=== PATIENT | female | born 1960 | race Caucasian/White ===

== ENCOUNTER → 2017-01-05 | Outpatient (CLI) | payer BC, OTHER ==
[~2017-01-05] VITALS: Ht 165.1 cm; Wt 75.7 kg
[~2017-01-05] MED LIST: ACIP20TA5 PO; B 12; BIOT10005; CALTTAB6 PO; D31000CA PO; FOSA70TA PO; GABA300C3 PO; GAS-80CH PO; MULT1TAB9 PO; NORT10SO PO; NS 1,000 ML IV SCH; PAME10CA PO; PROPOFOL 200 MG/20 ML VIAL As Ordered ONE; SING10TA32 PO; SKEL-29 PO; SOMA350T PO; TOPA100T8 PO; TRAM50TA2 PO; VICO5TAB16 PO; VITA10002 PO; VITACAP16 PO; VITAMIN B12 INJ IM; WELLTAB40 PO; ZYRT10CA PO
[2017-01-05 09:30] VITALS: BP 118/69
--- NOTE | 2017-01-05 09:53 | ROOR ---
Patient Name: Leia Aguilar Procedure Date: 01/05/2017 8:48 AM Date of : 1960 Age: 56 Room: [facility] Gender: Female Note Status: Finalized Procedure: Colonoscopy Indications: Screening for colorectal malignant neoplasm Providers: Judd Horan Jr, MD Referring MD: MARCELLO DANIELS MD Requesting Provider: Medicines: Propofol per Anesthesia Complications: No immediate complications. Procedure: Pre-Anesthesia Assessment: - Prior to the procedure, a History and Physical was performed, and patient medications and allergies were reviewed. The patient is competent. The risks and benefits of the procedure and the sedation options and risks were discussed with the patient. All questions were answered and informed consent was obtained. Patient identification and proposed procedure were verified by the physician and the nurse in the pre-procedure area and in the procedure room. Mental Status Examination: alert and oriented. Airway Examination: normal oropharyngeal airway and neck mobility. Respiratory Examination: clear to auscultation. CV Examination: normal. ASA Grade Assessment: II - A patient with mild systemic disease. After reviewing the risks and benefits, the patient was deemed in satisfactory condition to undergo the procedure. The anesthesia plan was to use moderate sedation / analgesia (conscious sedation). Immediately prior to administration of medications, the patient was re-assessed for adequacy to receive sedatives. The heart rate, respiratory rate, oxygen saturations, blood pressure, adequacy of pulmonary ventilation, and response to care were monitored throughout the procedure. The physical status of the patient was re-assessed after the procedure. The Colonoscope was introduced through the anus and advanced to the cecum, identified by appendiceal orifice and ileocecal valve. The colonoscopy was performed without difficulty. The patient tolerated the procedure well. The quality of the bowel preparation was adequate and good. Findings: The perianal and digital rectal examinations were normal. Pertinent negatives include normal sphincter tone, no palpable rectal lesions and no anal lesion or abnormality was detected. The rectum, recto-sigmoid colon, sigmoid colon, descending colon, transverse colon, ascending colon, cecum, appendiceal orifice and ileocecal valve appeared normal. Impression: - The rectum, recto-sigmoid colon, sigmoid colon, descending colon, transverse colon, ascending colon, cecum, appendiceal orifice and ileocecal valve are normal. - No specimens collected. Recommendation: - Discharge patient to home (ambulatory). - Repeat colonoscopy in 10 years for screening purposes. Judd Horan MD Judd Horan Jr, MD 01/05/2017 9:52:42 AM This report has been signed electronically. Number of Addenda: 0 Note Initiated On: 01/05/2017 8:48 AM Estimated Blood Loss: Estimated blood loss: none.
== END ==
LOC: M OPP 08:06
PROVIDERS: ATTEND Surgery
DX: Z12.11 Encounter for screening for malignant neoplasm of colon (principal); F32.9 Major depressive disorder, single episode, unspecified; K21.9 Gastro-esophageal reflux disease without esophagitis; F41.9 Anxiety disorder, unspecified; E66.9 Obesity, unspecified; Z85.828 Personal history of other malignant neoplasm of skin; Z98.84 Bariatric surgery status; J30.2 Other seasonal allergic rhinitis; Z79.899 Other long term (current) drug therapy; Z88.1 Allergy status to other antibiotic agents

== ENCOUNTER → 2017-03-21 | Outpatient (CLI) | payer BC, OTHER ==
[~2017-03-21] MED LIST changes: +GABA-282 PO; -GABA300C3 PO; -NS 1,000 ML IV SCH; -PROPOFOL 200 MG/20 ML VIAL As Ordered ONE
--- NOTE | 2017-03-21 11:53 | REP ---
CT LUMBAR SPINE WITHOUT CONTRAST: HISTORY: Disc degeneration. A disc bulge with associated osteophyte formation is present at the L1-2 level. There is minimal compression of the thecal sac. The L1 nerves exit the neural foramina without compression. A diffuse disc bulge is present at the L2-3 level. There is minimal compression of the thecal sac. The L2 nerves exit the neural foramina without compression. A diffuse disc bulge is present at the L3-4 level. There is minimal compression of the thecal sac. The L3 nerves exit the neural foramina without compression. A diffuse disc bulge is present at the L4-5 level. There is hypertrophy of the ligamenta flava and posterior articulating facets. There are 6 mm of grade 1 spondylolisthesis of L4 on 5. These findings produce mild central canal stenosis. There is compression of the right L4 nerve in the neural foramen. The left L4 nerve exits the neural foramen without compression. A diffuse disc bulge is present at the L5-S1 level. There is minimal compression of the thecal sac. There is hypertrophy of the posterior articulating facets. The L5 nerves exit the neural foramina without compression. The T11-12 through L5-S1 intervertebral discs are decreased in height. Vacuum phenomenon is present at the T12-L1 level. These findings are consistent with disc degeneration. There is scoliosis convex to the right. IMPRESSION: 1. Diffuse disc bulge with associated osteophyte formation at the L1-2 level with minimal thecal sac compression. 2. Diffuse disc bulges at the L2-3, L3-4, and L5-S1 levels with minimal thecal sac compression. 3. Mild central canal stenosis at the L4-5 level secondary to disc bulge, ligamentous and facet hypertrophy and grade 1 spondylolisthesis. There is compression of the right L4 nerve in the neural foramen. Signed by Timoteo Pineda MD 03/21/2017 11:55 A
== END ==
LOC: M RAD 10:19
PROVIDERS: ATTEND Physician Assistant
DX: M51.36 Other intervertebral disc degeneration, lumbar region (principal); M51.26 Other intervertebral disc displacement, lumbar region; M51.27 Other intervertebral disc displacement, lumbosacral region; M48.07 Spinal stenosis, lumbosacral region

== ENCOUNTER → 2017-08-09 | Outpatient (REF) | payer OTHER ==
[~2017-08-09] MED LIST changes: +ACIP1TAB PO; -ACIP20TA5 PO; -BIOT10005; +BIOT10008; -D31000CA PO; +D31000CA4 PO; -SKEL-29 PO; +SKEL800T97 PO; +TOPA100T12 PO; -TOPA100T8 PO
[2017-08-09 21:13] LABS: MICROSCOPIC INDICATED? MAN YES (NO)
[2017-08-09 21:21] LABS: BACTERIA, URINE LARGE AMOUNT; CALCIUM OXALATE CRYSTALS,URINE SMALL AMOUNT /hpf; HYALINE CAST, URINE NONE SEEN /lpf (0-1); MICROSCOPIC EXAM PERFORMED; SQUAMOUS EPITHELIAL CELL URINE SMALL AMOUNT /hpf (SMALL AMT); WBC, URINE TNTC /hpf (0-3)
== END ==
LOC: M LAB REF 16:37
PROVIDERS: ATTEND Physician Assistant
DX: N39.0 Urinary tract infection, site not specified (principal)

== ENCOUNTER 2017-09-09 13:07 | Emergency (ER) | payer BC, OTHER ==
[~2017-09-09] VITALS: Ht 162.6 cm; Wt 75.9 kg
[2017-09-09] MEDS ORDERED: CELE1CAP9 PO (13:21)
[2017-09-09] MEDS ORDERED: CLIN150C14 PO ×2 (14:44→16:04)
[2017-09-09] MEDS ORDERED: CLINDAMYCIN 150 MG CAP PO ONE (14:45)
[2017-09-09] MEDS ORDERED: PERC5TAB12 PO ×2 (14:46→16:05)
[2017-09-09 14:59] VITALS: BP 147/77
== END 2017-09-09 15:01 | disposition home or self-care (01) ==
LOC: M ED 13:07
DX: K04.7 Periapical abscess without sinus (principal); K08.89 Other specified disorders of teeth and supporting structures; K21.9 Gastro-esophageal reflux disease without esophagitis; M81.0 Age-related osteoporosis without current pathological fracture; Z79.899 Other long term (current) drug therapy; Z97.2 Presence of dental prosthetic device (complete) (partial); Z88.1 Allergy status to other antibiotic agents; Z88.2 Allergy status to sulfonamides

== ENCOUNTER → 2018-02-05 | Outpatient (REF) | payer BC, OTHER ==
[2018-02-05 13:48] LABS: APPEARANCE, URINE CLEAR (CLEAR); BACTERIA, URINE AUTO 2+ (NEGATIVE); BILIRUBIN, URINE AUTO NEGATIVE (NEGATIVE); BLOOD, URINE BLOOD NEGATIVE (NEGATIVE); COLOR, URINE AMBER (YELLOW); GLUCOSE, URINE (UA) AUTO NEGATIVE (NEGATIVE); KETONE, URINE AUTO NEGATIVE (NEGATIVE); LEUKOCYTE ESTERASE, URINE AUTO 3+ (NEGATIVE); MUCUS, URINE SMALL (NEGATIVE); NITRITE, URINE AUTO POSITIVE (NEGATIVE); PROTEIN, URINE AUTO NEGATIVE (NEGATIVE); RBC, URINE AUTO 4 /HPF (0-3); SPECIFIC GRAVITY URINE AUTO 1.005 (1.002-1.035); SQUAMOUS EPITHELIAL CELL UR AU 0 /HPF (0-6); WBC, URINE AUTO 103 /HPF (0-3)
== END ==
LOC: M LAB REF 12:57
DX: N39.0 Urinary tract infection, site not specified (principal)
CPT/HCPCS: 81001

== ENCOUNTER → 2018-04-13 | Outpatient (CLI) | payer OTHER | LOC: M PAIN 09:30 | DX: M79.1 Myalgia (principal); M54.5 Low back pain; M54.2 Cervicalgia; G89.29 Other chronic pain; G43.909 Migraine, unspecified, not intractable, without status migrainosus; F32.9 Major depressive disorder, single episode, unspecified; K21.9 Gastro-esophageal reflux disease without esophagitis; Z79.899 Other long term (current) drug therapy; Z88.1 Allergy status to other antibiotic agents | CPT/HCPCS: G0463 ==

== ENCOUNTER → 2018-04-18 | Outpatient (CLI) | payer BC, OTHER ==
[~2018-04-18] MED LIST changes: -ACIP1TAB PO; -B 12; -BIOT10008; +BUPIVACAINE HCL 0.25% 10 ML VIAL As Ordered; +BUPIVACAINE HCL 0.25% 30 ML VIAL As Ordered; -CALTTAB6 PO; -D31000CA4 PO; -FOSA70TA PO; -GABA-282 PO; -GAS-80CH PO; -MULT1TAB9 PO; -NORT10SO PO; -PAME10CA PO; -SING10TA32 PO; -SKEL800T97 PO; -SOMA350T PO; -TOPA100T12 PO; -TRAM50TA2 PO; +TRIAMCINOLONE ACETONIDE SUSP 40 MG/ML VIAL (J3301) As Ordered; -VICO5TAB16 PO; -VITA10002 PO; -VITACAP16 PO; -VITAMIN B12 INJ IM; -WELLTAB40 PO; -ZYRT10CA PO; +diazePAM 5 MG TAB As Ordered; +oxyCODONE 5MG TAB As Ordered
== END ==
LOC: M PAIN 10:15
DX: G89.29 Other chronic pain (principal); M79.1 Myalgia; G43.909 Migraine, unspecified, not intractable, without status migrainosus; K21.9 Gastro-esophageal reflux disease without esophagitis; F32.9 Major depressive disorder, single episode, unspecified; Z79.891 Long term (current) use of opiate analgesic; Z79.899 Other long term (current) drug therapy; Z88.1 Allergy status to other antibiotic agents; Z98.84 Bariatric surgery status; Z90.711 Acquired absence of uterus with remaining cervical stump
CPT/HCPCS: J3301

== ENCOUNTER → 2018-05-03 | Outpatient (CLI) | payer BC, OTHER | LOC: M PAIN 11:45 | DX: M79.1 Myalgia (principal); G43.909 Migraine, unspecified, not intractable, without status migrainosus; K21.9 Gastro-esophageal reflux disease without esophagitis; F32.9 Major depressive disorder, single episode, unspecified; M54.2 Cervicalgia; Z79.891 Long term (current) use of opiate analgesic; Z79.899 Other long term (current) drug therapy; Z88.2 Allergy status to sulfonamides | CPT/HCPCS: G0463 ==

== ENCOUNTER → 2018-06-01 | Outpatient (CLI) | payer BC, OTHER | LOC: M PAIN 11:45 | DX: G89.29 Other chronic pain (principal); M79.1 Myalgia; G43.909 Migraine, unspecified, not intractable, without status migrainosus; K21.9 Gastro-esophageal reflux disease without esophagitis; F32.9 Major depressive disorder, single episode, unspecified; Z79.891 Long term (current) use of opiate analgesic; Z79.899 Other long term (current) drug therapy; Z90.710 Acquired absence of both cervix and uterus; Z98.84 Bariatric surgery status; Z88.1 Allergy status to other antibiotic agents; Z96.9 Presence of functional implant, unspecified | CPT/HCPCS: J3301 ==

== ENCOUNTER 2018-07-23 10:16 | Inpatient (IN) | payer BC, OTHER ==
[2018-07-23 11:56] LABS: HEMATOCRIT 40.6 % (36.0-47.0); HEMOGLOBIN 13.3 g/dl (12.0-15.5); MEAN CORPUSCULAR HEMOGLOBIN 28.7 pg (27.0-33.0); MEAN CORPUSCULAR HGB CONC 32.8 g/dl (32.0-36.5); MEAN CORPUSCULAR VOLUME 87.7 fl (80.0-96.0); PLATELET COUNT, AUTOMATED 257 10^3/uL (150-450); RED BLOOD COUNT 4.63 10^6/uL (4.00-5.40); WHITE BLOOD COUNT 6.2 10^3/uL (4.0-10.0)
[2018-07-23 12:07] LABS: INR 0.93; PROTHROMBIN TIME 12.6 SECONDS (12.1-14.4)
[2018-07-23 12:08] LABS: PARTIAL THROMBOPLASTIN TIME 28.4 SECONDS (25.4-37.6)
[2018-07-23 12:32] LABS: ANION GAP 5 MEQ/L (8-16); BLOOD UREA NITROGEN 11 MG/DL (7-18); CALCIUM LEVEL 8.8 MG/DL (8.5-10.1); CARBON DIOXIDE LEVEL 26 MEQ/L (21-32); CHLORIDE LEVEL 111 MEQ/L (98-107); CK-MB VALUE MASS < 1.0 NG/ML (<3.6); CPK CREATINE PHOSPHOKINASE 85 U/L (26-192); CREATININE FOR GFR 0.76 MG/DL (0.55-1.30); GLOMERULAR FILTRATION RATE > 60.0 (>51); GLUCOSE, FASTING 90 MG/DL (70-100); MB/CK RELATIVE INDEX 1.18 (< OR =4); POTASSIUM SERUM 4.5 MEQ/L (3.5-5.1); SODIUM LEVEL 142 MEQ/L (136-145); TROPONIN I < 0.02 NG/ML (< 0.10)
[2018-07-23] MEDS ORDERED: ONDANSETRON 4MG/2ML VIAL (J2405) IV (13:30)
[2018-07-23] MEDS ORDERED: ISOVUE-370 76% 100ML VIAL (Q9967) As Ordered (13:40)
[2018-07-23] MEDS: LABETALOL HCL 100 MG/20 ML VIAL IV (14:19)
[2018-07-23] MEDS: METOCLOPRAMIDE INJ 10MG/2ML VIAL (J2765) IV (14:19)
[2018-07-23] MEDS: KETOROLAC 30 MG/ML VIAL (J1885) IV (14:19)
[2018-07-23 14:39] LABS: ERYTHROCYTE SEDIMENTATION RATE 10 mm/hr (0-30)
[2018-07-23 14:52] LABS: ETHYL ALCOHOL (ETHANOL) < 0.003 % (0.000-0.010)
[2018-07-23 14:52] LABS: C REACTIVE PROTEIN QUANTITATIV < 0.30 MG/DL (0.00-0.30)
[2018-07-23 14:54] LABS: FREE THYROXINE INDEX 2.1 % (1.3-4.8); T UPTAKE 31 % (30-39); THYROID STIMULATING HORMONE 0.984 uIU/ML (0.358-3.740); THYROXINE (T4) 6.9 UG/DL (4.5-12.0)
[2018-07-23] MEDS ORDERED: METAXALONE 800 MG TABLET PO (16:00)
[2018-07-23] MEDS: CETIRIZINE (ZyrTEC) 10 MG TAB PO (17:12)
[2018-07-23] MEDS: VITAMIN D 1,000 INTERNATIONAL UNITS TABLET PO (17:12)
[2018-07-23] MEDS: CYANOCOBALAMIN 500 MCG TAB PO (17:12)
[2018-07-23] MEDS: MULTIVITAMINS/MINERALS THERAP 1 TAB PO (17:12)
[2018-07-23] MEDS: ASPIRIN 81 MG ENTERIC TAB PO (17:13)
[2018-07-23] MEDS: amLODIPine 5 MG TAB PO (17:14)
[2018-07-23] MEDS: buPROPion **XL** TABLET 150MG (WELLBUTRIN XL) PO (17:14)
[2018-07-23] MEDS: MONTELUKAST 10 MG TAB PO (17:14)
[2018-07-23 17:33] LABS: CK-MB VALUE MASS < 1.0 NG/ML (<3.6); CPK CREATINE PHOSPHOKINASE 68 U/L (26-192); MB/CK RELATIVE INDEX 1.47 (< OR =4); TROPONIN I < 0.02 NG/ML (< 0.10)
[2018-07-23] MEDS: ATORVASTATIN 20 MG TAB PO (20:16)
[2018-07-23] MEDS: HEPARIN SOD (PORCINE) 5000 UNITS/ML VIAL SC (20:16)
[2018-07-23] MEDS: GABAPENTIN 300 MG CAP PO (20:17)
[2018-07-23] MEDS: TOPIRAMATE (TopAMAX) 100 MG TAB PO (20:17)
[2018-07-23] MEDS: CARISOPRODOL 350 MG TAB PO (20:17)
[2018-07-23] MEDS: SENOKOT S TAB PO (20:17)
[2018-07-23] MEDS: NORTRIPTYLINE 10 MG CAP PO (21:00)
[2018-07-23] MEDS: PERCOCET 5MG/325MG TAB PO (21:27)
[2018-07-23 23:34] LABS: CK-MB VALUE MASS < 1.0 NG/ML (<3.6); CPK CREATINE PHOSPHOKINASE 65 U/L (26-192); MB/CK RELATIVE INDEX 1.54 (< OR =4); TROPONIN I < 0.02 NG/ML (< 0.10)
[2018-07-24] MEDS: ACETAMINOPHEN TAB 650MG DOSE (2X325MG) PO (03:45)
[2018-07-24 05:35] LABS: HEMATOCRIT 37.8 % (36.0-47.0); HEMOGLOBIN 12.4 g/dl (12.0-15.5); MEAN CORPUSCULAR HEMOGLOBIN 28.5 pg (27.0-33.0); MEAN CORPUSCULAR HGB CONC 32.8 g/dl (32.0-36.5); MEAN CORPUSCULAR VOLUME 86.9 fl (80.0-96.0); PLATELET COUNT, AUTOMATED 240 10^3/uL (150-450); RED BLOOD COUNT 4.35 10^6/uL (4.00-5.40); RED CELL DISTRIBUTION WIDTH 12.9 % (11.5-14.5); WHITE BLOOD COUNT 5.8 10^3/uL (4.0-10.0)
[2018-07-24 06:05] LABS: ANION GAP 8 MEQ/L (8-16); BLOOD UREA NITROGEN 12 MG/DL (7-18); CALCIUM LEVEL 8.3 MG/DL (8.5-10.1); CARBON DIOXIDE LEVEL 25 MEQ/L (21-32); CHLORIDE LEVEL 109 MEQ/L (98-107); CHOLESTEROL LEVEL 159 MG/DL (<200); CK-MB VALUE MASS < 1.0 NG/ML (<3.6); CPK CREATINE PHOSPHOKINASE 57 U/L (26-192); CREATININE FOR GFR 0.84 MG/DL (0.55-1.30); GLOMERULAR FILTRATION RATE > 60.0 (>51); GLUCOSE, FASTING 89 MG/DL (70-100); HDL CHOLESTEROL 75 MG/DL (>40); LDL CHOLESTEROL 76 MG/DL (<100); MAGNESIUM LEVEL 2.1 MG/DL (1.8-2.4); MB/CK RELATIVE INDEX 1.75 (< OR =4); NON-HDL-C 84 MG/DL; POTASSIUM SERUM 3.7 MEQ/L (3.5-5.1); SODIUM LEVEL 142 MEQ/L (136-145); TRIGLYCERIDES LEVEL 40 MG/DL (<150); TROPONIN I < 0.02 NG/ML (< 0.10)
[2018-07-24] MEDS: CETIRIZINE (ZyrTEC) 10 MG TAB PO (09:38)
[2018-07-24] MEDS: SENOKOT S TAB PO ×2 (09:38→21:10)
[2018-07-24] MEDS: buPROPion **XL** TABLET 150MG (WELLBUTRIN XL) PO (09:38)
[2018-07-24] MEDS: NORTRIPTYLINE 10 MG CAP PO ×2 (09:38→21:09)
[2018-07-24] MEDS: MULTIVITAMINS/MINERALS THERAP 1 TAB PO (09:38)
[2018-07-24] MEDS: HEPARIN SOD (PORCINE) 5000 UNITS/ML VIAL SC ×2 (09:38→21:10)
[2018-07-24] MEDS: MONTELUKAST 10 MG TAB PO (09:38)
[2018-07-24] MEDS: CYANOCOBALAMIN 500 MCG TAB PO (09:39)
[2018-07-24] MEDS: TOPIRAMATE (TopAMAX) 100 MG TAB PO ×2 (09:39→21:10)
[2018-07-24] MEDS: VITAMIN D 1,000 INTERNATIONAL UNITS TABLET PO (09:39)
[2018-07-24] MEDS: amLODIPine 5 MG TAB PO (09:39)
[2018-07-24] MEDS: ASPIRIN 81 MG ENTERIC TAB PO (09:39)
[2018-07-24 12:36] LABS: CK-MB VALUE MASS < 1.0 NG/ML (<3.6); CPK CREATINE PHOSPHOKINASE 67 U/L (26-192); MB/CK RELATIVE INDEX 1.49 (< OR =4); TROPONIN I < 0.02 NG/ML (< 0.10)
[2018-07-24] MEDS: PERCOCET 5MG/325MG TAB PO ×2 (12:44→21:10)
[2018-07-24 18:14] LABS: CK-MB VALUE MASS < 1.0 NG/ML (<3.6); CPK CREATINE PHOSPHOKINASE 64 U/L (26-192); MB/CK RELATIVE INDEX 1.56 (< OR =4); TROPONIN I < 0.02 NG/ML (< 0.10)
[2018-07-24] MEDS: ATORVASTATIN 20 MG TAB PO (21:09)
[2018-07-24] MEDS: CARISOPRODOL 350 MG TAB PO (21:09)
[2018-07-24] MEDS: GABAPENTIN 300 MG CAP PO (21:10)
[2018-07-25 00:17] LABS: CK-MB VALUE MASS < 1.0 NG/ML (<3.6); CPK CREATINE PHOSPHOKINASE 76 U/L (26-192); MB/CK RELATIVE INDEX 1.32 (< OR =4); TROPONIN I < 0.02 NG/ML (< 0.10)
[2018-07-25] MEDS: PERCOCET 5MG/325MG TAB PO ×2 (04:00→10:32)
[2018-07-25 05:58] LABS: HEMATOCRIT 40.2 % (36.0-47.0); HEMOGLOBIN 12.9 g/dl (12.0-15.5); MEAN CORPUSCULAR HEMOGLOBIN 28.2 pg (27.0-33.0); MEAN CORPUSCULAR HGB CONC 32.1 g/dl (32.0-36.5); PLATELET COUNT, AUTOMATED 248 10^3/uL (150-450); RED BLOOD COUNT 4.57 10^6/uL (4.00-5.40)
[2018-07-25 06:23] LABS: ANION GAP 5 MEQ/L (8-16); BLOOD UREA NITROGEN 10 MG/DL (7-18); CALCIUM LEVEL 8.2 MG/DL (8.5-10.1); CARBON DIOXIDE LEVEL 26 MEQ/L (21-32); CHLORIDE LEVEL 111 MEQ/L (98-107); CK-MB VALUE MASS < 1.0 NG/ML (<3.6); CPK CREATINE PHOSPHOKINASE 64 U/L (26-192); GLOMERULAR FILTRATION RATE > 60.0 (>51); GLUCOSE, FASTING 94 MG/DL (70-100); MAGNESIUM LEVEL 2.1 MG/DL (1.8-2.4); MB/CK RELATIVE INDEX 1.56 (< OR =4); SODIUM LEVEL 142 MEQ/L (136-145); TROPONIN I < 0.02 NG/ML (< 0.10)
[2018-07-25] MEDS: NORTRIPTYLINE 10 MG CAP PO (08:27)
[2018-07-25] MEDS: ASPIRIN 81 MG ENTERIC TAB PO (08:27)
[2018-07-25] MEDS: VITAMIN D 1,000 INTERNATIONAL UNITS TABLET PO (08:27)
[2018-07-25] MEDS: MONTELUKAST 10 MG TAB PO (08:28)
[2018-07-25] MEDS: CYANOCOBALAMIN 500 MCG TAB PO (08:28)
[2018-07-25] MEDS: CETIRIZINE (ZyrTEC) 10 MG TAB PO (08:28)
[2018-07-25] MEDS: buPROPion **XL** TABLET 150MG (WELLBUTRIN XL) PO (08:28)
[2018-07-25] MEDS: amLODIPine 5 MG TAB PO (08:28)
[2018-07-25] MEDS: MULTIVITAMINS/MINERALS THERAP 1 TAB PO (08:28)
[2018-07-25] MEDS: TOPIRAMATE (TopAMAX) 100 MG TAB PO (08:28)
[2018-07-25] MEDS: SENOKOT S TAB PO (08:28)
[2018-07-25] MEDS: HEPARIN SOD (PORCINE) 5000 UNITS/ML VIAL SC (08:29)
[2018-07-25] MEDS: ACETAMINOPHEN TAB 650MG DOSE (2X325MG) PO (08:32)
[2018-07-25] MEDS ORDERED: SLF 3 ML SYR IV ×2 (08:45→14:00)
== END 2018-07-25 11:16 | disposition home or self-care (01) | DRG 47 ==
LOC: M ED 10:16 → M ED INP 13:10 → M PCU 15:17
DX: G45.9 Transient cerebral ischemic attack, unspecified (principal); I10 Essential (primary) hypertension; M54.81 Occipital neuralgia; G43.909 Migraine, unspecified, not intractable, without status migrainosus; Z96.0 Presence of urogenital implants; K21.9 Gastro-esophageal reflux disease without esophagitis; M54.2 Cervicalgia; F32.9 Major depressive disorder, single episode, unspecified; R32 Unspecified urinary incontinence; Z88.2 Allergy status to sulfonamides; Z90.710 Acquired absence of both cervix and uterus; Z98.84 Bariatric surgery status; Z79.899 Other long term (current) drug therapy; Z87.891 Personal history of nicotine dependence

== ENCOUNTER → 2018-09-12 | Outpatient (CLI) | payer BC, OTHER | LOC: M PAIN 10:15 | DX: M79.18 Myalgia, other site (principal); M54.2 Cervicalgia; G43.909 Migraine, unspecified, not intractable, without status migrainosus; F32.9 Major depressive disorder, single episode, unspecified; Z79.82 Long term (current) use of aspirin; Z79.899 Other long term (current) drug therapy; Z88.1 Allergy status to other antibiotic agents; Z86.73 Personal history of transient ischemic attack (TIA), and cerebral infarction without residual deficits; Z98.84 Bariatric surgery status | CPT/HCPCS: G0463 ==

== ENCOUNTER → 2018-09-17 | Outpatient (CLI) | payer BC, OTHER ==
[~2018-09-17] MED LIST changes: -BUPIVACAINE HCL 0.25% 10 ML VIAL As Ordered
== END ==
LOC: M PAIN 14:15
DX: M79.18 Myalgia, other site (principal); M54.2 Cervicalgia; G43.909 Migraine, unspecified, not intractable, without status migrainosus; F32.9 Major depressive disorder, single episode, unspecified; M19.90 Unspecified osteoarthritis, unspecified site; J30.89 Other allergic rhinitis; Z79.82 Long term (current) use of aspirin; Z79.899 Other long term (current) drug therapy; Z88.1 Allergy status to other antibiotic agents; Z86.73 Personal history of transient ischemic attack (TIA), and cerebral infarction without residual deficits; Z98.84 Bariatric surgery status
CPT/HCPCS: J3301

== ENCOUNTER 2018-09-19 12:57 | Day surgery (SDC) | payer BC, OTHER ==
[2018-09-19 13:38] LABS: HEMATOCRIT 40.3 % (36.0-47.0); HEMOGLOBIN 13.2 g/dl (12.0-15.5); MEAN CORPUSCULAR HEMOGLOBIN 28.5 pg (27.0-33.0); MEAN CORPUSCULAR HGB CONC 32.8 g/dl (32.0-36.5); PLATELET COUNT, AUTOMATED 284 10^3/uL (150-450); RED BLOOD COUNT 4.63 10^6/uL (4.00-5.40); RED CELL DISTRIBUTION WIDTH 13.2 % (11.5-14.5); WHITE BLOOD COUNT 8.1 10^3/uL (4.0-10.0)
[2018-09-19] MEDS: LR 1,000 ML IV (13:50)
[2018-09-19 13:59] LABS: ANION GAP 5 MEQ/L (8-16); BLOOD UREA NITROGEN 11 MG/DL (7-18); CALCIUM LEVEL 8.6 MG/DL (8.5-10.1); CARBON DIOXIDE LEVEL 24 MEQ/L (21-32); CHLORIDE LEVEL 111 MEQ/L (98-107); CREATININE FOR GFR 0.99 MG/DL (0.55-1.30); GLOMERULAR FILTRATION RATE > 60.0 (>51); GLUCOSE, FASTING 68 MG/DL (70-100); POTASSIUM SERUM 4.2 MEQ/L (3.5-5.1); SODIUM LEVEL 140 MEQ/L (136-145)
[2018-09-19] MEDS ORDERED: PROPOFOL 500 MG/50 ML VIAL As Ordered (14:59)
[2018-09-19] MEDS ORDERED: MIDAZOLAM INJ 2 MG/2 ML VIAL (J2250) As Ordered (14:59)
[2018-09-19] MEDS ORDERED: fentaNYL 100 MCG/2 ML INJECTION (J3010) As Ordered (14:59)
[2018-09-19] MEDS ORDERED: LIDOCAINE 2% INJ 100 MG/5 ML SDV (FOR ANES.) As Ordered (14:59)
[2018-09-19] MEDS ORDERED: LIDOCAINE 1% SDV INJ 30 ML VIAL As Ordered (16:53)
[2018-09-19] MEDS: ACETAMINOPHEN 650 MG SUPP PR (17:20)
[2018-09-19] MEDS: ACETAMINOPHEN 650 MG SUPP As Ordered (17:20)
[2018-09-19] MEDS: ceFAZolin 1GM INJ (J0690 PER 500MG) As Ordered (17:37)
[2018-09-19] MEDS ORDERED: IBUPROFEN 800 MG TAB PO (18:45)
[2018-09-19] MEDS ORDERED: PERCOCET 5MG/325MG TAB PO (18:45)
== END 2018-09-19 19:10 | disposition home or self-care (01) ==
LOC: M SDC 12:57
DX: M54.2 Cervicalgia (principal); T85.192A Other mechanical complication of implanted electronic neurostimulator of spinal cord electrode (lead), initial encounter; T85.193A Other mechanical complication of implanted electronic neurostimulator, generator, initial encounter; Y75.8 Miscellaneous neurological devices associated with adverse incidents, not elsewhere classified; Z79.82 Long term (current) use of aspirin; Z79.899 Other long term (current) drug therapy; Z88.1 Allergy status to other antibiotic agents; N32.81 Overactive bladder
CPT/HCPCS: 64595

== ENCOUNTER → 2018-10-10 | Outpatient (CLI) | payer OTHER ==
[~2018-10-10] MED LIST changes: +ACIP1TAB PO; +ALLERGY SHOTS IM; +AMLO5TAB6 PO; +ASPI81TAEC PO; +ATOR1TAB21 PO; +ATOR40TA75 PO; +B 12; +BACL10TA2 PO; +BIOT10008; +BOTOX INJECTIONS SQ; -BUPIVACAINE HCL 0.25% 30 ML VIAL As Ordered; +CALTTAB6 PO; +CELE1CAP9 PO; +CLIN150C14 PO; +CYAN1000VL IM; +D31000CA4 PO; +EUFL10IN INJ; +FOSA70TA PO; +GABA-843 PO; +GAS-80CH PO; +MULT1TAB9 PO; +NORT10SO PO; +PAME10CA PO; +PERC5TAB12 PO; +SING10TA32 PO; +SKEL800T97 PO; +SOMA350T PO; +TOPA100T12 PO; +TRAM50TA2 PO; -TRIAMCINOLONE ACETONIDE SUSP 40 MG/ML VIAL (J3301) As Ordered; +VICO5TAB16 PO; +VITA10002 PO; +VITA100072 PO; +VITACAP16 PO; +VITAMIN B12 INJ IM; +WELLTAB40 PO; +ZYRT10CA PO; -diazePAM 5 MG TAB As Ordered; -oxyCODONE 5MG TAB As Ordered
--- NOTE | 2018-10-28 23:59 | ECWPNPC ---
PATIENT NAME: REMY RED : 1960 GENDER: FEMALE VISIT DATE: 10/10/2018 DISCHARGE DATE: 10/10/181730 VISIT LOCKED DATE TIME: PHYSICIAN: AVINASH SANTIAGO MD RESOURCE: AVINASH SANTIAGO MD REASON FOR APPOINTMENT 1. POST TPI HISTORY OF PRESENT ILLNESS HISTORY OF PRESENT ILLNESS: PAIN THE PATIENT DESCRIBES THE PAIN... 57 YEAR OLD FEMALE PATIENT WITH A HISTORY OF CHRONIC NECK PAIN. THE PATIENT DESCRIBES THE PAIN SHARP, STABBING, SORE, SHOOTING, AND HAVING IT ALL THE TIME WITH A PAIN SCORE OF 6-10/10 DEPENDING ON PHYSICAL ACTIVITY. THE PATIENT PREVIOUSLY WAS UNABLE TO HAVE AN MRI DUE TO A BLADDER STIMULATOR, BUT HAD THE DEVICE REMOVED ABOUT A MONTH AGO BECAUSE SHE STATES IT WAS NOT HELPING. THE PATIENT PREVIOUSLY HAD A TRIGGER POINT INJECTION ON 09/17/2018 AND REPORTS HAVING OVER 50% PAIN RELIEF. PATIENT DENIES UNEXPLAINABLE WEIGHT LOSS, FEVER, CHILLS, NEW CHANGES ON HER URINARY OR BOWEL CONTROL. FALL RISK SCREENING: SCREENING :NO FALLS IN THE PAST YEAR CURRENT MEDICATIONS TAKING GABAPENTIN 300 MG CAPSULE 1 CAPSULE ORALLY BEFORE BEDTIME, NOTES: 09/16/18 TAKING SOMA 350 MG TABLET 1 TABLET NEEDED ORALLY BEFORE BEDTIME, NOTES: 09/16/18 TAKING BACLOFEN 10 MG TABLET 1 TABLET WITH FOOD OR MILK ORALLY THREE TIMES DAILY NEEDED, NOTES: 09/16/18 TAKING SUMATRIPTAN SUCCINATE 100 MG TABLET 1 TABLET NEEDED ORALLY 1 TABLET AT ONSET OF MIGRAINE, MAY REPEAT ONCE IN 2 HOURS, NOTES: 09/16/18 TAKING TOPAMAX 100 MG TABLET 1 TABLET ORALLY TWICE A DAY, NOTES: 09/16/18 TAKING WELLBUTRIN XL 300 MG TABLET EXTENDED RELEASE 24 HOUR 1 TABLET IN THE MORNING ORALLY ONCE A DAY, NOTES: 09/16/18 TAKING ACIPHEX 20 MG TABLET DELAYED RELEASE 1 TABLET ORALLY ONCE A DAY, NOTES: 09/16/18 TAKING ZYRTEC 1 TAB ORAL DAILY, NOTES: 09/16/18 TAKING SINGULAIR 10 MG TABLET 1 TABLET ORALLY ONCE A DAY, NOTES: 09/16/18 TAKING NORTRIPTYLINE HCL 10 MG CAPSULE 1 CAPSULE ORALLY ONCE A DAY, NOTES: 09/16/18 TAKING FOSAMAX 70 MG TABLET 1 TABLET ORALLY WEEKLY, NOTES: 09/14/18 TAKING CELECOXIB 200 MG CAPSULE 1 CAPSULE WITH FOOD ORALLY ONCE A DAY, NOTES: 09/12/18 TAKING VITAMIN B 12 1 TAB ORALLY DAILY, NOTES: 09/16/18 TAKING MULTIVITAMIN ADULTS 50+ 1 CAP ORALLY DAILY, NOTES: 09/16/18 TAKING VITAMIN A 8000 UNIT TABLET 1 TAB ORALLY DAILY, NOTES: 09/16/18 TAKING VITAMIN D 1000 UNIT TABLET 1 CAPSULE ORALLY DAILY, NOTES: 09/16/18 TAKING CALTRATE 600+D _600 1200 1 CAP DAILY, NOTES: 09/16/18 TAKING HYDROCODONE-ACETAMINOPHEN 5-325 MG TABLET 1 TABLET NEEDED ORALLY THREE TIMES DAILY NEEDED, NOTES: NONE RECENTLY TAKING GAS-X 2 TABS ORALLY DAILY, NOTES: 09/16/18 TAKING BIOTIN 1000 MCG TABLET 1 TABLET ORALLY DAILY, NOTES: 09/16/18 TAKING ASPIRIN 81 81 MG TABLET CHEWABLE 1 TABLET ORALLY ONCE A DAY, NOTES: 1 WEEK AGO TAKING AMLODIPINE BESYLATE 5 MG TABLET 1 TABLET ORALLY ONCE A DAY, NOTES: 09/16/19 TAKING LIPITOR 40 MG TABLET 1 TABLET ORALLY ONCE A DAY, NOTES: 09/16/18 MEDICATION LIST REVIEWED AND RECONCILED WITH THE PATIENT PAST MEDICAL HISTORY MIGRAINE HEADACHES URINARY IMPLANT FOR URINARY INCONTINENCE GERD ARTHRITIS BACK PAIN/NECK PAIN DEPRESSION TIA NECK AND SHOULDER PAIN ALLERGIES BACTRIM DS: HIVES: ALLERGY ENVIRONMENTAL ALLERGIES SURGICAL HISTORY HYSTERECTOMY X 2 BARIATRIC SURGERY BLADDER IMPLANT REMOVAL OF BLADDER IMPLANT 08/2018 FAMILY HISTORY FATHER: MOTHER: 80 YRS 1 BROTHER(S) , 1 SISTER(S) - HEALTHY. 1 SON(S) , 1 DAUGHTER(S) - HEALTHY. MOM WITH COPD, EMPHYSEMA. SOCIAL HISTORY GENERAL: TOBACCO USE ARE YOU A:NONSMOKER RECREATIONAL DRUG USE DRUG USE?NO CAFFEINE CAFFEINE USE?YES HOW OFTEN AND HOW MUCH? 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 EXERCISE: 3 X WEEK PLANET FITNESS. MARITAL STATUS: . OTHERS AT HOME: SPOUSE. PAIN CLINIC PFS, CLERGY, PUBLIC HEALTH REFERRALS PFS REFERRAL NEEDED?NO CLERGY REFERRAL NEEDED?NO PUBLIC HEALTH REFERRAL NEEDED?NO HAS THE PATIENT BEEN EDUCATED REGARDING HIS/HER PLAN OF CARE?YES HAS THE PATIENT BEEN EDUCATED REGARDING PAIN, THE RISK FOR PAIN, THE IMPORTANCE OF EFFECTIVE PAIN MANAGEMENT, AND THE PAIN ASSESSMENT PROCESS?YES ADVANCE DIRECTIVE ADVANCE DIRECTIVE DISCUSSED WITH PATIENT:YES HCP AND POA EVELYN RGSriram [phone] MICHELLE HAS A LIVING WILL. INSTRUCTED PATIENT TO BRING IN COPY. 09/12/18 1036 JS REVIEWED 04/13/18 1015 LAS04/18/18 1146 REVIEWED WITH PT. ADREVIEWED WITH PATIENT 09/12/18 1034 JSREVIEWED WITH PATIENT 10/10/18 1630 LAS. HOSPITALIZATION/MAJOR DIAGNOSTIC PROCEDURE SURGERIES CDIFF TIA 07/2018 REVIEW OF SYSTEMS REVIEWED BY: PROVIDER: AVINASH SANTIAGO MD . CONSTITUTIONAL: ANY CHANGE IN YOUR MEDICAL CONDITION? NO . CHILLS NO . FEVER NO . INFECTION: DO YOU HAVE NEW INFECTIONS? NO . DO YOU HAVE HISTORY OF MRSA? NO . MUSCULOSKELETAL: ANY NEW PATTERNS OF PAIN OR NUMBNESS? NO . GASTROENTEROLOGY: ANY NEW CHANGE IN BOWEL CONTROL? NO . GENITOURINARY: ANY NEW CHANGE IN BLADDER CONTROL? NO . IS THERE A CHANCE YOU COULD BE ? NO . HEMATOLOGY/LYMPH: DO YOU TAKE ANY BLOOD THINNERS? (FOR EXAMPLE- COUMADIN, PLAVIX, AGGRENOX, PLATEL, PRADAXA, OR XARELTO) NO . WHEN WAS YOUR LAST DOSE? DATE: TIME: . NEUROLOGY: HAVE YOU FALLEN IN THE PAST 6 MONTHS? NO . ANY NEW EXTREMITY NUMBNESS OR WEAKNESS? NO . CARDIOLOGY: DO YOU HAVE A PACEMAKER OR DEFIBRILLATOR? NO . RESPIRATORY: HAVE YOU BEEN SICK IN THE PAST WEEK? NO . FEVER NO . FLU LIKE SYMPTOMS? NO . COUGH NO . INTEGUMENTARY: DO YOU HAVE ANY RASHES OR OPEN SORES? NO . ALLERGIC/IMMUNO: ARE YOU ALLERGIC TO SHELLFISH OR IV DYE? NO . ANY NEW ALLERGIES? NO . PSYCHIATRIC: DO YOU HAVE THOUGHTS OF HURTING YOURSELF OR SOMEONE ELSE? NO . ARE YOU ABUSED, NEGLECTED, OR IN AN UNSAFE ENVIRONMENT? NO . ENDOCRINOLOGY: ARE YOU DIABETIC? NO . OTHER: DO YOU NEED ANY PRESCRIPTIONS? NO . IF YES, PLEASE LIST: ____ . ANY NEW PROBLEMS WITH YOUR MEDICATIONS? NO . WHEN DID YOU LAST EAT? ____ . WHEN DID YOU LAST DRINK? ____ . WHAT DID YOU LAST DRINK? ____ . NAME OF PERSON DRIVING YOU HOME? ____ . DO YOU HAVE ANY OTHER QUESTIONS OR CONCERNS PT RECENTLY HAD BLADDER STIM IMPLANT REMOVED, AND CAN NOW HAVE MRI'S . VITAL SIGNS WT 171 LBS, HT 64 IN, BMI 29.35 INDEX, BP 130/82 MM HG, HR 85 /MIN, RR 18 /MIN, TEMP 98.3 F, OXYGEN SAT % 99%, SAFE IN ENV? (Y/N) YES, NA INITIALS AW 1608, REVIEWED BY: JOEY. EXAMINATION GENERAL EXAMINATION: PATIENT IS ALERT O X 3 AND COOPERATIVE. TENDERNESS OVER THE NECK AREA. MASS OVER THE NECK AREA. CT OF THE LUMBAR SPINE DONE ON 06/12/2014 SHOWS DEGENERATIVE CHANGES AT MULTIPLE LEVELS. ASSESSMENTS MYALGIA, OTHER SITE - M79.18 (PRIMARY) MASS OF NECK - R22.1 TREATMENT MYALGIA, OTHER SITE CLINICAL NOTES: WE DISCUSSED SEVERAL ISSUES WITH MRS. RED'S PAIN MANAGEMENT CASE. NOW THAT THE PATIENT HAD THE BLADDER STIMULATOR REMOVED, I WILL ORDER A CERVICAL MRI WITH MARKERS TO GET A BETTER LOOK AT THE SOFT TISSUES OF THE NECK AND GET A BETTER UNDERSTANDING OF WHERE THE PATIENT'S PAIN IS COMING FROM. I WILL REQUEST ANY PREVIOUS MRI'S FROM [facility]. DEPENDING ON THE RESULTS OF THE MRI AND IF THE MASS OVER THE NECK AREA IS NOT CONCERNING,INTERVENTIONS WILL BE CONSIDERED. THE PATIENT WILL FOLLOW UP AFTER THE MRI IS COMPLETED. INSTRUCTIONS WERE GIVEN, QUESTIONS WERE ANSWERED, PATIENT REPORTS UNDERSTANDING AND AGREES WITH THE PLAN. I, MAX PATEL, DOCUMENTED THE ABOVE INFORMATION ACTING A SCRIBE FOR DR. SANTIAGO. I HAVE REVIEWED THE ABOVE DOCUMENT, WRITTEN BY MAX PEARCEIBDilma AND I VERIFY THAT IT IS ACCURATE. PROCEDURE CODES FA211 ESTABILISHED PATIENT [facility] FACILITY CHARGE G8427 CURRENT MEDS W/DOSAGES DOCUMENTED G8730 PAIN ASSESS POS TOOL F/U PLAN DOC DISPOSITION & COMMUNICATION FOLLOW UP 3 WEEKS ELECTRONICALLY SIGNED BY AVINASH SANTIAGO MD, ON 10/28/2018 AT 03:13 PM EST DISCLAIMER : THIS IS A VISIT SUMMARY EXTRACTED FROM THE [employer] CHART. IT IS NOT A COPY OF THE [employer] PROGRESS NOTE. MTDD
== END ==
LOC: M PAIN 16:00
PROVIDERS: ATTEND Anesthesiology
DX: M79.18 Myalgia, other site (principal); R22.1 Localized swelling, mass and lump, neck; G43.909 Migraine, unspecified, not intractable, without status migrainosus; K21.9 Gastro-esophageal reflux disease without esophagitis; F32.9 Major depressive disorder, single episode, unspecified; M54.2 Cervicalgia; Z79.891 Long term (current) use of opiate analgesic; Z79.899 Other long term (current) drug therapy; Z88.2 Allergy status to sulfonamides; J30.9 Allergic rhinitis, unspecified

== ENCOUNTER → 2019-02-15 | Outpatient (CLI) | payer BC, OTHER ==
[~2019-02-15] MED LIST changes: -VICO5TAB16 PO; +VICO5TAB17 PO; +VITA100018 PO; -VITA100072 PO
--- NOTE | 2019-03-04 00:58 | ECWPNPC ---
PATIENT NAME: REMY RED : 1960 GENDER: FEMALE VISIT DATE: 02/15/2019 DISCHARGE DATE: 02/15/19 1523 VISIT LOCKED DATE TIME: PHYSICIAN: AVINASH SANTIAGO MD RESOURCE: AVINASH SANTIAGO MD HISTORY OF PRESENT ILLNESS HISTORY OF PRESENT ILLNESS: PAIN THE PATIENT DESCRIBES THE PAIN... 58 YEAR OLD FEMALE PATIENT WITH A HISTORY OF CHRONIC CERVICAL PAIN. THE PATIENT DESCRIBES THE PAIN ACHING, STABBING, SHOOTING, SHARP, AND CONTINUOUS WITH A PAIN SCORE OF 6-9/10 DEPENDING ON PHYSICAL ACTIVITY. THE PATIENT SAYS THE PAIN IS MAINLY OVER HER RIGHT CERVICAL AREA. THE PATIENT STATES SHE IS ALSO HAVING SOME LOW BACK PAIN WELL. THE PATIENT RECEIVED A TRIGGER POINT INJECTION DONE ON 10/10/2018, WHICH SHE SAYS HELPED FOR A VERY SHORT TIME, BUT THE PAIN RETURNED. PATIENT DENIES UNEXPLAINABLE WEIGHT LOSS, FEVER, CHILLS, NEW CHANGES ON HER URINARY OR BOWEL CONTROL. FALL RISK SCREENING: SCREENING :NO FALLS REPORTED IN THE LAST YEAR CURRENT MEDICATIONS TAKING GABAPENTIN 300 MG CAPSULE 1 CAPSULE ORALLY BEFORE BEDTIME TAKING SOMA 350 MG TABLET 1 TABLET NEEDED ORALLY BEFORE BEDTIME TAKING BACLOFEN 10 MG TABLET 1 TABLET WITH FOOD OR MILK ORALLY THREE TIMES DAILY NEEDED TAKING SUMATRIPTAN SUCCINATE 100 MG TABLET 1 TABLET NEEDED ORALLY 1 TABLET AT ONSET OF MIGRAINE, MAY REPEAT ONCE IN 2 HOURS TAKING TOPAMAX 100 MG TABLET 1 TABLET ORALLY TWICE A DAY TAKING WELLBUTRIN XL 300 MG TABLET EXTENDED RELEASE 24 HOUR 1 TABLET IN THE MORNING ORALLY ONCE A DAY TAKING ACIPHEX 20 MG TABLET DELAYED RELEASE 1 TABLET ORALLY ONCE A DAY TAKING ZYRTEC 1 TAB ORAL DAILY TAKING SINGULAIR 10 MG TABLET 1 TABLET ORALLY ONCE A DAY TAKING NORTRIPTYLINE HCL 10 MG CAPSULE 1 CAPSULE ORALLY ONCE A DAY TAKING FOSAMAX 70 MG TABLET 1 TABLET ORALLY WEEKLY TAKING CELECOXIB 200 MG CAPSULE 1 CAPSULE WITH FOOD ORALLY ONCE A DAY TAKING VITAMIN B 12 1 TAB ORALLY DAILY TAKING MULTIVITAMIN ADULTS 50+ 1 CAP ORALLY DAILY TAKING VITAMIN A 8000 UNIT TABLET 1 TAB ORALLY DAILY TAKING VITAMIN D 1000 UNIT TABLET 1 CAPSULE ORALLY DAILY TAKING CALTRATE 600+D _600 1200 1 CAP DAILY TAKING HYDROCODONE-ACETAMINOPHEN 5-325 MG TABLET 1 TABLET NEEDED ORALLY THREE TIMES DAILY NEEDED, NOTES: NONE RECENTLY TAKING GAS-X 2 TABS ORALLY DAILY TAKING BIOTIN 1000 MCG TABLET 1 TABLET ORALLY DAILY TAKING ASPIRIN 81 81 MG TABLET CHEWABLE 1 TABLET ORALLY ONCE A DAY TAKING AMLODIPINE BESYLATE 5 MG TABLET 1 TABLET ORALLY ONCE A DAY TAKING LIPITOR 40 MG TABLET 1 TABLET ORALLY ONCE A DAY TAKING AJOVY 225 MG/1.5ML SOLUTION PREFILLED SYRINGE 1.5 ML SUBCUTANEOUS MEDICATION LIST REVIEWED AND RECONCILED WITH THE PATIENT PAST MEDICAL HISTORY MIGRAINE HEADACHES URINARY IMPLANT FOR URINARY INCONTINENCE GERD ARTHRITIS BACK PAIN/NECK PAIN DEPRESSION TIA NECK AND SHOULDER PAIN ALLERGIES BACTRIM DS: HIVES - ALLERGY ENVIRONMENTAL ALLERGIES SURGICAL HISTORY HYSTERECTOMY X 2 BARIATRIC SURGERY BLADDER IMPLANT REMOVAL OF BLADDER IMPLANT 08/2018 FAMILY HISTORY FATHER: MOTHER: 80 YRS 1 BROTHER(S) , 1 SISTER(S) - HEALTHY. 1 SON(S) , 1 DAUGHTER(S) - HEALTHY. MOM WITH COPD, EMPHYSEMA. SOCIAL HISTORY GENERAL: TOBACCO USE ARE YOU A:NONSMOKER OTHERS AT HOME: SPOUSE. 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 LANGUAGE LANGUAGES SPOKEN:JAPANESE DOMESTIC VIOLENCE DO YOU FEEL SAFE IN YOUR ENVIRONMENT?YES RECREATIONAL DRUG USE DRUG USE?NO EXERCISE: 3 X WEEK PLANET FITNESS. LEARNING BARRIERS / SPECIAL NEEDS BARRIERS TO LEARNING?NO HEARING IMPAIRED?NO VISION IMPAIRED?NO COGNITIVELY IMPAIRED?NO READINESS TO LEARN?YES LEARNING PREFERENCES?NO LEARNING CAPABILITIES PRESENT?YES EMOTIONAL BARRIERS?NO SPECIAL DEVICES?NO ELECTRICAL PROSPECTING OPERATOR NEEDED?NO PAIN CLINIC PFS, CLERGY, PUBLIC HEALTH REFERRALS PFS REFERRAL NEEDED?NO CLERGY REFERRAL NEEDED?NO PUBLIC HEALTH REFERRAL NEEDED?NO WAS THE PROVIDER NOTIFIED OF ANY PERTINENT INFO?YES HAS THE PATIENT BEEN EDUCATED REGARDING HIS/HER PLAN OF CARE?YES HAS THE PATIENT BEEN EDUCATED REGARDING PAIN, THE RISK FOR PAIN, THE IMPORTANCE OF EFFECTIVE PAIN MANAGEMENT, AND THE PAIN ASSESSMENT PROCESS?YES LATEX QUESTIONNAIRE LATEX ALLERGY : HAVE YOU EVER DEVELOPED ANY TYPE OF REACTION AFTER HANDLING LATEX PRODUCTS SUCH RUBBER GLOVES, CONDOMS, DIAPHRAGMS, BALLOONS, SOCKS, OR UNDERWEAR?NO LATEX ALLERGY : HAVE YOU EVER DEVELOPED ANY TYPE OF REACTION DURING OR AFTER DENTAL APPOINTMENT, VAGINAL/RECTAL EXAMINATION, SURGICAL PROCEDURE, OR ANY OTHER EXPOSURE?NO LATEX RISK : HAVE YOU EVER HAD ANY DIFFICULTY BREATHING OR HIVES AFTER EATING OR HANDLING ANY FRUITS, OR VEGETABLES; SUCH KIWI, BANANAS, STONE FRUITS, OR CHESTNUTSNO LATEX RISK : DO YOU HAVE A PREVIOUS PERSONAL HISTORY OF MORE THAN NINE SURGERIES, SPINA BIFIDA, OR REPEATED CATHERTIZATIONS? NO LATEX RISK : ARE YOU FREQUENTLY EXPOSED TO LATEX PRODUCTS IN YOUR OCCUPATION?NO DATE ASKED : 02/15/2019 CAFFEINE CAFFEINE USE?YES HOW OFTEN AND HOW MUCH? ICED TEA L LITER/DAY ADVANCE DIRECTIVE ADVANCE DIRECTIVE DISCUSSED WITH PATIENT:YES HCP AND POA EVELYN NESS [phone] MICHELLE HAS A LIVING WILL. INSTRUCTED PATIENT TO BRING IN COPY. JUDAISM [id number] NONE MARITAL STATUS: . 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 REVIEWED 04/13/18 1015 LAS04/18/18 1146 REVIEWED WITH PT. MAGGI WITH PATIENT 09/12/18 1034 JSREVIEWED WITH PATIENT 10/10/18 1630 LAS. HOSPITALIZATION/MAJOR DIAGNOSTIC PROCEDURE SURGERIES CDIFF TIA 07/2018 REVIEW OF SYSTEMS REVIEWED BY: PROVIDER: AVINASH SANTIAGO MD . CONSTITUTIONAL: ANY CHANGE IN YOUR MEDICAL CONDITION? NO . CHILLS NO . FEVER NO . INFECTION: DO YOU HAVE NEW INFECTIONS? NO . DO YOU HAVE HISTORY OF MRSA? NO . MUSCULOSKELETAL: ANY NEW PATTERNS OF PAIN OR NUMBNESS? NO . GASTROENTEROLOGY: ANY NEW CHANGE IN BOWEL CONTROL? NO . GENITOURINARY: ANY NEW CHANGE IN BLADDER CONTROL? NO . IS THERE A CHANCE YOU COULD BE ? NO . HEMATOLOGY/LYMPH: DO YOU TAKE ANY BLOOD THINNERS? (FOR EXAMPLE- COUMADIN, PLAVIX, AGGRENOX, PLATEL, PRADAXA, OR XARELTO) NO . WHEN WAS YOUR LAST DOSE? DATE: TIME: . NEUROLOGY: HAVE YOU FALLEN IN THE PAST 12 MONTHS? NO . ANY NEW EXTREMITY NUMBNESS OR WEAKNESS? NO . CARDIOLOGY: DO YOU HAVE A PACEMAKER OR DEFIBRILLATOR? NO . RESPIRATORY: HAVE YOU BEEN SICK IN THE PAST WEEK? NO . FEVER NO . FLU LIKE SYMPTOMS? NO . COUGH NO . INTEGUMENTARY: DO YOU HAVE ANY RASHES OR OPEN SORES? NO . ALLERGIC/IMMUNO: ARE YOU ALLERGIC TO IV DYE? NO . ANY NEW ALLERGIES? NO . PSYCHIATRIC: DO YOU HAVE THOUGHTS OF HURTING YOURSELF OR SOMEONE ELSE? NO . ARE YOU ABUSED, NEGLECTED, OR IN AN UNSAFE ENVIRONMENT? NO . ENDOCRINOLOGY: ARE YOU DIABETIC? NO . OTHER: DO YOU NEED ANY PRESCRIPTIONS? NO . IF YES, PLEASE LIST: ____ . ANY NEW PROBLEMS WITH YOUR MEDICATIONS? NO . WHEN DID YOU LAST EAT? ____ . WHEN DID YOU LAST DRINK? ____ . WHAT DID YOU LAST DRINK? ____ . NAME OF PERSON DRIVING YOU HOME? ____ . DO YOU HAVE ANY OTHER QUESTIONS OR CONCERNS NO . VITAL SIGNS WT 172.4 LBS, HT 64 IN, BMI 29.59 INDEX, BP 151/84 MM HG, HR 72 /MIN, RR 18 /MIN, TEMP 98.6 F, OXYGEN SAT % 98%, SAFE IN ENV? (Y/N) Y, NA INITIALS AW 1344, REVIEWED BY: NICOLE. EXAMINATION GENERAL EXAMINATION: PATIENT IS ALERT O X 3 AND COOPERATIVE. PAIN INCREASES OVER THE CERVICAL FACET JOINTS WITH EXTENSION AND LATERAL ROTATION OF THE NECK. MRI OF THE CERVICAL SPINE DONE ON 11/20/2018 SHOWS FACET ARTHROPATHY CHANGES. ASSESSMENTS SPONDYLOSIS OF CERVICAL REGION WITHOUT MYELOPATHY OR RADICULOPATHY - M47.812 (PRIMARY) TREATMENT SPONDYLOSIS OF CERVICAL REGION WITHOUT MYELOPATHY OR RADICULOPATHY CLINICAL NOTES: WE DISCUSSED SEVERAL ISSUES WITH MS. RED'S PAIN MANAGEMENT CASE. DUE TO THE CERVICAL SPONDYLOSIS, I WOULD LIKE TO MOVE FORWARD WITH A THERAPEUTIC CERVICAL FACET BLOCK AT THIS TIME. WE DISCUSSED THE BENEFITS, RISKS, AND ALTERNATIVES OF THE INJECTION AND THE PATIENT WOULD LIKE TO PROCEED. I AM PRESCRIBING CYMBALTA FOR THE PATIENT, AND I CHECKED TO ENSURE THAT THERE WOULD BE NO INTERACTIONS WITH WELLBUTRIN THAT WOULD CAUSE SEROTONIN SYNDROME. THE PATIENT WILL FOLLOW UP IN 3 WEEKS AFTER THE PROCEDURE. INSTRUCTIONS WERE GIVEN, QUESTIONS WERE ANSWERED, PATIENT REPORTS UNDERSTANDING AND AGREES WITH THE PLAN. I, CARLY HANSEN, DOCUMENTED THE ABOVE INFORMATION ACTING A SCRIBE FOR DR. SANTIAGO. I HAVE REVIEWED THE ABOVE DOCUMENT, WRITTEN BY CARLY CLARKE AND I VERIFY THAT IT IS ACCURATE. . OTHERS START CYMBALTA CAPSULE DELAYED RELEASE PARTICLES, 30 MG, 1 CAPSULE, ORALLY FOR PAIN, ONCE A DAY, 30 DAY(S), 30, REFILLS 1 NOTES: FACET JOINT INJECTION MATERIAL WAS PRINTED,FACET JOINT INJECTION MATERIAL WAS PRINTED. PREVENTIVE MEDICINE PAIN CLINIC TEACHING: MEDICATIONS PRINTED AND REVIEWED INFORMATION ON NEW MEDICATION, CYMBALTA, WITH PATIENT. PATIENT VERBALIZED AN UNDERSTANDING. EUGENE CUELLO 02/15/2019 3:18:20 PM > . PROCEDURE TEACHING PRINTED AND REVIEWED INFORMATION ON FACET INJECTION PROCEDURE WITH PATIENT. ALSO REVIEWED PRE-PROCEDURE INSTRUCTIONS. PATIENT VERBALIZED AN UNDERSTANDING. EUGENE CUELLO 02/15/2019 3:17:47 PM > . PROCEDURE CODES G8427 CURRENT MEDS W/DOSAGES DOCUMENTED G8730 PAIN ASSESS POS TOOL F/U PLAN DOC FA211 ESTABILISHED PATIENT [facility] CHARGE DISPOSITION & COMMUNICATION FOLLOW UP 3 WEEKS ELECTRONICALLY SIGNED BY AVINASH SANTIAGO MD, MD ON 03/03/2019 AT 05:35 PM EDT DISCLAIMER : THIS IS A VISIT SUMMARY EXTRACTED FROM THE [employer] CHART. IT IS NOT A COPY OF THE [employer] PROGRESS NOTE. MTDD
== END ==
LOC: M PAIN 12:30
PROVIDERS: ATTEND Anesthesiology
DX: M47.812 Spondylosis without myelopathy or radiculopathy, cervical region (principal); G89.29 Other chronic pain; G43.909 Migraine, unspecified, not intractable, without status migrainosus; F32.9 Major depressive disorder, single episode, unspecified; Z79.82 Long term (current) use of aspirin; Z79.899 Other long term (current) drug therapy; Z88.1 Allergy status to other antibiotic agents; Z86.79 Personal history of other diseases of the circulatory system; Z98.84 Bariatric surgery status

== ENCOUNTER → 2019-04-18 | Outpatient (CLI) | payer BC, OTHER ==
[~2019-04-18] MED LIST changes: +BUPIVACAINE HCL 0.25% 30 ML VIAL As Ordered ONE; +CYAN100049 PO; +ISOVUE-M 300 61% 15ML VIAL (Q9967) As Ordered ONE; +LIDOCAINE 1% SDV INJ 30 ML VIAL As Ordered ONE; +TRIAMCINOLONE ACETONIDE SUSP 40 MG/ML VIAL (J3301) As Ordered ONE; -VITA10002 PO; +diazePAM 5 MG TAB As Ordered ONE; +oxyCODONE 5MG TAB As Ordered ONE
--- NOTE | 2019-04-18 16:52 | REP ---
Limited cervical spine: Two views. History: Right cervical facet block for pain. 63 seconds of fluoroscopy time is reported. Findings: A sequence of two last image hold fluoroscopically obtained spot images of the cervical spine document needle position and contrast injection associated with cervical spine facet injection procedure. Electronically Signed by Humberto Almazan MD 04/19/2019 07:57 A
--- NOTE | 2019-04-25 00:53 | ECWPNPC ---
PATIENT NAME: REMY RED : 1960 GENDER: FEMALE VISIT DATE: 04/18/2019 DISCHARGE DATE: 04/18/19 1625 VISIT LOCKED DATE TIME: PHYSICIAN: AVINASH SANTIAGO MD RESOURCE: AVINASH SANTIAGO MD REASON FOR APPOINTMENT 1. CERVICAL FACET BLK HISTORY OF PRESENT ILLNESS HISTORY OF PRESENT ILLNESS: PAIN THE PATIENT DESCRIBES THE PAIN... FALL RISK SCREENING: SCREENING :NO FALLS REPORTED IN THE LAST YEAR CURRENT MEDICATIONS TAKING CYMBALTA 30 MG CAPSULE DELAYED RELEASE PARTICLES 1 CAPSULE ORALLY FOR PAIN ONCE A DAY, NOTES: 899 TAKING GABAPENTIN 300 MG CAPSULE 1 CAPSULE ORALLY BEFORE BEDTIME, NOTES: 04-17-19899 TAKING SOMA 350 MG TABLET 1 TABLET NEEDED ORALLY BEFORE BEDTIME, NOTES: 04-17-19899 TAKING BACLOFEN 10 MG TABLET 1 TABLET WITH FOOD OR MILK ORALLY THREE TIMES DAILY NEEDED, NOTES: 04-17-19899 TAKING SUMATRIPTAN SUCCINATE 100 MG TABLET 1 TABLET NEEDED ORALLY 1 TABLET AT ONSET OF MIGRAINE, MAY REPEAT ONCE IN 2 HOURS, NOTES: NOT LATELY TAKING TOPAMAX 100 MG TABLET 1 TABLET ORALLY TWICE A DAY, NOTES: 04-17-192099 TAKING WELLBUTRIN XL 300 MG TABLET EXTENDED RELEASE 24 HOUR 1 TABLET IN THE MORNING ORALLY ONCE A DAY, NOTES: 04-17-19899 TAKING ACIPHEX 20 MG TABLET DELAYED RELEASE 1 TABLET ORALLY ONCE A DAY, NOTES: 04-17-19899 TAKING ZYRTEC 1 TAB ORAL DAILY, NOTES: 04-17-19899 TAKING SINGULAIR 10 MG TABLET 1 TABLET ORALLY ONCE A DAY, NOTES: 04-17-19899 TAKING NORTRIPTYLINE HCL 10 MG CAPSULE 1 CAPSULE ORALLY ONCE A DAY, NOTES: NOT LATELY TAKING FOSAMAX 70 MG TABLET 1 TABLET ORALLY WEEKLY, NOTES: 04-13-19899 TAKING CELECOXIB 200 MG CAPSULE 1 CAPSULE WITH FOOD ORALLY ONCE A DAY, NOTES: 04-17-19899 TAKING VITAMIN B 12 1 TAB ORALLY DAILY, NOTES: 04-17-19899 TAKING MULTIVITAMIN ADULTS 50+ 1 CAP ORALLY DAILY, NOTES: 04-17-19899 TAKING VITAMIN A 8000 UNIT TABLET 1 TAB ORALLY DAILY, NOTES: 04-17-19899 TAKING VITAMIN D 1000 UNIT TABLET 1 CAPSULE ORALLY DAILY, NOTES: 04-17 TAKING CALTRATE 600+D _600 1200 1 CAP DAILY, NOTES: 04-17 TAKING HYDROCODONE-ACETAMINOPHEN 5-325 MG TABLET 1 TABLET NEEDED ORALLY THREE TIMES DAILY NEEDED, NOTES: NOT LATELY TAKING BIOTIN 1000 MCG TABLET 1 TABLET ORALLY DAILY, NOTES: 04-17-19899 TAKING ASPIRIN 81 81 MG TABLET CHEWABLE 1 TABLET ORALLY ONCE A DAY, NOTES: 04-17-19899 TAKING AMLODIPINE BESYLATE 5 MG TABLET 1 TABLET ORALLY ONCE A DAY, NOTES: 04-17-19899 TAKING LIPITOR 40 MG TABLET 1 TABLET ORALLY ONCE A DAY, NOTES: 04-17-192099 TAKING AJOVY 225 MG/1.5ML SOLUTION PREFILLED SYRINGE 1.5 ML SUBCUTANEOUS , NOTES: 10 DAYS AGO NOT-TAKING GAS-X 2 TABS ORALLY DAILY, NOTES: 04-17-19899 MEDICATION LIST REVIEWED AND RECONCILED WITH THE PATIENT PAST MEDICAL HISTORY MIGRAINE HEADACHES URINARY IMPLANT FOR URINARY INCONTINENCE GERD ARTHRITIS BACK PAIN/NECK PAIN DEPRESSION TIA 2019 NECK AND SHOULDER PAIN ALLERGIES BACTRIM DS: HIVES - ALLERGY ENVIRONMENTAL ALLERGIES SURGICAL HISTORY HYSTERECTOMY X 2 BARIATRIC SURGERY BLADDER IMPLANT THEN REMOVED REMOVAL OF BLADDER IMPLANT 08/2018 FAMILY HISTORY FATHER: MOTHER: 80 YRS 1 BROTHER(S) , 1 SISTER(S) - HEALTHY. 1 SON(S) , 1 DAUGHTER(S) - HEALTHY. MOM WITH COPD, EMPHYSEMA. SOCIAL HISTORY GENERAL: TOBACCO USE ARE YOU A:NONSMOKER OTHERS AT HOME: SPOUSE. 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 LANGUAGE LANGUAGES SPOKEN:TURKMEN DOMESTIC VIOLENCE DO YOU FEEL SAFE IN YOUR ENVIRONMENT?YES RECREATIONAL DRUG USE DRUG USE?NO EXERCISE: 3 X WEEK PLANET FITNESS. LEARNING BARRIERS / SPECIAL NEEDS BARRIERS TO LEARNING?NO HEARING IMPAIRED?NO VISION IMPAIRED?NO COGNITIVELY IMPAIRED?NO READINESS TO LEARN?YES LEARNING PREFERENCES?NO LEARNING CAPABILITIES PRESENT?YES EMOTIONAL BARRIERS?NO SPECIAL DEVICES?NO PURCHASING ENGINEER NEEDED?NO PAIN CLINIC PFS, CLERGY, PUBLIC HEALTH REFERRALS PFS REFERRAL NEEDED?NO CLERGY REFERRAL NEEDED?NO PUBLIC HEALTH REFERRAL NEEDED?NO WAS THE PROVIDER NOTIFIED OF ANY PERTINENT INFO?YES HAS THE PATIENT BEEN EDUCATED REGARDING HIS/HER PLAN OF CARE?YES HAS THE PATIENT BEEN EDUCATED REGARDING PAIN, THE RISK FOR PAIN, THE IMPORTANCE OF EFFECTIVE PAIN MANAGEMENT, AND THE PAIN ASSESSMENT PROCESS?YES LATEX QUESTIONNAIRE LATEX ALLERGY : HAVE YOU EVER DEVELOPED ANY TYPE OF REACTION AFTER HANDLING LATEX PRODUCTS SUCH RUBBER GLOVES, CONDOMS, DIAPHRAGMS, BALLOONS, SOCKS, OR UNDERWEAR?NO LATEX ALLERGY : HAVE YOU EVER DEVELOPED ANY TYPE OF REACTION DURING OR AFTER DENTAL APPOINTMENT, VAGINAL/RECTAL EXAMINATION, SURGICAL PROCEDURE, OR ANY OTHER EXPOSURE?NO LATEX RISK : HAVE YOU EVER HAD ANY DIFFICULTY BREATHING OR HIVES AFTER EATING OR HANDLING ANY FRUITS, OR VEGETABLES; SUCH KIWI, BANANAS, STONE FRUITS, OR CHESTNUTSNO LATEX RISK : DO YOU HAVE A PREVIOUS PERSONAL HISTORY OF MORE THAN NINE SURGERIES, SPINA BIFIDA, OR REPEATED CATHERTIZATIONS? NO LATEX RISK : ARE YOU FREQUENTLY EXPOSED TO LATEX PRODUCTS IN YOUR OCCUPATION?NO DATE ASKED : 02/15/2019 CAFFEINE CAFFEINE USE?YES HOW OFTEN AND HOW MUCH? ICED TEA L LITER/DAY ADVANCE DIRECTIVE ADVANCE DIRECTIVE DISCUSSED WITH PATIENT:YES HCP AND POMary NESS [phone] [facility] HAS A LIVING WILL. INSTRUCTED PATIENT TO BRING IN COPY. 09/12/18 1036 JS RESTORATIONISM [id number] NONE MARITAL STATUS: . 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 REVIEWED 04/13/18 1015 LAS04/18/18 1146 REVIEWED WITH PT. ADREVIEWED WITH PATIENT 09/12/18 1034 JSREVIEWED WITH PATIENT 10/10/18 1630 LAS. HOSPITALIZATION/MAJOR DIAGNOSTIC PROCEDURE SURGERIES CDIFF 07/2018 REVIEW OF SYSTEMS REVIEWED BY: PROVIDER: . CONSTITUTIONAL: ANY CHANGE IN YOUR MEDICAL CONDITION? NO . CHILLS NO . FEVER NO . INFECTION: DO YOU HAVE NEW INFECTIONS? NO . DO YOU HAVE HISTORY OF MRSA? NO . MUSCULOSKELETAL: ANY NEW PATTERNS OF PAIN OR NUMBNESS? NO . GASTROENTEROLOGY: ANY NEW CHANGE IN BOWEL CONTROL? NO . GENITOURINARY: ANY NEW CHANGE IN BLADDER CONTROL? NO . IS THERE A CHANCE YOU COULD BE ? NO . HEMATOLOGY/LYMPH: DO YOU TAKE ANY BLOOD THINNERS? (FOR EXAMPLE- COUMADIN, PLAVIX, AGGRENOX, PLATEL, PRADAXA, OR XARELTO) NO . WHEN WAS YOUR LAST DOSE? DATE: TIME: . NEUROLOGY: HAVE YOU FALLEN IN THE PAST 12 MONTHS? NO . ANY NEW EXTREMITY NUMBNESS OR WEAKNESS? NO . CARDIOLOGY: DO YOU HAVE A PACEMAKER OR DEFIBRILLATOR? NO . RESPIRATORY: HAVE YOU BEEN SICK IN THE PAST WEEK? NO . FEVER NO . FLU LIKE SYMPTOMS? NO . COUGH NO . INTEGUMENTARY: DO YOU HAVE ANY RASHES OR OPEN SORES? NO . ALLERGIC/IMMUNO: ARE YOU ALLERGIC TO IV DYE? NO . ANY NEW ALLERGIES? NO . PSYCHIATRIC: DO YOU HAVE THOUGHTS OF HURTING YOURSELF OR SOMEONE ELSE? NO . ARE YOU ABUSED, NEGLECTED, OR IN AN UNSAFE ENVIRONMENT? NO . ENDOCRINOLOGY: ARE YOU DIABETIC? NO . OTHER: DO YOU NEED ANY PRESCRIPTIONS? NO . IF YES, PLEASE LIST: ____ . ANY NEW PROBLEMS WITH YOUR MEDICATIONS? NO . WHEN DID YOU LAST EAT? ____04-17-19 930 PM . WHEN DID YOU LAST DRINK? ____ . WHAT DID YOU LAST DRINK? ____04-18-19 1100 . NAME OF PERSON DRIVING YOU HOME? ____WATER . DO YOU HAVE ANY OTHER QUESTIONS OR CONCERNS ROSMERY RED . VITAL SIGNS WT 170.4 LBS, HT 64 IN, BMI 29.25 INDEX, BP 116/72 MM HG, HR 87 /MIN, RR 18 /MIN, TEMP 97.4 F, OXYGEN SAT % 97%, NA INITIALS SC 14:34. ASSESSMENTS SPONDYLOSIS OF CERVICAL REGION WITHOUT MYELOPATHY OR RADICULOPATHY - M47.812 (PRIMARY) TREATMENT SPONDYLOSIS OF CERVICAL REGION WITHOUT MYELOPATHY OR RADICULOPATHY SMC FACET BLOCK (PAIN)[id number] PROCEDURES PN CERVICAL FACET BLOCK LOW BILATERAL CERVICAL PRE PROCEDURE DIAGNOSIS CERVICAL SPONDYLOSIS POST PROCEDURE DIAGNOSIS CERVICAL SPONDYLOSIS PROCEDURE RIGHT C2-C3, RIGHT C3-C4 CERVICAL FACET BLOCK SURGEON DR. AVINASH SANTIAGO ASSOCIATE DIRECTOR NONE ANESTHESIA LOCAL PRE PROCEDURE NOTE THE PATIENT HAS HISTORY OF CHRONIC CERVICAL PAIN. I EVALUATED THE PATIENT AND REVIEWED THE CHART. I WENT OVER THE RISKS, ALTERNATIVES, AND BENEFITS ASSOCIATED WITH THIS PROCEDURE. THE PATIENT WOULD LIKE TO PROCEED AND GIVE CONSENT TO PERFORMED THE PROCEDURE. THE PATIENT DENIES UNEXPLAINABLE WEIGHT LOSS, FEVER, CHILLS, OR NEW CHANGES IN URINARY OR BOWEL CONTROL. DESCRIPTION OF PROCEDURE THE PATIENT WAS BROUGHT TO THE PROCEDURE ROOM AND PLACED IN THE PRONE POSITION. THE CERVICOTHORACIC AREA WAS CLEANED WITH CHLORAPREP SOLUTION AND DRAPED ASEPTICALLY. THE PROCEDURE WAS DONE UNDER STERILE CONDITIONS. I CHECKED LATERALITY AND THE LEVEL WHERE THE PROCEDURE WAS GOING TO BE PERFORMED WITH THE PATIENT AND THE SUPPORTING STAFF AT THE MOMENT OF THE TIME OUT IN THE PROCEDURE ROOM. UNDER FLUOROSCOPIC GUIDANCE, TARGET POINT WAS SELECTED AT THE RIGHT C2-C3 AND RIGHT C3-C4 CERVICAL FACET JOINTS. TARGET POINTS WERE SELECTED AFTER LATERAL ROTATION AND TILT OF THE MAGNIFIER OF THE C-ARM. LIDOCAINE 0.5% WAS USED TO NUMB THE SKIN AND THE SUBCUTANEOUS TISSUE BELOW IT. SPINAL NEEDLES, 22-GAUGE, WERE ADVANCED UNDER FLUOROSCOPIC GUIDANCE AND FOLLOWING PATIENT FEEDBACK UNTIL THE TARGETS WERE TOUCHED. THE POSITION OF THE NEEDLES WAS VERIFIED WITH AP AND LATERAL VIEWS. AFTER PROPER POSITION OF THE NEEDLES WAS ACHIEVED, ISOVUE M DYE 30, 0.1 ML WAS INJECTED SHOWING SPREAD OF THE DYE. THEN A SOLUTION OF 0.9 ML OF BUPIVACAINE 0.125% AND KENALOG 10 MG WAS INJECTED AT EACH SITE. THERE WAS NO EVIDENCE OF BLOOD, PARESTHESIA OR CEREBROSPINAL FLUID DURING THE PROCEDURE. THE PATIENT WAS SENT TO THE RECOVERY ROOM. THE PATIENT WAS MOVING THE EXTREMITIES AND DOING WELL. THERE WAS NO COMPLICATION DURING THE PROCEDURE. FLUOROSCOPY TIME WAS 63 SECONDS POST PROCEDURE NOTE THE PATIENT WILL BE SEEN IN A FOLLOW UP IN THE NEXT FEW WEEKS. INSTRUCTIONS WERE GIVEN, QUESTIONS WERE ANSWERED, AND THE PATIENT EXPRESSED UNDERSTANDING AND AGREES WITH THE PLAN. I, CARLY HANSEN, DOCUMENTED THE ABOVE INFORMATION ACTING A SCRIBE FOR DR. SANTIAGO. I HAVE REVIEWED THE ABOVE DOCUMENT, WRITTEN BY CARLY HANSEN SCRIBE AND I VERIFY THAT IT IS ACCURATE. PROCEDURE CODES 58947 INJ PARAVERT F JNT C/T 1 LEV, MODIFIERS: [place] [address]259 INJ PARAVERT F JNT C/T 2 LEV, MODIFIERS: RT 6045F RADXPS IN END [id number] PXD DISPOSITION & COMMUNICATION FOLLOW UP 3 WEEKS ELECTRONICALLY SIGNED BY AVINASH SANTIAGO MD, MD ON 04/24/2019 AT 01:27 PM EDT DISCLAIMER : THIS IS A VISIT SUMMARY EXTRACTED FROM THE [employer] CHART. IT IS NOT A COPY OF THE [employer] PROGRESS NOTE. MTDD
== END ==
LOC: M PAIN 14:15
PROVIDERS: ATTEND Anesthesiology
DX: M47.812 Spondylosis without myelopathy or radiculopathy, cervical region (principal); G43.909 Migraine, unspecified, not intractable, without status migrainosus; K21.9 Gastro-esophageal reflux disease without esophagitis; F32.9 Major depressive disorder, single episode, unspecified; J30.9 Allergic rhinitis, unspecified; Z86.73 Personal history of transient ischemic attack (TIA), and cerebral infarction without residual deficits; Z79.82 Long term (current) use of aspirin; Z79.899 Other long term (current) drug therapy; Z98.84 Bariatric surgery status; Z88.2 Allergy status to sulfonamides
CPT/HCPCS: 64490; 64491; J3301; Q9967

== ENCOUNTER → 2019-09-20 | Outpatient (CLI) | payer BC, OTHER ==
[~2019-09-20] MED LIST changes: -BUPIVACAINE HCL 0.25% 30 ML VIAL As Ordered ONE; -ISOVUE-M 300 61% 15ML VIAL (Q9967) As Ordered ONE; -LIDOCAINE 1% SDV INJ 30 ML VIAL As Ordered ONE; -TRIAMCINOLONE ACETONIDE SUSP 40 MG/ML VIAL (J3301) As Ordered ONE; -diazePAM 5 MG TAB As Ordered ONE; -oxyCODONE 5MG TAB As Ordered ONE
--- NOTE | 2019-09-20 17:09 | REP ---
Clinical: Trauma. Crush injury. Technique: AP, lateral, bilateral oblique views of the left hand. Findings: Generalized age-related changes are appreciated. No obvious acute fracture or dislocation. No subcutaneous emphysema or foreign body. Impression: No acute fracture or dislocation. Electronically Signed by Ochoa Seo MD 09/20/2019 05:00 P
== END ==
LOC: M ADAMS 16:39
PROVIDERS: ATTEND Physician Assistant
DX: S67.02XA Crushing injury of left thumb, initial encounter (principal); W23.1XXA Caught, crushed, jammed, or pinched between stationary objects, initial encounter; Y92.89 Other specified places as the place of occurrence of the external cause

== ENCOUNTER → 2020-03-31 | Outpatient (REF) | payer BC, OTHER | LOC: M WUC 17:50 | PROVIDERS: ATTEND Nurse Practitioner Family | DX: Z20.828 Contact with and (suspected) exposure to other viral communicable diseases (principal) ==

== ENCOUNTER → 2020-10-14 | Outpatient (CLI) | payer BC, OTHER ==
[~2020-10-14] MED LIST changes: +AMLO1TAB24 PO; -AMLO5TAB6 PO
== END ==
LOC: M PT 14:27
PROVIDERS: ATTEND Orthopaedic Surgery
DX: Z01.818 Encounter for other preprocedural examination (principal)

== ENCOUNTER → 2020-10-26 | Outpatient (CLI) | payer BC, OTHER ==
--- NOTE | 2020-10-28 00:01 | ECWPNPC ---
PATIENT NAME: REMY RED : 1960 GENDER: FEMALE VISIT DATE: 10/26/2020 DISCHARGE DATE: 10/26/20 1417 VISIT LOCKED DATE TIME: PHYSICIAN: HANNAH SCHNEIDER RESOURCE: HANNAH SCHNEIDER REASON FOR APPOINTMENT 1. LOW BACK PAIN HISTORY OF PRESENT ILLNESS DEPRESSION SCREENING: PHQ-2 (2015 EDITION) LITTLE INTEREST OR PLEASURE IN DOING THINGS?NOT AT ALL FEELING DOWN, DEPRESSED, OR HOPELESS?NOT AT ALL TOTAL SCORE0 GENERAL: PLEASANT 59-YEAR-OLD FEMALE RETURNS TO OUR PRACTICE PER REFERRAL OF VERONIKA PEREZ, NEUROLOGY TO EVALUATE PERSISTENT LOW BACK PAIN. REPORTS LONG HISTORY OF LOW BACK PAIN. REPORTS AGGRAVATION IN LOW BACK PAIN WITH PROLONGED STANDING OR WALKING. RECENT MRI OF LUMBOSACRAL SPINE IS REVIEWED AND SHOWING ADVANCED DEGENERATIVE CHANGES WITH NEURAL FORAMINAL COMPROMISE. DENIES SPECIFIC RADICULAR SYMPTOMS. REPORTS SOME LEG WEAKNESS WITH PROLONGED WALKING. REPORTING POOR SLEEP DUE TO LOW BACK PAIN. REPORTS NIGHTTIME AWAKENINGS FOR URINATION BUT DENIES OVERT URINARY INCONTINENCE. REPORTING NORMAL BOWEL FUNCTION. NO RECENT FEVER OR ILLNESS OR SUDDEN WEIGHT LOSS. IS SCHEDULED TO HAVE KNEE SURGERY IN THE NEXT FEW WEEKS. DISCUSSED TREATMENT OPTIONS. - - -. FALL RISK SCREENING: SCREENING :ONE FALL WITH INJURY IN THE PAST YEAR PATIENT STATES SHE "FELL ON ICE ONTO HER BACK AND HAD BRUISES. PATIENT DID NOT RECEIVE TREATMENT. PAIN SCREENING: PATIENT HAS A COMPLAINT OF ACUTE OR CHRONIC PAIN :YES LOCATION OF PAIN:LOW BACK INTENSITY OF PAIN (SCALE OF 1 TO 10):6 AVERAGE 6. WHAT DOES YOUR PAIN FEEL LIKE:ACHING, CONTINOUS, STABBING, TENDER, THROBBING, SORE, SHOOTING DURATION:CONTINOUS, CONSTANT, STEADY, AWAKENS FROM SLEEP PAIN IS INCREASED BY:ACTIVITIES, OTHERS CARRYING ITEMS, BENDING PAIN IS DECREASED BY:OTHERS PATIENT STATES LAYING IN THE POSITION TO HELP EASE THE PAIN. ICE AND HEAT, STEM CELL MACHINE. LIDODERM PATCHES. TREATMENT/MEDICATIONS USED TO MANAGE PAIN:OTC PAIN RELIEVERS, TOPICAL CORTICOSTEROIDS, CORTICOSTEROIDS, PHYSICAL THERAPY, ACCUPUNCTURE NURSING NOTE: - - -. PAIN CENTER INTAKE QUESTIONS: DO YOU HAVE A HISTORY OF MRSA? :NO DO YOU TAKE A BLOOD THINNERS? :NO DO YOU HAVE ANY BLEEDING DISORDERS? :NO ANY NEW NUMBNESS OR WEAKNESS IN YOUR LEGS OR ARMS? :NO ANY PACEMAKER,DEFIBRILLATOR, OR DORSAL COLUMN STIMULATOR? :NO DO YOU HAVE ANY RASHES OR OPEN SORES? :NO ARE YOU ALLERGIC TO IV DYE? :NO ARE YOU DIABETIC? :NO ANY NEW PROBLEMS WITH YOUR MEDICATIONS? :NO HAVE YOU RECEIVED A VACCINE IN THE PAST 30 DAYS? :NO DO YOU PLAN TO RECEIVE A VACCINE IN THE NEXT 21 DAYS? :NO DO YOU NEED ANY PRESCRIPTION? :NO DO YOU TAKE ANY IMMUNOSUPPRESSIVE MEDICATIONS? :NO IS THERE A CHANCE YOU COULD BE ? :NO ARE YOU BREAST FEEDING? :NO CURRENT MEDICATIONS TAKING CYMBALTA 30 MG CAPSULE DELAYED RELEASE PARTICLES 1 CAPSULE ORALLY FOR PAIN ONCE A DAY, NOTES: 899 TAKING GABAPENTIN 300 MG CAPSULE 1 CAPSULE ORALLY BEFORE BEDTIME, NOTES: 04-17-19899 TAKING SOMA 350 MG TABLET 1 TABLET NEEDED ORALLY BEFORE BEDTIME, NOTES: 04-17-19899 TAKING BACLOFEN 10 MG TABLET 1 TABLET WITH FOOD OR MILK ORALLY THREE TIMES DAILY NEEDED, NOTES: 04-17-19899 TAKING SUMATRIPTAN SUCCINATE 100 MG TABLET 1 TABLET NEEDED ORALLY 1 TABLET AT ONSET OF MIGRAINE, MAY REPEAT ONCE IN 2 HOURS, NOTES: NOT LATELY TAKING TOPAMAX 100 MG TABLET 1 TABLET ORALLY TWICE A DAY, NOTES: 04-17-192099 TAKING ACIPHEX 20 MG TABLET DELAYED RELEASE 1 TABLET ORALLY ONCE A DAY, NOTES: 04-17-19899 TAKING ZYRTEC 1 TAB ORAL DAILY, NOTES: 04-17-19899 TAKING SINGULAIR 10 MG TABLET 1 TABLET ORALLY ONCE A DAY, NOTES: 04-17-19899 TAKING NORTRIPTYLINE HCL 10 MG CAPSULE 1 CAPSULE ORALLY ONCE A DAY, NOTES: NOT LATELY TAKING CELECOXIB 200 MG CAPSULE 1 CAPSULE WITH FOOD ORALLY ONCE A DAY, NOTES: 04-17-19899 TAKING VITAMIN B 12 1 TAB ORALLY DAILY, NOTES: 04-17-19899 TAKING MULTIVITAMIN ADULTS 50+ 1 CAP ORALLY DAILY, NOTES: 04-17-19899 TAKING VITAMIN A 8000 UNIT TABLET 1 TAB ORALLY DAILY, NOTES: 04-17-19899 TAKING VITAMIN D 1000 UNIT TABLET 1 CAPSULE ORALLY DAILY, NOTES: 04-17 TAKING CALTRATE 600+D _600 1200 1 CAP DAILY, NOTES: 04-17 TAKING HYDROCODONE-ACETAMINOPHEN 5-325 MG TABLET 1 TABLET NEEDED ORALLY THREE TIMES DAILY NEEDED, NOTES: NOT LATELY TAKING BIOTIN 1000 MCG TABLET 1 TABLET ORALLY DAILY, NOTES: 04-17-19899 TAKING ASPIRIN 81 81 MG TABLET CHEWABLE 1 TABLET ORALLY ONCE A DAY, NOTES: 04-17-19899 TAKING AMLODIPINE BESYLATE 5 MG TABLET 1 TABLET ORALLY ONCE A DAY, NOTES: 04-17-19899 TAKING LIPITOR 40 MG TABLET 1 TABLET ORALLY ONCE A DAY, NOTES: 04-17-192099 TAKING AJOVY 225 MG/1.5ML SOLUTION PREFILLED SYRINGE 1.5 ML SUBCUTANEOUS , NOTES: 10 DAYS AGO NOT-TAKING WELLBUTRIN XL 300 MG TABLET EXTENDED RELEASE 24 HOUR 1 TABLET IN THE MORNING ORALLY ONCE A DAY, NOTES: 04-17-19899 NOT-TAKING FOSAMAX 70 MG TABLET 1 TABLET ORALLY WEEKLY, NOTES: 04-13-19899 NOT-TAKING GAS-X 2 TABS ORALLY DAILY, NOTES: 04-17-19899 MEDICATION LIST REVIEWED AND RECONCILED WITH THE PATIENT PAST MEDICAL HISTORY MIGRAINE HEADACHES URINARY IMPLANT FOR URINARY INCONTINENCE GERD ARTHRITIS BACK PAIN/NECK PAIN DEPRESSION TIA 2019 NECK AND SHOULDER PAIN ALLERGIES BACTRIM DS: HIVES - ALLERGY ENVIRONMENTAL ALLERGIES SURGICAL HISTORY HYSTERECTOMY X 2 BARIATRIC SURGERY BLADDER IMPLANT THEN REMOVED REMOVAL OF BLADDER IMPLANT 08/2018 FAMILY HISTORY FATHER: MOTHER: 80 YRS 1 BROTHER(S) , 1 SISTER(S) - HEALTHY. 1 SON(S) , 1 DAUGHTER(S) - HEALTHY. MOM WITH COPD, EMPHYSEMA. SOCIAL HISTORY GENERAL: TOBACCO USE ARE YOU A:NONSMOKER LATEX QUESTIONNAIRE LATEX ALLERGY : HAVE YOU EVER DEVELOPED ANY TYPE OF REACTION AFTER HANDLING LATEX PRODUCTS SUCH RUBBER GLOVES, CONDOMS, DIAPHRAGMS, BALLOONS, SOCKS, OR UNDERWEAR?NO LATEX ALLERGY : HAVE YOU EVER DEVELOPED ANY TYPE OF REACTION DURING OR AFTER DENTAL APPOINTMENT, VAGINAL/RECTAL EXAMINATION, SURGICAL PROCEDURE, OR ANY OTHER EXPOSURE?NO DATE ASKED : 02/15/2019 LATEX RISK : HAVE YOU EVER HAD ANY DIFFICULTY BREATHING OR HIVES AFTER EATING OR HANDLING ANY FRUITS, OR VEGETABLES; SUCH KIWI, BANANAS, STONE FRUITS, OR CHESTNUTSNO LATEX RISK : DO YOU HAVE A PREVIOUS PERSONAL HISTORY OF MORE THAN NINE SURGERIES, SPINA BIFIDA, OR REPEATED CATHERIZATIONS? NO LATEX RISK : ARE YOU FREQUENTLY EXPOSED TO LATEX PRODUCTS IN YOUR OCCUPATION?NO LUNG CANCER SCREENING SMOKING STATUS:NON SMOKER RECREATIONAL DRUG USE DRUG USE?NO CAFFEINE CAFFEINE USE?YES HOW OFTEN AND HOW MUCH? ICED TEA L LITER/DAY CHRISTIAN [id number] NONE LANGUAGE LANGUAGES SPOKEN:HAITIAN LEARNING BARRIERS / SPECIAL NEEDS CHANGE FROM LAST VISIT? 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 EXERCISE: 3 X WEEK PLANET FITNESS. MARITAL STATUS: . OTHERS AT HOME: SPOUSE. PAIN CLINIC PFS, CLERGY, PUBLIC HEALTH REFERRALS PFS REFERRAL NEEDED?NO CLERGY REFERRAL NEEDED?NO PUBLIC HEALTH REFERRAL NEEDED?NO WAS THE PROVIDER NOTIFIED OF ANY PERTINENT INFO?YES HAS THE PATIENT BEEN EDUCATED REGARDING HIS/HER PLAN OF CARE?YES HAS THE PATIENT BEEN EDUCATED REGARDING PAIN, THE RISK FOR PAIN, THE IMPORTANCE OF EFFECTIVE PAIN MANAGEMENT, AND THE PAIN ASSESSMENT PROCESS?YES ADVANCE DIRECTIVE ADVANCE DIRECTIVE DISCUSSED WITH PATIENT:YES HCP AND POA EVELYN NESS [phone] MICHELLE HAS A LIVING WILL. INSTRUCTED PATIENT TO BRING IN COPY. REVIEWED 04/13/18 1015 LAS04/18/18 1146 REVIEWED WITH PT. ADREVIEWED WITH PATIENT 09/12/18 1034 JSREVIEWED WITH PATIENT 10/10/18 1630 LAS. HOSPITALIZATION/MAJOR DIAGNOSTIC PROCEDURE SURGERIES CDIFF 07/2018 REVIEW OF SYSTEMS CONSTITUTIONAL: ANY RECENT FEVER NO . CHILLS NO . WEIGHT CHANGE OF UNKNOWN REASONS NO . GASTROENTEROLOGY: NEW UNEXPLAINABLE CHANGES IN BOWEL CONTROL NO . CONSTIPATION NO . GENITOURINARY: ANY NEW CHANGE IN BLADDER CONTROL? NO . NEUROLOGY: NEW ONSET DIZZINESS OR NEUROLOGICAL CHANGES NOT MENTIONED NO . NEW NUMBNESS OR PAIN PATTERNS NOT MENTIONED AND PERTINENT TO TODAY'S VISIT NO . CARDIOLOGY: NEW CHEST PRESSURE NO . NEW CHEST PAIN NO . RESPIRATORY: UNEXPLAINABLE COUGH NO . NEW SHORTNESS OF BREATH NO . VITAL SIGNS WT 166.6 LBS, HT 64 IN, BMI 28.59 INDEX, BP 137/65 MM HG, HR 83 /MIN, RR 18 /MIN, TEMP 95.6 F, OXYGEN SAT % 100%, SAFE IN ENV? (Y/N) YES, NA INITIALS AW [id number] LESLEY VICENTE. EXAMINATION GENERAL EXAMINATION: GENERAL AWAKE,ALERT ,PLEAASANT . PSYCH AFFECT NORMAL . LUNGS: LUNG SMITH ARE CLEAR TO AUSCULTATION BILATERALLY. GOOD MOVEMENT OF AIR . HEART: S1, S2 IN A REGULAR RATE AND RHYTHM. NO SIGNIFICANT MURMURS, RUBS OR GALLOPS NOTED . LUMBAR:PALPATION:TENDER OVER BILAT. L4/5-L5/S1 LUMBAR FACETS WITH FACET LOADING.. DIAGNOSTIC TESTS REVIEWED MRI L/S SPINE-2019. 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 WE WILL CONSIDER LUMBAR THERAPEUTIC FACET BLOCK. CONTINUE HOME EXERCISE AND STRETCHING. PROCEDURE CODES FA211 ESTABILISHED PATIENT [facility] CHARGE DISPOSITION & COMMUNICATION FOLLOW UP 6 WEEKS (REASON: FOLLOW-UP AFTER KNEE SURGERY/CONSIDER LUMBAR FACET THERAPEUTIC BLOCK) ELECTRONICALLY SIGNED BY SÁNCHEZ SANTACRUZ ON 10/27/2020 AT 03:42 PM EST DISCLAIMER : THIS IS A VISIT SUMMARY EXTRACTED FROM THE [employer] CHART. IT IS NOT A COPY OF THE [employer] PROGRESS NOTE. RENATO
== END ==
LOC: M PAIN 13:00
PROVIDERS: ATTEND Nurse Practitioner Family
DX: M47.897 Other spondylosis, lumbosacral region (principal); G43.909 Migraine, unspecified, not intractable, without status migrainosus; Z86.59 Personal history of other mental and behavioral disorders; Z86.73 Personal history of transient ischemic attack (TIA), and cerebral infarction without residual deficits; Z98.84 Bariatric surgery status; Z88.1 Allergy status to other antibiotic agents; Z79.82 Long term (current) use of aspirin; Z79.899 Other long term (current) drug therapy

== ENCOUNTER → 2020-11-05 | Outpatient (CLI) | payer BC, OTHER ==
[~2020-11-05] MED LIST changes: +AJOV225I IM; -CLIN150C14 PO; +CLIN150C15 PO; +DULO1CAP6 PO; +GABA-282 PO; -GABA-843 PO
--- NOTE | 2020-11-06 04:12 | REP ---
INDICATION: PREOP COMPARISON: 07/23/2018 TECHNIQUE: PA and lateral. FINDINGS: The mediastinum and cardiac silhouette are normal. The lung estrada are clear and without acute consolidation, effusion, or pneumothorax. The skeletal structures are intact and normal. IMPRESSION: No acute cardiopulmonary process. <Electronically signed by Ochoa Seo > 11/06/20 0400
== END ==
LOC: M RAD 10:14
PROVIDERS: ATTEND Orthopaedic Surgery
DX: M17.12 Unilateral primary osteoarthritis, left knee (principal)

== ENCOUNTER → 2020-11-05 | Outpatient (CLI) | payer BC, OTHER ==
[~2020-11-05] MED LIST changes: -AJOV225I IM; -DULO1CAP6 PO
== END ==
LOC: M LABSMTC 09:55
PROVIDERS: ATTEND Anesthesiology
DX: Z01.812 Encounter for preprocedural laboratory examination (principal); Z20.822 Contact with and (suspected) exposure to COVID-19

== ENCOUNTER → 2020-11-09 | Outpatient (CLI) | payer BC, OTHER ==
[~2020-11-09] MED LIST changes: +AJOV225I IM; +ASPI81TA27 PO; +BIOT10009 PO; +CETI10TA PO; +D31000TA2 PO; +DULO1CAP6 PO; +NORT10CA2 PO; +SIME80CH5 PO; +VITMTA PO; +XARE10TA PO; +[UNRECOGNIZED DRUG - CODE] PO
[2020-11-09 19:13] LABS: INR 0.91; PROTHROMBIN TIME 12.4 SECONDS (12.5-14.3)
[2020-11-09 19:40] LABS: ALBUMIN 3.6 GM/DL (3.2-5.2); ALT/SGPT 31 U/L (12-78); BILIRUBIN,TOTAL 0.4 MG/DL (0.2-1.0); BLOOD UREA NITROGEN 11 MG/DL (7-18); CARBON DIOXIDE LEVEL 28 MEQ/L (21-32); CHLORIDE LEVEL 106 MEQ/L (98-107); GLOMERULAR FILTRATION RATE > 60.0 (>45); GLUCOSE, FASTING 78 MG/DL (70-100); POTASSIUM SERUM 3.9 MEQ/L (3.5-5.1); SODIUM LEVEL 138 MEQ/L (136-145); TOTAL PROTEIN 6.8 GM/DL (6.4-8.2)
== END ==
LOC: M LAB 14:14
PROVIDERS: ATTEND Orthopaedic Surgery
DX: Z01.818 Encounter for other preprocedural examination (principal); M17.12 Unilateral primary osteoarthritis, left knee

== ENCOUNTER 2020-11-10 07:00 | Inpatient (IN) | payer BC, OTHER ==
--- NOTE | 2020-11-05 14:45 | HPE ---
PRE-OP HISTORY AND PHYSICAL DATE OF ANTICIPATED ADMISSION: 11/10/2020 ATTENDING PHYSICIAN: Tonny Campbell MD. CHIEF COMPLAINT: Left knee pain. HISTORY OF PRESENT ILLNESS: Leia is a pleasant 59-year-old female with progressively worsening left knee pain and stiffness. She has failed to improve with conservative treatment. She has elected for surgery for her continued symptoms. She has pain with weightbearing activities and her activities of daily living. X-rays of her knee are notable for advanced osteoarthritis of the left knee joint. She has consented for a left total knee arthroplasty by Dr. Tonny Campbell. Medical optimization was performed by Dr. Whitley's office. ALLERGIES: BACTRIM. CURRENT MEDICATIONS: 1. Duloxetine Hcl DR 60 mg once a day. 2. Wellbutrin 300 mg once a day. 3. Aciphex 20 mg once a day. 4. Topiramate 100 mg twice a day. 5. Zyrtec 10 mg a day. 6. Singulair 10 mg a day. 7. Celecoxib 200 mg a day. 8. Aspirin 81 mg a day. 9. Lipitor 40 mg a day. 10. Nortriptyline 10 mg, 2 twice a day. 11. Carisoprodol 350 mg at bedtime. 12. Gabapentin 300 mg at bedtime. 13. Allergy shots every 3 weeks. 14. Ajovy shot once a month. 15. Baclofen 10 mg three times a day as needed. 16. Women's multivitamin. 17. D3 1000 units a day. 18. Caltrate 600 Plus D 1200 mg a day. 19. Biotin 1000 mcg a day. 20. B12 once a day. 21. Gas-X as needed. PAST MEDICAL HISTORY: Includes: 1. Depression. 2. Acid reflux. 3. Asthma. 4. Hyperlipidemia. 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 She does not smoke and rarely drinks alcohol. FAMILY HISTORY: Noncontributory. REVIEW OF SYSTEMS: This patient denies chest pain, heart palpitations, cough, wheezing, difficulty breathing and shortness of breath. She denies abdominal pain, nausea, vomiting, diarrhea or constipation. She denies recent upper respiratory infection or urinary tract infection symptoms. She does complain of persistent pain in her left knee. PHYSICAL EXAMINATION: General: She is a well-nourished, well developed, in no acute distress, alert female patient. She walks with a mild limp favoring her left lower extremity. She is not using assistive devices. Vital signs: She is 62.5 inches tall, weighs 163 pounds with a temperature of 97.7, blood pressure 132/80, pulse 76, respirations 14. Neck: Supple without adenopathy or jugular venous distention. Lungs: Clear to auscultation without rales or wheeze. Heart: Regular rate and rhythm. Abdomen: Bowel sounds were present. Extremities: Examination of the knee revealed intact skin. She had decreased range of motion due to pain and stiffness. The limb is neurovascularly intact. LABORATORY DATA: CBC was within normal limits. Glucose 89, BUN 11, creatinine 0.8, sodium 137, potassium 4.2. IMAGING: Chest x-ray was performed today. we are pending results of that. EKG showed sinus rhythm. IMPRESSION: Symptomatic osteoarthritis of the left knee joint. PLAN: Consented for a left total knee arthroplasty by Dr. Tonny Campbell pending x-ray results. Co-Signer: Tonny Campbell MD
[~2020-11-10] VITALS: Ht 157.5 cm; Wt 72.8 kg
[2020-11-10] VITALS (7 sets, daily range): BP systolic 104–130; BP diastolic 71–73
[~2020-11-10 07:00] MED LIST changes: -ASPI81TA27 PO; -BIOT10009 PO; -CETI10TA PO; -D31000TA2 PO; +LR 1,000 ML IV ONE; -NORT10CA2 PO; -SIME80CH5 PO; -VITMTA PO; -XARE10TA PO; -[UNRECOGNIZED DRUG - CODE] PO; +ceFAZolin SOD 2 GM in IV 1 EA IV ONE
[2020-11-10] MEDS ORDERED: MIDAZOLAM INJ 2MG/2ML VIAL (J2250 PER 1MG) IV PRN (07:01)
[2020-11-10] MEDS ORDERED: fentaNYL 100 MCG/2 ML INJECTION (J3010) IV PRN ×2 (07:01→11:45)
--- OUTSIDE RECORDS SUMMARY | 2020-11-10 07:04 | CCD | Continuity of Care Document ---
Author Author Leia SERVIN M.D. Organization Unknown Address [address] [place] [id number] Phone [phone] Care Team Providers Care Mold Presser Name Role Phone Andrei Whitley M.D. AUTM [phone] Problems Active Problems Provider Date Headache Carmen Nascimento M.D. Onset: 06/13/2014 Social History Type Date Description Comments Sex Unknown Tobacco Use Start: Unknown Patient has never smoked Allergies, Adverse Reactions, Alerts Description No Known Drug Allergies Medications Active Medications SIG Qnty Indications Ordering Provide r Date Tizanidine HCL 4mg Tablets Take One-Half Or One Tablet By Mouth Three Times Daily as Needed For Pain 90tabs Raghav Servin M.D. 03/03/2020 Ibuprofen 800mg Tablets 1 by mouth twice a day as needed for back pain. 30tabs Raghav Servin M.D. Ajovy 225mg/1.5ML Soln Prefill Syr morris Inject Subcutaneously as Directed Monthly 1.5units G43.709 Raghav Servin M.D. 01/07/2019 Gabapentin 300mg Capsules 1 po bid MDD 2 180caps M54.2 Carmen Nascimento M.D. 08/02/2016 Hydrocodone-Acetaminophen 5-325mg Tablets 1 po bid prn 14tabs M54.2 Carmen Nascimento M.D. 12/09/2015 Baclofen 10mg Tablets 1 po bid with 2 po qhs 360tabs M54.2 Carmen Nascimento M.D. 12/10/2014 Pamelor 10mg Capsules 1 po in am and 2 po qhs 270caps R51 Carmen Nascimento M.D. 11/03/2014 Topamax 100mg Tablets 1 po qhs MDD 1 90tabs R51 Carmen Nascimento M.D. 07/11/2014 Sumatriptan Succinate 100mg Tablet s 1 po at onset of migraine, may repeat once in 2 hours 15tabs Carmen Nascimento M.D. 07/18/2012 Immunizations Description No Information Available Vital Signs Date Vital Result Comment 08/24/2020 5:27am BP Systolic 130 mmHg BP Diastolic 80 mmHg Heart Rate 76 /min Respiratory Rate 16 /min 05/20/2020 6:38am BP Systolic 124 mmHg BP Diastolic 70 mmHg Heart Rate 76 /min Respiratory Rate 16 /min Results Description No Information Available Procedures Date Code Description Status 09/29/2020 67294 Injection For Nerve Block, Other Peripheral Nerve Or Branch Completed 09/29/2020 95354 Injection, Single Or Multiple trigger points one or two muscles Completed 09/15/2020 06348 MRI Spine Lumbar W/O Contrast Co mpleted 09/15/2020 87688 MRI Spine Lumbar W/O Contrast Co mpleted 08/25/2020 90114 Injection For Nerve Block, Other Peripheral Nerve Or Branch Completed 08/25/2020 04667 Injection, Single Or Multiple trigger points one or two muscles Completed 07/22/2020 75151 Injection For Nerve Block, Other Peripheral Nerve Or Branch Completed 07/22/202042977 Injection, Single Or Multiple trigger points one or two muscles Completed 06/19/2020 30119 Injection For Nerve Block, Other Peripheral Nerve Or Branch Completed 06/19/202072033 Injection Single Or Multiple Trigger Points Three Or More Muscles Completed 05/18/2020 60492 Injection For Nerve Block, Other Peripheral Nerve Or Branch Completed 05/18/202065291 Injection, Single Or Multiple trigger points one or two muscles Completed Medical Devices Description No Information Available Encounters Type Date Location Provider Dx Diagnosis Office Visit 08/24/2020 2:45p Main office - [place] Veronica barker P.A.-C. 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 09/29/2020 M79.18 Myalgia, other site Raghav Servin M.D. 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 08/25/2020 M79.18 Myalgia, other site Raghav Servin M.D. 08/24/2020 M54.81 Occipital neuralgia Alaina Paz.A.-C. 08/24/2020 G43.709 Chronic migraine wit hout aura, not intractable, without status migrainosus Alaina Johnson.A.-C. 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 08/24/2020 M62.838 Other muscle spasm Veronica choudhury P.A.-C. 08/24/2020 M54.2 Cervicalgia Veronica Zavaleta P.A.-C. 08/24/2020 M54.5 Low back pain Veronica Zavaleta P.A.-C. 08/24/2020 F41.1 Generalized anxiety disorder Alaina Jansen.A.-CEmmanuel 07/22/2020 M54.81 Occipital neuralgia Raghav Servin M.D. 07/22/2020 M79.18 Myalgia, other site Raghav Servin M.D. 06/19/2020 M54.81 Occipital neuralgia Raghav Servin M.D. 06/19/2020 M79.18 Myalgia, other site Raghav Servin M.D. 05/20/2020 G43.709 Chronic migraine wit hout aura, not intractable, without status migrainosus Veronica Zavaleta P.A.-C. 05/20/2020 M54.81 Occipital neuralgia Veronica barker P.A.-C. 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 05/20/2020 M54.2 Cervicalgia Veronica Zavaleta P.A.-C. 05/20/2020 M54.5 Low back pain Veronica Zavaleta P.A.-C. 05/20/2020 M62.838 Other muscle spasm Veronica choudhury P.A.-C. 05/20/2020 F41.1 Generalized anxiety disorder Vero Zavaleta, P.A.-C. 05/18/2020 M54.81 Occipital neuralgia Raghav Servin M.D. 05/18/2020 M79.18 Myalgia, other site Raghav Servin M.D. Plan of Treatment Future Appointment(s):* 12/08/2020 3:15 pm - Raghav Servin M.D. at [facility] * 11/24/2020 1:30 pm - Veronica Zavaleta P.A.-C. at [facility] Functional Status Description No Information Available Mental Status Description No Information Available Referrals Refer to Reason for Referral Status Appt Date Vernon Mccoy M.D. LOW BACK PAIN Created [facility] [address] [place], [place] [id number] [phone] Raghav Servin M.D. Created [facility] [address] [place], [place] [id number] [phone]
--- OUTSIDE RECORDS SUMMARY | 2020-11-10 07:04 | CCD | Continuity of Care Document ---
Author Author eLia BOYLE DO Organization Unknown Address [address] [place] [address] Phone [phone] Care Team Providers Care Mail Inserter Name Role Phone Milton Mercado M.D. AUTM [phone] Andrei Whitley MD AUTM [phone] Problems Active Problems Provider Date Allergic rhinitis due to pollen Humberto Bender Onset: 0 12/09/2011 Allergic rhinitis Humberto Bender Onset: 12/09/2011 Chronic allergic conjunctivitis Humberto Bender Onset: 0 12/09/2011 Cough Humberto Bender Onset: 12/09/2011 H/O: food allergy Humberto Bender Onset: 12/09/2011 Allergic rhinitis due to animals Timoteo Boyle DO Onset : 09/07/2017 Social History Type Date Description Comments Sex Unknown Tobacco Use Reviewed: 10/29/20 Patient has never smoked Smoking Status Reviewed: 10/29/20 Patient has never smoked Allergies, Adverse Reactions, Alerts Active Allergies Reaction Severity Comments Date Sudafed ANGIOEDEMA 04/08/2011 Bactrim UTI, Itching 06/30/2016 Medications Active Medications SIG Qnty Indications Ordering Provide r Date Azelastine HCL (Nasal) 0.1% Soluti on 2 sprays each nostril twice a day 90ml J30.1 Timoteo Boyle DO 04/11/2019 J30.89 J30.81 Olopatadine HCL 0.1% Solution use one drop in each eye twice daily. 5ml H10.45 Timoteo Boyle, DO 0 04/11/2019 Fluticasone Propionate 50mcg/Act Suspension 2 sprays ea. nostril once daily 47.4ml J30.89 Timoteo Boyle, DO 03/22/2017 J30.1 J30.81 Ketoconazole 2% Cream apply every morning and hs Timoteo Boyle, DO 08/12/2015 Epipen 2-Neol 0.3mg/0 .3ML Solution Auto-Inject inject into thigh as directed for allergic emergency. 2units J30.1 Timoteo Boyle, DO 02/10/2015 Fluzone Quadrivalent 0.5ml Kamryn Administer as Directed Unknown Duloxetine HCL 60mg Caps DR Part Take One Capsule By Mouth Once Daily Unknown Sumatriptan Succinate 100mg Tablet s Take One Tablet By Mouth AT Onset Of Migraine May Repeat Once In Two Hours Unknown Hydrocodone-Acetaminophen 5-325mg Tablets Take One Tablet By Mouth Twice Daily Max Daily Dose Two Tablets Unknown Rabeprazole Sodium 20mg Tablets DR Take One Tablet By Mouth Once Daily Unknown 0 Ajovy 225mg/1.5ML Soln Prefill Syr morris Inject Subcutaneously Monthly as Directed Unknow n Ibuprofen 800mg Tablets Take One Tablet By Mouth Twice Daily as Needed For back pain Unknow n Lipitor 40mg Tablets 1 Tablet PO qd Unknown Euflexxa Shots 1 injection in both knees every 6 months Unknown Celecoxib 20mg Capsules 1 tablet once a day Unknown Baclofen 10mg Tablets 1 tablet three times a day as needed Unknown Carisoprodol 350mg Tablets 1po bedtime Unknown Nortriptyline HCL 10mg Capsules (2) bid Unknown Gabapentin 300mg Capsules 1 t ab daily Unknown D-3 1000Unit Capsules 1 tablet once a day Unknown Multi Complete/Iron Tablets 1 po q day Unknown Montelukast Sodium 10mg Tablets take one tablet by mouth at bedtime 90tabs J30.1 Timoteo Boyle, DO J30.89 Cetirizine HCL 10mg Tablets 1qd - take one tablet by mouth every day 90tabs J30.1 Timoteo Boyle, DO J30.89 H10.45 Topiramate 100mg Tablets 1 po bid Unknown Aciphex 20mg Tablets DR 1 tablet once a day Unknown Tramadol HCL 50mg Tablets 4-6 hours prn Unknown Immunizations Description No Information Available Vital Signs Date Vital Result Comment 10/29/2020 2:00pm Respiratory Rate 15 /min Heart Rate 72 /min BP Systolic 112 mmHg BP Diastolic 72 mmHg Height 63.5 inches 5'3.50" Weight 168.25 lb Body Temperature 97.6 F O2 % BldC Oximetry 96 % BMI (Body Mass Index) 29.3 kg/m2 03/26/2020 1:30pm Respiratory Rate 18 /min Heart Rate 77 /min BP Systolic 120 mmHg BP Diastolic 68 mmHg Height 63.5 inches 5'3.50" Weight 165.12 lb O2 % BldC Oximetry 98 % BMI (Body Mass Index) 28.8 kg/m2 Results Description No Information Available Procedures Date Code Description Status 10/29/2020 02471 Multiple Injections-Admin. Compl eted 10/08/2020 45895 Multiple Injections-Admin. Compl eted 08/06/2020 62115 Multiple Injections-Admin. Compl eted 07/23/2020 38950 Multiple Injections-Admin. Compl eted 07/15/2020 12426 Allergy Mixed Antigens Completed 06/25/2020 00764 Multiple Injections-Admin. Compl eted 06/04/2020 83937 Multiple Injections-Admin. Compl eted 05/14/2020 43168 Multiple Injections-Admin. Compl eted Medical Devices Description No Information Available Encounters Description No Information Available Assessments Date Code Description Provider 10/29/2020 J30.1 Allergic rhinitis due to pollen Allergy Injections [place] 10/29/2020 J30.1 Allergic rhinitis due to pollen Timoteo Boyle, DO 10/29/2020 J30.89 Other allergic rhinitis Allergy Injections [place] 10/29/2020 J30.89 Other allergic rhinitis Timoteo Boyle, DO 10/29/2020 J30.81 Allergic rhinitis due to animal (cat) (dog) hair and dander Allergy Injections [place] 10/29/2020 J30.81 Allergic rhinitis due to animal (cat) (dog) hair and dander Timoteo Boyle, DO 10/29/2020 H10.45 Other chronic allergic conjuncti vitis Allergy Injections [place] 10/29/2020 H10.45 Other chronic allergic conjuncti Timoteo Pineda, DO 10/08/2020 J30.1 Allergic rhinitis due to pollen Allergy Injections 10/08/2020 J30.1 Allergic rhinitis due to pollen Allergy Injections [place] 10/08/2020 J30.89 Other allergic rhinitis Allergy Injections 10/08/2020 J30.89 Other allergic rhinitis Allergy Injections [place] 10/08/2020 J30.81 Allergic rhinitis due to animal (cat) (dog) hair and dander Allergy Injections 10/08/2020 J30.81 Allergic rhinitis due to animal (cat) (dog) hair and dander Allergy Injections [place] 08/06/2020 J30.1 Allergic rhinitis due to pollen Allergy Injections 08/06/2020 J30.1 Allergic rhinitis due to pollen Allergy Injections [place] 08/06/2020 J30.89 Other allergic rhinitis Allergy Injections 08/06/2020 J30.89 Other allergic rhinitis Allergy Injections [place] 08/06/2020 J30.81 Allergic rhinitis due to animal (cat) (dog) hair and dander Allergy Injections 08/06/2020 J30.81 Allergic rhinitis due to animal (cat) (dog) hair and dander Allergy Injections [place] 07/23/2020 J30.1 Allergic rhinitis due to pollen Allergy Injections 07/23/2020 J30.1 Allergic rhinitis due to pollen Allergy Injections [place] 07/23/2020 J30.89 Other allergic rhinitis Allergy Injections 07/23/2020 J30.89 Other allergic rhinitis Allergy Injections [place] 07/23/2020 J30.81 Allergic rhinitis due to animal (cat) (dog) hair and dander Allergy Injections 07/23/2020 J30.81 Allergic rhinitis due to animal (cat) (dog) hair and dander Allergy Injections [place] 07/15/2020 J30.1 Allergic rhinitis due to pollen Allergy Injections 07/15/2020 J30.89 Other allergic rhinitis Allergy Injections 07/15/2020 J30.81 Allergic rhinitis due to animal (cat) (dog) hair and dander Allergy Injections 06/25/2020 J30.1 Allergic rhinitis due to pollen Allergy Injections 06/25/2020 J30.1 Allergic rhinitis due to pollen Allergy Injections [place] 06/25/2020 J30.89 Other allergic rhinitis Allergy Injections 06/25/2020 J30.89 Other allergic rhinitis Allergy Injections [place] 06/25/2020 J30.81 Allergic rhinitis due to animal (cat) (dog) hair and dander Allergy Injections 06/25/2020 J30.81 Allergic rhinitis due to animal (cat) (dog) hair and dander Allergy Injections [place] 06/04/2020 J30.1 Allergic rhinitis due to pollen Allergy Injections 06/04/2020 J30.1 Allergic rhinitis due to pollen Allergy Injections [place] 06/04/2020 J30.89 Other allergic rhinitis Allergy Injections 06/04/2020 J30.89 Other allergic rhinitis Allergy Injections [place] 06/04/2020 J30.81 Allergic rhinitis due to animal (cat) (dog) hair and dander Allergy Injections 06/04/2020 J30.81 Allergic rhinitis due to animal (cat) (dog) hair and dander Allergy Injections [place] 05/14/2020 J30.1 Allergic rhinitis due to pollen Allergy Injections 05/14/2020 J30.1 Allergic rhinitis due to pollen Allergy Injections [place] 05/14/2020 J30.89 Other allergic rhinitis Allergy Injections 05/14/2020 J30.89 Other allergic rhinitis Allergy Injections [place] 05/14/2020 J30.81 Allergic rhinitis due to animal (cat) (dog) hair and dander Allergy Injections 05/14/2020 J30.81 Allergic rhinitis due to animal (cat) (dog) hair and dander Allergy Injections [place] Plan of Treatment Future Appointment(s):* 02/25/2021 1:15 pm - Timoteo Boyle DO at [place] [facility] * 11/05/2020 1:30 pm - Allergy Injections [place] at [facility] 10/29/2020 - Timoteo Boyle DO* J30.1 Allergic rhinitis due to pollen* Comments:* To use allergy meds on an as needed basis. Use nasal saline. To continue the allergy injections on a 2-3 week schedule. The patient is aware that there is some risk to receiving allergy injections. Epi pen is available. * Follow up:* recehck in February or March. * J30.89 Other allergic rhinitis* Comments:* See above * J30.81 Allergic rhinitis due to animal (cat) (dog) hair and dander* Comments: * See above. * H10.45 Other chronic allergic conjunctivitis Functional Status Description No Information Available Mental Status Description No Information Available Referrals Description No Information Available
--- OUTSIDE RECORDS SUMMARY | 2020-11-10 07:04 | CCD | Continuity of Care Document ---
Author Author Leia ELDER P.A. Organization Unknown Address [address] [facility] [place] [address] Phone [phone] Care Team Providers Care Sheather Name Role Phone AlbertoDavid eugene AUTM [phone] Andrei Whitley MD AUTM [phone] Problems Description No Active Problems Social History Type Date Description Comments Sex Unknown ETOH Use Rarely consumes alcohol Tobacco Use Start: Unknown Patient has never smoked Recreational Drug Use Denies Drug Use Smoking Status Reviewed: 06/21/19 Patient has never smoked Allergies, Adverse Reactions, Alerts Active Allergies Reaction Severity Comments Date Bactrim 10/04/2016 Inactive Allergies Sudafed 12/24/2013 Medications Active Medications SIG Qnty Indications Ordering Provide r Date Mupirocin 2% Ointment apply pea-sized amount to inside each nostil 3x daily for 5 days before surgery 22gm Tonny Campbell MD 10/30/2020 Hibiclens 4% Liquid use in shower once daily for 5 days before surgery 1units Tonny Campbell MD 10/30/2020 Tramadol HCL 50mg Tablets 1 every 4-6 hours as needed pain 60tabs M41.9 Lio Hui MD 01/2020 Medrol 4mg Tablets dose emily, take as directed on sheet 1tabs M41.9 Lio Hui MD 020 Lidoderm 5% Patches use as directed on 12 hours off 12 hours up to 3 patches a day 90units M41.9 Jovani Rosenberg MD 03/12/2020 Euflexxa 20mg/2ML Soln Prefill Syr morris rt knee #1 mkm/bc 11/02/20 Jovani Rosenberg MD 2019 Celecoxib 200mg Capsules Take One Capsule By Mouth Once Daily 90caps DEmmanuel Anguiano MD Fosamax 70mg Tablets 1 tab by mouth weekly in the in the morning with water, at least 30 minutes before food, drink or other meds and sit upright Unknown Carisoprodol 350mg Tablets 1 tab four times a day as needed Unknown Gabapentin 300mg Capsules i by mouth three times a day Unknown Baclofen 10mg Tablets sig 1 by mouth three times a day Unknown Duloxetine HCL 60mg Caps DR Part 1 by mouth every day Unknown Aspirin 325mg Tablets 1 by mouth every day Unknown Lipitor 40mg Tablets 1 by mouth every day Unknown Amlodipine Besylate 5mg Tablets Unknown Ajovy 225mg/1.5ML Soln Prefill Syringe Unknown Botox 100Unit Solution Rec 100 units administered [id number] 01/11 hhh/mlc Unknown Caltrate 600+D3 [id number] Tab lets 1 by mouth twice a day Unknown Singulair 10mg Tablets 1 by mouth every day Unknown Multi Complete Capsules by mouth every day Unknown Biotin 1000mcg Tablets Unknown Gas-X 80mg Chewtabs Unknown Vitamin D3 1000Unit Capsules every day Unknown B-12-Shots Unknown Allergy Shots Unknown Nortriptyline HCL 10mg Capsules by mouth twice a day Unknown Zyrtec Allergy 10mg Tablets 1 by mouth every day Unknown Aciphex 20mg Tablets DR Unknown Wellbutrin XL 300mg Tablets ER 24HR Unknown Topiramate 100mg Tablets 2 po bid Unknown Immunizations Description No Information Available Vital Signs Date Vital Result Comment 08/14/2020 1:24pm Body Temperature 96.9 F Height 60.5 inches 5'0.50" Weight 160.12 lb BMI (Body Mass Index) 30.8 kg/m2 03/12/2020 5:09pm Body Temperature 97.3 F Height 64.5 inches 5'4.50" Weight 164.00 lb BMI (Body Mass Index) 27.7 kg/m2 Results Description No Information Available Procedures Date Code Description Status 07/16/2020 05609 Apply Cast Short Arm Completed 06/26/2020 35890 Apply Cast Short Arm Completed 06/26/2020 Inject/Drain Joint/Bursa Small C ompleted 06/04/2020 77475 X-Ray Knee Ap & Lateral W/Obliqu es Three Views Completed 06/04/2020 Inject/Drain Joint/Bursa Major C ompleted 06/04/202082832 Inject/Drain Joint/Bursa Major C ompleted Medical Devices Description No Information Available Encounters Type Date Location Provider Dx Diagnosis Office Visit 06/04/2020 3:30p [facility] Guru Elder P.A. M17.0 Bilateral primary osteoarthritis of knee Assessments Date Code Description Provider 11/02/2020 M17.11 Unilateral primary osteoarthriti s, right knee Guru Elder, P.A. 10/22/2020 M17.11 Unilateral primary osteoarthriti s, right knee Guru Elder, P.A. 08/14/2020 M17.12 Unilateral primary osteoarthriti s, left knee Tonny Campbell MD 08/06/2020 M18.12 Unilateral primary o steoarthritis of first carpometacarpal joint, left hand Guru Elder P.A. 08/06/2020 M18.12 Unilateral primary o steoarthritis of first carpometacarpal joint, left hand Guru Elder, P.A. 08/06/2020 M17.12 Unilateral primary osteoarthriti s, left knee Guru Elder, P.A. 07/16/2020 M18.12 Unilateral primary o steoarthritis of first carpometacarpal joint, left hand Guru Elder, P.A. 06/26/2020 M18.12 Unilateral primary o steoarthritis of first carpometacarpal joint, left hand Guru Elder P.A. 06/22/2020 M17.12 Unilateral primary osteoarthriti s, left knee Ash Andres 06/04/2020 M17.0 Bilateral primary osteoarthritis of knee Ash Andres Plan of Treatment Future Appointment(s):* 11/23/2020 3:15 pm - Tonny Campbell MD at [facility] * 11/05/2020 1:00 pm - Ana Sotomayor PA-C at [facility] * 11/10/2020 11:40 am - Tonny Campbell MD at [facility] Inpatient Functional Status Description No Information Available Mental Status Description No Information Available Referrals Refer to Reason for Referral Status Appt Date Guru Elder PA Right knee Euflexxa- No authorization r eq Created [address] [place], [place] [id number] [phone] Guru Elder PA L1846 Fusion OA Plus Custom. No authorization required. Covered at 100% Ok to supply here. ac Created [address] [place] [address] [phone]
--- OUTSIDE RECORDS SUMMARY | 2020-11-10 07:04 | CCD | Continuity of Care Document ---
Author Author Leia SOTOMAYOR PA-C Organization Unknown Address [address] [place] [address] Phone [phone] Care Team Providers Care Helix Coil Winder Name Role Phone David Dominguez AUTM [phone] Andrei Whitley MD AUTM [phone] Problems Description No Active Problems Social History [...] as directed on sheet 1tabs M41.9 Lio uHi MD 020 Lidoderm 5% Patches use as [...] Botox 100Unit Solution Rec 100 units administered [id number] 01/11 hhh/mlc Unknown Caltrate 600+D3 [id number] Tab lets 1 by mouth twice a [...] Available Vital Signs Date Vital Result Comment 11/05/2020 1:20pm BP Systolic 132 mmHg BP Diastolic 80 mmHg Heart Rate 76 /min Body Temperature 97.7 F Height 62.5 inches 5'2.50" Weight 163.00 lb BMI (Body Mass Index) 29.3 kg/m2 Respiratory Rate 14 /min 08/14/2020 1:24pm Body Temperature 96.9 F Height 60.5 inches 5'0.50" Weight 160.12 lb BMI (Body Mass Index) 30.8 kg/m2 Results Description No Information Available Procedures Date Code Description Status 11/02/2020 Inject/Drain Joint/Bursa Major C ompleted 07/16/2020 51817 Apply Cast Short Arm Completed 06/26/2020 87256 Apply Cast Short Arm Completed 06/26/2020 Inject/Drain Joint/Bursa Small C ompleted 06/04/2020 52413 X-Ray Knee Ap & Lateral W/Obliqu es Three Views Completed 06/04/2020 Inject/Drain Joint/Bursa Major C ompleted 06/04/2020 Inject/Drain Joint/Bursa Major C ompleted Medical Devices Description No Information Available Encounters Type Date Location Provider Dx Diagnosis Office Visit 11/05/2020 1:00p [place] Ana Sotomayor PA-C Z0 1.818 Encounter for other preprocedural examination M17.12 Unilateral primary osteoarth ritis, left knee Office Visit 06/04/2020 3:30p [place] Guru Elder PEmmanuelAEmmanuel M17.0 Bilateral primary osteoarthritis of knee Assessments Date Code Description Provider 11/05/2020 Z01.818 Encounter for other preprocedura l examination Ana Sotomayor PA-C 11/05/2020 M17.12 Unilateral primary osteoarthriti s, left knee Ana Sotomayor PA-C 11/02/2020 M17.11 Unilateral primary osteoarthriti s, right knee Guru Elder, P.A. 10/22/2020 M17.11 Unilateral primary osteoarthriti s, right knee Guru Elder P.A. 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 08/06/2020 M18.12 Unilateral primary o steoarthritis of first carpometacarpal joint, left hand Guru Elder, P.A. 08/06/2020 M17.12 Unilateral primary osteoarthriti s, left knee Guru Elder, P.A. 07/16/2020 M18.12 Unilateral primary o steoarthritis of first carpometacarpal joint, left hand Guru Elder, P.A. 06/26/2020 M18.12 Unilateral primary o steoarthritis of first carpometacarpal joint, left hand Guru Elder, P.A. 06/22/2020 M17.12 Unilateral primary osteoarthriti s, left knee Guru Elder, Alaina.A. 06/04/2020 M17.0 Bilateral primary osteoarthritis of knee Ash Andres Plan of Treatment Future Appointment(s):* 11/10/2020 11:40 am - Soha Campbell PA-C at Surgery [facility] * 2020 3:00 pm - Ash Andres at [place] * 11/23/2020 3:15 pm - Tonny Campbell MD at [place] * 11/10/2020 11:40 am - Tonny Campbell MD at Surgery [facility] Functional Status Description No Information Available Mental Status Description No Information Available Referrals Refer to Dr Reason for Referral Status Appt Date Guru Elder PA SURGERY PER [facility] NO AUTH REQUIRED FOR TOTAL LEFT KNEE (13414) AND IS SAME DAY SURGERY . IF NEEDS MORE TIME HOSPITAL MUST CALL TO SURGERY NT Created [facility] [place] [address] [phone] Guru Elder PA Right knee Euflexxa- No authorization r eq Created [address] [place] [address] [phone] Guru Elder PA L1846 Fusion OA Plus Custom. No authorization required. Covered at 100% Ok to supply here. ac Created [facility] [place] [address] [phone]
--- OUTSIDE RECORDS SUMMARY | 2020-11-10 07:04 | CCD | Continuity of Care Document ---
Author Author Leia SERVIN M.D. Organization Unknown Address [address] [place] [address] Phone [phone] Care Team Providers Care Fusion Juncture Grinder Name Role Phone Andrei Whitley M.D. AUTM [phone] Problems Active Problems Provider Date Headache Carmen [...] Available Procedures Date Code Description Status 11/02/2020 72703 Injection For Nerve Block, Other Peripheral Nerve Or Branch Completed 11/02/2020 98091 Injection, Single Or Multiple trigger points one or two muscles Completed 09/29/2020 00777 Injection For Nerve Block, Other Peripheral Nerve Or Branch Completed 09/29/202067740 Injection, Single Or Multiple trigger points one or two muscles Completed 09/15/2020 42233 MRI Spine Lumbar W/O Contrast Co mpleted 09/15/2020 48987 MRI Spine Lumbar W/O Contrast Co mpleted 08/25/2020 37318 Injection For Nerve Block, Other Peripheral Nerve Or Branch Completed 08/25/2020 Injection, Single Or Multiple trigger points one or two muscles Completed 07/22/2020 94792 Injection For Nerve Block, Other Peripheral Nerve Or Branch Completed 07/22/202032654 Injection, Single Or Multiple trigger points one or two muscles Completed 06/19/2020 94341 Injection For Nerve Block, Other Peripheral Nerve Or Branch Completed 06/19/202035320 Injection Single Or Multiple Trigger Points Three Or More Muscles Completed 05/18/2020 30831 Injection For Nerve Block, Other Peripheral Nerve Or Branch Completed 05/18/202005997 Injection, Single Or Multiple trigger points one or two muscles Completed Medical Devices Description No Information Available Encounters Type Date Location Provider Dx Diagnosis Office Visit 08/24/2020 2:45p Main office - [place] Veronica barker P.ALiz 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 11/02/2020 M79.18 Myalgia, other site Raghav Servin M.D. 09/29/2020 M54.81 Occipital neuralgia Raghav Servin M.D. 09/29/2020 M79.18 Myalgia, other site Raghav Servin M.D. 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 09/15/2020 M41.9 Scoliosis, unspecified MRI 08/25/2020 M54.81 Occipital neuralgia Raghav Servin M.D. 08/25/2020 M79.18 Myalgia, other site Raghav Servin M.D. 08/24/2020 M54.81 Occipital neuralgia Alaina Paz.A.-C. 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 08/24/2020 M54.5 Low back pain Veronica Zavaleta P.A.-C. 08/24/2020 F41.1 Generalized anxiety disorder Vero Zavaleta P.A.-C. 07/22/2020 M54.81 Occipital neuralgia Raghav Servin M.D. [...] P.A.-C. 05/20/2020 F41.1 Generalized anxiety disorder Vero Zavaleta P.A.-C. 05/18/2020 M54.81 Occipital neuralgia Raghav Servin M.D. 05/18/2020 M79.18 Myalgia, other site Raghav Servin M.D. Plan of Treatment Future Appointment(s):* 02/05/2021 2:30 pm - Raghav Servin M.D. at [facility] * 01/05/2021 3:15 pm - Raghav Servin M.D. at [facility] * 12/08/2020 3:15 pm - Raghav Servin M.D. at [facility] * 11/24/2020 1:30 pm - Tana JohnsonA.-CEmmanuel at [facility] Functional Status Description No Information Available Mental Status Description No Information Available Referrals Refer to Dr Reason for Referral Status Appt Date Raghav Servin M.D. Created [facility] [address] [place] [address] [phone] Vernon Mccoy M.D. LOW BACK PAIN Created [facility] [address] [place] [address] [phone] Ragahv Servin M.D. Created [facility] [address] [place] [address] [phone]
--- OUTSIDE RECORDS SUMMARY | 2020-11-10 07:04 | CCD | Continuity of Care Document ---
Author Author Leia SERVIN M.D. Organization Unknown Address [address] [place] [address] Phone [phone] Care Team Providers Care Corrective And Manual Arts Therapist Name Role Phone Andrei Whitley M.D. AUTM [phone] Problems Active Problems Provider Date Headache Carmen [...] Available Procedures Date Code Description Status 09/29/2020 71624 Injection For Nerve Block, Other Peripheral Nerve Or Branch Completed 09/29/2020 18570 Injection, Single Or Multiple trigger points one or two muscles Completed 09/15/2020 09742 MRI Spine Lumbar W/O Contrast Co mpleted 09/15/2020 80324 MRI Spine Lumbar W/O Contrast Co mpleted 08/25/2020 13776 Injection For Nerve Block, Other Peripheral Nerve Or Branch Completed 08/25/2020 87320 Injection, Single Or Multiple trigger points one or two muscles Completed 07/22/2020 48055 Injection For Nerve Block, Other Peripheral Nerve Or Branch Completed 07/22/202067017 Injection, Single Or Multiple trigger points one or two muscles Completed 06/19/2020 94816 Injection For Nerve Block, Other Peripheral Nerve Or Branch Completed 06/19/202053055 Injection Single Or Multiple Trigger Points Three Or More Muscles Completed 05/18/2020 29056 Injection For Nerve Block, Other Peripheral Nerve Or Branch Completed 05/18/202027321 Injection, Single Or Multiple trigger points one or two muscles Completed Medical Devices Description No Information Available Encounters Type Date Location Provider Dx Diagnosis Office Visit 08/24/2020 2:45p Main office - [place] Veronica barker P.A.-C. 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 [...] 2:30 pm - Raghav Servin M.D. at [facility] * 01/05/2021 3:15 pm - Raghav Servin M.D. at [facility] * 12/08/2020 3:15 pm - Raghav Servin M.D. at [facility] * 11/24/2020 1:30 pm - Veronica Zavaleta P.A.-CEmmanuel at [facility] Functional Status Description No Information Available Mental Status Description No Information Available Referrals Refer to Reason for Referral Status Appt Date Vernon Mccoy M.D. LOW BACK PAIN Created [facility] [address] [place], [place] [address] [phone] Raghav Servin M.D. Created [facility] [address] [place] [address] [phone]
--- OUTSIDE RECORDS SUMMARY | 2020-11-10 07:04 | CCD | Continuity of Care Document ---
Author Author Leia ELDER P.A. Organization Unknown Address [address] [facility] [facility] [place] [address] Phone [phone] Care Team Providers Care Food And Beverage Outlets Manager Name Role Phone AlbertoDavid eugene AUTM [phone] Andrei Whitley MD AUTM [phone] Problems Description No Active Problems Social History [...] Botox 100Unit Solution Rec 100 units administered [id number] 01/11 hhh/mlc Unknown Caltrate 600+D3 [id number] Tab lets 1 by mouth twice a [...] 11/02/2020 Inject/Drain Joint/Bursa Major C ompleted 07/16/2020 20336 Apply Cast Short Arm Completed 06/26/2020 94848 Apply Cast Short Arm Completed 06/26/2020 Inject/Drain Joint/Bursa Small C ompleted 06/04/2020 24004 X-Ray Knee Ap & Lateral W/Obliqu es Three Views Completed 06/04/2020 Inject/Drain Joint/Bursa Major C ompleted 06/04/2020 Inject/Drain Joint/Bursa Major C ompleted Medical Devices Description No Information Available Encounters Type Date Location Provider Dx Diagnosis Office Visit 11/05/2020 1:00p [place] Ana Sotomayor PA-C Z0 1.818 Encounter for other preprocedural examination M17.12 Unilateral primary osteoarth ritis, left knee Office Visit 06/04/2020 3:30p [place] Guru Elder P.A. M17.0 Bilateral primary osteoarthritis [...] carpometacarpal joint, left hand Guru Elder P.A. 06/26/2020 M18.12 Unilateral primary o steoarthritis of first carpometacarpal joint, left hand Guru Elder, P.A. 06/22/2020 M17.12 Unilateral primary osteoarthriti s, left knee Alaina Andres.A. 06/04/2020 M17.0 Bilateral primary osteoarthritis of knee Ash Andres Plan of Treatment Future Appointment(s):* 11/10/2020 9:30 am - Soha Campbell PA-C at Surgery [facility] * 2020 3:00 pm - Ash Andres at [place] * 11/23/2020 3:15 pm - Tonny Campbell MD at [place] * 11/10/2020 9:30 am - Tonny Campbell MD at Surgery [facility] Functional Status Description No Information Available Mental Status Description No Information Available Referrals Refer to Dr Reason for Referral Status Appt Date Guru Elder PA SURGERY PER DAVE AT [facility] E NO AUTH REQUIRED FOR TOTAL LEFT KNEE (54016) AND IS SAME DAY SURGERY . IF NEEDS MORE TIME HOSPITAL MUST CALL TO SURGERY NT Created [facility] [place] [address] [phone] Guru Elder PA Right knee Euflexxa- No authorization r eq Created [address] [place] [address] [phone] Guru Elder PA L1846 Fusion OA Plus Custom. No authorization required. Covered at 100% Ok to supply here. ac Created [address] [place] [address] [phone]
--- OUTSIDE RECORDS SUMMARY | 2020-11-10 07:05 | CCD | Continuity of Care Document ---
Author Author Leia SERVIN M.D. Organization Unknown Address [address] [place] [address] Phone [phone] Care Team Providers Care Cement Sack Breaker Name Role Phone Andrei Whitley M.D. AUTM [phone] Problems Active Problems Provider Date Headache Carmen [...] Available Procedures Date Code Description Status 09/29/2020 62981 Injection For Nerve Block, Other Peripheral Nerve Or Branch Completed 09/29/2020 Injection, Single Or Multiple trigger points one or two muscles Completed 09/15/2020 21080 MRI Spine Lumbar W/O Contrast Co mpleted 09/15/2020 29516 MRI Spine Lumbar W/O Contrast Co mpleted 08/25/2020 39701 Injection For Nerve Block, Other Peripheral Nerve Or Branch Completed 08/25/202067427 Injection, Single Or Multiple trigger points one or two muscles Completed 07/22/2020 43756 Injection For Nerve Block, Other Peripheral Nerve Or Branch Completed 07/22/2020 Injection, Single Or Multiple trigger points one or two muscles Completed 06/19/2020 15743 Injection For Nerve Block, Other Peripheral Nerve Or Branch Completed 06/19/202046260 Injection Single Or Multiple Trigger Points Three Or More Muscles Completed 05/18/2020 79413 Injection For Nerve Block, Other Peripheral Nerve Or Branch Completed 05/18/2020 Injection, Single Or Multiple trigger points one or two muscles Completed 04/15/2020 9 Neg CR Bal (Absorb Overpmt Compl eted 04/15/2020 69504 Injection For Nerve Block, Other Peripheral Nerve Or Branch Completed 04/15/2020 Injection, Single Or Multiple trigger points one or two muscles Completed Medical Devices Description No Information Available Encounters Type Date Location Provider Dx Diagnosis Office Visit 08/24/2020 2:45p [place] P.A.-Nichelle 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 09/29/2020 M79.18 Myalgia, other site Raghav Servin M.D. 09/15/2020 M54.5 Low back pain Carmen Azam, M.D . 09/15/2020 M54.5 Low back pain MRI 09/15/2020 M51.36 Other intervertebral disc degene ration, lumbar region Carmen Azam, M.D. 09/15/2020 M51.36 Other intervertebral disc degene ration, lumbar region MRI 09/15/2020 M41.9 Scoliosis, unspecified Carmen Lat if, M.D. 09/15/2020 M41.9 Scoliosis, unspecified MRI 08/25/2020 M54.81 Occipital neuralgia Raghav Servin M.D. 08/25/2020 M79.18 Myalgia, other site Raghav Servin M.D. 08/24/2020 M54.81 Occipital neuralgia Tana PazAEmmanuel-CEmmanuel 08/24/2020 G43.709 Chronic migraine wit hout aura, not intractable, without status migrainosus Alaina Johnson.A.-C. 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 05/20/2020 M62.838 Other muscle spasm Veronica choudhury, P.A.-C. 05/20/2020 F41.1 Generalized anxiety disorder Vero Zavaleta P.A.-C. 05/18/2020 M54.81 Occipital neuralgia Raghav Servin M.D. 05/18/2020 M79.18 Myalgia, other site Raghav Servin M.D. 04/29/2020 G43.709 Chronic migraine wit hout aura, not intractable, without status migrainosus Veronica Zavaleta P.A.-C. 04/29/2020 M54.81 Occipital neuralgia Veronica barker P.A.-C. 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 04/29/2020 M54.2 Cervicalgia Veronica Zavaleta P.A.-C. 04/29/2020 M54.5 Low back pain Veronica Zavaleta P.A.-C. 04/29/2020 M62.838 Other muscle spasm Veronica choudhury P.A.-C. 04/29/2020 F41.1 Generalized anxiety disorder Vero Zavaleta P.A.-C. 04/15/2020 M54.81 Occipital neuralgia Raghav Servin M.D. 04/15/2020 M54.81 Occipital neuralgia Raghav Servin M.D. 04/15/2020 M79.18 Myalgia, other site Raghav Servin M.D. Plan of Treatment Future Appointment(s):* 12/08/2020 3:15 pm - Raghav Servin M.D. at [facility] * 11/02/2020 3:00 pm - Raghav Servin M.D. at [facility] * 11/24/2020 1:30 pm - Veronica Zavaleta P.A.-C. at [facility] Functional Status Description No Information Available Mental Status Description No Information Available Referrals Refer to Dr Reason for Referral Status Appt Date Vernon Mccoy M.D. LOW BACK PAIN Created [facility] [address] [place] [address] [phone] Raghav Servin M.D. Created [facility] [address] [place] [address] [phone]
--- OUTSIDE RECORDS SUMMARY | 2020-11-10 07:05 | CCD | Continuity of Care Document ---
Author Author Leia WHITLEY M.D. Organization Unknown Address [address] [address] Phone [phone] Problems Active Problems Provider Date Migraine Andrei Whitley M.D. Onset: 4 Gastroesophageal reflux disease Andrei Whitley M.D. Onse t: 08/14/2014 Depressive disorder Andrei Whitley M.D. Onset: 4 Social History Type Date Description Comments Sex Unknown ETOH Use Rarely consumes liquor Tobacco Use Start: Unknown Patient has never smoked Recreational Drug Use Denies Drug Use Allergies, Adverse Reactions, Alerts Description No Known Drug Allergies Medications Active Medications SIG Qnty Indications Ordering Provide r Date Baclofen 10mg Tablets take 1 tablet by mouth every at bedtime 30tabs Andrei Whitley M.D. 1 11/21/2019 Ajovy 225mg/1.5ML Soln Prefill Syringe Andrei Whitley M.D. 03/01/[address] H[address] Part Take One Capsule By Mouth Once Daily 90caps Andrei Whitley M .D. 03/01/[address]ep[address]ole [address]odium [address] take one tablet by mouth once daily 90taAndrei Azul M.D. 02/22/2019 Wellbutrin XL 300mg Tablets ER 24H R 1 by mouth every day Unknown Atorvastatin Calcium 40mg Tablets Take One Tablet By Mouth Once Daily 90taAndrei Azul M. D. Aspirin 81 Low Dose 81mg Chewtabs 1 tab by mouth once a day Unknown Celebrex 200mg Capsules 1 by mouth every day Unknown Biotin 1000mcg Tablets 1 by mouth every day otc Unknown Vitamin B-12 1000mcg Tablets take one tablet by mouth qd Unknown Carisoprodol 350mg Tablets take 1 tablet by mouth qd Unknown Gabapentin 300mg Capsules take 1 capsule by mouth at hs Unknown Caltrate 600+D [id number] Shanna wtabs 1 by mouth every day otc Unknown 0 Vitamin D3 1000Unit Capsules 1 by mouth every day Unknown Fosamax 70mg Tablets 1 by mouth every week Unknown Nortriptyline HCL 10mg Capsules 1 po bid Unknown Singulair 10mg Tablets 1 by mouth every day at at bedtime Unknown Zyrtec Allergy 10mg Capsules 1 by mouth every day Unknown Topiramate 100mg Tablets 1 po bid Unknown History Medications Lorazepam 0.5mg Tablets 1 tab by mouth one hour before flight. No driving after taking this 4tabs Andrei Whitley M.D. 03/30/2020 - 09/21/2020 Immunizations CPT Code Status Date Vaccine Lot # [id number] Given 09/06/2019 Tdap Tetanus,Dip htheria Toxoids/Acellular Pertussis 7Yrs Or Older [id number] Given 03/01/2019 Pneumococcal Immunization R0 [id number] Refused 09/11/2017 Influenza Virus Vaccine, Quadrivalent, Slit Virus, Im Use 3Y & Up [id number] Vital Signs Date Vital Result Comment 09/21/2020 1:37pm BP Systolic 126 mmHg BP Diastolic 76 mmHg Body Temperature 98.3 F Heart Rate 100 /min Respiratory Rate 16 /min Height 64 inches 5'4" Weight 162.00 lb Adolphus Body Weight 120 lb BMI (Body Mass Index) 27.8 kg/m2 O2 % BldC Oximetry 93 % 03/11/2020 10:08am BP Systolic 102 mmHg BP Diastolic 80 mmHg Body Temperature 99.6 F Heart Rate 94 /min Respiratory Rate 14 /min Height 64 inches 5'4" Weight 165.00 lb Adolphus Body Weight 120 lb BMI (Body Mass Index) 28.3 kg/m2 O2 % BldC Oximetry 97 % Results Description No Information Available Procedures Description No Information Available Medical Devices Description No Information Available Encounters Type Date Location Provider Dx Diagnosis Office Visit 09/21/2020 1:30p [facility] Andrei Whitley M. D. K21.9 Gastro-esophageal reflux disease without esophagitis E78.5 Hyperlipidemia, unspecified F33.0 Major depressive disorder, r ecurrent, mild Assessments Date Code Description Provider 09/21/2020 K21.9 Gastro-esophageal reflux disease without esophagitis Andrei Whitley M.D. 09/21/2020 E78.5 Hyperlipidemia, unspecified [facility] 09/21/2020 F33.0 Major depressive disorder, recur rent, mild Andrei Whitley M.D. Plan of Treatment No Information Available Functional Status Description No Information Available Mental Status Description No Information Available Referrals Description No Information Available
--- OUTSIDE RECORDS SUMMARY | 2020-11-10 07:05 | CCD | Continuity of Care Document ---
Author Author Leia DANIELS M.D. Organization Unknown Address [address] [address] Phone [phone] Problems Active Problems Provider Date Migraine Andrei Daniels M.D. Onset: 4 Gastroesophageal reflux disease Andrei Daniels M.D. Onse t: 08/14/2014 Depressive disorder Andrei Daniels M.D. Onset: 4 Social History Type Date Description Comments Sex Unknown ETOH Use Rarely consumes liquor Tobacco Use Start: Unknown Patient has never smoked Recreational Drug Use Denies Drug Use Allergies, Adverse Reactions, Alerts Description No Known Drug Allergies Medications Active Medications SIG Qnty Indications Ordering Provide r Date Ajovy 225mg/1.5ML Soln Prefill Syringe Andrei Daniels M.D. 03/01/[address] Part Take One Capsule By Mouth Once Daily 90caps Andrei Daniels M .D. 03/01/2019 Rabeprazole Sodium 20[address] Table[address] take one tablet by mouth once daily 90tabs Andrei Daniels M.D. 02/22/2019 Gas Relief Extra Strength 125mg Ca psules as needed and directed OTC Unknown 0 Womens Multivitamin Tablets 1 p.o. qd OTC Unknown Euflexxa 20mg/2ML Soln Prefill Syr morris q 6 months Unknown Botox 100Unit Solution Rec once every month Unknown Baclofen 10mg Tablets take 1 tab p.o. tid prn Unknown Wellbutrin XL 300mg Tablets ER 24H R 1 by mouth every day Unknown Atorvastatin Calcium 40mg Tablets Take One Tablet By Mouth Once Daily 90tabs Andrei Daniels M. D. Aspirin 81 Low Dose 81mg [...] by mouth at hs Unknown Caltrate 600+D [id number] Shanna wtabs 1 by mouth every day [...] No driving after taking this 4tabs Andrei Daniels M.D. 03/30/2020 - 09/21/2020 Immunizations CPT Code Status Date Vaccine Lot # [id number] Given 09/06/2019 Tdap Tetanus,Dip htheria Toxoids/Acellular Pertussis 7Yrs Or Older [id number] Given 03/01/2019 Pneumococcal Immunization R0 [id number] Refused 09/11/2017 Influenza Virus Vaccine, Quadrivalent, Slit Virus, Im Use 3Y & Up [id number] Vital Signs Date Vital Result Comment 09/21/2020 1:37pm BP Systolic 126 mmHg BP Diastolic 76 mmHg Body Temperature 98.3 F Heart Rate 100 /min Respiratory Rate 16 /min Height 64 inches 5'4" Weight 162.00 lb [place] Body Weight 120 lb BMI (Body Mass Index) 27.8 kg/m2 O2 % BldC Oximetry 93 % 03/11/2020 10:08am BP Systolic 102 mmHg BP Diastolic 80 mmHg Body Temperature 99.6 F Heart Rate 94 /min Respiratory Rate 14 /min Height 64 inches 5'4" Weight 165.00 lb [place] Body Weight 120 lb BMI (Body Mass Index) 28.3 kg/m2 O2 % BldC Oximetry 97 % Results Test Acquired Date Facility Test Result H/L Range Note CMP 09/21/2020 [facility] Glu 91 mg/dL 70 - 110 1 BUN 9 mg/dL 8 - 23 Creat 0.8 mg/dL 0.5 - 1.0 BUN/Creatinine Ratio 11.3 CALC Na 137 mmol/L 136 - 145 K 4.0 mmol/L 3.5 - 5.1 CL 106.5 mmol/L 98.0 - 107.0 Co2 20.5 mmol/L Low 22.0 - 29.0 CA 8.5 mg/dL Low 8.6 - 10.2 TP 5.7 g/dL Low 6.6 - 8.7 Alb 3.8 g/dL 3.4 - 4.8 A/G Ratio 2.1 CALC Globulin 1.9 CALC Alp 72.8 U/L 35 - 129 Alt (SGPT) 20 U/L 0 - 41 Ast (Sgot) 24 U/L 0 - 40 Tbili 0.36 mg/dL 0.0 - 1.2 Osmolality-Calculated 271.7 CALC Anion Gap 14 mmol/L eGFR 92 # Calc 2 eGFR Non-Afr. Moldovan 80 # Calc 3 Lipid Panel 09/21/2020 [facility] Chol 128 mg/dL 0 - 200 Trig 40 mg/dL 40 - 200 HDL 77 mg/dL High 45 - 65 LDL_C 43 Calc Low 75 - 129 Cho/HDL Ratio 1.7 CALC CBC 09/21/2020 [facility] WBC 5.4 10E3/uL 4.1 - 10.9 RBC 4.33 10E6/uL 4.20 - 6.30 HGB 12.6 g/dL 12.0 - 18.0 HCT 38.0 % 37.0 - 51.0 MCV 87.8 fL 80.0 - 97.0 MCH 29.1 pg 26.0 - 32.0 MCHC 33.2 g/dL 31.0 - 36.0 PLT 278 10E3/uL 140 - 440 RDW-CV 14.0 % 11.5 - 14.5 Lym% 25.3 % 10.0 - 58.5 Neut% 70.3 % 37.0 - 92.0 MXD% 4.4 % 0.1 - 24.0 Lym# 1.4 10E3/uL 0.6 - 4.1 Neut# 3.8 % 2.0 - 7.8 MXD# 0.2 10E3/uL 0.0 - 1.8 MPV 9.8 fL 9.0 - 13.0 1 NORMAL RANGES Age WBC RBC HGB HCT MCV PLT Adult M 4.1-10.9 4.20-6.30 12.0-18.0 37.0-51.0 80-97 140-440 Adult F 4.1-10.9 4.04-5.48 12.0-18.0 37.0-51.0 80-97 140-440 0 -1 Yr 5.0-20.0 3.9-5.9 15-18 MV: 44 MV: 91 MV: 277 2-9 Yr. 6.0-17.0 3.8-5.4 11-13 MV: 37 MV: 78 MV: 300 10 Yrs. 5.0-13.0 3.8-5.4 12-15 MV: 39 MV: 80 MV: 250 NOTE: * FOR ADULT BLACK MALES AND FEMALES, NORMAL WBC IS 2.9-7.7 K/ML * FOR ADULT BLACK MALES AND FEMALES, NORMAL RBC,HGB, AND HCT IS 5% LESS SOURCE FOR DATA: [employer] 1800 OPERATION MANUAL( AUTOMATED BLOOD COUNTS AND DIFF.) APPENDIX B-3 CHRONIC KIDNEY DISEASE STAGING PER NKF: MALE GFR INTERPRETATION: 20-49 YRS: >60 mL/min Normal 50-59 YRS: >56 mL/min Normal 60-69 YRS: >49 mL/min Normal 70-79 YRS: >42 mL/min Normal 80 and above >35 mL/min Normal FEMALE GRF INTERPRETATION: 20-39 YRS: >60 mL/min Normal 40-49 YRS: >58 mL/min Normal 50-59 YRS: >51 mL/min Normal 60-69 YRS: >45 mL/min Normal 70-79 YRS: >39 mL/min Normal 80 and above >32 mL/min NormalCLASSIFICATION CHOLESTEROL FOR ADULTS CHILDREN/ADOLESCENTS* DESIRABLE: <200 MG/DL <170 MG/DL BORDER-LINE HIGH RISK: 200-239 MG/DL 170-199 MG/DL HIGH RISK: >240 MG/DL >200 MG/DL CLASS. FOR PRIMARY LDL CHOL PREVENTION: LDL CHOL-CHILD/ADOLESCENTS* DESIRABLE: <130 MG/DL <110 MG/DL BORDERLINE-HIGH RISK: 130-159 MG/DL 110-129 MG/DL HIGH RISK: >160 MG/DL >130 MG/DL *CHILDREN AND ADOLESCENTS REPRESENTS INDIVIDUALA AGED 2-19 YEARS EXCLUSIVE. 2 CKD-EPI 3 CKD-EPI Procedures Description No Information Available Medical Devices Description No Information Available Encounters Type Date Location Provider Dx Diagnosis Office Visit 09/21/2020 1:30p [facility] Andrei Daniels M. D. K21.9 Gastro-esophageal reflux disease without esophagitis E78.5 Hyperlipidemia, unspecified F33.0 Major depressive disorder, r ecurrent, mild Assessments Date Code Description Provider 09/21/2020 K21.9 Gastro-esophageal reflux disease without esophagitis Andrei Daniels M.D. 09/21/2020 E78.5 [facility], [facility] F33.0 Major depressive disorder, recur rent, mild Andrei Daniels M.D. Plan of Treatment Future Appointment(s):* 03/23/2021 9:15 am - Andrei Daniels M.D. at [facility] Functional Status Description No Information Available Mental Status Description No Information Available Referrals Description No Information Available
--- OUTSIDE RECORDS SUMMARY | 2020-11-10 07:05 | CCD | Continuity of Care Document ---
Author Author Allergy Injections Leia Chamorro Organization Unknown Address [address] [place] [address] Phone [phone] Care Team Providers Care Arborist Representative Name Role Phone Milton Mercado M.D. AUTM [phone] Andrei Whitley MD AUTM [phone] Problems Active Problems Provider Date Allergic rhinitis due to pollen Humberto Bender Onset: 0 12/09/2011 Allergic rhinitis Humberto Bender Onset: 12/09/2011 Chronic allergic conjunctivitis Humberto Bender Onset: 0 12/09/2011 Cough Humberto Bender Onset: 12/09/2011 H/O: food allergy Humberto Bender Onset: 12/09/2011 Allergic rhinitis due to animals Timoteo Bolanos DO Onset : 09/07/2017 Social History Type [...] nostril twice a day 90ml J30.1 Timoteo Bolanos DO 04/11/2019 J30.89 J30.81 Olopatadine HCL 0.1% Solution use one drop in each eye twice daily. 5ml H10.45 Timoteo Bolanos, DO 0 04/11/2019 Fluticasone Propionate 50mcg/Act Suspension 2 sprays ea. nostril once daily 47.4ml J30.89 Timoteo Bolanos, DO 03/22/2017 J30.1 J30.81 Ketoconazole 2% Cream apply every morning and hs Timoteo Bolanos, DO 08/12/2015 Epipen 2-Noel 0.3mg/0 .3ML Solution Auto-Inject inject into thigh as directed for allergic emergency. 2units J30.1 Timoteo Bolanos, DO 02/10/2015 Fluzone Quadrivalent 0.5ml Kamryn Administer [...] by mouth at bedtime 90tabs J30.1 Timoteo Bolanos, DO J30.89 Cetirizine HCL 10mg Tablets 1qd - take one tablet by mouth every day 90tabs J30.1 Timoteo Bolanos, DO J30.89 H10.45 Topiramate 100mg Tablets 1 [...] Available Procedures Date Code Description Status 10/29/2020 59836 Multiple Injections-Admin. Compl eted 10/08/2020 90058 Multiple Injections-Admin. Compl eted 08/06/2020 69787 Multiple Injections-Admin. Compl eted 07/23/2020 21907 Multiple Injections-Admin. Compl eted 07/15/2020 29007 Allergy Mixed Antigens Completed 06/25/2020 37661 Multiple Injections-Admin. Compl eted 06/04/2020 40556 Multiple Injections-Admin. Compl eted 05/14/2020 36551 Multiple Injections-Admin. Compl eted Medical Devices Description No Information Available Encounters Description No Information Available Assessments Date Code Description Provider 10/29/2020 J30.1 Allergic rhinitis due to pollen [facility] 10/29/2020 J30.1 Allergic rhinitis due to pollen Timoteo Bolanos, DO 10/29/2020 J30.89 Other allergic rhinitis [facility] [place] 10/29/2020 J30.89 Other allergic rhinitis Timoteo Bolanos, DO 10/29/2020 J30.81 Allergic rhinitis due to animal (cat) (dog) hair and dander [facility] [place] 10/29/2020 J30.81 Allergic rhinitis due to animal (cat) (dog) hair and dander Timoteo Bolanos, DO 10/29/2020 H10.45 Other chronic allergic conjuncti vitis [facility] 10/29/2020 H10.45 Other chronic allergic conjuncti Timoteo Pineda, DO 10/08/2020 J30.1 Allergic rhinitis due to pollen All[facility] 10/08/2020 J30.1 Allergic rhinitis due to pollen [facility] [place] 10/08/2020 J30.89 Other allergic rhinitis Allergy Injections 10/08/2020 J30.89 Other allergic rhinitis [facility] [place] 10/08/2020 J30.81 Allergic rhinitis due to animal (cat) (dog) hair and dander Allergy Injections 10/08/2020 J30.81 Allergic rhinitis due to animal (cat) (dog) hair and dander [facility] [place] 08/06/2020 J30.1 Allergic rhinitis due to pollen Allergy Injections 08/06/2020 J30.1 Allergic rhinitis due to pollen [facility] [place] 08/06/2020 J30.89 Other allergic rhinitis Allergy Injections 08/06/2020 J30.89 Other allergic rhinitis [facility] [place] 08/06/2020 J30.81 Allergic rhinitis due to animal (cat) (dog) hair and dander Allergy Injections 08/06/2020 J30.81 Allergic rhinitis due to animal (cat) (dog) hair and dander [facility] [place] 07/23/2020 J30.1 Allergic rhinitis due to pollen Allergy Injections 07/23/2020 J30.1 Allergic rhinitis due to pollen [facility] [place] 07/23/2020 J30.89 Other allergic rhinitis Allergy Injections 07/23/2020 J30.89 Other allergic rhinitis [facility] [place] 07/23/2020 J30.81 Allergic rhinitis due to animal (cat) (dog) hair and dander Allergy Injections 07/23/2020 J30.81 Allergic rhinitis due to animal (cat) (dog) hair and dander All[facility] [place] 07/15/2020 J30.1 Allergic rhinitis due to pollen Allergy Injections 07/15/2020 J30.89 Other allergic rhinitis Allergy Injections 07/15/2020 J30.81 Allergic rhinitis due to animal (cat) (dog) hair and dander Allergy Injections 06/25/2020 J30.1 Allergic rhinitis due to pollen Allergy Injections 06/25/2020 J30.1 Allergic rhinitis due to pollen [facility] [place] 06/25/2020 J30.89 Other allergic rhinitis Allergy Injections 06/25/2020 J30.89 Other allergic rhinitis All[facility] In[facility] [place] 06/25/2020 J30.81 Allergic rhinitis due to animal (cat) (dog) hair and dander Allergy Injections 06/25/2020 J30.81 Allergic rhinitis due to animal (cat) (dog) hair and dander [facility] [place] 06/04/2020 J30.1 Allergic rhinitis due to pollen Allergy Injections 06/04/2020 J30.1 Allergic rhinitis due to pollen [facility] [place] 06/04/2020 J30.89 Other allergic rhinitis Allergy Injections 06/04/2020 J30.89 Other allergic rhinitis All[facility] [place] 06/04/2020 J30.81 Allergic rhinitis due to animal (cat) (dog) hair and dander Allergy Injections 06/04/2020 J30.81 Allergic rhinitis due to animal (cat) (dog) hair and dander [facility] [place] 05/14/2020 J30.1 Allergic rhinitis due to pollen Allergy Injections 05/14/2020 J30.1 Allergic rhinitis due to pollen [facility] [place] 05/14/2020 J30.89 Other allergic rhinitis Allergy Injections 05/14/2020 J30.89 Other allergic rhinitis All[facility] In[facility] [place] 05/14/2020 J30.81 Allergic rhinitis due to animal (cat) (dog) hair and dander Allergy Injections 05/14/2020 J30.81 Allergic rhinitis due to animal (cat) (dog) hair and dander [facility] [place] Plan of Treatment Future Appointment(s):* 02/25/2021 1:15 pm - Timoteo Bolanos DO at [facility] * 11/05/2020 1:30 pm - [facility] at [facility] 10/29/2020 - Timoteo Bolanos DO* J30.1 Allergic rhinitis due to pollen* [...]
--- OUTSIDE RECORDS SUMMARY | 2020-11-10 07:05 | CCD | Continuity of Care Document ---
Author Author Leia BUCKLEY Organization Unknown Address [address] [place] [address] Phone [phone] Care Team Providers Care Cyber Security Administrator Name Role Phone Andrei Whitley M.D. AUTM [phone] Problems Active Problems Provider Date Headache Carmen [...] Information Available Procedures Date Code Description Status 09/15/2020 23539 MRI Spine Lumbar W/O Contrast Co mpleted 09/15/2020 90128 MRI Spine Lumbar W/O Contrast Co mpleted 08/25/2020 98598 Injection For Nerve Block, Other Peripheral Nerve Or Branch Completed 08/25/202041358 Injection, Single Or Multiple trigger points one or two muscles Completed 07/22/2020 17529 Injection For Nerve Block, Other Peripheral Nerve Or Branch Completed 07/22/202027707 Injection, Single Or Multiple trigger points one or two muscles Completed 06/19/2020 82102 Injection For Nerve Block, Other Peripheral Nerve Or Branch Completed 06/19/202064044 Injection Single Or Multiple Trigger Points Three Or More Muscles Completed 05/18/2020 24518 Injection For Nerve Block, Other Peripheral Nerve Or Branch Completed 05/18/2020 Injection, Single Or Multiple trigger points one or two muscles Completed 04/15/2020 9 Neg CR Bal (Absorb Overpmt Compl eted 04/15/2020 77806 Injection For Nerve Block, Other Peripheral Nerve Or Branch Completed 04/15/202032573 Injection, Single Or Multiple trigger points one or two muscles Completed Medical Devices Description No Information Available Encounters Type Date Location Provider Dx Diagnosis Office Visit 08/24/2020 2:45p Main office - [place] Veronica barker P.A.-C. 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 Tric barker, P.A.-C. 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 08/24/2020 M62.838 Other muscle spasm Veronica choudhury P.A.-C. 08/24/2020 M54.2 Cervicalgia Veronica Zavaleta P.A.-C. 08/24/2020 M54.5 Low back pain Veronica Zaavleta P.A.-C. 08/24/2020 F41.1 Generalized anxiety disorder Alaina Jansen.A.-C. 07/22/2020 M54.81 Occipital neuralgia Raghav Servin M.D. 07/22/2020 M79.18 Myalgia, other site Raghav Servin M.D. 06/19/2020 M54.81 Occipital neuralgia Raghav Servin M.D. 06/19/2020 M79.18 Myalgia, other site Raghav Servin M.D. 05/20/2020 G43.709 Chronic migraine wit hout aura, not intractable, without status migrainosus Veronica Zavaleta, P.A.-C. 05/20/2020 M54.81 Occipital neuralgia Veronica barker, P.A.-C. 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 05/20/2020 M54.2 Cervicalgia Veronica Jordan Zavaleta, P.A.-C. 05/20/2020 M54.5 Low back pain Veronica Jordan Zavaleta, P.A.-C. 05/20/2020 M62.838 Other muscle spasm Veronica Jordan choudhury, P.A.-C. 05/20/2020 F41.1 Generalized anxiety disorder Vero Zavaleta, P.A.-C. 05/18/2020 M54.81 Occipital neuralgia Raghav Servin M.D. 05/18/2020 M79.18 Myalgia, other site Raghav Servin M.D. 04/29/2020 G43.709 Chronic migraine wit hout aura, not intractable, without status migrainosus Veronica Zavaleta, P.A.-C. 04/29/2020 M54.81 Occipital neuralgia Veronica barker, P.A.-C. 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 04/29/2020 M54.2 Cervicalgia Veronica Zavaleta, P.A.-C. 04/29/2020 M54.5 Low back pain Veronica Jordan Zavaleta, P.A.-C. 04/29/2020 M62.838 Other muscle spasm Veronica Jordan choudhury, P.A.-C. 04/29/2020 F41.1 Generalized anxiety disorder Vero Zavaleta P.A.-C. 04/15/2020 M54.81 Occipital neuralgia Raghav Servin M.D. 04/15/2020 M54.81 Occipital neuralgia Raghav Servin M.D. 04/15/2020 M79.18 Myalgia, other site Raghav Servin M.D. Plan of Treatment Future Appointment(s):* 11/02/2020 3:00 pm - Raghav Servin M.D. at [facility] * 11/24/2020 1:30 pm - Veronica Zavaleta P.A.-C. at [facility] * 09/29/2020 3:30 pm - Raghav Servin M.D. at [facility] Functional Status Description No Information Available Mental Status Description No Information Available Referrals Refer to Dr Reason for Referral Status Appt Date Vernon Mccoy M.D. LOW BACK PAIN Created [facility] [address] [place] [address] [phone] Raghav Servin M.D. Created [facility] [address] [place] [address] [phone]
--- OUTSIDE RECORDS SUMMARY | 2020-11-10 07:05 | CCD ---
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 M47.812 Active 099677810 Problem Myalgia M79.1 Active 59971552 Problem Low back pain M54.5 Active 488289485 Problem Other chronic pain G89.29 Active 88070942 Problem Myalgia, other site M79.18 Active 99987512 ALLERGIES Allergen (clinical drug ingredient) Drug/Non Drug Allergy do cumented on EMR Reaction Allergy Type Onset Date Status environmental allergies Unknown Non Drug Allergy Active sulfamethoxazole / trimethoprim Bactrim DS([facility] Code:[address]-7 1) Hives Drug Allergy Active ENCOUNTERS from 1960 to 2020-10-19 Encounter Location Date Provider Diagnosis [facility] [address] [place] [phone] Aug, Vernon Jennings IMMUNIZATIONS No Information SOCIAL HISTORY Tobacco Use: Social History Observation Description Date Details (start date - stop date) Never Smoker Sex Assigned At : Social History Observation Description Sex Assigned At Unknown Language: Question Answer Notes Languages spoken: Maori Jain: Question Answer Notes Jain 33 None Tobacco Use: Question Answer Notes Are you a: never smoker REASON FOR REFERRAL No Information VITAL SIGNS No information MEDICATIONS Medication SIG (Take, Route, Frequency, Duration) Notes Start Da te End Date Status Wellbutrin XL 300 MG 1 tablet in the morning Orally Once a day Active AmLODIPine Besylate 5 MG 1 tablet Orally Once a day Active Aciphex 20 MG 1 tablet Orally Once a day Active Lipitor 40 MG 1 tablet Orally Once a day Active Sumatriptan Succinate 100 MG 1 tablet as needed Orally 1 tablet at onset of migraine, may repeat once in 2 hours Active Topamax 100 MG 1 tablet Orally Twice a day Active Aspirin 81 81 MG 1 tablet Orally Once a day Active Baclofen 10 MG 1 tablet with food or milk Orally three times da shakira as needed Active Fosamax 70 MG 1 tablet Orally weekly Active Celecoxib 200 MG 1 capsule with food Orally Once a day Active Vitamin D 1000 UNIT 1 capsule Orally Daily Active Singulair 10 MG 1 tablet Orally Once a day Active Ajovy 225 MG/1.5ML 1.5 ml Subcutaneous for 30 day(s) Active Multivitamin Adults 50+ 1 cap Orally Daily Active Nortriptyline HCl 10 MG 1 capsule Orally Once a day Active Soma 350 MG 1 tablet as needed Orally before bedtime Active Gabapentin 300 MG 1 capsule Orally before bedtime Active Vitamin A 8000 UNIT 1 tab Orally Daily Active Zyrtec 1 tab Oral Daily Active Vitamin B 12 1 tab Orally Daily Acti ve Caltrate 600+D _600 1 cap Daily Acti ve Gas-X 2 tabs Orally Daily Not-T aking Hydrocodone-Acetaminophen 5-325 MG 1 tablet as needed Orally three times daily as needed Active Biotin 1000 MCG 1 tablet Orally Daily Active Cymbalta 30 MG 1 capsule Orally for pain Once a day for 30 day( s) Jan, Active PROCEDURES No Information RESULTS No Results REASON FOR VISIT NEW PATIENT APPOINTMENT MEDICAL (GENERAL) HISTORY Type Description Date Medical History Migraine headaches Medical History urinary implant for urinary incontinence Medical History GERD Medical History arthritis back pain/neck pain Medical History depression Medical History TIA 2018 Medical History neck and shoulder pain Surgical History hysterectomy Surgical History x 2 Surgical History bariatric surgery Surgical History bladder implant then removed Surgical History removal of bladder implant 08/2018 Hospitalization History surgeries Hospitalization History CDiff 2011 Hospitalization History TIA 07/2018 Goals Section No Information Health Concerns No Information MEDICAL EQUIPMENT No Information MENTAL STATUS No Information FUNCTIONAL STATUS No Information ASSESSMENTS No Information PLAN OF TREATMENT Next Appt Details Provider Name:Yaneth Gallagher, 2020-10-26 01 :00:00 PM, [address] [place] [address], [phone], Insurance Providers Payer Name Payer Address Payer Phone Insured Name Patient Relati onship to Insured Coverage Start Date Coverage End Date [facility] [address] [employer] [id number] REMY ANGEL self
--- OUTSIDE RECORDS SUMMARY | 2020-11-10 07:05 | CCD | Continuity of Care Document ---
Author Author Leia MASON D.O. Organization Unknown Address [address] [place] [address] Phone [phone] Problems Active Problems Provider Date Migraine Andrei Whitley M.D. Onset: 4 Gastroesophageal reflux disease Andrei Whitley M.D. Onse t: 08/14/2014 Depressive disorder Andrei Whitley M.D. Onset: 4 Social History Type Date Description Comments Sex Unknown ETOH Use Rarely consumes liquor Tobacco Use Start: Unknown Patient has never smoked Recreational Drug Use Denies Drug Use Allergies, Adverse Reactions, Alerts Active Allergies Reaction Severity Comments Date Sulfa Drugs 10/27/2020 Inactive Allergies NKDA 08/14/2014 Medications Active Medications SIG Qnty Indications Ordering Provide r Date Ajovy 225mg/1.5ML Soln Prefill Syringe Andrei Whitley M.D. 03/01/[address]ox[address] HCL [address] Part Take One Capsule By Mouth Once Daily 90caps Andrei Whitley M .D. 03/01/2019 Rabeprazole Sodium 20mg Tablets DR take one tablet by mouth once daily 90tabs Andrei Whitley M.D. 02/22/2019 Gas Relief Extra Strength 125mg [...] Tablet By Mouth Once Daily 90tabs Andrei Whitley M. D. Aspirin 81 Low Dose 81mg [...] by mouth at hs Unknown Caltrate 600+D [id number] Shanna wtabs 1 by mouth every day [...] Topiramate 100mg Tablets 1 po bid Unknown Immunizations CPT Code Status Date Vaccine Lot # [id number] Given 09/06/2019 Tdap Tetanus,Dip htheria Toxoids/Acellular Pertussis 7Yrs Or Older [id number] Given 03/01/2019 Pneumococcal Immunization R0 [id number] Refused 09/11/2017 Influenza Virus Vaccine, Quadrivalent, Slit Virus, Im Use 3Y & Up [id number] Vital Signs Date Vital Result Comment 10/27/2020 4:01pm BP Systolic 124 mmHg BP Diastolic 78 mmHg Body Temperature 97.2 F Heart Rate 90 /min Respiratory Rate 16 /min Height 64 inches 5'4" Weight 168.00 lb [place] Body Weight 120 lb BMI (Body Mass Index) 28.8 kg/m2 O2 % BldC Oximetry 93 % 09/21/2020 1:37pm BP Systolic 126 mmHg BP Diastolic 76 mmHg Body Temperature 98.3 F Heart Rate 100 /min Respiratory Rate 16 /min Height 64 inches 5'4" Weight 162.00 lb [place] Body Weight 120 lb BMI (Body Mass Index) 27.8 kg/m2 O2 % BldC Oximetry 93 % Results Test Acquired Date Facility Test Result H/L Range Note CBC 10/27/2020 [facility] WBC 5.1 10E3/uL 4.1 - 10.9 1 RBC 4.30 10E6/uL 4.20 - 6.30 HGB 12.3 g/dL 12.0 - 18.0 HCT 38.0 % 37.0 - 51.0 MCV 88.4 fL 80.0 - 97.0 MCH 28.6 pg 26.0 - 32.0 MCHC 32.4 g/dL 31.0 - 36.0 PLT 274 10E3/uL 140 - 440 RDW-CV 13.6 % 11.5 - 14.5 Lym% 29.3 % 10.0 - 58.5 Neut% 63.9 % 37.0 - 92.0 MXD% 6.8 % 0.1 - 24.0 Lym# 1.5 10E3/uL 0.6 - 4.1 Neut# 3.3 % 2.0 - 7.8 MXD# 0.3 10E3/uL 0.0 - 1.8 MPV 9.9 fL 9.0 - 13.0 CMP 10/27/2020 [facility] Glu 89 mg/dL 70 - 110 BUN 11 mg/dL 8 - 23 Creat 0.8 mg/dL 0.5 - 1.0 BUN/Creatinine Ratio 13.7 Calc Na 137 mmol/L 136 - 145 K 4.2 mmol/L 3.5 - 5.1 CL 106.5 mmol/L 98.0 - 107.0 Co2 21.5 mmol/L Low 22.0 - 29.0 CA 8.5 mg/dL Low 8.6 - 10.2 TP 6.1 g/dL Low 6.6 - 8.7 Alb 3.9 g/dL 3.4 - 4.8 A/G Ratio 1.8 Calc Globulin 2.2 Calc Alp 74.2 U/L 35 - 129 Alt (SGPT) 16 U/L 0 - 41 Ast (Sgot) 21 U/L 0 - 40 Tbili 0.29 mg/dL 0.0 - 1.2 Osmolality-Calculated 272.6 Calc Anion Gap 13 mmol/L eGFR 92 # Calc 2 eGFR Non-Afr. Wallisian 79 # Calc 3 CMP 09/21/2020 [facility] Glu 91 mg/dL 70 - 110 4 BUN 9 mg/dL 8 - 23 Creat [...] Gap 14 mmol/L eGFR 92 # Calc 5 eGFR Non-Afr. Wallisian 80 # Calc 6 Lipid Panel 09/21/2020 [facility] Chol 128 mg/dL [...] HCT IS 5% LESS SOURCE FOR DATA: [employer] 1800 OPERATION MANUAL( AUTOMATED BLOOD COUNTS AND [...] mL/min Normal 80 and above >32 mL/min Normal 2 CKD-EPI 3 CKD-EPI 4 NORMAL RANGES Age WBC RBC HGB HCT [...] HCT IS 5% LESS SOURCE FOR DATA: [employer] 1800 OPERATION MANUAL( AUTOMATED BLOOD COUNTS AND [...] ADOLESCENTS REPRESENTS INDIVIDUALA AGED 2-19 YEARS EXCLUSIVE. 5 CKD-EPI 6 CKD-EPI Procedures Date Code Description Status 10/27/2020 50894 Electrocardiogram Complete Compl eted Medical Devices Description No Information Available Encounters Type Date Location Provider Dx Diagnosis Office Visit 10/27/2020 3:15p [place] Tom Muller PA M25.562 Pain in left knee Z01.818 Encounter for other preproce dural examination Office Visit 09/21/2020 1:30p [facility] Andrei Whitley M. D. K21.9 Gastro-esophageal reflux disease without esophagitis E78.5 Hyperlipidemia, unspecified F33.0 Major depressive disorder, r ecurrent, mild I10 Essential (primary) hyperten musa Assessments Date Code Description Provider 10/27/2020 M25.562 Knee pain Jorge Muller PA 10/27/2020 Z01.818 Encounter for other preprocedura l examination Nora Muller PA 09/21/2020 K21.9 Gastro-esophageal reflux disease without esophagitis Andrei Whitley M.D. 09/21/2020 E78.5 Hyperlipidemia, unspecified Mitc helAndrei moore M.D. 09/21/2020 F33.0 Major depressive disorder, recur rent, mild Andrei Whitley M.D. 09/21/2020 I10 Essential (primary) hypertension Andrei Whitley M.D. Plan of Treatment Future Appointment(s):* 03/23/2021 9:15 am - Andrei Whitley M.D. at [facility] Functional Status Description No Information Available Mental Status Description No Information Available Referrals Description No Information Available
--- OUTSIDE RECORDS SUMMARY | 2020-11-10 07:05 | CCD ---
Author Author [facility] Organization [facility] Address Unknown Phone Unavailable Care Team Providers Care Kickboxing Instructor Name Role Phone Yaneth Gallagher Unavailable PROBLEMS Type Condition ICD9-CM Code DML66-EC Code Onset Dates Condition S tatus SNOMED Code Notes Problem Neck pain M54.2 Active 40128768 Problem Myalgia M79.1 Active 43501420 Problem Spondylosis of cervical region without myelopath y or radiculopathy M47.812 Active 143981249 Problem Other spondylosis, lumbosacral region M47.897 Ac tive 447060588 Problem Low back pain M54.5 Active 595030490 Problem Other chronic pain G89.29 Active 86461915 Problem Myalgia, other site M79.18 Active 52002840 Problem Mass of neck R22.1 Active 646288370 ALLERGIES Allergen (clinical drug ingredient) Drug/Non Drug Allergy do cumented on EMR Reaction Allergy Type Onset Date Status environmental allergies Unknown Non Drug Allergy Active sulfamethoxazole / trimethoprim Bactrim DS([facility] Code:[address]-7 1) Hives Drug Allergy Active ENCOUNTERS from 1960 to 2020-10-28 Encounter Location Date Provider Diagnosis [facility] [address] [place] [id number] Oct, Yaneth Elliott Other spondylosis, lumbosacral region M4 7.897 IMMUNIZATIONS No Information SOCIAL HISTORY Tobacco Use: Social History Observation Description Date Details (start date - stop date) Never Smoker Sex Assigned At : Social History Observation Description Sex Assigned At Unknown Language: Question Answer Notes Languages spoken: Indonesian Denominational: Question Answer Notes Denominational 33 None Tobacco Use: Question Answer Notes Are you a: never smoker REASON FOR REFERRAL No Information VITAL SIGNS Weight 166.6 lbs Oct, Height 64 in Oct, BMI 28.59 kg/m2 Oct, Heart Rate 83 /min Oct, Respiratory Rate 18 /min Oct, Temperature 95.6 degrees Fahrenheit Oct, Oximetry 100% Oct, Blood pressure systolic 137 mm Hg Oct, Blood pressure diastolic 65 mm Hg Oct, MEDICATIONS Medication SIG (Take, Route, Frequency, Duration) Notes Start Da te End Date Status Biotin 1000 MCG 1 tablet Orally Daily Active AmLODIPine Besylate 5 MG 1 tablet Orally Once a day Active Celecoxib 200 MG 1 capsule with food Orally Once a day Active Lipitor 40 MG 1 tablet Orally Once a day Active Caltrate 600+D _600 1 cap Daily Acti ve Hydrocodone-Acetaminophen 5-325 MG 1 tablet as needed Orally three times daily as needed Active Aspirin 81 81 MG 1 tablet Orally Once a day Active Vitamin D 1000 UNIT 1 capsule Orally Daily Active Gabapentin 300 MG 1 capsule Orally before bedtime Active Wellbutrin XL 300 MG 1 tablet in the morning Orally Once a day Not-Taking Gas-X 2 tabs Orally Daily Not-T aking Nortriptyline HCl 10 MG 1 capsule Orally Once a day Active Multivitamin Adults 50+ 1 cap Orally Daily Active Fosamax 70 MG 1 tablet Orally weekly Not-Taking Ajovy 225 MG/1.5ML 1.5 ml Subcutaneous for 30 day(s) Active Vitamin A 8000 UNIT 1 tab Orally Daily Active Cymbalta 30 MG 1 capsule Orally for pain Once a day for 30 day( s) Jan, Active Baclofen 10 MG 1 tablet with food or milk Orally three times da shakira as needed Active Vitamin B 12 1 tab Orally Daily Acti ve Soma 350 MG 1 tablet as needed Orally before bedtime Active Sumatriptan Succinate 100 MG 1 tablet as needed Orally 1 tablet at onset of migraine, may repeat once in 2 hours Active Aciphex 20 MG 1 tablet Orally Once a day Active Topamax 100 MG 1 tablet Orally Twice a day Active Zyrtec 1 tab Oral Daily Active Singulair 10 MG 1 tablet Orally Once a day Active PROCEDURES No Information RESULTS No Results REASON FOR VISIT LOW BACK PAIN MEDICAL (GENERAL) HISTORY Type Description Date Medical History Migraine headaches Medical History urinary implant for urinary incontinence Medical History GERD Medical History arthritis back pain/neck pain Medical History depression Medical History TIA 2019 Medical History neck and shoulder pain Surgical History hysterectomy Surgical History x 2 Surgical History bariatric surgery Surgical History bladder implant then removed Surgical History removal of bladder implant 08/2018 Hospitalization History surgeries Hospitalization History CDiff 2011 Hospitalization History TIA 07/2018 Goals Section No Information Health Concerns No Information MEDICAL EQUIPMENT No Information MENTAL STATUS No Information FUNCTIONAL STATUS No Information ASSESSMENTS Encounter Date Diagnosis Assessment Notes Treatment Notes Treatm ent Clinical Notes Oct, Other spondylosis, lumbosacral region (ICD-10 - M47.897) Patient will follow-up with nurse practitioner in 6 weeks after her knee surgery. We will consider lumbar therapeutic facet block. Continue home exercise and stretching. PLAN OF TREATMENT Treatment Notes Assessment Notes Clinical Notes Other spondylosis, lumbosacral region Patient will fol low-up with nurse practitioner in 6 weeks after her knee surgery. We will consider lumbar therapeutic facet block. Continue home exercise and stretching. Next Appt Details 6 Weeks Reason:follow-up after knee surg dariela/consider lumbar facet therapeutic block Provider Name:Yanethjosseline Gallagher, 2020-12-07 01 :45:00 PM, [address] [place] [address], [phone], Follow Up:6 Weeksfollow-up after knee surgery/consider lumbar facet therapeutic block Insurance Providers Payer Name Payer Address Payer Phone Insured Name Patient Relati onship to Insured Coverage Start Date Coverage End Date [facility] [address] [facility] [id number] REMY ANGEL self
--- OUTSIDE RECORDS SUMMARY | 2020-11-10 07:05 | CCD | Continuity of Care Document ---
Author Author [facility] Leia Chamorro Organization Unknown Address [address] [place] [address] Phone [phone] Care Team Providers Care Door Builder Name Role Phone Milton Mercado M.D. AUTM [phone] Andrei Whitley MD AUTM [phone] Problems Active Problems Provider Date Allergic rhinitis due to pollen Humberto Bender Onset: 0 12/09/2011 Allergic rhinitis Humberto Bender Onset: 12/09/2011 Chronic allergic conjunctivitis Humberto Bender Onset: 0 12/09/2011 Cough Humberto Bender Onset: 12/09/2011 H/O: food allergy Humberto Bender Onset: 12/09/2011 Allergic rhinitis due to animals Timoteo Bolanos DO Onset : 09/07/2017 Social History Type Date Description Comments Sex Unknown Tobacco Use Reviewed: 03/26/20 Patient has never smoked Smoking Status Reviewed: 03/26/20 Patient has never smoked Allergies, Adverse Reactions, [...] emergency. 2units J30.1 Timoteo Bolanos, DO 02/10/2015 Carisoprodol 350mg Tablets 1po bedtime Unknown Baclofen 10mg Tablets 1 tablet three times a day as needed Unknown Celecoxib 20mg Capsules 1 tablet once a day Unknown Euflexxa Shots 1 injection in both knees every 6 months Unknown Lipitor 40mg Tablets 1 Tablet PO qd Unknown Tizanidine HCL 4mg Tablets Take One-Half Or One Tablet By Mouth Three Times Daily as Needed For Pain Unknown Ibuprofen 800mg Tablets Take One Tablet By Mouth Twice Daily as Needed For back pain Unknow n Ajovy 225mg/1.5ML Soln Prefill Syr morris Inject Subcutaneously Monthly as Directed Unknow n Rabeprazole Sodium 20mg Tablets DR Take One Tablet By Mouth Once Daily Unknown 0 Hydrocodone-Acetaminophen 5-325mg Tablets Take One Tablet By Mouth Twice Daily Max Daily Dose Two Tablets Unknown Sumatriptan Succinate 100mg Tablet s Take One Tablet By Mouth AT Onset Of Migraine May Repeat Once In Two Hours Unknown Duloxetine HCL 60mg Caps DR Part Take One Capsule By Mouth Once Daily Unknown Fosamax 70mg Tablets 1 tablet once a day Unknown B12 Shot 1x month Unknown Nortriptyline HCL 10mg Capsules (2) bid Unknown Gabapentin 300mg Capsules 1 t ab daily Unknown Zyrtec Allergy 10mg Tablets 1 by mouth every day 90tabs Unknown D-3 1000Unit Capsules 1 tablet once [...] HCL 50mg Tablets 4-6 hours prn Unknown Wellbutrin XL 300mg Tablets ER 24H R 1 po q day Unknown Immunizations Description No Information Available Vital Signs Date Vital Result Comment 03/26/2020 1:30pm Respiratory Rate 18 /min Heart Rate 77 /min BP Systolic 120 mmHg BP Diastolic 68 mmHg Height 63.5 inches 5'3.50" Weight 165.12 lb O2 % BldC Oximetry 98 % BMI (Body Mass Index) 28.8 kg/m2 08/15/2019 1:09pm Respiratory Rate 18 /min Heart Rate 77 /min BP Systolic 112 mmHg BP Diastolic 72 mmHg Height 63.5 inches 5'3.50" Weight 167.12 lb O2 % BldC Oximetry 99 % BMI (Body Mass Index) 29.1 kg/m2 Results Description No Information Available Procedures Date Code Description Status 10/08/2020 22332 Multiple Injections-Admin. Compl eted 08/06/2020 39624 Multiple Injections-Admin. Compl eted 07/23/2020 80523 Multiple Injections-Admin. Compl eted 07/15/2020 67634 Allergy Mixed Antigens Completed 06/25/2020 75320 Multiple Injections-Admin. Compl eted 06/04/2020 15896 Multiple Injections-Admin. Compl eted 05/14/2020 39113 Multiple Injections-Admin. Compl eted 04/16/2020 45809 Multiple Injections-Admin. Compl eted Medical Devices Description No Information Available Encounters Description No Information Available Assessments Date Code Description Provider 10/08/2020 J30.1 Allergic rhinitis due to pollen Allergy Injections 10/08/2020 J30.1 Allergic rhinitis due to pollen Allergy Injections [facility] 10/08/2020 J30.89 Other allergic rhinitis Allergy Injections 10/08/2020 J30.89 Other allergic rhinitis Allergy Injections [facility] 10/08/2020 J30.81 Allergic rhinitis due to animal (cat) (dog) hair and dander Allergy Injections 10/08/2020 J30.81 Allergic rhinitis due to animal (cat) (dog) hair and dander Allergy Injections [facility] 08/06/2020 J30.1 Allergic rhinitis due to pollen Allergy Injections 08/06/2020 J30.1 Allergic rhinitis due to pollen Allergy Injections [facility] 08/06/2020 J30.89 Other allergic rhinitis Allergy Injections 08/06/2020 J30.89 Other allergic rhinitis Allergy Injections [facility] 08/06/2020 J30.81 Allergic rhinitis due to animal (cat) (dog) hair and dander Allergy Injections 08/06/2020 J30.81 Allergic rhinitis due to animal (cat) (dog) hair and dander Allergy Injections [facility] 07/23/2020 J30.1 Allergic rhinitis due to pollen Allergy Injections 07/23/2020 J30.1 Allergic rhinitis due to pollen Allergy Injections [facility] 07/23/2020 J30.89 Other allergic rhinitis Allergy Injections 07/23/2020 J30.89 Other allergic rhinitis Allergy Injections [place] 07/23/2020 J30.81 Allergic rhinitis due to animal (cat) (dog) hair and dander Allergy Injections 07/23/2020 J30.81 Allergic rhinitis due to animal (cat) (dog) hair and dander Allergy Injections [facility] 07/15/2020 J30.1 Allergic rhinitis due to pollen Allergy Injections 07/15/2020 J30.89 Other allergic rhinitis Allergy Injections 07/15/2020 J30.81 Allergic rhinitis due to animal (cat) (dog) hair and dander Allergy Injections 06/25/2020 J30.1 Allergic rhinitis due to pollen Allergy Injections 06/25/2020 J30.1 Allergic rhinitis due to pollen Allergy Injections [place] 06/25/2020 J30.89 Other allergic rhinitis Allergy Injections 06/25/2020 J30.89 Other allergic rhinitis Allergy Injections [facility] 06/25/2020 J30.81 Allergic rhinitis due to animal (cat) (dog) hair and dander Allergy Injections 06/25/2020 J30.81 Allergic rhinitis due to animal (cat) (dog) hair and dander Allergy Injections [facility] 06/04/2020 J30.1 Allergic rhinitis due to pollen Allergy Injections 06/04/2020 J30.1 Allergic rhinitis due to pollen Allergy Injections [facility] 06/04/2020 J30.89 Other allergic rhinitis Allergy Injections 06/04/2020 J30.89 Other allergic rhinitis Allergy Injections [facility] 06/04/2020 J30.81 Allergic rhinitis due to animal (cat) (dog) hair and dander Allergy Injections 06/04/2020 J30.81 Allergic rhinitis due to animal (cat) (dog) hair and dander Allergy Injections [facility] 05/14/2020 J30.1 Allergic rhinitis due to pollen Allergy Injections 05/14/2020 J30.1 Allergic rhinitis due to pollen Allergy Injections [facility] 05/14/2020 J30.89 Other allergic rhinitis Allergy Injections 05/14/2020 J30.89 Other allergic rhinitis Allergy Injections [facility] 05/14/2020 J30.81 Allergic rhinitis due to animal (cat) (dog) hair and dander Allergy Injections 05/14/2020 J30.81 Allergic rhinitis due to animal (cat) (dog) hair and dander Allergy Injections [facility] 04/16/2020 J30.1 Allergic rhinitis due to pollen Allergy Injections 04/16/2020 J30.1 Allergic rhinitis due to pollen Allergy Injections [facility] 04/16/2020 J30.89 Other allergic rhinitis Allergy Injections 04/16/2020 J30.89 Other allergic rhinitis Allergy Injections [facility] 04/16/2020 J30.81 Allergic rhinitis due to animal (cat) (dog) hair and dander Allergy Injections 04/16/2020 J30.81 Allergic rhinitis due to animal (cat) (dog) hair and dander Allergy Injections [facility] Plan of Treatment Future Appointment(s):* 11/05/2020 1:30 pm - [facility] * 10/21/2020 9:30 am - [facility] * 10/29/2020 1:45 pm - Timoteo Bolanos DO at [facility] 03/26/2020 - Timoteo Bolanos DO* J30.1 Allergic rhinitis due to pollen* Comments:* To use allergy meds on an as needed basis. Use nasal saline. To continue the allergy injections on a 3 week schedule. * Follow up:* 6 months. * J30.89 Other allergic rhinitis * J30.81 Allergic rhinitis due to animal (cat) (dog) hair and dander * H10.45 Other chronic allergic conjunctivitis* Comments:* Take eye drops as needed. Functional Status Description No Information Available Mental Status Description No Information Available Referrals Description No Information Available
--- OUTSIDE RECORDS SUMMARY | 2020-11-10 07:05 | CCD | Continuity of Care Document ---
Author Author Leia CLOUD PA Organization Unknown Address [address] [address] Phone [phone] Problems Active Problems Provider Date Migraine Andrei [...] by mouth at hs Unknown Caltrate 600+D [id number] Shanna wtabs 1 by mouth every day [...] CPT Code Status Date Vaccine Lot # [id number] Given 09/06/2019 Tdap Tetanus,Dip htheria Toxoids/Acellular Pertussis 7Yrs Or Older [id number] Given 03/01/2019 Pneumococcal Immunization R0 [id number] Refused 09/11/2017 Influenza Virus Vaccine, Quadrivalent, Slit Virus, Im Use 3Y & Up [id number] Vital Signs Date Vital Result Comment 10/27/2020 4:01pm BP Systolic 124 mmHg BP Diastolic 78 mmHg Body Temperature 97.2 F Heart Rate 90 /min Respiratory Rate 16 /min Height 64 inches 5'4" Weight 168.00 lb [place] Body Weight 120 lb BMI (Body Mass Index) 28.8 kg/m2 O2 % BldC Oximetry 93 % 09/21/2020 1:37pm BP Systolic 126 mmHg BP Diastolic 76 mmHg Body Temperature 98.3 F Heart Rate 100 /min Respiratory Rate 16 /min Height 64 inches 5'4" Weight 162.00 lb [place] Body Weight 120 lb BMI (Body Mass [...] eGFR 92 # Calc 2 eGFR Non-Afr. [place] 80 # Calc 3 Lipid Panel 09/21/2020 [...] HCT IS 5% LESS SOURCE FOR DATA: [employer] 1800 OPERATION MANUAL( AUTOMATED BLOOD COUNTS AND [...] Provider Dx Diagnosis Office Visit 09/21/2020 1:30p [facility] Andrei Whitley M. D. K21.9 Gastro-esophageal reflux disease without esophagitis E78.5 Hyperlipidemia, unspecified F33.0 Major depressive disorder, r ecurrent, mild I10 Essential (primary) hyperten musa Assessments Date Code Description Provider 09/21/2020 K21.9 Gastro-esophageal reflux disease without esophagitis Andrei Whitley M.D. 09/21/2020 E78.5 Hyperlipidemia, unspecified Mitc helAndrei moore M.D. 09/21/2020 F33.0 Major depressive disorder, recur rent, mild Andrei Whitley M.D. 09/21/2020 I10 Essential (primary) hypertension Andrei Whitley M.D. Plan of Treatment Future Appointment(s):* 03/23/2021 9:15 am - Andrei Whitley M.D. at [facility] Functional Status Description No Information Available Mental Status Description No Information Available Referrals Description No Information Available
--- OUTSIDE RECORDS SUMMARY | 2020-11-10 07:05 | CCD | Continuity of Care Document ---
Author Author Leia SERVIN M.D. Organization Unknown Address [address] [place] [address] Phone [phone] Care Team Providers Care Outreach Professional Name Role Phone Andrei Whitley M.D. AUTM [phone] Problems Active Problems Provider Date Headache Carmen [...] Available Procedures Date Code Description Status 09/15/2020 14125 MRI Spine Lumbar W/O Contrast Co mpleted 09/15/2020 13030 MRI Spine Lumbar W/O Contrast Co mpleted 08/25/2020 69721 Injection For Nerve Block, Other Peripheral Nerve Or Branch Completed 08/25/202024987 Injection, Single Or Multiple trigger points one or two muscles Completed 07/22/2020 74687 Injection For Nerve Block, Other Peripheral Nerve Or Branch Completed 07/22/202055662 Injection, Single Or Multiple trigger points one or two muscles Completed 06/19/2020 57970 Injection For Nerve Block, Other Peripheral Nerve Or Branch Completed 06/19/202070087 Injection Single Or Multiple Trigger Points Three Or More Muscles Completed 05/18/2020 89747 Injection For Nerve Block, Other Peripheral Nerve Or Branch Completed 05/18/202093728 Injection, Single Or Multiple trigger points one or two muscles Completed 04/15/2020 9 Neg CR Bal (Absorb Overpmt Compl eted 04/15/2020 98955 Injection For Nerve Block, Other Peripheral Nerve Or Branch Completed 04/15/202045929 Injection, Single Or Multiple trigger points one or two muscles Completed Medical Devices Description No Information Available Encounters Type Date Location Provider Dx Diagnosis Office Visit 08/24/2020 2:45p Main office - [place] Veronica barker, P.A.-C. 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 Tric bakrer, P.A.-C. G43.709 Chronic migraine w/o aura, not [...] Alaina Johnson.A.-C. 08/24/2020 M54.5 Low back pain Alaina Johnson.A.-CEmmanuel 08/24/2020 F41.1 Generalized anxiety disorder Alaina Jansen.A.-C. [...] Veronica burroughs, P.A.-C. 05/20/2020 M54.2 Cervicalgia Veronica Zavaleta, P.A.-C. 05/20/2020 M54.5 Low back pain Veronica Zavaleta, P.A.-C. 05/20/2020 M62.838 Other muscle spasm [...] P.A.-C. 04/29/2020 M54.5 Low back pain Veronica Zavaleta, P.A.-C. 04/29/2020 M62.838 Other muscle spasm Veronica choudhury, P.A.-C. 04/29/2020 F41.1 Generalized anxiety disorder Vero Zavaleta P.A.-C. 04/15/2020 M54.81 Occipital neuralgia Raghav Servin M.D. 04/15/2020 M54.81 Occipital neuralgia Raghav Servin M.D. 04/15/2020 M79.18 Myalgia, other site Raghav Servin M.D. Plan of Treatment Future Appointment(s):* 11/02/2020 3:00 pm - Raghav Servin M.D. at [facility] * 11/24/2020 1:30 pm - Veronica Zavaleta P.A.-C. at [facility] Functional Status Description No Information Available Mental Status Description No Information Available Referrals Refer to Dr Reason for Referral Status Appt Date Vernon Mccoy M.D. LOW BACK PAIN Created [facility] [address] [place] [address] [phone] Raghav Servin M.D. Created [facility] [address] [place] [address] [phone]
--- OUTSIDE RECORDS SUMMARY | 2020-11-10 07:06 | CCD | Continuity of Care Document ---
Author Author Leia MASON MD Organization Unknown Address [address] [facility] [place] [address] Phone [phone] Care Team Providers Care Labor Trainer Name Role Phone David Dominguez AUTM [phone] Andrei Whitley MD AUTM [phone] Problems Description No Active Problems Social History [...] SIG Qnty Indications Ordering Provide r Date Tramadol HCL 50mg Tablets 1 every 4-6 hours as needed pain 60tabs M41.9 Lio Hui MD 01/2020 Medrol 4mg Tablets dose emily, take as directed on sheet 1tabs M41.9 Lio Hui MD 020 Lidoderm 5% Patches use as directed on 12 hours off 12 hours up to 3 patches a day 90units M41.9 Jovani Rosenberg MD 03/12/2020 Euflexxa 20mg/2ML Soln Prefill Syr morris kam knee #1 02/25/20 iid kam knee #2 03/03/20 iid/hd kam knee #3 03/10/2020 mkm/ef Jovani Rosenberg MD 03/03/2020 Celecoxib 200mg Capsules Take One Capsule By Mouth Once Daily 90caps D. Yaw Anguiano MD Caltrate 600+D3 [id number] Tab lets 1 by mouth twice a day Unknown Botox 100Unit Solution Rec 100 units administered [id number] 01/11 [facility] Unknown Ajovy 225mg/1.5ML Soln Prefill Syringe Unknown Amlodipine Besylate 5mg Tablets Unknown Lipitor 40mg Tablets 1 by mouth every day Unknown Aspirin 325mg Tablets 1 by mouth every day Unknown Duloxetine HCL 60mg Caps DR Part 1 by mouth every day Unknown Baclofen 10mg Tablets sig 1 by mouth three times a day Unknown Gabapentin 300mg Capsules i by mouth three times a day Unknown Carisoprodol 350mg Tablets 1 tab four times a day as needed Unknown Fosamax 70mg Tablets 1 tab by mouth weekly in the in the morning with water, at least 30 minutes before food, drink or other meds and sit upright Unknown Singulair 10mg Tablets 1 by mouth [...] Available Procedures Date Code Description Status 07/16/2020 49385 Apply Cast Short Arm Completed 06/26/2020 51488 Apply Cast Short Arm Completed 06/26/2020 Inject/Drain Joint/Bursa Small C ompleted 06/04/2020 46759 X-Ray Knee Ap & Lateral W/Obliqu es Three Views Completed 06/04/202004152 Inject/Drain Joint/Bursa Major C ompleted 06/04/2020 Inject/Drain Joint/Bursa Major C ompleted 03/12/2020 87447 X-Ray Spine Lumbosacral Complete Inc Bending Views Min Of 6 Completed 03/12/2020 93939 X-Ray Spine Cervical 6 Or More V iews Completed 03/10/2020 Inject/Drain Joint/Bursa Major C ompleted 03/10/2020 Inject/Drain Joint/Bursa Major C ompleted 03/03/2020 Inject/Drain Joint/Bursa Major C ompleted 03/03/2020 Inject/Drain Joint/Bursa Major C ompleted 02/25/202063237 Inject/Drain Joint/Bursa Major C ompleted 02/25/202085679 Inject/Drain Joint/Bursa Major C ompleted Medical Devices Description No Information Available Encounters Type Date Location Provider Dx Diagnosis Office Visit 06/04/2020 3:30p Letonajosseline Elder, P.A. M17.0 Bilateral primary osteoarthritis of knee Office Visit 03/26/2020 4:00p Letonajosseline Elder, P.A. M50.30 Other cervical disc degeneration, unsp cervical region M51.36 Other intervertebral disc de generation, lumbar region M41.9 Scoliosis, unspecified Office Visit 03/10/2020 3:45p Letonajosseline Elder, P.A. M17.0 Bilateral primary osteoarthritis of knee Office Visit 03/03/2020 3:30p LetonaVERONIKA Shah M17.0 Bilateral primary osteoarthritis of knee Office Visit 02/25/2020 3:45p Letonajosseline Elder, P.A. M17.0 Bilateral primary osteoarthritis of knee Assessments Date Code Description Provider 08/14/2020 M17.12 Unilateral primary osteoarthriti s, left knee Tonny Mason MD 08/06/2020 M18.12 Unilateral primary o steoarthritis of first carpometacarpal joint, left hand uGru Elder, P.A. 08/06/2020 M18.12 Unilateral primary o steoarthritis [...] osteoarthriti s, left knee Guru Elder, P.A. 06/04/2020 M17.0 Bilateral primary osteoarthritis of knee Guru Elder, P.A. 03/26/2020 M41.9 Scoliosis, unspecified Guru Elder, P.A. 03/26/2020 M50.30 Other cervical disc degeneration , unspecified cervical region Guru Elder, P.A. 03/26/2020 M51.36 Other intervertebral disc degene ration, lumbar region Guru Elder, P.A. 03/26/2020 M51.36 Other intervertebral disc degene ration, lumbar region Guru Elder, P.A. 03/26/2020 M41.9 Scoliosis, unspecified Guru Elder, P.A. 03/12/2020 M41.9 Scoliosis, unspecified Guru Elder, P.A. 03/12/2020 M51.36 Other intervertebral disc degene ration, lumbar region Guru Elder, P.A. 03/12/2020 M50.30 Other cervical disc degeneration , unspecified cervical region Guru Elder, P.A. 03/10/2020 M17.0 Bilateral primary osteoarthritis of knee Guru Elder, P.A. 03/03/2020 M17.0 Bilateral primary osteoarthritis of knee VERONIKA Membreno 02/25/2020 M17.0 Bilateral primary osteoarthritis of knee Elisabeth Andres. Plan of Treatment 08/14/2020 - Tonny Mason MD* M17.12 Unilateral primary osteoarthritis, left knee* New Orders:* Surgery, Ordered: 08/14/20 * Follow up:* post op Functional Status Description No Information Available Mental Status Description No Information Available Referrals Refer to Dr Reason for Referral Status Appt Date Guru Elder PA L1846 Fusion OA Plus Custom. No authorization required. Covered at 100% Ok to supply here. ac Created [address] [place] [address] [phone] Guru Elder PA BASED ON MED. [facility] TO PT DEPT. NT Crea stella [facility] [place] [address] [phone]
--- OUTSIDE RECORDS SUMMARY | 2020-11-10 07:06 | CCD | Continuity of Care Document ---
Author Author Leia SERVIN M.D. Organization Unknown Address [address] [place] [address] Phone [phone] Care Team Providers Care Presser Machine Name Role Phone Andrei Whitley M.D. AUTM [phone] Problems Active Problems Provider Date Headache Carmen [...] migraine, may repeat once in 2 hours 15tafelicia Nascimento M.D. 07/18/2012 Immunizations Description No Information Available Vital Signs Date Vital Result Comment 08/24/2020 5:27am BP Systolic 130 mmHg BP Diastolic 80 mmHg Heart Rate 76 /min Respiratory Rate 16 /min 05/20/2020 6:38am BP Systolic 124 mmHg BP Diastolic 70 mmHg Heart Rate 76 /min Respiratory Rate 16 /min Results Description No Information Available Procedures Date Code Description Status 08/25/2020 54361 Injection For Nerve Block, Other Peripheral Nerve Or Branch Completed 08/25/2020 Injection, Single Or Multiple trigger points one or two muscles Completed 07/22/2020 88026 Injection For Nerve Block, Other Peripheral Nerve Or Branch Completed 07/22/2020 Injection, Single Or Multiple trigger points one or two muscles Completed 06/19/2020 98936 Injection For Nerve Block, Other Peripheral Nerve Or Branch Completed 06/19/202002729 Injection Single Or Multiple Trigger Points Three Or More Muscles Completed 05/18/2020 35752 Injection For Nerve Block, Other Peripheral Nerve Or Branch Completed 05/18/2020 Injection, Single Or Multiple trigger points one or two muscles Completed 04/15/2020 9 Neg CR Bal (Absorb Overpmt Compl eted 04/15/2020 39629 Injection For Nerve Block, Other Peripheral Nerve Or Branch Completed 04/15/202021117 Injection, Single Or Multiple trigger points one or two muscles Completed 03/03/2020 17909 Injection For Nerve Block, Other Peripheral Nerve Or Branch Completed 03/03/2020 80410 Injection For Nerve Block, Great er Occipital Nerve Completed Medical Devices Description No Information Available Encounters Type Date Location Provider Dx Diagnosis Office Visit 08/24/2020 2:45p Main office - [place] Veronica barker, P.A.-C. 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 08/25/2020 M79.18 Myalgia, other site Raghav Servin M.D. 08/24/2020 M54.81 Occipital neuralgia Veronica barker P.A.-C. 08/24/2020 G43.709 Chronic migraine wit hout aura, [...] Veronica Zavaleta P.A.-C. 05/20/2020 M54.81 Occipital neuralgia Alaina Paz.A.-C. 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 05/20/2020 M54.2 Cervicalgia Veronica Zavaleta, P.A.-C. 05/20/2020 [...] Zavaleta P.A.-C. 04/29/2020 M54.81 Occipital neuralgia Veronica barker, [...] M79.18 Myalgia, other site Raghav Servin M.D. 03/03/2020 M54.81 Occipital neuralgia Raghav Servin M.D. 03/03/2020 M79.18 Myalgia, other site Raghav Servin M.D. Plan of Treatment Future Appointment(s):* 11/02/2020 3:00 pm - Raghav Servin M.D. at Main office [facility] * 11/24/2020 1:30 pm - Veronica Zavaleta P.A.-C. at Main office - [place] * 09/29/2020 3:30 pm - Raghav Servin M.D. at Main office [facility] 08/24/2020 - Veronica Zavaleta P.A.-C.* M54.81 Occipital neuralgia* Comments:* Controlled. Continue nerve blocks and current medications. * G43.709 Chronic migraine without aura, not intractable, without status migrainosus* Comments:* Improved. Continue current medications. Refill of hydrocodone #14 sent eRx for uncontrolled pain. 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 * M62.838 Other muscle spasm* Comments:* She continues baclofen or tizanidine. She does not use both together. * M54.2 Cervicalgia* Comments:* Improved. * M54.5 Low back pain* Comments:* Refer back to the [facility] pain clinic. Schedule lumbar MRI. * F41.1 Generalized anxiety disorder* Comments:* Improved. Follow up with PCP. * Follow up:* 3 months Functional Status Description No Information Available Mental Status Description No Information Available Referrals Description No Information Available
--- OUTSIDE RECORDS SUMMARY | 2020-11-10 07:06 | CCD | Continuity of Care Document ---
Author Author Leia BUCKLEY Organization Unknown Address [address] [place] [address] Phone [phone] Care Team Providers Care Post Tensioning Ironworker Name Role Phone Andrei Whitley M.D. AUTM [phone] Problems Active Problems Provider Date Headache Carmen [...] Available Procedures Date Code Description Status 09/15/2020 43893 MRI Spine Lumbar W/O Contrast Co mpleted 08/25/2020 25649 Injection For Nerve Block, Other Peripheral Nerve Or Branch Completed 08/25/2020 Injection, Single Or Multiple trigger points one or two muscles Completed 07/22/2020 45312 Injection For Nerve Block, Other Peripheral Nerve Or Branch Completed 07/22/2020 Injection, Single Or Multiple trigger points one or two muscles Completed 06/19/2020 60891 Injection For Nerve Block, Other Peripheral Nerve Or Branch Completed 06/19/2020 Injection Single Or Multiple Trigger Points Three Or More Muscles Completed 05/18/2020 55803 Injection For Nerve Block, Other Peripheral Nerve Or Branch Completed 05/18/2020 Injection, Single Or Multiple trigger points one or two muscles Completed 04/15/2020 9 Neg CR Bal (Absorb Overpmt Compl eted 04/15/2020 56351 Injection For Nerve Block, Other Peripheral Nerve Or Branch Completed 04/15/2020 Injection, Single Or Multiple trigger points one or two muscles Completed Medical Devices Description No Information Available Encounters Type Date Location Provider Dx Diagnosis Office Visit 08/24/2020 2:45p Main office - [place] Veronica barker P.A.-C. 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 08/25/2020 M79.18 Myalgia, other site Raghav Servin M.D. 08/24/2020 M54.81 Occipital neuralgia Alaina Paz.A.-C. 08/24/2020 G43.709 Chronic migraine wit hout aura, not intractable, without status migrainosus Veronica Zavaleta P.A.-C. 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 08/24/2020 M62.838 Other muscle spasm Veronica choudhury P.A.-C. 08/24/2020 M54.2 Cervicalgia Veronica Zavaleta P.A.-C. 08/24/2020 M54.5 Low back pain Veronica Zavaleta P.A.-C. 08/24/2020 F41.1 Generalized anxiety disorder Alaina Jansen.A.-C. 07/22/2020 M54.81 Occipital neuralgia Raghav Servin M.D. 07/22/2020 M79.18 Myalgia, other site Raghav Servin M.D. 06/19/2020 M54.81 Occipital neuralgia Ragahv Servin M.D. 06/19/2020 M79.18 Myalgia, other site Raghav Servin M.D. 05/20/2020 G43.709 Chronic migraine wit hout aura, not intractable, without status migrainosus Alaina Johnson.A.-C. 05/20/2020 M54.81 Occipital neuralgia Alaina Paz.A.-C. 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 at Main office [facility] * 11/24/2020 1:30 pm - Tana JohnsonAPattyCEmmanuel at [facility] * 09/29/2020 3:30 pm - Raghav Servin M.D. at [facility] 08/24/2020 - Veronica Zavaleta P.A.-C.* M54.81 Occipital neuralgia* Comments:* Controlled. Continue nerve blocks and current medications. * G43.709 Chronic migraine without aura, not intractable, without status migrainosus* Comments:* Improved. Continue current medications. Refill of hydrocodone #14 sent eRx for uncontrolled pain. 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 * M62.838 Other muscle spasm* Comments:* She continues baclofen or tizanidine. She does not use both together. * M54.2 Cervicalgia* Comments:* Improved. * M54.5 Low back pain* Comments:* Refer back to the [facility] pain clinic. Schedule lumbar MRI. * F41.1 Generalized anxiety disorder* Comments:* Improved. Follow up with PCP. * Follow up:* 3 months Functional Status Description No Information Available Mental Status Description No Information Available Referrals Refer to Reason for Referral Status Appt Date Vernon Mccoy M.D. LOW BACK PAIN Created [facility] [address] [place] [address] [phone]
--- OUTSIDE RECORDS SUMMARY | 2020-11-10 07:06 | CCD | Continuity of Care Document ---
Author Author Leia SERVIN M.D. Organization Unknown Address [address] [place] [address] Phone [phone] Care Team Providers Care Service Desk Specialist Name Role Phone Andrei Whitley M.D. AUTM [phone] Problems Active Problems Provider Date Headache Carmen [...] Information Available Procedures Date Code Description Status 07/22/2020 39253 Injection For Nerve Block, Other Peripheral Nerve Or Branch Completed 07/22/2020 Injection, Single Or Multiple trigger points one or two muscles Completed 06/19/2020 37740 Injection For Nerve Block, Other Peripheral Nerve Or Branch Completed 06/19/202034558 Injection Single Or Multiple Trigger Points Three Or More Muscles Completed 05/18/2020 21988 Injection For Nerve Block, Other Peripheral Nerve Or Branch Completed 05/18/2020 Injection, Single Or Multiple trigger points one or two muscles Completed 04/15/2020 9 Neg CR Bal (Absorb Overpmt Compl eted 04/15/2020 72427 Injection For Nerve Block, Other Peripheral Nerve Or Branch Completed 04/15/202053193 Injection, Single Or Multiple trigger points one or two muscles Completed 03/03/2020 64717 Injection For Nerve Block, Other Peripheral Nerve Or Branch Completed 03/03/2020 53082 Injection For Nerve Block, Great er Occipital Nerve Completed Medical Devices Description No Information Available Encounters Type Date Location Provider Dx Diagnosis Office Visit 08/24/2020 2:45p Main office - [place] Veronica barker P.A.-C. 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 08/24/2020 G43.709 Chronic migraine wit hout aura, not intractable, without status migrainosus Veronica Zavaleta P.A.-C. 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 08/24/2020 M62.838 Other muscle spasm Veronica choudhury, P.A.-C. 08/24/2020 M54.2 Cervicalgia Veronica Zavaleta P.A.-C. [...] 04/29/2020 M54.5 Low back pain Veronica Zavaleta P.A.-CEmmanuel 04/29/2020 M62.838 Other muscle spasm Veronica choudhury, [...] 3:00 pm - Raghav Servin M.D. at [facility] * 11/24/2020 1:30 pm - Sergio JohnsonCEmmanuel at [facility] * 09/29/2020 3:30 pm - Raghav Servin M.D. at [facility] 08/24/2020 - Tana JohnsonIsh.* M54.81 Occipital neuralgia* Comments:* Controlled. Continue nerve blocks and current medications. * G43.709 Chronic migraine without aura, not intractable, without status migrainosus* Comments:* Improved. Continue current medications. Refill of hydrocodone #14 sent eRx for uncontrolled pain. 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 * M62.838 Other muscle spasm* Comments:* She continues baclofen or tizanidine. She does not use both together. * M54.2 Cervicalgia* Comments:* Improved. * M54.5 Low back pain* Comments:* Refer back to the [facility] pain clinic. Schedule lumbar MRI. * F41.1 Generalized anxiety disorder* Comments:* Improved. Follow up with PCP. * Follow up:* 3 months Functional Status Description No Information Available Mental Status Description No Information Available Referrals Description No Information Available
--- OUTSIDE RECORDS SUMMARY | 2020-11-10 07:07 | CCD ---
Author Author [facility] Organization [facility] Address Unknown Phone Unavailable Care Team Providers Care Recruitment Internship Name Role Phone Barraclough, Nora PA Unavailable Unavailable Barraclough, Nora PA Unavailable Unavailable Barraclough, Nora PA Unavailable Unavailable Barraclough, Nora PA Unavailable Unavailable Barraclough, Nora PA Unavailable Unavailable Barraclough, Nora PA Unavailable Unavailable Yoselyn VOGT DPM Unavailable Unavailable Yoselyn VOGT DPM Unavailable Unavailable Yoselyn VOGT DPM Unavailable Unavailable Yoselyn VOGT DPM Unavailable Unavailable Yoselyn VOGT DPM Unavailable Unavailable Yoselyn VOGT DPM Unavailable Unavailable Yoselyn VOGT DPM Unavailable Unavailable Yoselyn VOGT DPM Unavailable Unavailable Yoselyn VOGT DPM Unavailable Unavailable Yoselyn VOGT DPM Unavailable Unavailable Yoselyn VOGT DPM Unavailable Unavailable Yoselyn VOGT DPM Unavailable Unavailable Yoselyn VOGT DPM Unavailable Unavailable Yoselyn VOGT DPM Unavailable Unavailable Yoselyn VOGT DPM Unavailable Unavailable Yoselyn VOGT DPM Unavailable Unavailable Yoselyn VOGT DPM Unavailable Unavailable Yoselyn VOGT DPM Unavailable Unavailable Yoselyn VOGT DPM Unavailable Unavailable MAJAK, R REMIGIO DPM Unavailable Unavailable MAJAK, R REMIGIO DPM Unavailable Unavailable MAJAK, R REMIGIO DPM Unavailable Unavailable MAJAK, R REMIGIO DPM Unavailable Unavailable MAJAK, R REMIGIO DPM Unavailable Unavailable MAJAK, R REMIGIO DPM Unavailable Unavailable MAJAK, R REMIGIO DPM Unavailable Unavailable MAJAK, R REMIGIO DPM Unavailable Unavailable MAJAK, R REMIGIO DPM Unavailable Unavailable MAJAK, R REMIGIO DPM Unavailable Unavailable TORIE, R REMIGIO DPM Unavailable Unavailable Edi DANIELS MD Unavailable Unavailable Edi DANIELS MD Unavailable Unavailable Edi DANIELS MD Unavailable Unavailable Edi DANIELS MD Unavailable Unavailable Edi DANIELS MD Unavailable Unavailable Edi DANIELS MD Unavailable Unavailable Edi DANIELS MD Unavailable Unavailable Edi DANIELS MD Unavailable Unavailable Edi DANIELS MD Unavailable Unavailable Edi DANIELS MD Unavailable Unavailable Edi DANIELS MD Unavailable Unavailable Edi DANIELS MD Unavailable Unavailable Edi DANIELS MD Unavailable Unavailable Edi DANIELS MD Unavailable Unavailable Edi DANIELS MD Unavailable Unavailable Edi DANIELS MD Unavailable Unavailable Edi DANIELS MD Unavailable Unavailable Edi DANIELS MD Unavailable Unavailable Edi DANIELS MD Unavailable Unavailable Edi DANIELS MD Unavailable Unavailable Edi DANIELS MD Unavailable Unavailable Edi DANIELS MD Unavailable Unavailable Edi DANIELS MD Unavailable Unavailable Edi DANIELS MD Unavailable Unavailable Edi DANIELS MD Unavailable Unavailable Edi DANIELS MD Unavailable Unavailable Edi DANIELS MD Unavailable Unavailable Edi DANIELS MD Unavailable Unavailable Edi DANIELS MD Unavailable Unavailable Edi DANIELS MD Unavailable Unavailable Edi DANIELS MD Unavailable Unavailable Edi DANIELS MD Unavailable Unavailable Edi DANIELS MD Unavailable Unavailable Edi DANIELS MD Unavailable Unavailable Edi DANIELS MD Unavailable Unavailable Edi DANIELS MD Unavailable Unavailable Edi DANIELS MD Unavailable Unavailable Edi DANIELS MD Unavailable Unavailable Edi DANIELS MD Unavailable Unavailable Edi DANIELS MD Unavailable Unavailable Edi DANIELS MD Unavailable Unavailable Edi DANIELS MD Unavailable Unavailable Edi DANIELS MD Unavailable Unavailable Edi DANIELS MD Unavailable Unavailable Edi DANIELS MD Unavailable Unavailable Edi DANIELS MD Unavailable Unavailable Edi DANIELS MD Unavailable Unavailable Edi DANIELS MD Unavailable Unavailable Edi DANIELS MD Unavailable Unavailable Edi DANIELS MD Unavailable Unavailable Edi DANIELS MD Unavailable Unavailable Edi DANIELS MD Unavailable Unavailable Edi DANIELS MD Unavailable Unavailable Edi DANIELS MD Unavailable Unavailable Edi DANIELS MD Unavailable Unavailable Edi DANIELS MD Unavailable Unavailable Edi DANIELS MD Unavailable Unavailable Edi DANIELS MD Unavailable Unavailable Edi DANIELS MD Unavailable Unavailable Edi DANIELS MD Unavailable Unavailable Edi DANIELS MD Unavailable Unavailable Edi DANIELS MD Unavailable Unavailable Edi DANIELS MD Unavailable Unavailable Edi DANIELS MD Unavailable Unavailable Edi DANIELS MD Unavailable Unavailable Edi DANIELS MD Unavailable Unavailable Edi DANIELS MD Unavailable Unavailable Edi DANIELS MD Unavailable Unavailable Edi DANIELS MD Unavailable Unavailable Edi DANIELS MD Unavailable Unavailable Edi DANIELS MD Unavailable Unavailable Edi DAINELS MD Unavailable Unavailable Edi DANIELS MD Unavailable Unavailable Edi DANIELS MD Unavailable Unavailable Edi DANIELS MD Unavailable Unavailable MCELHERAN, DIMAS PA Unavailable Unavailable MCELHERAN, DIMAS PA Unavailable Unavailable MCELHERAN, DIMAS PA Unavailable Unavailable MCELHERAN, DIMAS PA Unavailable Unavailable MCELHERAN, DIMAS PA Unavailable Unavailable MCELHERAN, DIMAS PA Unavailable Unavailable MCELHERAN, DIMAS PA Unavailable Unavailable MCELHERAN, DIMAS PA Unavailable Unavailable MCELHERAN, DIMAS PA Unavailable Unavailable MCELHERAN, DIMAS PA Unavailable Unavailable MCELHERAN, DIMAS PA Unavailable Unavailable MCELHERAN, DIMAS PA Unavailable Unavailable MCELHERAN, DIMAS PA Unavailable Unavailable MCELHERAN, DIMAS PA Unavailable Unavailable MCELHERAN, DIMAS PA Unavailable Unavailable MCELHERAN, DIMAS PA Unavailable Unavailable MCELHERAN, DIMAS PA Unavailable Unavailable MCELHERAN, DIMAS PA Unavailable Unavailable MCELHERAN, DIMAS PA Unavailable Unavailable MCELHERAN, DIMAS PA Unavailable Unavailable MCELHERAN, DIMAS PA Unavailable Unavailable MCELHERAN, DIMAS PA Unavailable Unavailable MCELHERAN, DIMAS PA Unavailable Unavailable MCELHERAN, DIMAS PA Unavailable Unavailable MCELHERAN, DIMAS PA Unavailable Unavailable MCELHERAN, DIMAS PA Unavailable Unavailable MCELHERAN, DIMAS PA Unavailable Unavailable MCELHERAN, DIMAS PA Unavailable Unavailable Trickey, J Veronica PA Unavailable Unavailable Trickey, J Veronica PA Unavailable Unavailable Trickey, J Veronica PA Unavailable Unavailable Trickey, J Veronica PA Unavailable Unavailable Trickey, J Veronica PA Unavailable Unavailable Trickey, J Veronica PA Unavailable Unavailable Trickey, J Veronica PA Unavailable Unavailable Trickey, J Veronica PA Unavailable Unavailable Trickey, J Veronica PA Unavailable Unavailable Trickey, J Veronica PA Unavailable Unavailable Trickey, J Veronica PA Unavailable Unavailable Trickey, J Veronica PA Unavailable Unavailable Trickey, J Veronica PA Unavailable Unavailable Trickey, J Veronica PA Unavailable Unavailable Trickey, J Veronica PA Unavailable Unavailable Trickey, J Veronica PA Unavailable Unavailable Trickey, J Veronica PA Unavailable Unavailable Trickey, J Veronica PA Unavailable Unavailable Trickey, J Veronica PA Unavailable Unavailable Trickey, J Veronica PA Unavailable Unavailable Trickey, J Veronica PA Unavailable Unavailable Trickey, J Veronica PA Unavailable Unavailable Trickey, J Veronica PA Unavailable Unavailable Trickey, J Veronica PA Unavailable Unavailable Trickey, J Veronica PA Unavailable Unavailable Trickey, J Veronica PA Unavailable Unavailable Trickey, J Veronica PA Unavailable Unavailable Trickey, J Veronica PA Unavailable Unavailable Trickey, J Veronica PA Unavailable Unavailable Trickey, J Veronica PA Unavailable Unavailable Trickey, J Veronica PA Unavailable Unavailable Trickey, J Veronica PA Unavailable Unavailable Trickey, J Veronica PA Unavailable Unavailable Trickey, J Veronica PA Unavailable Unavailable Trickey, J Veronica PA Unavailable Unavailable Trickey, J Veronica PA Unavailable Unavailable Trickey, J Veronica PA Unavailable Unavailable Trickey, J Veronica PA Unavailable Unavailable Trickey, J Veronica PA Unavailable Unavailable Trickey, J Veronica PA Unavailable Unavailable Trickey, J Veronica PA Unavailable Unavailable Trickey, J Veronica PA Unavailable Unavailable Trickey, J Veronica PA Unavailable Unavailable Trickey, J Veronica PA Unavailable Unavailable Trickey, J Veronica PA Unavailable Unavailable Trickey, J Veronica PA Unavailable Unavailable Trickey, J Veronica PA Unavailable Unavailable Trickey, J Veronica PA Unavailable Unavailable Trickey, J Veronica PA Unavailable Unavailable Trickey, J Veronica PA Unavailable Unavailable Trickey, J Veronica PA Unavailable Unavailable Trickey, J Veronica PA Unavailable Unavailable DRAZEK, I AVINASH PA Unavailable Unavailable DRAZEK, I AVINASH PA Unavailable Unavailable DRAZEK, I AVINASH PA Unavailable Unavailable DRAZEK, I AVINASH PA Unavailable Unavailable DRAZEK, I AVINASH PA Unavailable Unavailable DRAZEK, I AVINASH PA Unavailable Unavailable DRAZEK, I AVINASH PA Unavailable Unavailable DRAZEK, I AVINASH PA Unavailable Unavailable DRAZEK, I AVINASH PA Unavailable Unavailable DRAZEK, I AVINASH PA Unavailable Unavailable DRAZEK, I AVINASH PA Unavailable Unavailable DRAZEK, I AVINASH PA Unavailable Unavailable DRAZEK, I AVINASH PA Unavailable Unavailable DRAZEK, I AVINASH PA Unavailable Unavailable DRAZEK, I AVINASH PA Unavailable Unavailable DRAZEK, I AVINASH PA Unavailable Unavailable DRAZEK, I AVINASH PA Unavailable Unavailable DRAZEK, I AVINASH PA Unavailable Unavailable DRAZEK, I AVINASH PA Unavailable Unavailable DRAZEK, I AVINASH PA Unavailable Unavailable DRAZEK, I AVINASH PA Unavailable Unavailable DRAZEK, I AVINASH PA Unavailable Unavailable DRAZEK, I AVINASH PA Unavailable Unavailable DRAZEK, I AVINASH PA Unavailable Unavailable DRAZEK, I AVINASH PA Unavailable Unavailable DRAZEK, I AVINASH PA Unavailable Unavailable DRAZEK, I AVINASH PA Unavailable Unavailable DRAZEK, I AVINASH PA Unavailable Unavailable DRAZEK, I AVINASH PA Unavailable Unavailable DRAZEK, I AVINASH PA Unavailable Unavailable Sotomayor, M Barratt PA Unavailable Unavailable Sotomayor, M Barratt PA Unavailable Unavailable Sotomayor, M Barratt PA Unavailable Unavailable Sotomayor, M Barratt PA Unavailable Unavailable Sotomayor, M Barratt PA Unavailable Unavailable Sotomayor, M Barratt PA Unavailable Unavailable Sotomayor, M Barratt PA Unavailable Unavailable Sotomayor, M Barratt PA Unavailable Unavailable Sotomayor, M Barratt PA Unavailable Unavailable Sotomayor, M Barratt PA Unavailable Unavailable Sotomayor, M Barratt PA Unavailable Unavailable Sotomayor, M Barratt PA Unavailable Unavailable Sotomayor, M Barratt PA Unavailable Unavailable Sotomayor, M Barratt PA Unavailable Unavailable Sotomayor, M Barratt PA Unavailable Unavailable Sotomayor, M Barratt PA Unavailable Unavailable Sotomayor, M Barratt PA Unavailable Unavailable Sotomayor, M Barratt PA Unavailable Unavailable Sotomayor, M Barratt PA Unavailable Unavailable Sotomayor, M Barratt PA Unavailable Unavailable Sotomayor, M Barratt PA Unavailable Unavailable Sotomayor, M Barratt PA Unavailable Unavailable Sotomayor, M Barratt PA Unavailable Unavailable Sotomayor, M Barratt PA Unavailable Unavailable Sotomayor, M Barratt PA Unavailable Unavailable Sotomayor, M Barratt PA Unavailable Unavailable Sotomayor, M Barratt PA Unavailable Unavailable STACIE, JAYRO PA Unavailable Unavailable STACIE, JAYRO PA Unavailable Unavailable STACIE, JAYRO PA Unavailable Unavailable STACIE, JAYRO PA Unavailable Unavailable STACIE, JAYRO PA Unavailable Unavailable STACIE, JAYRO PA Unavailable Unavailable STACIE, JAYRO PA Unavailable Unavailable STACIE, JAYRO PA Unavailable Unavailable STACIE, JAYRO PA Unavailable Unavailable STACIE, JAYRO PA Unavailable Unavailable STACIE, JAYRO PA Unavailable Unavailable STACIE, JAYRO PA Unavailable Unavailable STACIE, JAYRO PA Unavailable Unavailable STACIE, JAYRO PA Unavailable Unavailable STACIE, JAYRO PA Unavailable Unavailable STACIE, JAYRO PA Unavailable Unavailable STACIE, JAYRO PA Unavailable Unavailable STACIE, JAYRO PA Unavailable Unavailable STACIE, JAYRO PA Unavailable Unavailable STACIE, JAYRO PA Unavailable Unavailable STACIE, JAYRO PA Unavailable Unavailable STACIE, JAYRO PA Unavailable Unavailable STACIE, JAYRO PA Unavailable Unavailable STACIE, JAYRO PA Unavailable Unavailable STACIE, JAYRO PA Unavailable Unavailable STACIE, JAYRO PA Unavailable Unavailable STACIE, JAYRO PA Unavailable Unavailable STACIE, JAYRO PA Unavailable Unavailable STACIE, JAYRO PA Unavailable Unavailable STACIE, JAYRO PA Unavailable Unavailable STACIE, JAYRO PA Unavailable Unavailable STACIE, JAYRO PA Unavailable Unavailable STACIE, JAYRO PA Unavailable Unavailable STACIE, JAYRO PA Unavailable Unavailable STACIE, JAYRO PA Unavailable Unavailable STACIE, JAYRO PA Unavailable Unavailable STACIE, JAYRO PA Unavailable Unavailable STACIE, JAYRO PA Unavailable Unavailable Jennings-Constanza E Avinash DELCID Unavailable Unavailable Jennings-Constanza, E Avinash DELCID Unavailable Unavailable Jennings-Constanza, E Avinash DELCID Unavailable Unavailable Jennings-Constanza E Avinash DELCID Unavailable Unavailable Jennings-Constanza E Avinash DELCID Unavailable Unavailable Jennings-Constanza E Avinash DELCID Unavailable Unavailable Jennings-Constanza E Avinash DELCID Unavailable Unavailable Jennings-Constanza, E Avinash DELCID Unavailable Unavailable Jennings-Constanza E Avinash DELCID Unavailable Unavailable Jennings-Constanza, E Avinash DELCID Unavailable Unavailable Jennings-Constanza, E Avinash DELCID Unavailable Unavailable Jennings-Constanza, E Avinash DELCID Unavailable Unavailable Jennings-Constanza, E Avinash DELCID Unavailable Unavailable Jennings-Constanza, E Avinash DELCID Unavailable Unavailable Jennings-Constanza, E Avinash DELCID Unavailable Unavailable Jennings-Constanza, E Avinash DELCID Unavailable Unavailable Jennings-Constanza, E Avinash DELCID Unavailable Unavailable Jennings-Constanza, E Avinash DELCID Unavailable Unavailable Jennings-Constanza, E Avinash DELCID Unavailable Unavailable Jennings-Constanza, E Avinash DELCID Unavailable Unavailable Jennings-Constanza, E Avinash DELCID Unavailable Unavailable Jennings-Constanza, E Avinash DELCID Unavailable Unavailable Jennings-Constanza, E Avinashgino DELCID Unavailable Unavailable Jennings-Constanza, E Avinashgino DELCID Unavailable Unavailable Jennings-Constanza, E Avinash MD Unavailable Unavailable Jennings-Constanza, E Avinash MD Unavailable Unavailable Jennings-Constanza, E Avinash MD Unavailable Unavailable Jennings-Constanza, E Avinash MD Unavailable Unavailable Jennings-Constanza, E Avinash MD Unavailable Unavailable Jennings-Constanza, E Avinash MD Unavailable Unavailable Jennings-Constanza, E Avinash MD Unavailable Unavailable Jennings-Constanza, E Avinash MD Unavailable Unavailable Jennings-Constanza, E Avinash MD Unavailable Unavailable Jennings-Constanza, E Avinash MD Unavailable Unavailable Jennings-Constanza, E Avinash MD Unavailable Unavailable Jennings-Constanza, E Avinash MD Unavailable Unavailable Dodard, Herve DO Unavailable Unavailable Dodard, Herve DO Unavailable Unavailable Dodard, Herve DO Unavailable Unavailable Dodard, Herve DO Unavailable Unavailable Dodard, Herve DO Unavailable Unavailable Dodard, Herve DO Unavailable Unavailable Dodard, Herve DO Unavailable Unavailable Dodard, Herve DO Unavailable Unavailable Dodard, Herve DO Unavailable Unavailable Dodard, Herve DO Unavailable Unavailable Dodard, Herve DO Unavailable Unavailable Dodard, Herve DO Unavailable Unavailable Dodard, Herve DO Unavailable Unavailable Dodard, Herve DO Unavailable Unavailable Dodard, Herve DO Unavailable Unavailable Dodard, Herve DO Unavailable Unavailable Dodard, Herve DO Unavailable Unavailable Dodard, Herve DO Unavailable Unavailable Dodard, Herve DO Unavailable Unavailable Dodard, Herve DO Unavailable Unavailable Dodard, Herve DO Unavailable Unavailable Dodard, Herve DO Unavailable Unavailable Dodard, Herve DO Unavailable Unavailable Dodard, Herve DO Unavailable Unavailable Dodard, Herve DO Unavailable Unavailable Dodard, Herve DO Unavailable Unavailable Dodard, Herve DO Unavailable Unavailable Dodard, Herve DO Unavailable Unavailable Dodard, Herve DO Unavailable Unavailable Dodard, Herve DO Unavailable Unavailable Dodard, Herve DO Unavailable Unavailable Dodard, Herve DO Unavailable Unavailable Dodard, Herve DO Unavailable Unavailable Dodard, Herve DO Unavailable Unavailable Dodard, Herve DO Unavailable Unavailable Dodard, Herve DO Unavailable Unavailable Dodard, Herve DO Unavailable Unavailable Dodard, Herve DO Unavailable Unavailable Dodard, Herve DO Unavailable Unavailable Dodard, Herve DO Unavailable Unavailable Dodard, Herve DO Unavailable Unavailable Dodard, Hevre DO Unavailable Unavailable Dodard, Herve DO Unavailable Unavailable Dodard, Herve DO Unavailable Unavailable Re-disclosure Warning The records that you are about to access may contain information from federally-assisted alcohol or drug abuse programs. If such information is present, then the following federally mandated warning applies: This information has been disclosed to you from records protected by federal confidentiality rules (42 CFR part 2). The federal rules prohibit you from making any further disclosure of this information unless further disclosure is expressly permitted by the written consent of the person to whom it pertains or as otherwise permitted by 42 CFR part 2. A general authorization for the release of medical or other information is NOT sufficient for this purpose. The Federal rules restrict any use of the information to criminally investigate or prosecute any alcohol or drug abuse patient.The records that you are about to access may contain highly sensitive health information, the redisclosure of which is protected by Article 27-F of the [facility] Public Health law. If you continue you may have access to information: Regarding HIV / AIDS; Provided by facilities licensed or operated by the [facility] Office of Mental Health; or Provided by the [facility] Office for People With Developmental Disabilities. If such information is present, then the following [facility] mandated warning applies: This information has been disclosed to you from confidential records which are protected by state law. State law prohibits you from making any further disclosure of this information without the specific written consent of the person to whom it pertains, or as otherwise permitted by law. Any unauthorized further disclosure in violation of state law may result in a fine or penitentiary sentence or both. A general authorization for the release of medical or other information is NOT sufficient authorization for further disc losure. Allergies and Adverse Reactions Type Description Substance Reaction Status Data Source(s ) Adverse Reaction Sudafed Pseudoephedrine MED ENT ([facility] ) Drug Allergy Drug Allergy NKDA MEDENT ([facility] Drug Allergy Drug Allergy NKDA MEDENT ([facility]) Family History Family Member Name Family Member Gender Family Member Status Date o f Status Description Data Source(s) Unknown Unknown Problem MEDENT ([facility] Unknown Female Problem MEDENT ([facility] Unknown Female Problem MEDENT ([facility]) Unknown Female Problem MEDENT ([facility]) Unknown Female Problem MEDENT ([facility]) Unknown Female Problem MEDENT ([facility]) Unknown Unknown Problem MEDENT ([facility] Encounters Encounter Providers Location Date Indications Data Source(s ) Office Visit Attender: Ana BANDA Physical Therapy 12:00:00 PM EST MEDENT ([facility]) Outpatient Attender: Nora BANDA [facility] [place] 10/27/2020 02:15:00 PM EST MEDENT ([facility] [place] [address] [facility] [address] 10/26/2020 12:00:00 AM EST eCW1 ([facility]) Outpatient Attender: MARCELLO DANIELS MD [place] Office 12:30:00 PM EST MEDENT ([facility] [place] [address] [facility] [facility] [address] 09/08/2020 12:00:00 AM EST eCW1 ([facility]) Outpatient Attender: Veronica BANDA Main office - [facility] n 08/24/2020 01:45:00 PM EST MEDENT ([facility] Outpatient Attender: DIMAS BANDA Physical Therapy 06/04/2020 03:30:00 PM EDT MEDENT ([facility] 02:45:00 PM EDT MED[facility] ([facility] Outpatient Attender: Veronica BANDA [facility] office - [facility] n 05/20/2020 01:15:00 PM EDT MEDENT ([facility] Outpatient Attender: DIMAS BANDA Physical Therapy 03/26/2020 04:00:00 PM EDT MEDENT ([facility]) Outpatient Attender: MARCELLO DANIELS MD [facility] 10:00:00 AM EDT MEDENT ([facility] Office Visit Attender: DIMAS BANDA Physical Therapy 03/10/2020 03:45:00 PM EDT MEDENT ([facility]) Office Visit Attender: AVINASH BANDA Physical Therapy 2019 03:30:00 PM EDT MEDENT ([facility]) Office Visit Attender: DIMAS BANDA Physical Therapy 02/25/2020 03:45:00 PM EDT MEDENT ([facility]) Outpatient Referrer: Herve Marrero DO 01/20/2020 02:05:00 PM EDT [facility] Outpatient Referrer: Herve Marrero DO 01/16/2020 11:45:00 AM EDT [facility] Outpatient Referrer: Herve Marrero DO 11/15/2019 10:56:00 AM EST [facility] Outpatient Referrer: Avinash Mccoy MD 11/15/2019 10: 54:00 AM EST [facility] Outpatient Attender: Veronica BANDA Main office - [facility] 10/28/2019 11:00:00 AM EST MEDENT ([facility] Outpatient Attender: JAYRO jenkins 09/20/2019 03:00:00 PM EST MEDENT ([facility] Medications Medication Brand Name Start Date Product Form Dose Route Admi nistrative Instructions Pharmacy Instructions Status Indications Reaction Description Data Source(s) Mupirocin 0.02 MG/MG Topical Ointment Mupirocin 10/30/2020 12:00:00 AM EST active [facility] chlorhexidine gluconate 40 MG/ML Medicated Liquid Soap [Hibi clens] Hibiclens 10/30/2020 12:00:00 AM EST active MEDENT ([facility]) Baclofen 10 MG Oral Tablet Baclofen active MED[facility] ([facility] Lorazepam 0.5 MG Oral Tablet Lorazepam 03/30/2020 12:00:00 AM EDT ORAL completed MEDENT ([facility] tramadol hydrochloride 50 MG Oral Tablet Tramadol HCL 03/26/2020 12:00:00 AM EDT active [facility] Methylprednisolone 4 MG Oral Tablet [Medrol] Medrol 01/2020 12:00:00 AM EDT active MEDENT ( [facility] ) Lidocaine Hydrochloride 0.05 MG/MG Transdermal Patch [Lidode rm] Lidoderm 03/12/2020 12:00:00 AM EDT active MEDENT ([facility]) 2 ML Sodium Hyaluronate 10 MG/ML Prefilled Syringe [Euflexxa ] Euflexxa 03/03/2020 12:00:00 AM EDT active MEDENT ([facility]) Ibuprofen 800 MG Oral Tablet Ibuprofen 03/03/2020 12:00:00 AM EDT ORAL active MEDENT ([facility] ) tizanidine 4 MG Oral Tablet Tizanidine HCL 03/03/2020 12:00:00 AM EDT active MEDENT ([facility] ) Inject Dexamthosone Phosphate 59911-246-03 11/22/2019 12:00:00 A M EST completed [facility] ([facility] Medication administered onsite Inject Triamcinolone Acetonide 10 ML, [facility] [id number] 11/22/2019 12:00:00 AM EST completed [facility] ([facility] Medication administered onsite Thumb Splint/Left Medium 09/20/2019 12:00:00 AM EST active MED[facility] ([facility] Insurance Providers Payer name Policy type / Coverage type Policy ID Covered libertarian ID Covered libertarian's relationship to muniz Policy Muniz Plan Information BCBS [facility] DIV [id number] [id number] [facility] [id number] [facility] [id number] SP [id number] BCBS [place] [id number] SP [id number] [place]IRE ([facility]) O [id number] P [id number] ANSI-Commercial [id number] [employer] Commercial [id number] Family Dependent [id number] [place] Plan Claims [facility] Commercial [id number] Family Dependent [id number] [place] [facility] Commercial [id number] Family Dependent [id number] ANSI-Commercial [id number] [place] [facility] Health Maintenance Organization (HMO) [id number] Family Dependent [id number] [place] [facility] Health Maintenance Organization (HMO) [id number] Family Dependent [id number] [place] [facility] Health Maintenance Organization (HMO) [id number] Family Dependent [id number] [place] [facility] Commercial [id number] Family Dependent [id number] [facility] [id number] HU2 89 [id number] BCBS [place] [id number] [id number] [place]IRE ([facility]) O [id number] S [id number] ANSI-Commercial [id number] [place] [facility] Health Maintenance Organization (O) [id number] Family Dependent [id number] ANSI-Commercial [id number] ANSI-Commercial [id number] ANSI-Commercial [id number] ANSI-Commercial [id number] BCBS [place] [id number] [facility] [id number] HU2 [id number] [place] [facility] Health Maintenance Organization (HMO) [id number] Family Dependent [id number] [place] [facility] Health Maintenance Organization (HMO) [id number] Family Dependent [id number] [place] [facility] Health Maintenance Organization (HMO) [id number] Family Dependent [id number] ANSI-Commercial [id number] [place] [facility] Maintenance Organization (O) [id number] Family Dependent [id number] [place] [facility] Commercial [id number] Family Dependent [id number] BCBS [place] [id number] SP [id number] [facility] [id number] HU2 [id number] BCBS [place] [id number] [id number] [place] [facility] Health Maintenance Organization (HMO) [id number] Family Dependent [id number] [place] [facility] Health Maintenance Organization (HMO) [id number] Family Dependent [id number] [place] [facility] Health Maintenance Organization (HMO) [id number] Family Dependent [id number] [place] [facility] Health Maintenance Organization (HMO) [id number] Family Dependent [id number] [place] [facility] Health Maintenance Organization (HMO) [id number] Family Dependent [id number] [place] [facility] Health Maintenance Organization (HMO) [id number] Family Dependent [id number] [place] [facility] Health Maintenance Organization (HMO) [id number] Family Dependent [id number] [place] [facility] Health Maintenance Organization (HMO) [id number] Family Dependent [id number] [place] [facility] Health Maintenance Organization (HMO) [id number] Family Dependent [id number] [place] [facility] Health Maintenance Organization (HMO) [id number] Family Dependent [id number] [place] [facility] Health Maintenance Organization (HMO) [id number] Family Dependent [id number] BCBS [place] [id number] [facility] [id number] [facility] Commercial [facility] Health Maintenance Organization (HMO) Family Dependent [place] Plan Claims [facility] Commercial Family Dependent [place] ([place], [place]) Medicare Primary EMPIRE BLUE CROSS BLUE SHIELD -O/P [id number] 01 [id number] [facility] Health Maintenance Organization (HMO) [facility]-O/P [id number] 01 [id number] [facility] P [id number] S [id number] Problems, Conditions, and Diagnoses Code Display Name Description Problem Type Effective Dates Data Source(s) M47.897 [id number] Other spondylosis, lumbosacral region Pro blem 10/26/2020 12:00:00 AM EST eCW1 ([facility]) Surgeries/Procedures Procedure Description Date Indications Data Source(s) ARTHROCENTESIS ASPIR&/INJECTION MAJOR JT/BURSA 021 12:00:00 AM EST MED[facility] ([facility]) Injection, Single Or Multiple trigger points one or two musc les 11/02/2020 12:00:00 AM EST MED[facility] ([facility]) INJECTION ANES OTHER PERIPHERAL NERVE/BRANCH 12:00:00 AM EST MED[facility] ([facility]) Multiple Injections-Admin. 10/29/2020 12:00:00 AM EST [facility] ([facility]) Electrocardiogram Complete 10/27/2020 12:00:00 AM EST [facility] ([facility] Multiple Injections-Admin. 10/08/2020 12:00:00 AM EST [facility] ([facility]) Injection, Single Or Multiple trigger points one or two musc les 09/29/2020 12:00:00 AM EST MED[facility] ([facility]) INJECTION ANES OTHER PERIPHERAL NERVE/BRANCH 0 12:00:00 AM EST MEDENT ([facility] ) MRI SPINAL CANAL LUMBAR W/O CONTRAST MATERIAL 09/15/20 20 12:00:00 AM EST MED[facility] ([facility] ) MRI SPINAL CANAL LUMBAR W/O CONTRAST MATERIAL 09/15/20 20 12:00:00 AM EST MED[facility] ([facility] ) Injection, Single Or Multiple trigger points one or two musc les 08/25/2020 12:00:00 AM EST [facility] ([facility] ) INJECTION ANES OTHER PERIPHERAL NERVE/BRANCH 0 12:00:00 AM EST MEDENT ([facility] ) Multiple Injections-Admin. 08/06/2020 12:00:00 AM EDT MED[facility] ([facility]) Multiple Injections-Admin. 07/23/2020 12:00:00 AM EDT [facility] ([facility]) Injection, Single Or Multiple trigger points one or two musc les 07/22/2020 12:00:00 AM EDT [facility] ([facility] ) INJECTION ANES OTHER PERIPHERAL NERVE/BRANCH 0 12:00:00 AM EDT MED[facility] ([facility] ) APPLICATION CAST ELBOW FINGER SHORT ARM 07/16/2020 12: 00:00 AM EDT [facility] ([facility] ) Allergy Mixed Antigens 07/15/2020 12:00:00 AM EDT MED[facility] ([facility]) ARTHROCENTESIS ASPIR&/INJECTION SMALL JT/BURSA 12:00:00 AM EDT MED[facility] ([facility] ) APPLICATION CAST ELBOW FINGER SHORT ARM 06/26/2020 12: 00:00 AM EDT MED[facility] ([facility] ) Multiple Injections-Admin. 06/25/2020 12:00:00 AM EDT MED[facility] ([facility]) INJECTION SINGLE/SERVICE CAPTAIN TRIGGER POINT 3/> MUSCLES 020 12:00:00 AM EDT MED[facility] ([facility] ) INJECTION ANES OTHER PERIPHERAL NERVE/BRANCH 0 12:00:00 AM EDT MEDENT ([facility] ) ARTHROCENTESIS ASPIR&/INJECTION MAJOR JT/BURSA 020 12:00:00 AM EDT [facility] ([facility] ) ARTHROCENTESIS ASPIR&/INJECTION MAJOR JT/BURSA 12:00:00 AM EDT MED[facility] ([facility] ) RADIOLOGIC EXAMINATION KNEE 3 VIEWS 06/04/2020 12:00:0 0 AM EDT MED[facility] ([facility] ) Multiple Injections-Admin. 06/04/2020 12:00:00 AM EDT [facility] ([facility]) Injection, Single Or Multiple trigger points one or two musc les 05/18/2020 12:00:00 AM EDT MED[facility] ([facility] ) INJECTION ANES OTHER PERIPHERAL NERVE/BRANCH 0 12:00:00 AM EDT MED[facility] ([facility] ) Multiple Injections-Admin. 05/14/2020 12:00:00 AM EDT [facility] ([facility]) Multiple Injections-Admin. 04/16/2020 12:00:00 AM EDT [facility] ([facility]) Injection, Single Or Multiple trigger points one or two musc les 04/15/2020 12:00:00 AM EDT MED[facility] ([facility] ) INJECTION ANES OTHER PERIPHERAL NERVE/BRANCH 0 12:00:00 AM EDT MEDENT ([facility] ) Neg CR Bal (Absorb Overpmt 04/15/2020 12:00:00 AM EDT MED[facility] ([facility] ) Multiple Injections-Admin. 03/26/2020 12:00:00 AM EDT MED[facility] ([facility]) RADEX SPINE CRV COMPL W/OBLQ&FLEX&/XTN STDS 03/12/2020 12:00:00 AM EDT [facility] ([facility] ) X-Ray Spine Lumbosacral Complete Inc Bending Views Min Of 6 03/12/2020 12:00:00 AM EDT [facility] ([facility] ) ARTHROCENTESIS ASPIR&/INJECTION MAJOR JT/BURSA 12:00:00 AM EDT MED[facility] ([facility] ) ARTHROCENTESIS ASPIR&/INJECTION MAJOR JT/BURSA 020 12:00:00 AM EDT MED[facility] ([facility] ) Multiple Injections-Admin. 03/05/2020 12:00:00 AM EDT [facility] ([facility]) Injection For Nerve Block, Greater Occipital Nerve 03/03/2020 12:00:00 AM EDT MED[facility] ([facility] ) INJECTION ANES OTHER PERIPHERAL NERVE/BRANCH 0 12:00:00 AM EDT MEDENT ([facility] ) ARTHROCENTESIS ASPIR&/INJECTION MAJOR JT/BURSA 020 12:00:00 AM EDT MEDENT ([facility] ) ARTHROCENTESIS ASPIR&/INJECTION MAJOR JT/BURSA 12:00:00 AM EDT MED[facility] ([facility] ) ARTHROCENTESIS ASPIR&/INJECTION MAJOR JT/BURSA 12:00:00 AM EDT MEDENT ([facility] ) ARTHROCENTESIS ASPIR&/INJECTION MAJOR JT/BURSA 12:00:00 AM EDT MEDENT ([facility] ) Multiple Injections-Admin. 02/13/2020 12:00:00 AM EDT MED[facility] ([facility]) Injection, Single Or Multiple trigger points one or two musc les 01/27/2020 12:00:00 AM EDT MEDENT ([facility]) INJECTION ANES OTHER PERIPHERAL NERVE/BRANCH 0 12:00:00 AM EDT MEDENT ([facility] ) Multiple Injections-Admin. 01/23/2020 12:00:00 AM EDT [facility] ([facility]) Multiple Injections-Admin. 12/26/2019 12:00:00 AM EST [facility] ([facility]) Injection, Single Or Multiple trigger points one or two musc les 12/25/2019 12:00:00 AM EST MEDENT ([facility]) INJECTION ANES OTHER PERIPHERAL NERVE/BRANCH 0 12:00:00 AM EST MEDENT ([facility] ) Multiple Injections-Admin. 12/05/2019 12:00:00 AM EST [facility] ([facility]) Injection, Single Or Multiple trigger points one or two musc les 11/12/2019 12:00:00 AM EST [facility] ([facility]) INJECTION ANES OTHER PERIPHERAL NERVE/BRANCH 0 12:00:00 AM EST MEDENT ([facility]) Multiple Injections-Admin. 11/06/2019 12:00:00 AM EST [facility] ([facility]) ARTHROCENTESIS ASPIR&/INJECTION MAJOR JT/BURSA 020 12:00:00 AM EST MEDENT ([facility]) ARTHROCENTESIS ASPIR&/INJECTION MAJOR JT/BURSA 020 12:00:00 AM EST [facility] ([facility]) Multiple Injections-Admin. 10/09/2019 12:00:00 AM EST [facility] ([facility]) Injection, Single Or Multiple trigger points one or two musc les 10/02/2019 12:00:00 AM EST MED[facility] ([facility]) INJECTION ANES OTHER PERIPHERAL NERVE/BRANCH 9 12:00:00 AM EST MEDENT ([facility]) ARTHROCENTESIS ASPIR&/INJECTION SMALL JT/BURSA 019 12:00:00 AM EST [facility] ([facility]) Multiple Injections-Admin. 09/12/2019 12:00:00 AM EST [facility] ([facility]) Results ID Date Data Source [id number] 11/05/2020 10:00:00 AM EST [facility] Name Value Range Interpretation Code Description Data Brigid rce(s) Supporting Document(s) SARS coronavirus 2 RNA Not Detected [facility] [place] This lab was ordered by [facility] and reported by [facility]. ID Date Data Source [id number] 10/27/2020 04:31:00 PM EST MED[facility] ([facility] Name Value Range Interpretation Code Description Data Brigid rce(s) Supporting Document(s) Glu 89 mg/dL 70-110 [facility] ([facility] NORMAL RANGES Age WBC RBC HGB HCT [...] HCT IS 5% LESS SOURCE FOR DATA: [employer] 1800 OPERATION MANUAL( AUTOMATED BLOOD COUNTS AND [...] Normal 80 and above >32 mL/min Normal Creat 0.8 mg/dL 0.5-1.0 [facility] ([facility] NORMAL RANGES Age WBC RBC HGB HCT [...] HCT IS 5% LESS SOURCE FOR DATA: [employer] 1800 OPERATION MANUAL( AUTOMATED BLOOD COUNTS AND [...] Normal 80 and above >32 mL/min Normal BUN 11 mg/dL 8- [facility] ([facility] NORMAL RANGES Age WBC RBC HGB HCT [...] HCT IS 5% LESS SOURCE FOR DATA: [employer] 1800 OPERATION MANUAL( AUTOMATED BLOOD COUNTS AND [...] Normal 80 and above >32 mL/min Normal BUN/Creatinine Ratio 13.7 [facility] ([facility] NORMAL RANGES Age WBC RBC HGB HCT [...] HCT IS 5% LESS SOURCE FOR DATA: [employer] 1800 OPERATION MANUAL( AUTOMATED BLOOD COUNTS AND [...] Normal 80 and above >32 mL/min Normal K 4.2 mmol/L 3.5-5.1 [facility] ([facility] NORMAL RANGES Age WBC RBC HGB HCT [...] HCT IS 5% LESS SOURCE FOR DATA: GARY DYN 1800 OPERATION MANUAL( AUTOMATED BLOOD COUNTS AND [...] Normal 80 and above >32 mL/min Normal Na 137 mmol/L 136-145 [facility] ([facility] NORMAL RANGES Age WBC RBC HGB HCT [...] HCT IS 5% LESS SOURCE FOR DATA: [employer] 1800 OPERATION MANUAL( AUTOMATED BLOOD COUNTS AND [...] Normal 80 and above >32 mL/min Normal Co2 21.5 mmol/L 22.0-29.0 Below low normal [facility] ([facility] NORMAL RANGES Age WBC RBC HGB HCT [...] HCT IS 5% LESS SOURCE FOR DATA: [employer] 1800 OPERATION MANUAL( AUTOMATED BLOOD COUNTS AND [...] Normal 80 and above >32 mL/min Normal CL 106.5 mmol/L 98.0-107.0 [facility] ([facility] NORMAL RANGES Age WBC RBC HGB HCT [...] HCT IS 5% LESS SOURCE FOR DATA: [employer] 1800 OPERATION MANUAL( AUTOMATED BLOOD COUNTS AND [...] Normal 80 and above >32 mL/min Normal CA 8.5 mg/dL 8.6-10.2 Below low normal [facility] ( [facility] NORMAL RANGES Age WBC RBC HGB HCT [...] HCT IS 5% LESS SOURCE FOR DATA: [employer] 1800 OPERATION MANUAL( AUTOMATED BLOOD COUNTS AND [...] Normal 80 and above >32 mL/min Normal A/G Ratio 1.8 Calc [facility] ([facility] NORMAL RANGES Age WBC RBC HGB HCT [...] HCT IS 5% LESS SOURCE FOR DATA: [employer] 1800 OPERATION MANUAL( AUTOMATED BLOOD COUNTS AND [...] Normal 80 and above >32 mL/min Normal Alb 3.9 g/dL 3.4-4.8 [facility] ([facility] NORMAL RANGES Age WBC RBC HGB HCT [...] HCT IS 5% LESS SOURCE FOR DATA: [employer] 1800 OPERATION MANUAL( AUTOMATED BLOOD COUNTS AND [...] Normal 80 and above >32 mL/min Normal TP 6.1 g/dL 6.6-8.7 Below low normal [facility] ( [facility] NORMAL RANGES Age WBC RBC HGB HCT [...] HCT IS 5% LESS SOURCE FOR DATA: [employer] 1800 OPERATION MANUAL( AUTOMATED BLOOD COUNTS AND [...] Normal 80 and above >32 mL/min Normal Globulin 2.2 Calc [facility] ([facility] NORMAL RANGES Age WBC RBC HGB HCT [...] HCT IS 5% LESS SOURCE FOR DATA: [employer] 1800 OPERATION MANUAL( AUTOMATED BLOOD COUNTS AND [...] Normal 80 and above >32 mL/min Normal Alp 74.2 U/L 35-129 [facility] ([facility] NORMAL RANGES Age WBC RBC HGB HCT [...] HCT IS 5% LESS SOURCE FOR DATA: [employer] 1800 OPERATION MANUAL( AUTOMATED BLOOD COUNTS AND [...] Normal 80 and above >32 mL/min Normal Ast (Sgot) 21 U/L 0-40 [employer] ([facility] NORMAL RANGES Age WBC RBC HGB HCT MCV PLT Adult M 4.1-10.9 4.20-6.30 12.0-18.0 37.0-51.0 140-440 Adult F 4.1-10.9 4.04-5.48 12.0-18.0 37.0-51.0 - 140-440 0 -1 Yr 5.0-20.0 3.9-5.9 15-18 [...] HCT IS 5% LESS SOURCE FOR DATA: [employer] DYN 1800 OPERATION MANUAL( AUTOMATED BLOOD COUNTS AND [...] Normal 80 and above >32 mL/min Normal Alt (SGPT) 16 U/L 0-41 [facility] ([facility] NORMAL RANGES Age WBC RBC HGB HCT [...] HCT IS 5% LESS SOURCE FOR DATA: [employer] 1800 OPERATION MANUAL( AUTOMATED BLOOD COUNTS AND [...] Normal 80 and above >32 mL/min Normal Tbili 0.29 mg/dL 0.0-1.2 [facility] ([facility] NORMAL RANGES Age WBC RBC HGB HCT [...] HCT IS 5% LESS SOURCE FOR DATA: [employer] 1800 OPERATION MANUAL( AUTOMATED BLOOD COUNTS AND [...] Normal 80 and above >32 mL/min Normal Osmolality-Calculated 272.6 Calc [facility] ([facility] NORMAL RANGES Age WBC RBC HGB HCT [...] HCT IS 5% LESS SOURCE FOR DATA: [employer] 1800 OPERATION MANUAL( AUTOMATED BLOOD COUNTS AND [...] Normal 80 and above >32 mL/min Normal Anion Gap 13 mmol/L [facility] ([facility] NORMAL RANGES Age WBC RBC HGB HCT [...] HCT IS 5% LESS SOURCE FOR DATA: [employer] 1800 OPERATION MANUAL( AUTOMATED BLOOD COUNTS AND [...] Normal 80 and above >32 mL/min Normal eGFR 92 # MED[facility] ( [facility] NORMAL RANGES Age WBC RBC HGB HCT [...] HCT IS 5% LESS SOURCE FOR DATA: [employer] 1800 OPERATION MANUAL( AUTOMATED BLOOD COUNTS AND [...] Normal 80 and above >32 mL/min Normal eGFR Non-Afr. Nigerien 79 # MED[facility] ([facility] NORMAL RANGES Age WBC RBC HGB HCT [...] HCT IS 5% LESS SOURCE FOR DATA: [employer] 1800 OPERATION MANUAL( AUTOMATED BLOOD COUNTS AND [...] Normal 80 and above >32 mL/min Normal ID Date Data Source [id number] 10/27/2020 04:31:00 PM MIKE KHOURY ([facility] Name Value Range Interpretation Code Description Data Brigid rce(s) Supporting Document(s) WBC 5.1 10E3/uL 4.1-10.9 [facility] ([facility]) NORMAL RANGES Age WBC RBC HGB HCT [...] HCT IS 5% LESS SOURCE FOR DATA: [employer] 1800 OPERATION MANUAL( AUTOMATED BLOOD COUNTS AND [...] Normal 80 and above >32 mL/min Normal RBC 4.30 10E6/uL 4.20-6.30 [facility] ([facility] NORMAL RANGES Age WBC RBC HGB HCT [...] HCT IS 5% LESS SOURCE FOR DATA: [employer] 1800 OPERATION MANUAL( AUTOMATED BLOOD COUNTS AND [...] Normal 80 and above >32 mL/min Normal HGB 12.3 g/dL 12.0-18.0 [facility] ([facility] NORMAL RANGES Age WBC RBC HGB HCT [...] HCT IS 5% LESS SOURCE FOR DATA: [employer] DYN 1800 OPERATION MANUAL( AUTOMATED BLOOD COUNTS AND [...] Normal 80 and above >32 mL/min Normal HCT 38.0 % 37.0-51.0 [facility] ([facility] NORMAL RANGES Age WBC RBC HGB HCT [...] HCT IS 5% LESS SOURCE FOR DATA: [employer] 1800 OPERATION MANUAL( AUTOMATED BLOOD COUNTS AND [...] Normal 80 and above >32 mL/min Normal MCV 88.4 fL 80.0-97.0 [facility] ([facility] NORMAL RANGES Age WBC RBC HGB HCT [...] HCT IS 5% LESS SOURCE FOR DATA: [employer] 1800 OPERATION MANUAL( AUTOMATED BLOOD COUNTS AND [...] Normal 80 and above >32 mL/min Normal MCHC 32.4 g/dL 31.0-36.0 [facility] ([facility] NORMAL RANGES Age WBC RBC HGB HCT [...] HCT IS 5% LESS SOURCE FOR DATA: [employer] 1800 OPERATION MANUAL( AUTOMATED BLOOD COUNTS AND [...] Normal 80 and above >32 mL/min Normal MCH 28.6 pg 26.0-32.0 [facility] ([facility] NORMAL RANGES Age WBC RBC HGB HCT [...] HCT IS 5% LESS SOURCE FOR DATA: [employer] 1800 OPERATION MANUAL( AUTOMATED BLOOD COUNTS AND [...] Normal 80 and above >32 mL/min Normal PLT 274 10E3/uL 140-440 [facility] ([facility] NORMAL RANGES Age WBC RBC HGB HCT [...] HCT IS 5% LESS SOURCE FOR DATA: [employer] 1800 OPERATION MANUAL( AUTOMATED BLOOD COUNTS AND [...] Normal 80 and above >32 mL/min Normal RDW-CV 13.6 % 11.5-14.5 [facility] ([facility] NORMAL RANGES Age WBC RBC HGB HCT [...] HCT IS 5% LESS SOURCE FOR DATA: [employer] 1800 OPERATION MANUAL( AUTOMATED BLOOD COUNTS AND [...] Normal 80 and above >32 mL/min Normal Lym% 29.3 % 10.0-58.5 [facility] ([facility] NORMAL RANGES Age WBC RBC HGB HCT [...] HCT IS 5% LESS SOURCE FOR DATA: [employer] 1800 OPERATION MANUAL( AUTOMATED BLOOD COUNTS AND [...] Normal 80 and above >32 mL/min Normal Neut% 63.9 % 37.0-92.0 [facility] ([facility] NORMAL RANGES Age WBC RBC HGB HCT [...] HCT IS 5% LESS SOURCE FOR DATA: [employer] 1800 OPERATION MANUAL( AUTOMATED BLOOD COUNTS AND [...] Normal 80 and above >32 mL/min Normal MXD% 6.8 % 0.1-24.0 [facility] ([facility] NORMAL RANGES Age WBC RBC HGB HCT [...] HCT IS 5% LESS SOURCE FOR DATA: GARY DYN 1800 OPERATION MANUAL( AUTOMATED BLOOD COUNTS AND [...] Normal 80 and above >32 mL/min Normal Lym# 1.5 10E3/uL 0.6-4.1 [facility] ([facility] NORMAL RANGES Age WBC RBC HGB HCT [...] HCT IS 5% LESS SOURCE FOR DATA: [employer] 1800 OPERATION MANUAL( AUTOMATED BLOOD COUNTS AND [...] Normal 80 and above >32 mL/min Normal MXD# 0.3 10E3/uL 0.0-1.8 [facility] ([facility] NORMAL RANGES Age WBC RBC HGB HCT [...] HCT IS 5% LESS SOURCE FOR DATA: [employer] 1800 OPERATION MANUAL( AUTOMATED BLOOD COUNTS AND [...] Normal 80 and above >32 mL/min Normal Neut# 3.3 % 2.0-7.8 [facility] ([facility] NORMAL RANGES Age WBC RBC HGB HCT [...] HCT IS 5% LESS SOURCE FOR DATA: [employer] 1800 OPERATION MANUAL( AUTOMATED BLOOD COUNTS AND [...] Normal 80 and above >32 mL/min Normal MPV 9.9 fL 9.0-13.0 [facility] ([facility] NORMAL RANGES Age WBC RBC HGB HCT [...] HCT IS 5% LESS SOURCE FOR DATA: [employer] 1800 OPERATION MANUAL( AUTOMATED BLOOD COUNTS AND [...] Normal 80 and above >32 mL/min Normal ID Date Data Source [id number] 09/21/2020 01:48:00 PM EST MED[facility] ([facility] Name Value Range Interpretation Code Description Data Brigid rce(s) Supporting Document(s) WBC 5.4 10E3/uL 4.1-10.9 [facility] ([facility] NORMAL RANGES Age WBC RBC HGB HCT [...] HCT IS 5% LESS SOURCE FOR DATA: [employer] 1800 OPERATION MANUAL( AUTOMATED BLOOD COUNTS AND [...] DESIRABLE: <130 MG/DL <110 MG/DL BORDERLINE-HIGH RISK: 130- 159 MG/DL 110-129 MG/DL HIGH RISK: >160 MG/DL >130 MG/DL *CHILDREN AND ADOLESCENTS REPRESENTS INDIVIDUALA AGED 2-19 YEARS EXCLUSIVE. RBC 4.33 10E6/uL 4.20-6.30 [employer] ([facility] NORMAL RANGES Age WBC RBC HGB HCT [...] HCT IS 5% LESS SOURCE FOR DATA: GARY DYN 1800 OPERATION MANUAL( AUTOMATED BLOOD COUNTS AND [...] DESIRABLE: <130 MG/DL <110 MG/DL BORDERLINE-HIGH RISK: 130- 159 MG/DL 110-129 MG/DL HIGH RISK: >160 MG/DL >130 MG/DL *CHILDREN AND ADOLESCENTS REPRESENTS INDIVIDUALA AGED 2-19 YEARS EXCLUSIVE. HGB 12.6 g/dL 12.0-18.0 [facility] ([facility] NORMAL RANGES Age WBC RBC HGB HCT [...] HCT IS 5% LESS SOURCE FOR DATA: [employer] 1800 OPERATION MANUAL( AUTOMATED BLOOD COUNTS AND [...] DESIRABLE: <130 MG/DL <110 MG/DL BORDERLINE-HIGH RISK: 130- 159 MG/DL 110-129 MG/DL HIGH RISK: >160 MG/DL >130 MG/DL *CHILDREN AND ADOLESCENTS REPRESENTS INDIVIDUALA AGED 2-19 YEARS EXCLUSIVE. HCT 38.0 % 37.0-51.0 [facility] ([facility] NORMAL RANGES Age WBC RBC HGB HCT [...] HCT IS 5% LESS SOURCE FOR DATA: [employer] 1800 OPERATION MANUAL( AUTOMATED BLOOD COUNTS AND [...] DESIRABLE: <130 MG/DL <110 MG/DL BORDERLINE-HIGH RISK: 130- 159 MG/DL 110-129 MG/DL HIGH RISK: >160 MG/DL >130 MG/DL *CHILDREN AND ADOLESCENTS REPRESENTS INDIVIDUALA AGED 2-19 YEARS EXCLUSIVE. MCH 29.1 pg 26.0-32.0 [facility] ([facility] NORMAL RANGES Age WBC RBC HGB HCT [...] HCT IS 5% LESS SOURCE FOR DATA: [employer] 1800 OPERATION MANUAL( AUTOMATED BLOOD COUNTS AND [...] DESIRABLE: <130 MG/DL <110 MG/DL BORDERLINE-HIGH RISK: 130- 159 MG/DL 110-129 MG/DL HIGH RISK: >160 MG/DL >130 MG/DL *CHILDREN AND ADOLESCENTS REPRESENTS INDIVIDUALA AGED 2-19 YEARS EXCLUSIVE. MCV 87.8 fL 80.0-97.0 [facility] ([facility] NORMAL RANGES Age WBC RBC HGB HCT [...] HCT IS 5% LESS SOURCE FOR DATA: [employer] 1800 OPERATION MANUAL( AUTOMATED BLOOD COUNTS AND [...] DESIRABLE: <130 MG/DL <110 MG/DL BORDERLINE-HIGH RISK: 130- 159 MG/DL 110-129 MG/DL HIGH RISK: >160 MG/DL >130 MG/DL *CHILDREN AND ADOLESCENTS REPRESENTS INDIVIDUALA AGED 2-19 YEARS EXCLUSIVE. MCHC 33.2 g/dL 31.0-36.0 [facility] ([facility] NORMAL RANGES Age WBC RBC HGB HCT [...] HCT IS 5% LESS SOURCE FOR DATA: [employer] 1800 OPERATION MANUAL( AUTOMATED BLOOD COUNTS AND [...] DESIRABLE: <130 MG/DL <110 MG/DL BORDERLINE-HIGH RISK: 130- 159 MG/DL 110-129 MG/DL HIGH RISK: >160 MG/DL >130 MG/DL *CHILDREN AND ADOLESCENTS REPRESENTS INDIVIDUALA AGED 2-19 YEARS EXCLUSIVE. PLT 278 10E3/uL 140-440 [facility] ([facility] NORMAL RANGES Age WBC RBC HGB HCT [...] HCT IS 5% LESS SOURCE FOR DATA: [employer] 1800 OPERATION MANUAL( AUTOMATED BLOOD COUNTS AND [...] DESIRABLE: <130 MG/DL <110 MG/DL BORDERLINE-HIGH RISK: 130- 159 MG/DL 110-129 MG/DL HIGH RISK: >160 MG/DL >130 MG/DL *CHILDREN AND ADOLESCENTS REPRESENTS INDIVIDUALA AGED 2-19 YEARS EXCLUSIVE. Lym% 25.3 % 10.0-58.5 [facility] ([facility] NORMAL RANGES Age WBC RBC HGB HCT [...] HCT IS 5% LESS SOURCE FOR DATA: [employer] 1800 OPERATION MANUAL( AUTOMATED BLOOD COUNTS AND [...] DESIRABLE: <130 MG/DL <110 MG/DL BORDERLINE-HIGH RISK: 130- 159 MG/DL 110-129 MG/DL HIGH RISK: >160 MG/DL >130 MG/DL *CHILDREN AND ADOLESCENTS REPRESENTS INDIVIDUALA AGED 2-19 YEARS EXCLUSIVE. RDW-CV 14.0 % 11.5-14.5 [facility] ([facility] NORMAL RANGES Age WBC RBC HGB HCT [...] HCT IS 5% LESS SOURCE FOR DATA: [employer] 1800 OPERATION MANUAL( AUTOMATED BLOOD COUNTS AND [...] DESIRABLE: <130 MG/DL <110 MG/DL BORDERLINE-HIGH RISK: 130- 159 MG/DL 110-129 MG/DL HIGH RISK: >160 MG/DL >130 MG/DL *CHILDREN AND ADOLESCENTS REPRESENTS INDIVIDUALA AGED 2-19 YEARS EXCLUSIVE. Neut% 70.3 % 37.0-92.0 [facility] ([facility] NORMAL RANGES Age WBC RBC HGB HCT [...] HCT IS 5% LESS SOURCE FOR DATA: [employer] 1800 OPERATION MANUAL( AUTOMATED BLOOD COUNTS AND [...] DESIRABLE: <130 MG/DL <110 MG/DL BORDERLINE-HIGH RISK: 130- 159 MG/DL 110-129 MG/DL HIGH RISK: >160 MG/DL >130 MG/DL *CHILDREN AND ADOLESCENTS REPRESENTS INDIVIDUALA AGED 2-19 YEARS EXCLUSIVE. MXD% 4.4 % 0.1-24.0 [facility] ([facility] NORMAL RANGES Age WBC RBC HGB HCT [...] HCT IS 5% LESS SOURCE FOR DATA: [employer] 1800 OPERATION MANUAL( AUTOMATED BLOOD COUNTS AND [...] DESIRABLE: <130 MG/DL <110 MG/DL BORDERLINE-HIGH RISK: 130- 159 MG/DL 110-129 MG/DL HIGH RISK: >160 MG/DL >130 MG/DL *CHILDREN AND ADOLESCENTS REPRESENTS INDIVIDUALA AGED 2-19 YEARS EXCLUSIVE. Lym# 1.4 10E3/uL 0.6-4.1 [facility] ([facility] NORMAL RANGES Age WBC RBC HGB HCT [...] HCT IS 5% LESS SOURCE FOR DATA: [employer] 1800 OPERATION MANUAL( AUTOMATED BLOOD COUNTS AND [...] DESIRABLE: <130 MG/DL <110 MG/DL BORDERLINE-HIGH RISK: 130- 159 MG/DL 110-129 MG/DL HIGH RISK: >160 MG/DL >130 MG/DL *CHILDREN AND ADOLESCENTS REPRESENTS INDIVIDUALA AGED 2-19 YEARS EXCLUSIVE. Neut# 3.8 % 2.0-7.8 [facility] ([facility] NORMAL RANGES Age WBC RBC HGB HCT [...] HCT IS 5% LESS SOURCE FOR DATA: [employer] 1800 OPERATION MANUAL( AUTOMATED BLOOD COUNTS AND [...] DESIRABLE: <130 MG/DL <110 MG/DL BORDERLINE-HIGH RISK: 130- 159 MG/DL 110-129 MG/DL HIGH RISK: >160 MG/DL >130 MG/DL *CHILDREN AND ADOLESCENTS REPRESENTS INDIVIDUALA AGED 2-19 YEARS EXCLUSIVE. MXD# 0.2 10E3/uL 0.0-1.8 [facility] ([facility] NORMAL RANGES Age WBC RBC HGB HCT [...] HCT IS 5% LESS SOURCE FOR DATA: [employer] 1800 OPERATION MANUAL( AUTOMATED BLOOD COUNTS AND [...] DESIRABLE: <130 MG/DL <110 MG/DL BORDERLINE-HIGH RISK: 130- 159 MG/DL 110-129 MG/DL HIGH RISK: >160 MG/DL >130 MG/DL *CHILDREN AND ADOLESCENTS REPRESENTS INDIVIDUALA AGED 2-19 YEARS EXCLUSIVE. MPV 9.8 fL 9.0-13.0 [facility] ([facility] NORMAL RANGES Age WBC RBC HGB HCT [...] HCT IS 5% LESS SOURCE FOR DATA: [employer] 1800 OPERATION MANUAL( AUTOMATED BLOOD COUNTS AND [...] DESIRABLE: <130 MG/DL <110 MG/DL BORDERLINE-HIGH RISK: 130- 159 MG/DL 110-129 MG/DL HIGH RISK: >160 MG/DL >130 MG/DL *CHILDREN AND ADOLESCENTS REPRESENTS INDIVIDUALA AGED 2-19 YEARS EXCLUSIVE. ID Date Data Source [id number] 09/21/2020 01:48:00 PM EST [facility] ([facility] Name Value Range Interpretation Code Description Data Brigid rce(s) Supporting Document(s) Chol 128 mg/dL 0-200 [facility] ([facility] NORMAL RANGES Age WBC RBC HGB HCT [...] HCT IS 5% LESS SOURCE FOR DATA: [employer] 1800 OPERATION MANUAL( AUTOMATED BLOOD COUNTS AND [...] DESIRABLE: <130 MG/DL <110 MG/DL BORDERLINE-HIGH RISK: 130- 159 MG/DL 110-129 MG/DL HIGH RISK: >160 MG/DL >130 MG/DL *CHILDREN AND ADOLESCENTS REPRESENTS INDIVIDUALA AGED 2-19 YEARS EXCLUSIVE. Trig 40 mg/dL 40-200 [facility] ([facility] NORMAL RANGES Age WBC RBC HGB HCT [...] HCT IS 5% LESS SOURCE FOR DATA: [employer] 1800 OPERATION MANUAL( AUTOMATED BLOOD COUNTS AND [...] DESIRABLE: <130 MG/DL <110 MG/DL BORDERLINE-HIGH RISK: 130- 159 MG/DL 110-129 MG/DL HIGH RISK: >160 MG/DL >130 MG/DL *CHILDREN AND ADOLESCENTS REPRESENTS INDIVIDUALA AGED 2-19 YEARS EXCLUSIVE. Cholesterol in HDL [Mass/volume] in Serum or Plasma 77 mg/dL 45-65 Above high normal [facility] ([facility] NORMAL RANGES Age WBC RBC HGB HCT [...] HCT IS 5% LESS SOURCE FOR DATA: [employer] 1800 OPERATION MANUAL( AUTOMATED BLOOD COUNTS AND [...] DESIRABLE: <130 MG/DL <110 MG/DL BORDERLINE-HIGH RISK: 130- 159 MG/DL 110-129 MG/DL HIGH RISK: >160 MG/DL >130 MG/DL *CHILDREN AND ADOLESCENTS REPRESENTS INDIVIDUALA AGED 2-19 YEARS EXCLUSIVE. LDL_C 43 Calc 75-129 Below low normal [facility] ( [facility] NORMAL RANGES Age WBC RBC HGB HCT [...] HCT IS 5% LESS SOURCE FOR DATA: [employer] 1800 OPERATION MANUAL( AUTOMATED BLOOD COUNTS AND [...] DESIRABLE: <130 MG/DL <110 MG/DL BORDERLINE-HIGH RISK: 130- 159 MG/DL 110-129 MG/DL HIGH RISK: >160 MG/DL >130 MG/DL *CHILDREN AND ADOLESCENTS REPRESENTS INDIVIDUALA AGED 2-19 YEARS EXCLUSIVE. Cho/HDL Ratio 1.7 CALC [facility] ([facility] NORMAL RANGES Age WBC RBC HGB HCT [...] HCT IS 5% LESS SOURCE FOR DATA: [employer] 1800 OPERATION MANUAL( AUTOMATED BLOOD COUNTS AND [...] DESIRABLE: <130 MG/DL <110 MG/DL BORDERLINE-HIGH RISK: 130- 159 MG/DL 110-129 MG/DL HIGH RISK: >160 MG/DL >130 MG/DL *CHILDREN AND ADOLESCENTS REPRESENTS INDIVIDUALA AGED 2-19 YEARS EXCLUSIVE. ID Date Data Source [id number] 09/21/2020 01:48:00 PM EST [facility] ([facility] Name Value Range Interpretation Code Description Data Brigid rce(s) Supporting Document(s) BUN 9 mg/dL 8-23 [facility] ([facility] NORMAL RANGES Age WBC RBC HGB HCT [...] HCT IS 5% LESS SOURCE FOR DATA: [employer] 1800 OPERATION MANUAL( AUTOMATED BLOOD COUNTS AND [...] DESIRABLE: <130 MG/DL <110 MG/DL BORDERLINE-HIGH RISK: 130- 159 MG/DL 110-129 MG/DL HIGH RISK: >160 MG/DL >130 MG/DL *CHILDREN AND ADOLESCENTS REPRESENTS INDIVIDUALA AGED 2-19 YEARS EXCLUSIVE. Glu 91 mg/dL 70-110 [facility] ([facility] NORMAL RANGES Age WBC RBC HGB HCT [...] HCT IS 5% LESS SOURCE FOR DATA: [employer] 1800 OPERATION MANUAL( AUTOMATED BLOOD COUNTS AND [...] DESIRABLE: <130 MG/DL <110 MG/DL BORDERLINE-HIGH RISK: 130- 159 MG/DL 110-129 MG/DL HIGH RISK: >160 MG/DL >130 MG/DL *CHILDREN AND ADOLESCENTS REPRESENTS INDIVIDUALA AGED 2-19 YEARS EXCLUSIVE. Na 137 mmol/L 136-145 [facility] ([facility] NORMAL RANGES Age WBC RBC HGB HCT [...] HCT IS 5% LESS SOURCE FOR DATA: [employer] 1800 OPERATION MANUAL( AUTOMATED BLOOD COUNTS AND [...] DESIRABLE: <130 MG/DL <110 MG/DL BORDERLINE-HIGH RISK: 130- 159 MG/DL 110-129 MG/DL HIGH RISK: >160 MG/DL >130 MG/DL *CHILDREN AND ADOLESCENTS REPRESENTS INDIVIDUALA AGED 2-19 YEARS EXCLUSIVE. Creat 0.8 mg/dL 0.5-1.0 [facility] ([facility] NORMAL RANGES Age WBC RBC HGB HCT [...] HCT IS 5% LESS SOURCE FOR DATA: [employer] 1800 OPERATION MANUAL( AUTOMATED BLOOD COUNTS AND [...] DESIRABLE: <130 MG/DL <110 MG/DL BORDERLINE-HIGH RISK: 130- 159 MG/DL 110-129 MG/DL HIGH RISK: >160 MG/DL >130 MG/DL *CHILDREN AND ADOLESCENTS REPRESENTS INDIVIDUALA AGED 2-19 YEARS EXCLUSIVE. BUN/Creatinine Ratio 11.3 CALC [facility] ([facility] NORMAL RANGES Age WBC RBC HGB HCT [...] HCT IS 5% LESS SOURCE FOR DATA: [employer] 1800 OPERATION MANUAL( AUTOMATED BLOOD COUNTS AND [...] DESIRABLE: <130 MG/DL <110 MG/DL BORDERLINE-HIGH RISK: 130- 159 MG/DL 110-129 MG/DL HIGH RISK: >160 MG/DL >130 MG/DL *CHILDREN AND ADOLESCENTS REPRESENTS INDIVIDUALA AGED 2-19 YEARS EXCLUSIVE. Co2 20.5 mmol/L 22.0-29.0 Below low normal [facility] ([facility] NORMAL RANGES Age WBC RBC HGB HCT [...] HCT IS 5% LESS SOURCE FOR DATA: GARY DYN 1800 OPERATION MANUAL( AUTOMATED BLOOD COUNTS AND [...] DESIRABLE: <130 MG/DL <110 MG/DL BORDERLINE-HIGH RISK: 130- 159 MG/DL 110-129 MG/DL HIGH RISK: >160 MG/DL >130 MG/DL *CHILDREN AND ADOLESCENTS REPRESENTS INDIVIDUALA AGED 2-19 YEARS EXCLUSIVE. CL 106.5 mmol/L 98.0-107.0 [facility] ([facility] NORMAL RANGES Age WBC RBC HGB HCT [...] HCT IS 5% LESS SOURCE FOR DATA: [employer] 1800 OPERATION MANUAL( AUTOMATED BLOOD COUNTS AND [...] DESIRABLE: <130 MG/DL <110 MG/DL BORDERLINE-HIGH RISK: 130- 159 MG/DL 110-129 MG/DL HIGH RISK: >160 MG/DL >130 MG/DL *CHILDREN AND ADOLESCENTS REPRESENTS INDIVIDUALA AGED 2-19 YEARS EXCLUSIVE. K 4.0 mmol/L 3.5-5.1 [facility] ([facility] NORMAL RANGES Age WBC RBC HGB HCT [...] HCT IS 5% LESS SOURCE FOR DATA: [employer] 1800 OPERATION MANUAL( AUTOMATED BLOOD COUNTS AND [...] DESIRABLE: <130 MG/DL <110 MG/DL BORDERLINE-HIGH RISK: 130- 159 MG/DL 110-129 MG/DL HIGH RISK: >160 MG/DL >130 MG/DL *CHILDREN AND ADOLESCENTS REPRESENTS INDIVIDUALA AGED 2-19 YEARS EXCLUSIVE. Alb 3.8 g/dL 3.4-4.8 [facility] ([facility] NORMAL RANGES Age WBC RBC HGB HCT [...] HCT IS 5% LESS SOURCE FOR DATA: [employer] 1800 OPERATION MANUAL( AUTOMATED BLOOD COUNTS AND [...] DESIRABLE: <130 MG/DL <110 MG/DL BORDERLINE-HIGH RISK: 130- 159 MG/DL 110-129 MG/DL HIGH RISK: >160 MG/DL >130 MG/DL *CHILDREN AND ADOLESCENTS REPRESENTS INDIVIDUALA AGED 2-19 YEARS EXCLUSIVE. CA 8.5 mg/dL 8.6-10.2 Below low normal [facility] ( [facility] NORMAL RANGES Age WBC RBC HGB HCT [...] HCT IS 5% LESS SOURCE FOR DATA: [employer] 1800 OPERATION MANUAL( AUTOMATED BLOOD COUNTS AND [...] DESIRABLE: <130 MG/DL <110 MG/DL BORDERLINE-HIGH RISK: 130- 159 MG/DL 110-129 MG/DL HIGH RISK: >160 MG/DL >130 MG/DL *CHILDREN AND ADOLESCENTS REPRESENTS INDIVIDUALA AGED 2-19 YEARS EXCLUSIVE. TP 5.7 g/dL 6.6-8.7 Below low normal [facility] ( [facility] NORMAL RANGES Age WBC RBC HGB HCT [...] HCT IS 5% LESS SOURCE FOR DATA: [employer] 1800 OPERATION MANUAL( AUTOMATED BLOOD COUNTS AND [...] DESIRABLE: <130 MG/DL <110 MG/DL BORDERLINE-HIGH RISK: 130- 159 MG/DL 110-129 MG/DL HIGH RISK: >160 MG/DL >130 MG/DL *CHILDREN AND ADOLESCENTS REPRESENTS INDIVIDUALA AGED 2-19 YEARS EXCLUSIVE. A/G Ratio 2.1 CALC [facility] ([facility] NORMAL RANGES Age WBC RBC HGB HCT [...] HCT IS 5% LESS SOURCE FOR DATA: [employer] 1800 OPERATION MANUAL( AUTOMATED BLOOD COUNTS AND [...] DESIRABLE: <130 MG/DL <110 MG/DL BORDERLINE-HIGH RISK: 130- 159 MG/DL 110-129 MG/DL HIGH RISK: >160 MG/DL >130 MG/DL *CHILDREN AND ADOLESCENTS REPRESENTS INDIVIDUALA AGED 2-19 YEARS EXCLUSIVE. Alp 72.8 U/L 35-129 [facility] ([facility] NORMAL RANGES Age WBC RBC HGB HCT [...] HCT IS 5% LESS SOURCE FOR DATA: [employer] 1800 OPERATION MANUAL( AUTOMATED BLOOD COUNTS AND [...] DESIRABLE: <130 MG/DL <110 MG/DL BORDERLINE-HIGH RISK: 130- 159 MG/DL 110-129 MG/DL HIGH RISK: >160 MG/DL >130 MG/DL *CHILDREN AND ADOLESCENTS REPRESENTS INDIVIDUALA AGED 2-19 YEARS EXCLUSIVE. Globulin 1.9 CALC [facility] ([facility] NORMAL RANGES Age WBC RBC HGB HCT [...] HCT IS 5% LESS SOURCE FOR DATA: [employer] 1800 OPERATION MANUAL( AUTOMATED BLOOD COUNTS AND [...] DESIRABLE: <130 MG/DL <110 MG/DL BORDERLINE-HIGH RISK: 130- 159 MG/DL 110-129 MG/DL HIGH RISK: >160 MG/DL >130 MG/DL *CHILDREN AND ADOLESCENTS REPRESENTS INDIVIDUALA AGED 2-19 YEARS EXCLUSIVE. Alt (SGPT) 20 U/L 0-41 [facility] ([facility] NORMAL RANGES Age WBC RBC HGB HCT [...] HCT IS 5% LESS SOURCE FOR DATA: [employer] 1800 OPERATION MANUAL( AUTOMATED BLOOD COUNTS AND [...] DESIRABLE: <130 MG/DL <110 MG/DL BORDERLINE-HIGH RISK: 130- 159 MG/DL 110-129 MG/DL HIGH RISK: >160 MG/DL >130 MG/DL *CHILDREN AND ADOLESCENTS REPRESENTS INDIVIDUALA AGED 2-19 YEARS EXCLUSIVE. Tbili 0.36 mg/dL 0.0-1.2 [facility] ([facility] NORMAL RANGES Age WBC RBC HGB HCT [...] HCT IS 5% LESS SOURCE FOR DATA: [employer] 1800 OPERATION MANUAL( AUTOMATED BLOOD COUNTS AND [...] DESIRABLE: <130 MG/DL <110 MG/DL BORDERLINE-HIGH RISK: 130- 159 MG/DL 110-129 MG/DL HIGH RISK: >160 MG/DL >130 MG/DL *CHILDREN AND ADOLESCENTS REPRESENTS INDIVIDUALA AGED 2-19 YEARS EXCLUSIVE. Ast (Sgot) 24 U/L 0-40 [facility] ([facility] NORMAL RANGES Age WBC RBC HGB HCT [...] HCT IS 5% LESS SOURCE FOR DATA: [employer] 1800 OPERATION MANUAL( AUTOMATED BLOOD COUNTS AND [...] DESIRABLE: <130 MG/DL <110 MG/DL BORDERLINE-HIGH RISK: 130- 159 MG/DL 110-129 MG/DL HIGH RISK: >160 MG/DL >130 MG/DL *CHILDREN AND ADOLESCENTS REPRESENTS INDIVIDUALA AGED 2-19 YEARS EXCLUSIVE. eGFR 92 # [facility] ( [facility] NORMAL RANGES Age WBC RBC HGB HCT [...] HCT IS 5% LESS SOURCE FOR DATA: [employer] DYN 1800 OPERATION MANUAL( AUTOMATED BLOOD COUNTS AND [...] DESIRABLE: <130 MG/DL <110 MG/DL BORDERLINE-HIGH RISK: 130- 159 MG/DL 110-129 MG/DL HIGH RISK: >160 MG/DL >130 MG/DL *CHILDREN AND ADOLESCENTS REPRESENTS INDIVIDUALA AGED 2-19 YEARS EXCLUSIVE. Anion Gap 14 mmol/L [facility] ([facility] NORMAL RANGES Age WBC RBC HGB HCT [...] HCT IS 5% LESS SOURCE FOR DATA: [employer] 1800 OPERATION MANUAL( AUTOMATED BLOOD COUNTS AND [...] DESIRABLE: <130 MG/DL <110 MG/DL BORDERLINE-HIGH RISK: 130- 159 MG/DL 110-129 MG/DL HIGH RISK: >160 MG/DL >130 MG/DL *CHILDREN AND ADOLESCENTS REPRESENTS INDIVIDUALA AGED 2-19 YEARS EXCLUSIVE. Osmolality-Calculated 271.7 [facility]C [facility] ([facility] NORMAL RANGES Age WBC RBC HGB HCT [...] HCT IS 5% LESS SOURCE FOR DATA: [employer] 1800 OPERATION MANUAL( AUTOMATED BLOOD COUNTS AND [...] DESIRABLE: <130 MG/DL <110 MG/DL BORDERLINE-HIGH RISK: 130- 159 MG/DL 110-129 MG/DL HIGH RISK: >160 MG/DL >130 MG/DL *CHILDREN AND ADOLESCENTS REPRESENTS INDIVIDUALA AGED 2-19 YEARS EXCLUSIVE. eGFR Non-Afr. Nigerien 80 # [facility] ([facility] NORMAL RANGES Age WBC RBC HGB HCT [...] HCT IS 5% LESS SOURCE FOR DATA: GARY DYN 1800 OPERATION MANUAL( AUTOMATED BLOOD COUNTS AND [...] DESIRABLE: <130 MG/DL <110 MG/DL BORDERLINE-HIGH RISK: 130- 159 MG/DL 110-129 MG/DL HIGH RISK: >160 MG/DL >130 MG/DL *CHILDREN AND ADOLESCENTS REPRESENTS INDIVIDUALA AGED 2-19 YEARS EXCLUSIVE. ID Date Data Source [id number] 03/31/2020 05:50:00 PM EDT [facility] Name Value Range Interpretation Code Description Data Brgiid rce(s) Supporting Document(s) SARS CORONAVIRUS 2 RNA [facility] This lab was ordered by [facility] and reported by [facility]. ID Date Data Source [id number] 03/31/2020 05:50:00 PM EDT [facility] ([facility], [facility]) Name Value Range Interpretation Code Description Data Brigid rce(s) Supporting Document(s) Laboratory test finding (navigational concept) Laboratory test result [facility] ([facility], [facility]) This test was developed and its performa nce characteristics determined by [facility]. This test has not been FDA cleared or approved. This test has been authorized by FDA under an Emergency Use Authorization (EUA). This test is only authorized for the duration of time the declaration that circumstances exist justifying the authorization of the emergency use of in vitro diagnostic tests for detection of SARS-CoV-2 virus and/or diagnosis of COVID-19 infection under section 564(b)(1) of the Act, 21 U.S.C. 360bbb-3(b)(1), unless the authorization is terminated or revoked sooner. When diagnostic testing is negative, the possibility of a false negative result should be considered in the context of a patient's recent exposures and the presence of clinical signs and symptoms consistent with COVID-19. An individual without symptoms of COVID-19 and who is not shedding SARS-CoV-2 virus would expect to have a negative (not detected) result in this assay. Performed at: [place] [id number] News Editor: Divine Hernandez MD, Phone: [phone] Not Detected ID Date Data Source [id number] 03/11/2020 10:29:00 AM EDT [facility] ([facility] Name Value Range Interpretation Code Description Data Brigid rce(s) Supporting Document(s) Trig 41 mg/dL 40-200 [facility] ([facility] CHRONIC KIDNEY DISEASE STAGING PER NKF: MALE [...] DESIRABLE: <130 MG/DL <110 MG/DL BORDERLINE-HIGH RISK: 130- 159 MG/DL 110-129 MG/DL HIGH RISK: >160 MG/DL >130 MG/DL *CHILDREN AND ADOLESCENTS REPRESENTS INDIVIDUALA AGED 2-19 YEARS EXCLUSIVE. Cholesterol in HDL [Mass/volume] in Serum or Plasma 82 mg/dL 45-65 Above high normal [facility] ([facility] CHRONIC KIDNEY DISEASE STAGING PER NKF: MALE [...] DESIRABLE: <130 MG/DL <110 MG/DL BORDERLINE-HIGH RISK: 130- 159 MG/DL 110-129 MG/DL HIGH RISK: >160 MG/DL >130 MG/DL *CHILDREN AND ADOLESCENTS REPRESENTS INDIVIDUALA AGED 2-19 YEARS EXCLUSIVE. Chol 139 mg/dL 0-200 [facility] ([facility] CHRONIC KIDNEY DISEASE STAGING PER NKF: MALE [...] DESIRABLE: <130 MG/DL <110 MG/DL BORDERLINE-HIGH RISK: 130- 159 MG/DL 110-129 MG/DL HIGH RISK: >160 MG/DL >130 MG/DL *CHILDREN AND ADOLESCENTS REPRESENTS INDIVIDUALA AGED 2-19 YEARS EXCLUSIVE. LDL_C 49 Calc 75-129 Below low normal [facility] ( [facility] CHRONIC KIDNEY DISEASE STAGING PER NKF: MALE [...] DESIRABLE: <130 MG/DL <110 MG/DL BORDERLINE-HIGH RISK: 130- 159 MG/DL 110-129 MG/DL HIGH RISK: >160 MG/DL >130 MG/DL *CHILDREN AND ADOLESCENTS REPRESENTS INDIVIDUALA AGED 2-19 YEARS EXCLUSIVE. Cho/HDL Ratio 1.7 CALC [facility] ([facility] CHRONIC KIDNEY DISEASE STAGING PER NKF: MALE [...] DESIRABLE: <130 MG/DL <110 MG/DL BORDERLINE-HIGH RISK: 130- 159 MG/DL 110-129 MG/DL HIGH RISK: >160 MG/DL >130 MG/DL *CHILDREN AND ADOLESCENTS REPRESENTS INDIVIDUALA AGED 2-19 YEARS EXCLUSIVE. ID Date Data Source [id number] 03/11/2020 10:29:00 AM EDT [facility] ([facility] Name Value Range Interpretation Code Description Data Brigid rce(s) Supporting Document(s) Glu 51 mg/dL 70-110 Below low normal [facility] ( [facility] CHRONIC KIDNEY DISEASE STAGING PER NKF: MALE [...] DESIRABLE: <130 MG/DL <110 MG/DL BORDERLINE-HIGH RISK: 130- 159 MG/DL 110-129 MG/DL HIGH RISK: >160 MG/DL >130 MG/DL *CHILDREN AND ADOLESCENTS REPRESENTS INDIVIDUALA AGED 2-19 YEARS EXCLUSIVE. BUN 11 mg/dL 8-23 [facility] ([facility] CHRONIC KIDNEY DISEASE STAGING PER NKF: MALE [...] DESIRABLE: <130 MG/DL <110 MG/DL BORDERLINE-HIGH RISK: 130- 159 MG/DL 110-129 MG/DL HIGH RISK: >160 MG/DL >130 MG/DL *CHILDREN AND ADOLESCENTS REPRESENTS INDIVIDUALA AGED 2-19 YEARS EXCLUSIVE. Creat 0.8 mg/dL 0.5-1.0 [facility] ([facility] CHRONIC KIDNEY DISEASE STAGING PER NKF: MALE [...] DESIRABLE: <130 MG/DL <110 MG/DL BORDERLINE-HIGH RISK: 130- 159 MG/DL 110-129 MG/DL HIGH RISK: >160 MG/DL >130 MG/DL *CHILDREN AND ADOLESCENTS REPRESENTS INDIVIDUALA AGED 2-19 YEARS EXCLUSIVE. BUN/Creatinine Ratio 13.0 CALC [facility] ([facility] CHRONIC KIDNEY DISEASE STAGING PER NKF: MALE [...] DESIRABLE: <130 MG/DL <110 MG/DL BORDERLINE-HIGH RISK: 130- 159 MG/DL 110-129 MG/DL HIGH RISK: >160 MG/DL >130 MG/DL *CHILDREN AND ADOLESCENTS REPRESENTS INDIVIDUALA AGED 2-19 YEARS EXCLUSIVE. CL 109.4 mmol/L 98.0-107.0 Above high normal [facility] T ([facility] CHRONIC KIDNEY DISEASE STAGING PER NKF: MALE [...] DESIRABLE: <130 MG/DL <110 MG/DL BORDERLINE-HIGH RISK: 130- 159 MG/DL 110-129 MG/DL HIGH RISK: >160 MG/DL >130 MG/DL *CHILDREN AND ADOLESCENTS REPRESENTS INDIVIDUALA AGED 2-19 YEARS EXCLUSIVE. K 4.2 mmol/L 3.5-5.1 [facility] ([facility] CHRONIC KIDNEY DISEASE STAGING PER NKF: MALE [...] DESIRABLE: <130 MG/DL <110 MG/DL BORDERLINE-HIGH RISK: 130- 159 MG/DL 110-129 MG/DL HIGH RISK: >160 MG/DL >130 MG/DL *CHILDREN AND ADOLESCENTS REPRESENTS INDIVIDUALA AGED 2-19 YEARS EXCLUSIVE. Na 139 mmol/L 136-145 [facility] ([facility] CHRONIC KIDNEY DISEASE STAGING PER NKF: MALE [...] DESIRABLE: <130 MG/DL <110 MG/DL BORDERLINE-HIGH RISK: 130- 159 MG/DL 110-129 MG/DL HIGH RISK: >160 MG/DL >130 MG/DL *CHILDREN AND ADOLESCENTS REPRESENTS INDIVIDUALA AGED 2-19 YEARS EXCLUSIVE. Co2 17.2 mmol/L 22.0-29.0 Below low normal [facility] ([facility] CHRONIC KIDNEY DISEASE STAGING PER NKF: MALE [...] DESIRABLE: <130 MG/DL <110 MG/DL BORDERLINE-HIGH RISK: 130- 159 MG/DL 110-129 MG/DL HIGH RISK: >160 MG/DL >130 MG/DL *CHILDREN AND ADOLESCENTS REPRESENTS INDIVIDUALA AGED 2-19 YEARS EXCLUSIVE. CA 8.8 mg/dL 8.6-10.2 [facility] ([facility] CHRONIC KIDNEY DISEASE STAGING PER NKF: MALE [...] DESIRABLE: <130 MG/DL <110 MG/DL BORDERLINE-HIGH RISK: 130- 159 MG/DL 110-129 MG/DL HIGH RISK: >160 MG/DL >130 MG/DL *CHILDREN AND ADOLESCENTS REPRESENTS INDIVIDUALA AGED 2-19 YEARS EXCLUSIVE. TP 5.6 g/dL 6.6-8.7 Below low normal [facility] ( [facility] CHRONIC KIDNEY DISEASE STAGING PER NKF: MALE [...] DESIRABLE: <130 MG/DL <110 MG/DL BORDERLINE-HIGH RISK: 130- 159 MG/DL 110-129 MG/DL HIGH RISK: >160 MG/DL >130 MG/DL *CHILDREN AND ADOLESCENTS REPRESENTS INDIVIDUALA AGED 2-19 YEARS EXCLUSIVE. A/G Ratio 2.0 CALC [facility] ([facility] CHRONIC KIDNEY DISEASE STAGING PER NKF: MALE [...] DESIRABLE: <130 MG/DL <110 MG/DL BORDERLINE-HIGH RISK: 130- 159 MG/DL 110-129 MG/DL HIGH RISK: >160 MG/DL >130 MG/DL *CHILDREN AND ADOLESCENTS REPRESENTS INDIVIDUALA AGED 2-19 YEARS EXCLUSIVE. Alb 3.7 g/dL 3.4-4.8 [facility] ([facility] CHRONIC KIDNEY DISEASE STAGING PER NKF: MALE [...] DESIRABLE: <130 MG/DL <110 MG/DL BORDERLINE-HIGH RISK: 130- 159 MG/DL 110-129 MG/DL HIGH RISK: >160 MG/DL >130 MG/DL *CHILDREN AND ADOLESCENTS REPRESENTS INDIVIDUALA AGED 2-19 YEARS EXCLUSIVE. Alt (SGPT) 24 U/L 0-41 [facility] ([facility] CHRONIC KIDNEY DISEASE STAGING PER NKF: MALE [...] DESIRABLE: <130 MG/DL <110 MG/DL BORDERLINE-HIGH RISK: 130- 159 MG/DL 110-129 MG/DL HIGH RISK: >160 MG/DL >130 MG/DL *CHILDREN AND ADOLESCENTS REPRESENTS INDIVIDUALA AGED 2-19 YEARS EXCLUSIVE. Alp 68.2 U/L 35-129 [facility] ([facility] CHRONIC KIDNEY DISEASE STAGING PER NKF: MALE [...] DESIRABLE: <130 MG/DL <110 MG/DL BORDERLINE-HIGH RISK: 130- 159 MG/DL 110-129 MG/DL HIGH RISK: >160 MG/DL >130 MG/DL *CHILDREN AND ADOLESCENTS REPRESENTS INDIVIDUALA AGED 2-19 YEARS EXCLUSIVE. Globulin 1.9 CALC [facility] ([facility] CHRONIC KIDNEY DISEASE STAGING PER NKF: MALE [...] DESIRABLE: <130 MG/DL <110 MG/DL BORDERLINE-HIGH RISK: 130- 159 MG/DL 110-129 MG/DL HIGH RISK: >160 MG/DL >130 MG/DL *CHILDREN AND ADOLESCENTS REPRESENTS INDIVIDUALA AGED 2-19 YEARS EXCLUSIVE. Tbili 0.25 mg/dL 0.0-1.2 [facility] ([facility] CHRONIC KIDNEY DISEASE STAGING PER NKF: MALE [...] DESIRABLE: <130 MG/DL <110 MG/DL BORDERLINE-HIGH RISK: 130- 159 MG/DL 110-129 MG/DL HIGH RISK: >160 MG/DL >130 MG/DL *CHILDREN AND ADOLESCENTS REPRESENTS INDIVIDUALA AGED 2-19 YEARS EXCLUSIVE. Osmolality-Calculated 273.6 [facility]C [facility] ([facility] CHRONIC KIDNEY DISEASE STAGING PER NKF: MALE [...] DESIRABLE: <130 MG/DL <110 MG/DL BORDERLINE-HIGH RISK: 130- 159 MG/DL 110-129 MG/DL HIGH RISK: >160 MG/DL >130 MG/DL *CHILDREN AND ADOLESCENTS REPRESENTS INDIVIDUALA AGED 2-19 YEARS EXCLUSIVE. Ast (Sgot) 24 U/L 0-40 [facility] ([facility] CHRONIC KIDNEY DISEASE STAGING PER NKF: MALE [...] DESIRABLE: <130 MG/DL <110 MG/DL BORDERLINE-HIGH RISK: 130- 159 MG/DL 110-129 MG/DL HIGH RISK: >160 MG/DL >130 MG/DL *CHILDREN AND ADOLESCENTS REPRESENTS INDIVIDUALA AGED 2-19 YEARS EXCLUSIVE. Anion Gap 16 mmol/L [facility] ([facility] CHRONIC KIDNEY DISEASE STAGING PER NKF: MALE [...] DESIRABLE: <130 MG/DL <110 MG/DL BORDERLINE-HIGH RISK: 130- 159 MG/DL 110-129 MG/DL HIGH RISK: >160 MG/DL >130 MG/DL *CHILDREN AND ADOLESCENTS REPRESENTS INDIVIDUALA AGED 2-19 YEARS EXCLUSIVE. eGFR 92 # [facility] ( [facility] CHRONIC KIDNEY DISEASE STAGING PER NKF: MALE [...] DESIRABLE: <130 MG/DL <110 MG/DL BORDERLINE-HIGH RISK: 130- 159 MG/DL 110-129 MG/DL HIGH RISK: >160 MG/DL >130 MG/DL *CHILDREN AND ADOLESCENTS REPRESENTS INDIVIDUALA AGED 2-19 YEARS EXCLUSIVE. eGFR Non-Afr. Nigerien 80 # [facility] ([facility] CHRONIC KIDNEY DISEASE STAGING PER NKF: MALE [...] DESIRABLE: <130 MG/DL <110 MG/DL BORDERLINE-HIGH RISK: 130- 159 MG/DL 110-129 MG/DL HIGH RISK: >160 MG/DL >130 MG/DL *CHILDREN AND ADOLESCENTS REPRESENTS INDIVIDUALA AGED 2-19 YEARS EXCLUSIVE. Procedure Social History Code Duration Value Status Description Data Source(s ) Smoking 10/29/2020 12:00:00 AM EST Patient has never smoked co mpleted Patient has never smoked [facility] ([facility]) Smoking 10/26/2020 12:00:00 AM EST Never Smoker completed Never S moker eCW1 ([facility]) Smoking 09/20/2019 12:00:00 AM EST Patient has never smoked co mpleted Patient has never smoked [facility] ([facility]) Vital Signs ID Date Data Source UNK Name Value Range Interpretation Code Description Data Source(s) Respiratory rate 14 /min 14 /min [facility] ( [facility] ) Body mass index (BMI) [Ratio] 29.3 kg/m2 29.3 k g/m2 [facility] ([facility]) Body weight 163.00 [lb_av] 163.00 [lb_av] MEDEN T ([facility]) Body height 62.5 [in_i] 62.5 [in_i] [facility] ([facility] ) 5'2.50" Body temperature 97.7 [degF] 97.7 [degF] [facility] ([facility]) Heart rate 76 /min 76 /min [facility] ([facility]) Diastolic blood pressure 80 mm[Hg] 80 mm[Hg] [facility] ([facility]) Systolic blood pressure 132 mm[Hg] 132 mm[Hg] M EDENT ([facility]) Body mass index (BMI) [Ratio] 29.3 kg/m2 29.3 k g/m2 [facility] ([facility]) Oxygen saturation in Arterial blood by Pulse oximetry 96 % 96 % [facility] ([facility]) Body temperature 97.6 [degF] 97.6 [degF] [facility] ([facility]) Body weight 168.25 [lb_av] 168.25 [lb_av] MED[facility] T ([facility]) Body height 63.5 [in_i] 63.5 [in_i] [facility] ([facility]) 5'3.50" Diastolic blood pressure 72 mm[Hg] 72 mm[Hg] [facility] ([facility]) Systolic blood pressure 112 mm[Hg] 112 mm[Hg] M EDENT ([facility]) Heart rate 72 /min 72 /min [facility] ([facility] Respiratory rate 15 /min 15 /min [facility] ( [facility]) Oxygen saturation in Arterial blood by Pulse oximetry 93 % 93 % [facility] ([facility] Body mass index (BMI) [Ratio] 28.8 kg/m2 28.8 k g/m2 [facility] ([facility] [place] body weight 120 [lb_av] 120 [lb_av] MED[facility] T ([facility] Body weight 168.00 [lb_av] 168.00 [lb_av] MED[facility] T ([facility] Body height 64 [in_i] 64 [in_i] [facility] ([facility] 5'4" Respiratory rate 16 /min 16 /min [facility] ( [facility] Heart rate 90 /min 90 /min [facility] ([facility] Body temperature 97.2 [degF] 97.2 [degF] [facility] ([facility] Diastolic blood pressure 78 mm[Hg] 78 mm[Hg] [facility] ([facility] Systolic blood pressure 124 mm[Hg] 124 mm[Hg] M EDENT ([facility] Diastolic blood pressure 65 mm[Hg] 65 mm[Hg] eCW1 ([facility]) Systolic blood pressure 137 mm[Hg] 137 mm[Hg] e CW1 ([facility]) Body temperature 95.6 [degF] 95.6 [degF] eCW1 ( [facility]) Respiratory rate 18 /min 18 /min eCW1 ([facility]) Heart rate 83 /min 83 /min eCW1 ([facility]) Body mass index (BMI) [Ratio] 28.59 kg/m2 28.59 kg/m2 eCW1 ([facility]) Body height 64 [in_i] 64 [in_i] eCW1 ([facility]) Body weight 166.6 [lb_av] 166.6 [lb_av] eCW1 ([facility]) Oxygen saturation in Arterial blood by Pulse oximetry 93 % 93 % [facility] ([facility] Body mass index (BMI) [Ratio] 27.8 kg/m2 27.8 k g/m2 [facility] ([facility] [place] body weight 120 [lb_av] 120 [lb_av] MED[facility] T ([facility] Body weight 162.00 [lb_av] 162.00 [lb_av] MED[facility] T ([facility] Body height 64 [in_i] 64 [in_i] [facility] ([facility] 5'4" Respiratory rate 16 /min 16 /min [facility] ( [facility] Heart rate 100 /min 100 /min [facility] ([facility] Body temperature 98.3 [degF] 98.3 [degF] [facility] ([facility] Diastolic blood pressure 76 mm[Hg] 76 mm[Hg] [facility] ([facility] Systolic blood pressure 126 mm[Hg] 126 mm[Hg] M EDENT ([facility] Respiratory rate 16 /min 16 /min [facility] ( [facility]) Heart rate 76 /min 76 /min [facility] ([facility] ) Diastolic blood pressure 80 mm[Hg] 80 mm[Hg] [facility] ([facility] ) Systolic blood pressure 130 mm[Hg] 130 mm[Hg] M EDENT ([facility] ) Body mass index (BMI) [Ratio] 30.8 kg/m2 30.8 k g/m2 [facility] ([facility] ) Body weight 160.12 [lb_av] 160.12 [lb_av] MEDEN T ([facility] ) Body height 60.5 [in_i] 60.5 [in_i] [facility] ([facility] ) 5'0.50" Body temperature 96.9 [degF] 96.9 [degF] [facility] ([facility] ) Body mass index (BMI) [Ratio] 28.2 kg/m2 28.2 k g/m2 [facility] ([facility] Heart rate 83 /min 83 /min [facility] ([facility] Diastolic blood pressure 76 mm[Hg] 76 mm[Hg] [facility] ([facility] Systolic blood pressure 124 mm[Hg] 124 mm[Hg] M EDENT ([facility] Body weight 162.00 [lb_av] 162.00 [lb_av] MEDEN T ([facility] Body height 63.5 [in_i] 63.5 [in_i] [facility] ([facility] 5'3.50" Respiratory rate 16 /min 16 /min MED[facility] ( [facility] ) Heart rate 76 /min 76 /min [facility] ([facility] ) Diastolic blood pressure 70 mm[Hg] 70 mm[Hg] [facility] ([facility] ) Systolic blood pressure 124 mm[Hg] 124 mm[Hg] M EDENT ([facility] ) Body mass index (BMI) [Ratio] 28.8 kg/m2 28.8 k g/m2 [facility] ([facility]) Oxygen saturation in Arterial blood by Pulse oximetry 98 % 98 % [facility] ([facility]) Body weight 165.12 [lb_av] 165.12 [lb_av] MEDEN T ([facility]) Body height 63.5 [in_i] 63.5 [in_i] [facility] ([facility]) 5'3.50" Diastolic blood pressure 68 mm[Hg] 68 mm[Hg] [facility] ([facility]) Systolic blood pressure 120 mm[Hg] 120 mm[Hg] M EDENT ([facility]) Heart rate 77 /min 77 /min [facility] ([facility] Respiratory rate 18 /min 18 /min [facility] ( [facility]) Body mass index (BMI) [Ratio] 27.7 kg/m2 27.7 k g/m2 [facility] ([facility]) Body weight 164.00 [lb_av] 164.00 [lb_av] MEDEN T ([facility]) Body height 64.5 [in_i] 64.5 [in_i] [facility] ([facility]) 5'4.50" Body temperature 97.3 [degF] 97.3 [degF] [facility] ([facility]) Oxygen saturation in Arterial blood by Pulse oximetry 97 % 97 % [facility] ([facility] Body mass index (BMI) [Ratio] 28.3 kg/m2 28.3 k g/m2 [facility] ([facility] [place] body weight 120 [lb_av] 120 [lb_av] MED[facility] T ([facility] Body weight 165.00 [lb_av] 165.00 [lb_av] MED[facility] T ([facility] Body height 64 [in_i] 64 [in_i] [facility] ([facility] 5'4" Respiratory rate 14 /min 14 /min [facility] ( [facility] Heart rate 94 /min 94 /min [facility] ([facility] Body temperature 99.6 [degF] 99.6 [degF] [facility] ([facility] Diastolic blood pressure 80 mm[Hg] 80 mm[Hg] [facility] ([facility] Systolic blood pressure 102 mm[Hg] 102 mm[Hg] M EDENT ([facility] Body mass index (BMI) [Ratio] 28.2 kg/m2 28.2 k g/m2 [facility] ([facility] Heart rate 58 /min 58 /min [facility] ([facility] Diastolic blood pressure 70 mm[Hg] 70 mm[Hg] [facility] ([facility] Systolic blood pressure 126 mm[Hg] 126 mm[Hg] M EDENT ([facility] Body weight 162.00 [lb_av] 162.00 [lb_av] MEDEN T ([facility] Body height 63.5 [in_i] 63.5 [in_i] [facility] ([facility] 5'3.50" Respiratory rate 16 /min 16 /min [facility] ( [facility] ) Heart rate 76 /min 76 /min [facility] ([facility] ) Diastolic blood pressure 80 mm[Hg] 80 mm[Hg] [facility] ([facility] ) Systolic blood pressure 110 mm[Hg] 110 mm[Hg] M EDENT ([facility] ) Body mass index (BMI) [Ratio] 28.4 kg/m2 28.4 k g/m2 [facility] ([facility], [facility]) Body height 64.5 [in_i] 64.5 [in_i] [facility] ([facility], [facility]) 5'4.50" Body weight 168.00 [lb_av] 168.00 [lb_av] MEDEN T ([facility], [facility]) Body temperature 97.7 [degF] 97.7 [degF] [facility] ([facility], [facility]) Oxygen saturation in Arterial blood by [facility]ulse oximetry 94 % 94 % [facility], [facility]) Respiratory rate 16 [facility]min 16 /min [facility] ( [facility], [facility]) Heart rate 81 /min 81 /min [facility] ([facility], [facility]) Diastolic blood pressure 87 mm[Hg] 87 mm[Hg] [facility] ([facility], [facility]) Systolic blood pressure 130 mm[Hg] 130 mm[Hg] M [facility] ([facility], [facility])
[2020-11-10] MEDS ORDERED: MIDAZOLAM INJ 2MG/2ML VIAL (J2250 PER 1MG) As Ordered ONE ×2 (08:43→10:51)
[2020-11-10] MEDS ORDERED: fentaNYL 100 MCG/2 ML INJECTION (J3010) As Ordered ONE ×2 (08:43→10:51)
[2020-11-10] MEDS ORDERED: EPINEPHrine INJ 1 MG/ML 1ML AMP As Ordered ONE ×2 (08:43→09:30)
[2020-11-10] MEDS ORDERED: dexameTHASONE 10MG/1ML VIAL PRES.FREE (J1100 PER 1MG) As Ordered ONE (08:43)
[2020-11-10] MEDS ORDERED: LIDOCAINE 1% MDV 20ML VIAL As Ordered ONE (08:43)
[2020-11-10] MEDS ORDERED: ROPIvacaine 0.5% 30ML INJECTION (J2795 PER 1MG) As Ordered ONE (08:43)
[2020-11-10] MEDS ORDERED: ROPIvacaine 0.5% 30ML INJECTION (J2795 PER 1MG) XX ONE (08:45)
[2020-11-10] MEDS ORDERED: EPINEPHrine INJ 1 MG/ML 1ML AMP XX ONE (08:45)
[2020-11-10] MEDS ORDERED: BUPIVACAINE LIPOSOME/PF 1.3% 20ML VIAL (13.3MG/ML)(EXPAREL)(C9290 PER1MG) As Ordered ONE (09:30)
[2020-11-10] MEDS ORDERED: BUPIVACAINE HCL 0.25% 10ML VIAL As Ordered ONE (09:30)
[2020-11-10] MEDS ORDERED: TRANEXAMIC ACID 100 MG/ML 10ML VIAL As Ordered ONE (09:30)
[2020-11-10] MEDS ORDERED: ceFAZolin 1GM VIAL (J0690 PER 500MG) As Ordered ONE (09:30)
--- NOTE | 2020-11-10 09:31 | IPN ---
PROGRESS NOTE DATE: 11/10/2020 SUBJECTIVE AND PLAN: Patient seen and examined. Wishes to go ahead with a left total knee arthroplasty. She understands the nature of this, the risks of bleeding, infection, damage to nerves and vessels, persistent pain, olea loosening, blood clots, medical problems, among others. Anticipate using a posterior stabilized knee due to the valgus alignment.
[2020-11-10] MEDS ORDERED: propofoL 200 MG/20 ML VIAL As Ordered ONE (10:51)
[2020-11-10] MEDS ORDERED: LIDOCAINE 2% 100MG/5ML SDV (FOR ANES.) As Ordered ONE (10:51)
[2020-11-10] MEDS ORDERED: ONDANSETRON 4MG/2ML VIAL As Ordered ONE (10:51)
[2020-11-10] MEDS ORDERED: PERCOCET 5MG/325MG TAB PO PRN (11:45)
[2020-11-10] MEDS ORDERED: METOCLOPRAMIDE INJ 10MG/2ML VIAL (J2765 PER 1) IV PRN (11:45)
[2020-11-10] MEDS ORDERED: ONDANSETRON 4MG/2ML VIAL IV PRN ×2 (11:45→12:00)
[2020-11-10] MEDS ORDERED: LR 1,000 ML IV SCH ×2 (11:45→12:00)
--- NOTE | 2020-11-10 11:55 | REP ---
INDICATION: POST OP IN PACU. COMPARISON: None. TECHNIQUE: AP and lateral views obtained portably. The lateral view is cross-table. FINDINGS: AP and lateral views of the left knee demonstrate left knee arthroplasty components in good position. Anterior skin alysha are seen. There is periarticular and intra-articular soft tissue emphysema.. No fracture or subluxation is seen. . IMPRESSION: Status post left knee arthroplasty.. <Electronically signed by David Almazan > 11/10/20 0980
[2020-11-10] MEDS ORDERED: ACETAMINOPHEN TAB 650MG DOSE (2X325MG) PO PRN (12:00)
[2020-11-10] MEDS ORDERED: MORPHINE 4 MG/ML 1ML VIAL/SYRINGE (J2270) IV PRN (12:00)
[2020-11-10] MEDS ORDERED: MORPHINE 2 MG/ML 1ML VIAL (J2270) IV PRN (12:00)
--- NOTE | 2020-11-10 12:47 | RO ---
OPERATIVE NOTE DATE OF OPERATION: 11/10/2020 PREOPERATIVE DIAGNOSIS: Left knee osteoarthritis. POSTOPERATIVE DIAGNOSIS: Left knee osteoarthritis. PROCEDURE: Left total knee arthroplasty using Attune rotating platform, posterior stabilized, size 4 femur, size 5 tibial tray, 6 polyethylene, 35 patellar button. SURGEON: Tonny Campbell MD INFORMATION TECH: VERONIKA Ruiz ANESTHESIA: Spinal. EBL: 50. COMPLICATIONS: None. DESCRIPTION OF PROCEDURE: The patient was taken to the operating room and placed in the supine position. The left lower extremity was prepped and draped in the usual sterile fashion after spinal was introduced. We then prepped and draped the left lower extremity in usual fashion. A time out was again performed. A longitudinal incision was made over the anterior aspect of the knee after tourniquet was inflated. I created a longitudinal incision followed by medial parapatellar arthrotomy in the usual fashion. I everted the patella, flexed the knee and I then used canal-initiating reamer on femoral side followed by the intramedullary guide set at 5 degrees of valgus and 9 mm cut. This was pinned into place. Distal femoral cut was made protecting soft tissues. I then sized the femur to be a 4. The drill holes were placed in the end of the femur with external rotation dialed in and size 4 cutting block was secured. The remaining cuts were made. I then directed our attention to the tibia. The tibial alignment guide was then placed in appropriate amount of valgus and posterior slope. This was pinned in place and approximately 4 mm was taken off the low side. Proximal tibial cut was made, bone was removed. We then made the box cut and made the remaining three cuts, removed PCL, then used a paper bag maker to remove soft tissue and osteophytes from either side of the knee and removed any osteophytes from around the femur and proximal tibia. Spacer blocks were then used to confirm that a 6 or 7 would be appropriate depending upon the actual trial components. The tibial tray was then prepared, a size 5 fit nicely, this was drilled and broached and the trial components were then placed with size 4 posterior stabilized femur and size 6 polyethylene which had excellent stability and range of motion and size 7 polyethylene seemed to be a little bit on the tight side so I decided on the 6. I then free-hand cut the patella, removing about 7 mm of bone, sized to be 35. The drill holes were placed and drill holes were placed in the end of the femur. I then removed all the trial components, placed the Exparel in and around the knee aspirating before injecting. I then irrigated copiously. The sourcing assistant prepared the bone cement in modern technique. The surfaces were carefully irrigated and dried. I then cemented on the tibial tray, cemented on the femoral component, placed the polyethylene, brought the knee out in some extension. We had removed all excess bone cement. I cemented on the patella, removed excess bone cement, held this in place with patellar clamp. I irrigated, placed the TXA in the deep wound and then began closing the top portion of the wound with running Stratafix and #1 Vicryl suture interrupted. The patellar clamp was removed once the cement had hardened. I closed the remaining wound with running Stratafix suture. Excellent closure was noted. I put the knee through range of motion, the patella was tracking quite nicely, there were no mechanical findings or catching, etc. I then irrigated, closed the subcu with 2-0 Vicryl and the skin with alysha. I had deflated the tourniquet once the cement had hardened. A sterile dressing was applied. The patient was taken to the recovery room in stable condition. There were no known complications. The plan will be routine postop. The sourcing assistant was instrumental in holding retractors and assisting in mixing the bone cement and assisting in wound closure.
[2020-11-10] MEDS: PERCOCET 5MG/325MG TAB PO PRN ×2 (14:28→18:57)
[2020-11-10] MEDS: ceFAZolin SOD 2 GM in IV 1 EA IV SCH (18:23)
--- NOTE | 2020-11-10 20:32 | CR.PDOC ---
General Date of Consultation: Nov 10, 2020 Consultation REASON FOR CONSULTATION/CHIEF COMPLAINT: Medical management HISTORY OF PRESENT ILLNESS: Patient is 59 years old female with past medical history of depression, osteoarthritis, hyperlipidemia presented to the hospital for elective left knee replacement. Patient tolerates procedure well. Patient denies fever, chills, nausea, vomiting, diarrhea or dysuria ALLERGIES: Please see below. HOME MEDICATIONS: Please see below. PAST MEDICAL HISTORY: 1. Depression. 2. Acid reflux. 3. Asthma. 4. Hyperlipidemia. PAST SURGICAL HISTORY: None FAMILY HISTORY: I personally reviewed family history and found not pertinent SOCIAL HISTORY: Patient denied alcohol abuse, smoking abuse or drug abuse history REVIEW OF SYSTEMS: 10 point review system negative except as listed above PHYSICAL EXAMINATION: VITAL SIGNS: Please see below. GENERAL APPEARANCE: NAD HEENT: no scleral icterus, no JVD, EOMI CARDIOVASCULAR: S1S2 LUNGS: CTA ABDOMEN: soft & not tender w palpitation MUSCULOSKELETAL: no cyanosis, no swelling INTEGUMENT: no generalized palor NEUROLOGICAL: cranial nerve function from 2-12 intact intact, follows commands, speech not dysarthric LABORATORY DATA: Please see below. ASSESSMENT/PLAN: Status post left knee arthroplasty Pain management Anticoagulation per Orthopedic team Hyperlipidemia Continue statin Depression Continue home meds Vital Signs/I&O Vital Signs Date Time Temp Pulse Resp B/P (MAP) Pulse Ox O2 Delivery O2 Flow Rate FiO2 11/10/20 19:27 18 11/10/20 18:57 Room Air 11/10/20 17:15 98.3 81 123/72 (89) 95 11/10/20 09:07 2 Allergies Coded Allergies: sulfamethoxazole (Verified Allergy, Intermediate, HIVES/RASH, 11/10/20) trimethoprim (Verified Allergy, Intermediate, HIVES/RASH, 11/10/20) Home Medications Scheduled (Multivitamin Adults 50+) 1 Tab Tab, 1 TAB PO DAILY, (Reported) (Vitamin A & D 8000-400 Unit) 1 Cap Cap, 1 CAP PO DAILY, (Reported) Aspirin (Aspirin EC) 81 Mg Tabec, 81 MG PO DAILY, #30 Atorvastatin Calcium (Atorvastatin Calcium) 40 Mg Tab, 1 TAB PO QPM for 30 Days, #30 Biotin (Vitamin H) (Biotin) 1,000 Mcg Tab, 1,000 MCG DAILY, (Reported) Juan/D3/Mag11/Zinc/Community Health Program Coordinator/Slick/Bor (Caltrate 600+D Plus Tablet) 1 Tab Tab, 2 TAB PO DAILY, (Reported) Carisoprodol (Soma) 350 Mg Tab, 350 MG PO QHS, (Reported) Celecoxib (Celecoxib) 200 Mg Cap, 200 MG PO DAILY, (Reported) Cetirizine HCl (Zyrtec Allergy) 10 Mg Cap, 10 MG PO DAILY, (Reported) Cholecalciferol (Vitamin D3) (Vitamin D3) 1,000 Unit Cap, 1,000 UNIT PO DAILY, (Reported) Cyanocobalamin (Vitamin B-12) (Vitamin B-12) 1,000 Mcg Tab, 1,000 MCG PO DAILY, (Reported) Duloxetine Hcl (Duloxetine HCl) 60 Mg Capsule.dr, 60 MG PO DAILY, (Reported) Fremanezumab-Vfrm (Ajovy) 225 Mg/1.5 Ml Syringe, 225 MG IM MTHLY, (Reported) Gabapentin (Gabapentin) 300 Mg Cap, 300 MG PO QHS, (Reported) Hyaluronate Sodium (Euflexxa) Unknown Strength Inj, Unknown Dose INJ ASDIRECTED, (Reported) EVERY 6 MONTHS Montelukast Sodium (Singulair) 10 Mg Tab, 10 MG PO DAILY, (Reported) Nortriptyline Hcl (Pamelor) 10 Mg Cap, 20 MG PO BID, (Reported) Rabeprazole Sodium (Aciphex) 20 Mg Tab, 20 MG PO DAILY, (Reported) Topiramate (Topamax) 100 Mg Tab, 100 MG PO BID, (Reported) [Allergy Shots] , 1 IM [id number], (Reported) [Botox Injections] , 1 SQ QMONTH, (Reported) FOR MIGRAINES Scheduled PRN Simethicone (Gas-X) 80 Mg Chw, 80 MG PO PRN PRN for GAS PAIN, (Reported) ALIVIA PUENTES DO Nov 10, 2020 20:32
[2020-11-10] MEDS ORDERED: CETI10TA PO (20:52)
[2020-11-10] MEDS ORDERED: D31000TA2 PO (20:52)
[2020-11-10] MEDS ORDERED: [UNRECOGNIZED DRUG - CODE] PO (20:52)
[2020-11-10] MEDS ORDERED: NORT10CA2 PO (20:52)
[2020-11-10] MEDS ORDERED: BIOT10009 PO (20:52)
[2020-11-10] MEDS ORDERED: VITMTA PO (20:52)
[2020-11-10] MEDS ORDERED: SIME80CH5 PO (20:52)
[2020-11-10] MEDS ORDERED: ATOR40TA75 PO (20:52)
[2020-11-10] MEDS ORDERED: ASPI81TA27 PO (20:52)
[2020-11-10] MEDS ORDERED: ATORVASTATIN 20 MG TAB PO SCH (21:00)
[2020-11-10] MEDS ORDERED: MONTELUKAST 10 MG TAB PO SCH (21:00)
[2020-11-10] MEDS ORDERED: NORTRIPTYLINE 10 MG CAP PO SCH (21:00)
[2020-11-10] MEDS ORDERED: TOPIRAMATE (TopAMAX) 100 MG TAB PO SCH (21:00)
[2020-11-10] MEDS ORDERED: carisoprodoL 350 MG TAB PO SCH (21:00)
[2020-11-10] MEDS ORDERED: SIMETHICONE 80MG CHEW TAB PO SCH (21:00)
[2020-11-10] MEDS ORDERED: DULoxetine 30 MG CAP (CYMBALTA) PO SCH (21:00)
[2020-11-10] MEDS: GABAPENTIN 300 MG CAP PO SCH (21:41)
[2020-11-11] MEDS: PERCOCET 5MG/325MG TAB PO PRN ×3 (01:33→11:56)
[2020-11-11] MEDS: ceFAZolin SOD 2 GM in IV 1 EA IV SCH (01:33)
[2020-11-11 02:00] VITALS: BP 117/59
[2020-11-11 05:25] VITALS: BP 120/82
[2020-11-11] MEDS ORDERED: PERC5TAB12 PO (05:51)
[2020-11-11] MEDS ORDERED: XARE10TA PO (05:51)
[2020-11-11 07:03] LABS: HEMATOCRIT 35.8 % (36.0-47.0); HEMOGLOBIN 11.5 g/dl (12.0-15.5); MEAN CORPUSCULAR HEMOGLOBIN 28.1 pg (27.0-33.0); MEAN CORPUSCULAR HGB CONC 32.1 g/dl (32.0-36.5); MEAN CORPUSCULAR VOLUME 87.5 fl (80.0-96.0); PLATELET COUNT, AUTOMATED 221 10^3/uL (150-450); RED BLOOD COUNT 4.09 10^6/uL (4.00-5.40); WHITE BLOOD COUNT 9.4 10^3/uL (4.0-10.0)
[2020-11-11] MEDS: GABAPENTIN 300 MG CAP PO SCH (07:57)
[2020-11-11] MEDS ORDERED: MOM 30ML SUSPENSION UDC PO SCH (09:00)
[2020-11-11] MEDS ORDERED: MIRALAX *UNIT DOSE* 17GM PACKET PO SCH (09:00)
[2020-11-11] MEDS ORDERED: NORTRIPTYLINE 10 MG CAP PO SCH (09:00)
[2020-11-11] MEDS ORDERED: RIVAROXABAN 10 MG TAB (XARELTO) PO SCH (18:00)
[2020-11-11] MEDS ORDERED: ASPIRIN 81 MG ENTERIC TAB PO SCH (21:00)
--- NOTE | 2020-11-16 08:35 | DSES ---
DISCHARGE SUMMARY DATE OF ADMISSION: 11/10/2020 DATE OF DISCHARGE: 11/11/2020 ADMITTING DIAGNOSIS: Osteoarthritis left knee. OTHER DIAGNOSES: Depression, acid reflux disease, asthma and hyperlipidemia. DISCHARGE DIAGNOSES: Osteoarthritis of the left knee; status post left total knee arthroplasty. OPERATION PERFORMED: Left total knee arthroplasty. HISTORY OF PRESENT ILLNESS: This is a 59-year-old female with progressively worsening left knee pain and stiffness. She failed to improve with conservative management. She was admitted for elective knee replacement on the left side. HOSPITAL COURSE: Patient was admitted on the day of surgery and underwent a left total knee arthroplasty, which was uneventful. She did well in the postoperative period and the hospital course was without complications. Her pain was controlled. On day of discharge, she was weightbearing as tolerated on her left lower extremity. She will use TEDs stockings for 30 days postoperatively for DVT prophylaxis. She will also use aspirin 81 mg b.i.d. per the protocol for DVT prophylaxis. She will resume her preoperative medications and diet and she will use oral pain medications for pain control. She was given instructions that include but not limited to wound monitoring and activity limitations. She will follow-up in our office in 10-14 days for surgical follow-up. Please refer to the medical record for further details.
== END 2020-11-11 12:05 | disposition home or self-care (01) | DRG 302 ==
LOC: M SDC 07:00 → EDSTATUS 11:40 → M MS5PR 12:30 → M SDC 12:54 → M MS5PR 12:55
PROVIDERS: ADMIT Orthopaedic Surgery; ATTEND Orthopaedic Surgery
PROC: 0SRD0J9 Replacement of Left Knee Joint with Synthetic Substitute, Cemented, Open Approach (ICD-10-PCS; principal; 2020-11-10 09:25)
DX: M17.12 Unilateral primary osteoarthritis, left knee (principal); F32.9 Major depressive disorder, single episode, unspecified; K21.9 Gastro-esophageal reflux disease without esophagitis; J45.909 Unspecified asthma, uncomplicated; E78.5 Hyperlipidemia, unspecified; R26.89 Other abnormalities of gait and mobility; Z79.82 Long term (current) use of aspirin; Z79.899 Other long term (current) drug therapy; Z88.2 Allergy status to sulfonamides; Z88.8 Allergy status to other drugs, medicaments and biological substances

== ENCOUNTER → 2020-12-07 | Outpatient (CLI) | payer BC, OTHER ==
[~2020-12-07] MED LIST changes: +ASPI81TA27 PO; +BIOT10009 PO; +CETI10TA PO; +D31000TA2 PO; -LR 1,000 ML IV ONE; +NORT10CA2 PO; +SIME80CH5 PO; +VITMTA PO; +XARE10TA PO; +[UNRECOGNIZED DRUG - CODE] PO; -ceFAZolin SOD 2 GM in IV 1 EA IV ONE
--- NOTE | 2020-12-11 05:21 | ECWPNPC ---
PATIENT NAME: REMY RED : 1960 GENDER: FEMALE VISIT DATE: 12/07/2020 DISCHARGE DATE: 12/07/20 145 VISIT LOCKED DATE TIME: PHYSICIAN: HANNAH SCHNEIDER RESOURCE: HANNAH SCHNEIDER REASON FOR APPOINTMENT 1. FOLLOW-UP AFTER KNEE SURGERY/CONSIDER LUMBAR FACET THERAPEUTIC BLOCK HISTORY OF PRESENT ILLNESS GENERAL: HERE FOR FOLLOW-UP OF CHRONIC LOW BACK PAIN. HAD LEFT KNEE TOTAL REPLACEMENT 3 WEEKS AGO. DOING WELL WITH LEFT KNEE. STATES LOW BACK PAIN HAS BEEN AGGRAVATED SINCE LEFT KNEE SURGERY. OUR PLAN IS TO DO LUMBAR FACET THERAPEUTIC BLOCKS BUT WE ARE UNABLE TO DO A PROCEDURE UNTIL AT LEAST 6 WEEKS POST OP LEFT KNEE. DESCRIBES PAIN CONSTANT AND THROBBING. 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 FALL RISK SCREENING: SCREENING :NO FALLS REPORTED IN THE LAST YEAR PAIN SCREENING: PATIENT HAS A COMPLAINT OF ACUTE OR CHRONIC PAIN :YES LOCATION OF PAIN:LOW BACK, KNEES INTENSITY OF PAIN (SCALE OF 1 TO 10):9 WHAT DOES YOUR PAIN FEEL LIKE:CONTINOUS, STABBING, THROBBING, SHOOTING DURATION:CONTINOUS PAIN IS INCREASED BY:ACTIVITIES, PROLONGED STANDING PAIN IS DECREASED BY:USE OF PAIN MEDICATIONS NURSING NOTE: -. PAIN CENTER INTAKE QUESTIONS: DO YOU HAVE A HISTORY OF MRSA? :NO DO YOU TAKE A BLOOD THINNERS? :NO ASPIRIN 81MG DO YOU HAVE ANY BLEEDING DISORDERS? :NO ANY NEW NUMBNESS OR WEAKNESS IN YOUR LEGS OR ARMS? :NO ANY PACEMAKER,DEFIBRILLATOR, OR DORSAL COLUMN STIMULATOR? :NO DO YOU HAVE ANY RASHES OR OPEN SORES? :NO ARE YOU ALLERGIC TO IV DYE? :NO ARE YOU DIABETIC? :NO ANY NEW PROBLEMS WITH YOUR MEDICATIONS? :NO HAVE YOU RECEIVED A VACCINE IN THE PAST 30 DAYS? :NO DO YOU PLAN TO RECEIVE A VACCINE IN THE NEXT 21 DAYS? :YES IF SO WHAT VACCINE AND WHEN? WOULD LIKE THE COVID VACCINATIONS WHEN AVAILABLE DO YOU NEED ANY PRESCRIPTION? :NO DO YOU TAKE ANY IMMUNOSUPPRESSIVE MEDICATIONS? :NO IS THERE A CHANCE YOU COULD BE ? :NO ARE YOU BREAST FEEDING? :NO CURRENT MEDICATIONS TAKING CYMBALTA 30 MG CAPSULE DELAYED RELEASE PARTICLES 1 CAPSULE ORALLY ONCE A DAY TAKING GABAPENTIN 300 MG CAPSULE 1 CAPSULE ORALLY BEFORE BEDTIME TAKING SOMA 350 MG TABLET 1 TABLET NEEDED ORALLY BEFORE BEDTIME TAKING BACLOFEN 10 MG TABLET 1 TABLET NEEDED ORALLY THREE TIMES A DAY TAKING SUMATRIPTAN SUCCINATE 100 MG TABLET 1 TABLET NEEDED ORALLY 1 TABLET AT ONSET OF MIGRAINE, MAY REPEAT ONCE IN 2 HOURS TAKING TOPAMAX 100 MG TABLET 1 TABLET ORALLY TWICE A DAY TAKING ACIPHEX 20 MG TABLET DELAYED RELEASE 1 TABLET ORALLY ONCE A DAY TAKING ZYRTEC 1 TABLET ORALLY DAILY TAKING SINGULAIR 10 MG TABLET 1 TABLET ORALLY ONCE A DAY TAKING NORTRIPTYLINE HCL 10 MG CAPSULE 1 CAPSULE ORALLY ONCE A DAY TAKING CELECOXIB 200 MG CAPSULE 1 CAPSULE WITH FOOD ORALLY ONCE A DAY TAKING VITAMIN B 12 500 MCG TABLET 1 TABLET ORALLY ONCE A DAY TAKING MULTIVITAMIN ADULTS 50+ - TABLET DIRECTED ORALLY TAKING VITAMIN A 2400 MCG (8000 UT) CAPSULE 1 CAPSULE WITH FOOD OR MILK ORALLY ONCE A DAY TAKING VITAMIN D 25 MCG (1000 UT) TABLET 1 TABLET ORALLY ONCE A DAY TAKING CALTRATE 600+D 600-1200 CAPSULE ORALLY DAILY TAKING HYDROCODONE-ACETAMINOPHEN 5-325 MG TABLET 1 TABLET NEEDED ORALLY THREE TIMES DAILY TAKING BIOTIN 1000 MCG TABLET 1 TABLET ORALLY ONCE A DAY TAKING ASPIRIN 81 81 MG TABLET CHEWABLE 1 TABLET ORALLY ONCE A DAY TAKING LIPITOR 40 MG TABLET 1 TABLET ORALLY ONCE A DAY PAST MEDICAL HISTORY MIGRAINE HEADACHES URINARY IMPLANT FOR URINARY INCONTINENCE GERD ARTHRITIS BACK PAIN/NECK PAIN DEPRESSION TIA 2019 NECK AND SHOULDER PAIN ALLERGIES BACTRIM DS: HIVES - ALLERGY ENVIRONMENTAL ALLERGIES SOCIAL HISTORY GENERAL: TOBACCO USE ARE YOU A:NONSMOKER LATEX QUESTIONNAIRE LATEX ALLERGY : HAVE YOU EVER DEVELOPED ANY TYPE OF REACTION AFTER HANDLING LATEX PRODUCTS SUCH RUBBER GLOVES, CONDOMS, DIAPHRAGMS, BALLOONS, SOCKS, OR UNDERWEAR?NO LATEX ALLERGY : HAVE YOU EVER DEVELOPED ANY TYPE OF REACTION DURING OR AFTER DENTAL APPOINTMENT, VAGINAL/RECTAL EXAMINATION, SURGICAL PROCEDURE, OR ANY OTHER EXPOSURE?NO DATE ASKED : 02/15/2019 LATEX RISK : HAVE YOU EVER HAD ANY DIFFICULTY BREATHING OR HIVES AFTER EATING OR HANDLING ANY FRUITS, OR VEGETABLES; SUCH KIWI, BANANAS, STONE FRUITS, OR CHESTNUTSNO LATEX RISK : DO YOU HAVE A PREVIOUS PERSONAL HISTORY OF MORE THAN NINE SURGERIES, SPINA BIFIDA, OR REPEATED CATHERIZATIONS? NO LATEX RISK : ARE YOU FREQUENTLY EXPOSED TO LATEX PRODUCTS IN YOUR OCCUPATION?NO LUNG CANCER SCREENING SMOKING STATUS:NON SMOKER RECREATIONAL DRUG USE DRUG USE?NO CAFFEINE CAFFEINE USE?YES HOW OFTEN AND HOW MUCH? ICED TEA L LITER/DAY ORIENTAL ORTHODOX [id number] NONE LANGUAGE LANGUAGES SPOKEN:ROMANIAN LEARNING BARRIERS / SPECIAL NEEDS CHANGE FROM LAST VISIT? 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 EXERCISE: 3 X WEEK PLANET FITNESS. MARITAL STATUS: . OTHERS AT HOME: SPOUSE. - PFS REFERRAL NEEDED?NO CLERGY REFERRAL NEEDED?NO PUBLIC HEALTH REFERRAL NEEDED?NO WAS THE PROVIDER NOTIFIED OF ANY PERTINENT INFO?YES HAS THE PATIENT BEEN EDUCATED REGARDING HIS/HER PLAN OF CARE?YES HAS THE PATIENT BEEN EDUCATED REGARDING PAIN, THE RISK FOR PAIN, THE IMPORTANCE OF EFFECTIVE PAIN MANAGEMENT, AND THE PAIN ASSESSMENT PROCESS?YES ADVANCE DIRECTIVE ADVANCE DIRECTIVE DISCUSSED WITH PATIENT:YES HCP AND POMary NESS [phone] MICHELLE HAS A LIVING WILL. INSTRUCTED PATIENT TO BRING IN COPY. REVIEWED 04/13/18 1015 LAS04/18/18 1146 REVIEWED WITH PT. JEFFERYIEWED WITH PATIENT 09/12/18 1034 JSREVIEWED WITH PATIENT 10/10/18 1630 LAS. REVIEW OF SYSTEMS CONSTITUTIONAL: ANY RECENT FEVER NO . CHILLS NO . WEIGHT CHANGE OF UNKNOWN REASONS NO . GASTROENTEROLOGY: NEW UNEXPLAINABLE CHANGES IN BOWEL CONTROL NO . CONSTIPATION NO . GENITOURINARY: ANY NEW CHANGE IN BLADDER CONTROL? NO . NEUROLOGY: NEW ONSET DIZZINESS OR NEUROLOGICAL CHANGES NOT MENTIONED NO . NEW NUMBNESS OR PAIN PATTERNS NOT MENTIONED AND PERTINENT TO TODAY'S VISIT NO . CARDIOLOGY: NEW CHEST PRESSURE NO . NEW CHEST PAIN NO . RESPIRATORY: UNEXPLAINABLE COUGH NO . NEW SHORTNESS OF BREATH NO . VITAL SIGNS WT 173.2 LBS, HT 64 IN, BMI 29.73 INDEX, BP 136/87 MM HG, HR 75 /MIN, RR 18 /MIN, TEMP 98.3 F, OXYGEN SAT % 97%, SAFE IN ENV? (Y/N) YES, REVIEWED BY: ALLI KEITH MA. EXAMINATION GENERAL EXAMINATION: GENERAL AWAKE,ALERT ,PLEAASANT . PSYCH AFFECT NORMAL . LUNGS: LUNG SMITH ARE CLEAR TO AUSCULTATION BILATERALLY. GOOD MOVEMENT OF AIR . HEART: S1, S2 IN A REGULAR RATE AND RHYTHM. NO SIGNIFICANT MURMURS, RUBS OR GALLOPS NOTED . LUMBAR:PALPATION:TENDER OVER BILAT. L4/5-L5/S1 LUMBAR FACETS WITH FACET LOADING.. DIAGNOSTIC TESTS REVIEWED MRI L/S SPINE-2020. ASSESSMENTS OTHER SPONDYLOSIS, LUMBOSACRAL REGION - M47.897 (PRIMARY) TREATMENT OTHER SPONDYLOSIS, LUMBOSACRAL REGION NOTES: CONTINUE HOME STRETCHING EXERCISES. PATIENT WILL CALL US TO SCHEDULE FOLLOW-UP TO CONSIDER LUMBAR FACET THERAPEUTIC BLOCK. SHE NEEDS TO BE 2 MONTHS POST LEFT KNEE REPLACEMENT FOR REEVALUATION. PROCEDURE CODES FA211 ESTABILISHED PATIENT [facility] CHARGE DISPOSITION & COMMUNICATION FOLLOW UP PATIENT WILL CALL TO SCHEDULE FOLLOW-UP (REASON: LOW BACK PAIN) ELECTRONICALLY SIGNED BY SÁNCHEZ SANTACRUZ ON 12/10/2020 AT 09:59 AM EST DISCLAIMER : THIS IS A VISIT SUMMARY EXTRACTED FROM THE [employer] CHART. IT IS NOT A COPY OF THE [employer] PROGRESS NOTE. RENATO
== END ==
LOC: M PAIN 13:45
PROVIDERS: ATTEND Nurse Practitioner Family
DX: M47.897 Other spondylosis, lumbosacral region (principal); Z96.652 Presence of left artificial knee joint; G43.909 Migraine, unspecified, not intractable, without status migrainosus; R32 Unspecified urinary incontinence; K21.9 Gastro-esophageal reflux disease without esophagitis; F32.9 Major depressive disorder, single episode, unspecified; M54.2 Cervicalgia; Z86.73 Personal history of transient ischemic attack (TIA), and cerebral infarction without residual deficits; Z79.891 Long term (current) use of opiate analgesic; Z79.82 Long term (current) use of aspirin; Z79.899 Other long term (current) drug therapy

== ENCOUNTER → 2021-01-12 | Outpatient (CLI) | payer BC, OTHER ==
[~2021-01-12] MED LIST changes: +ASPI-569 PO; -ASPI81TAEC PO
--- NOTE | 2021-01-15 02:26 | ECWPNPC ---
PATIENT NAME: REMY RED : 1960 GENDER: FEMALE VISIT DATE: 01/12/2021 DISCHARGE DATE: 01/12/21 1543 VISIT LOCKED DATE TIME: PHYSICIAN: HANNAH SCHNEIDER RESOURCE: HANNAH SCHNEIDER REASON FOR APPOINTMENT 1. LOW BACK PAIN HISTORY OF PRESENT ILLNESS GENERAL: HERE FOR FOLLOW-UP OF PERSISTENT LOW BACK PAIN. CONTINUES TO HAVE SIGNIFICANT LOW BACK PAIN. PAIN INTERRUPTS SLEEP AT NIGHT FREQUENTLY. REVIEWED MRI OF LUMBOSACRAL SPINE. DISCUSSED TREATMENT PLAN. 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 REPORTING IMPROVEMENT IN KNEE PAIN POST KNEE REPLACEMENT A FEW MONTHS AGO.-. FALL RISK SCREENING: SCREENING : NO FALLS REPORTED IN THE LAST YEAR. PAIN SCREENING: PATIENT HAS A COMPLAINT OF ACUTE OR CHRONIC PAIN :YES LOCATION OF PAIN:LOW BACK INTENSITY OF PAIN (SCALE OF 1 TO 10):8 WHAT DOES YOUR PAIN FEEL LIKE:ACHING, BURNING, TENDER, THROBBING, SHOOTING DURATION:CONTINOUS, CONSTANT, ALL DAY PAIN IS INCREASED BY:ACTIVITIES PAIN IS DECREASED BY:USE OF PAIN MEDICATIONS, OTHERS HEAT AND ICE AND RELAXING NURSING NOTE: -. PAIN CENTER INTAKE QUESTIONS: DO YOU HAVE A HISTORY OF MRSA? :NO DO YOU TAKE A BLOOD THINNERS? :NO ASPIRIN 81MG DO YOU HAVE ANY BLEEDING DISORDERS? :NO ANY NEW NUMBNESS OR WEAKNESS IN YOUR LEGS OR ARMS? :NO ANY PACEMAKER,DEFIBRILLATOR, OR DORSAL COLUMN STIMULATOR? :NO DO YOU HAVE ANY RASHES OR OPEN SORES? :NO ARE YOU ALLERGIC TO IV DYE? :NO ARE YOU DIABETIC? :NO ANY NEW PROBLEMS WITH YOUR MEDICATIONS? :NO HAVE YOU RECEIVED A VACCINE IN THE PAST 30 DAYS? :YES IF SO WHAT VACCINE AND WHEN? 1ST COVID 12/31/2020 DO YOU PLAN TO RECEIVE A VACCINE IN THE NEXT 21 DAYS? :YES IF SO WHAT VACCINE AND WHEN? 2ND COVID 01/20/2021 DO YOU NEED ANY PRESCRIPTION? :NO DO YOU TAKE ANY IMMUNOSUPPRESSIVE MEDICATIONS? :NO IS THERE A CHANCE YOU COULD BE ? :NO ARE YOU BREAST FEEDING? :NO CURRENT MEDICATIONS TAKING CYMBALTA 30 MG CAPSULE DELAYED RELEASE PARTICLES 1 CAPSULE ORALLY ONCE A DAY TAKING BACLOFEN 10 MG TABLET 1 TABLET NEEDED ORALLY THREE TIMES A DAY TAKING SUMATRIPTAN SUCCINATE 100 MG TABLET 1 TABLET NEEDED ORALLY 1 TABLET AT ONSET OF MIGRAINE, MAY REPEAT ONCE IN 2 HOURS TAKING TOPAMAX 100 MG TABLET 1 TABLET ORALLY TWICE A DAY TAKING ACIPHEX 20 MG TABLET DELAYED RELEASE 1 TABLET ORALLY ONCE A DAY TAKING ZYRTEC 1 TABLET ORALLY 10MG DAILY TAKING SINGULAIR 10 MG TABLET 1 TABLET ORALLY ONCE A DAY TAKING NORTRIPTYLINE HCL 10 MG CAPSULE 1 CAPSULE ORALLY ONCE A DAY TAKING CELECOXIB 200 MG CAPSULE 1 CAPSULE WITH FOOD ORALLY ONCE A DAY TAKING VITAMIN B 12 500 MCG TABLET 1 TABLET ORALLY ONCE A DAY TAKING MULTIVITAMIN ADULTS 50+ - TABLET DIRECTED ORALLY TAKING VITAMIN A 2400 MCG (8000 UT) CAPSULE 1 CAPSULE WITH FOOD OR MILK ORALLY ONCE A DAY TAKING VITAMIN D 25 MCG (1000 UT) TABLET 1 TABLET ORALLY ONCE A DAY TAKING CALTRATE 600+D 600-1200 CAPSULE ORALLY DAILY TAKING BIOTIN 1000 MCG TABLET 1 TABLET ORALLY ONCE A DAY TAKING ASPIRIN 81 81 MG TABLET CHEWABLE 1 TABLET ORALLY ONCE A DAY TAKING LIPITOR 40 MG TABLET 1 TABLET ORALLY ONCE A DAY NOT-TAKING HYDROCODONE-ACETAMINOPHEN 5-325 MG TABLET 1 TABLET NEEDED ORALLY THREE TIMES DAILY DISCONTINUED GABAPENTIN 300 MG CAPSULE 1 CAPSULE ORALLY BEFORE BEDTIME DISCONTINUED SOMA 350 MG TABLET 1 TABLET NEEDED ORALLY BEFORE BEDTIME MEDICATION LIST REVIEWED AND RECONCILED WITH THE PATIENT PAST MEDICAL HISTORY MIGRAINE HEADACHES URINARY IMPLANT FOR URINARY INCONTINENCE GERD ARTHRITIS BACK PAIN/NECK PAIN DEPRESSION TIA 2019 NECK AND SHOULDER PAIN ALLERGIES BACTRIM DS: HIVES - ALLERGY ENVIRONMENTAL ALLERGIES SURGICAL HISTORY HYSTERECTOMY X 2 BARIATRIC SURGERY BLADDER IMPLANT THEN REMOVED REMOVAL OF BLADDER IMPLANT 08/2018 LEFT KNEE REPLACEMENT 11/10/2020 SOCIAL HISTORY GENERAL: TOBACCO USE ARE YOU A:NONSMOKER LATEX QUESTIONNAIRE LATEX ALLERGY : HAVE YOU EVER DEVELOPED ANY TYPE OF REACTION AFTER HANDLING LATEX PRODUCTS SUCH RUBBER GLOVES, CONDOMS, DIAPHRAGMS, BALLOONS, SOCKS, OR UNDERWEAR?NO LATEX ALLERGY : HAVE YOU EVER DEVELOPED ANY TYPE OF REACTION DURING OR AFTER DENTAL APPOINTMENT, VAGINAL/RECTAL EXAMINATION, SURGICAL PROCEDURE, OR ANY OTHER EXPOSURE?NO LATEX RISK : HAVE YOU EVER HAD ANY DIFFICULTY BREATHING OR HIVES AFTER EATING OR HANDLING ANY FRUITS, OR VEGETABLES; SUCH KIWI, BANANAS, STONE FRUITS, OR CHESTNUTSNO LATEX RISK : DO YOU HAVE A PREVIOUS PERSONAL HISTORY OF MORE THAN NINE SURGERIES, SPINA BIFIDA, OR REPEATED CATHERIZATIONS? NO LATEX RISK : ARE YOU FREQUENTLY EXPOSED TO LATEX PRODUCTS IN YOUR OCCUPATION?NO DATE ASKED : 01/12/2021 ALCOHOL USE: YES. ONCE IN A BLUE CERNA. LUNG CANCER SCREENING SMOKING STATUS:NON SMOKER RECREATIONAL DRUG USE DRUG USE?NO CAFFEINE CAFFEINE USE?YES HOW OFTEN AND HOW MUCH? 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 EXERCISE: 3 X WEEK PLANET FITNESS. MARITAL STATUS: . OTHERS AT HOME: SPOUSE. - PFS REFERRAL NEEDED?NO CLERGY REFERRAL NEEDED?NO PUBLIC HEALTH REFERRAL NEEDED?NO WAS THE PROVIDER NOTIFIED OF ANY PERTINENT INFO?YES HAS THE PATIENT BEEN EDUCATED REGARDING HIS/HER PLAN OF CARE?YES HAS THE PATIENT BEEN EDUCATED REGARDING PAIN, THE RISK FOR PAIN, THE IMPORTANCE OF EFFECTIVE PAIN MANAGEMENT, AND THE PAIN ASSESSMENT PROCESS?YES ADVANCE DIRECTIVE ADVANCE DIRECTIVE DISCUSSED WITH PATIENT:YES HCP AND POA EVELYN NESS [phone] MICHELLE HAS A LIVING WILL. INSTRUCTED PATIENT TO BRING IN COPY. REVIEWED 04/13/18 1015 LAS04/18/18 1146 REVIEWED WITH PT. JEFFERYIEWED WITH PATIENT 09/12/18 1034 JSREVIEWED WITH PATIENT 10/10/18 1630 LAS. HOSPITALIZATION/MAJOR DIAGNOSTIC PROCEDURE SURGERIES CDIFF 2011 TIA 07/2018 SEE ABOVE REVIEW OF SYSTEMS CONSTITUTIONAL: ANY RECENT FEVER NO . CHILLS NO . WEIGHT CHANGE OF UNKNOWN REASONS NO . GASTROENTEROLOGY: NEW UNEXPLAINABLE CHANGES IN BOWEL CONTROL NO . CONSTIPATION NO . GENITOURINARY: ANY NEW CHANGE IN BLADDER CONTROL? NO . NEUROLOGY: NEW ONSET DIZZINESS OR NEUROLOGICAL CHANGES NOT MENTIONED NO . NEW NUMBNESS OR PAIN PATTERNS NOT MENTIONED AND PERTINENT TO TODAY'S VISIT NO . CARDIOLOGY: NEW CHEST PRESSURE NO . PATIENT DENIES NO . RESPIRATORY: UNEXPLAINABLE COUGH NO . NEW SHORTNESS OF BREATH NO . VITAL SIGNS WT 170.8 LBS, HT 64 IN, BMI 29.31 INDEX, BP 112/73 MM HG, HR 77 /MIN, RR 18 /MIN, TEMP 98.4 F, OXYGEN SAT % 99%, SAFE IN ENV? (Y/N) YES, NA INITIALS LA 14:59T.LISA SUTTON. EXAMINATION GENERAL EXAMINATION: GENERAL AWAKE,ALERT ,PLEAASANT . PSYCH AFFECT NORMAL . LUNGS: LUNG SMITH ARE CLEAR TO AUSCULTATION BILATERALLY. GOOD MOVEMENT OF AIR . HEART: S1, S2 IN A REGULAR RATE AND RHYTHM. NO SIGNIFICANT MURMURS, RUBS OR GALLOPS NOTED . LUMBAR:PALPATION:TENDER OVER BILAT. L4/5-L5/S1 LUMBAR FACETS WITH FACET LOADING.. DIAGNOSTIC TESTS REVIEWED MRI L/S SPINE-2019. ASSESSMENTS OTHER SPONDYLOSIS, LUMBOSACRAL REGION - M47.897 (PRIMARY) TREATMENT OTHER SPONDYLOSIS, LUMBOSACRAL REGION START TRAMADOL HCL TABLET, 50 MG, 1 TABLET NEEDED, ORALLY, Q8H PRN FOR SEVERE PAIN EPISODES #45 TAB SHOULD LAST 30 DAYS, 30 DAYS, 45, REFILLS 1 MEDICATION: VALIUM TAB 5MG ORALLY (DIAZEPAM) (ORDERED FOR 01/21/2021) MEDICATION: OXYCODONE HCL TAB 5MG ORALLY (ORDERED FOR 01/21/2021) SALINE LOCK (ORDERED FOR 01/21/2021) NOTES: BILATERAL THERAPEUTIC LUMBAR FACET BLOCK L4-5,L5-S1 , [facility] NARCOTIC AGREEMENT WAS REVIEWED AND SIGNED TODAY BY THE PATIENT. SEE ATTACHED DOCUMENT FOR FULL DETAILS; SPECIFIC ISSUES WERE REVIEWED: 1) KEEP PAIN MEDS IN THEIR ORIGINAL BOTTLES AND ANY WEEKLY PLANNERS ARE TO BE BROUGHT TO THE PAIN CENTER AT EVERY VISIT. 2) THE PATIENT IS NOT TO INCREASE DOSING OR TIMING OF THEIR PAIN MEDICATION WITHOUT SPECIFIC DIRECTION OF THEIR PAIN CENTERPROVIDER (NOT ER OR OTHER PROVIDERS). 3) ALL PAIN MEDS ARE TO BE KEPT SECURED, IN A LOCKED BOX. 4) NO PAIN MEDS ARE TO BE SHARED WITH ANY OTHER PERSON FOR ANY REASON. 5) NO PAIN MEDS MAY BE TAKEN FROM ANY FRIENDS OR RELATIVES FOR ANY REASON 6) NO MEDS OR SUBSTANCES WHICH ARE NOT LEGAL ARE TO BE USED- NO MARIJUANA, NO COCAINE, AMPHETAMINES, HEROIN, OR OTHERS ARE EVER TO BE USED. 7)URINE TESTING IS DONE TO ACCOUNT FOR MEDS AND SUBSTANCES BEING TAKEN AND WILL BE DONE RANDOMLY. , RISKS OF NARCOTIC/OPIOD MEDICATIONS INCLUDES BUT IS NOT LIMITED TO RISK OF DEPENDANCE/DEVELOPMENT OF ADDICTION, MOOD DISTURBANCE AND DEPRESSION, OSTEOPOROSIS, HORMONAL AND LABIDAL CHANGES, RESPIRATORY DEPRESSION AND . PATIENT IS ADVISED NOT TO DRIVE OR DRINK ALCOHOL WHILE ON THESE MEDICATIONS , ISTOP REGISTRY REVIEWED AND DEMONSTRATES COMPLLIANCE PRINTED AND REVIEWED PRE PROCEDURE WITH PATIENT T.BAYRON SUTTON. PROCEDURE CODES FA211 ESTABILISHED PATIENT [facility] FACILITY CHARGE DISPOSITION & COMMUNICATION FOLLOW UP POST PROCEDURE (REASON: BILATERAL THERAPEUTIC LUMBAR FACET BLOCK L4-5,L5-S1) ELECTRONICALLY SIGNED BY SÁNCHEZ SANTACRUZ ON 01/14/2021 AT 02:01 PM EDT DISCLAIMER : THIS IS A VISIT SUMMARY EXTRACTED FROM THE [employer] CHART. IT IS NOT A COPY OF THE [employer] PROGRESS NOTE. RENATO
== END ==
LOC: M PAIN 14:45
PROVIDERS: ATTEND Nurse Practitioner Family
DX: M47.897 Other spondylosis, lumbosacral region (principal); G43.909 Migraine, unspecified, not intractable, without status migrainosus; K21.9 Gastro-esophageal reflux disease without esophagitis; F32.9 Major depressive disorder, single episode, unspecified; J30.89 Other allergic rhinitis; Z86.73 Personal history of transient ischemic attack (TIA), and cerebral infarction without residual deficits; Z79.82 Long term (current) use of aspirin; Z79.899 Other long term (current) drug therapy; Z88.2 Allergy status to sulfonamides

== ENCOUNTER → 2021-03-20 | Outpatient (CLI) | payer BC, OTHER | LOC: M LABSMTC 11:43 | PROVIDERS: ATTEND Anesthesiology | DX: Z11.52 Encounter for screening for COVID-19 (principal) ==

== ENCOUNTER → 2021-03-25 | Outpatient (CLI) | payer BC, OTHER ==
[~2021-03-25] MED LIST changes: +BUPIVACAINE HCL 0.25% 30ML VIAL As Ordered ONE; +ISOVUE-M 300 61% 15ML VIAL As Ordered ONE; +LIDOCAINE 1% SDV 30ML VIAL As Ordered ONE; +TRIAMCINOLONE ACETONIDE SUSP 40 MG/ML VIAL (J3301) As Ordered ONE; +diazePAM 5MG TABLET As Ordered ONE; +oxyCODONE 5MG TAB As Ordered ONE
--- NOTE | 2021-03-26 01:52 | ECWPNPC ---
PATIENT NAME: REMY RED : 1960 GENDER: FEMALE VISIT DATE: 03/25/2021 DISCHARGE DATE: 03/25/211734 VISIT LOCKED DATE TIME: PHYSICIAN: AVINASH SANTIAGO MD RESOURCE: AVINASH SANTIAGO MD REASON FOR APPOINTMENT 1. BILATERAL THERAPEUTIC LUMBAR FACET BLOCK L4-5,L5-S1 HISTORY OF PRESENT ILLNESS GENERAL: -. FALL RISK SCREENING: SCREENING : NO FALLS REPORTED IN THE LAST YEAR. PAIN SCREENING: PATIENT HAS A COMPLAINT OF ACUTE OR CHRONIC PAIN :YES LOCATION OF PAIN:LOW BACK INTENSITY OF PAIN (SCALE OF 1 TO 10):9 WHAT DOES YOUR PAIN FEEL LIKE:ACHING, BURNING, SHARP, STABBING, THROBBING, SHOOTING DURATION:CONTINOUS, CONSTANT PAIN IS INCREASED BY:ACTIVITIES PAIN IS DECREASED BY: POSITION PLAN/GOALS/TREATMENT/INTERVENTION/FOLLOW UP:SEE PLAN NURSING NOTE: -. PAIN CENTER INTAKE QUESTIONS: DO YOU HAVE A HISTORY OF MRSA? :YES S/P BARIATRIC SURGERY MRSA TO [facility] 6 YEARS AGO DO YOU TAKE A BLOOD THINNERS? :NO DO YOU HAVE ANY BLEEDING DISORDERS? :NO ANY NEW NUMBNESS OR WEAKNESS IN YOUR LEGS OR ARMS? :YES LEFT KNEE NUMBNESS ANY PACEMAKER,DEFIBRILLATOR, OR DORSAL COLUMN STIMULATOR? :NO DO YOU HAVE ANY RASHES OR OPEN SORES? :NO ARE YOU ALLERGIC TO IV DYE? :NO ARE YOU DIABETIC? :NO ANY NEW PROBLEMS WITH YOUR MEDICATIONS? :NO HAVE YOU RECEIVED A VACCINE IN THE PAST 30 DAYS? :NO DO YOU PLAN TO RECEIVE A VACCINE IN THE NEXT 21 DAYS? :NO DO YOU TAKE ANY IMMUNOSUPPRESSIVE MEDICATIONS? :NO ANY HISTORY OF SEIZURES? :NO ANY HISTORY OF CARDIAC ISSUES OR EVENTS? :NO DO YOU HAVE ANY KIDNEY OR LIVER DISEASE? :NO DO YOU HAVE SLEEP APNEA? :NO ANY RECENT HEAD INJURY? :NO DO YOU HAVE ANY NEW INFECTIONS? :NO IS THERE A CHANCE YOU COULD BE ? :NO ARE YOU BREAST FEEDING? :NO WHEN DID YOU LAST EAT? : 03/24/21 8PM WHEN DID YOU LAST DRINK? : 03/25/21 2PM WHAT DID YOU LAST DRINK? : WATERED DOWN APPLE FERNANDO JUICE NAME OF PERSON DRIVING YOU HOME? : DO YOU HAVE ANY OTHER QUESTIONS OR CONCERNS? : NO CURRENT MEDICATIONS TAKING CYMBALTA 30 MG CAPSULE DELAYED RELEASE PARTICLES 1 CAPSULE ORALLY ONCE A DAY TAKING BACLOFEN 10 MG TABLET 1 TABLET NEEDED ORALLY THREE TIMES A DAY, NOTES: 6/2 PM TAKING SUMATRIPTAN SUCCINATE 100 MG TABLET 1 TABLET NEEDED ORALLY 1 TABLET AT ONSET OF MIGRAINE, MAY REPEAT ONCE IN 2 HOURS, NOTES: NOT RECENTLY TAKING TOPAMAX 100 MG TABLET 1 TABLET ORALLY TWICE A DAY, NOTES: 6/2 PM TAKING ACIPHEX 20 MG TABLET DELAYED RELEASE 1 TABLET ORALLY ONCE A DAY TAKING ZYRTEC 1 TABLET ORALLY 10MG DAILY TAKING SINGULAIR 10 MG TABLET 1 TABLET ORALLY ONCE A DAY TAKING NORTRIPTYLINE HCL 10 MG CAPSULE 1 CAPSULE ORALLY ONCE A DAY, NOTES: 6/2 PM TAKING CELECOXIB 200 MG CAPSULE 1 CAPSULE WITH FOOD ORALLY ONCE A DAY, NOTES: 6/2 PM TAKING VITAMIN B 12 500 MCG TABLET 1 TABLET ORALLY ONCE A DAY TAKING MULTIVITAMIN ADULTS 50+ - TABLET DIRECTED ORALLY TAKING VITAMIN A 2400 MCG (8000 UT) CAPSULE 1 CAPSULE WITH FOOD OR MILK ORALLY ONCE A DAY TAKING VITAMIN D 25 MCG (1000 UT) TABLET 1 TABLET ORALLY ONCE A DAY TAKING CALTRATE 600+D 600-1200 CAPSULE ORALLY DAILY TAKING BIOTIN 1000 MCG TABLET 1 TABLET ORALLY ONCE A DAY TAKING ASPIRIN 81 81 MG TABLET CHEWABLE 1 TABLET ORALLY ONCE A DAY TAKING LIPITOR 40 MG TABLET 1 TABLET ORALLY ONCE A DAY TAKING TRAMADOL HCL 50 MG TABLET 1 TABLET NEEDED ORALLY Q8H PRN FOR SEVERE PAIN EPISODES #45 TAB SHOULD LAST 30 DAYS, NOTES: NOT RECENTLY NOT-TAKING HYDROCODONE-ACETAMINOPHEN 5-325 MG TABLET 1 TABLET NEEDED ORALLY THREE TIMES DAILY MEDICATION LIST REVIEWED AND RECONCILED WITH THE PATIENT PAST MEDICAL HISTORY MIGRAINE HEADACHES URINARY IMPLANT FOR URINARY INCONTINENCE GERD ARTHRITIS BACK PAIN/NECK PAIN DEPRESSION TIA 2019 NECK AND SHOULDER PAIN ALLERGIES BACTRIM DS: HIVES - ALLERGY ENVIRONMENTAL ALLERGIES: SNEEZING/NASAL CONGESTION - ALLERGY SURGICAL HISTORY HYSTERECTOMY X 2 BARIATRIC SURGERY BLADDER IMPLANT THEN REMOVED REMOVAL OF BLADDER IMPLANT 08/2018 LEFT KNEE REPLACEMENT 11/10/2020 SOCIAL HISTORY GENERAL: TOBACCO USE ARE YOU A:NONSMOKER LATEX QUESTIONNAIRE LATEX ALLERGY : HAVE YOU EVER DEVELOPED ANY TYPE OF REACTION AFTER HANDLING LATEX PRODUCTS SUCH RUBBER GLOVES, CONDOMS, DIAPHRAGMS, BALLOONS, SOCKS, OR UNDERWEAR?NO LATEX ALLERGY : HAVE YOU EVER DEVELOPED ANY TYPE OF REACTION DURING OR AFTER DENTAL APPOINTMENT, VAGINAL/RECTAL EXAMINATION, SURGICAL PROCEDURE, OR ANY OTHER EXPOSURE?NO LATEX RISK : HAVE YOU EVER HAD ANY DIFFICULTY BREATHING OR HIVES AFTER EATING OR HANDLING ANY FRUITS, OR VEGETABLES; SUCH KIWI, BANANAS, STONE FRUITS, OR CHESTNUTSNO LATEX RISK : DO YOU HAVE A PREVIOUS PERSONAL HISTORY OF MORE THAN NINE SURGERIES, SPINA BIFIDA, OR REPEATED CATHERIZATIONS? NO LATEX RISK : ARE YOU FREQUENTLY EXPOSED TO LATEX PRODUCTS IN YOUR OCCUPATION?NO DATE ASKED : 03/25/2021 ALCOHOL USE: YES. ONCE IN A BLUE CERNA. LUNG CANCER SCREENING SMOKING STATUS:NON SMOKER RECREATIONAL DRUG USE DRUG USE?NO CAFFEINE CAFFEINE USE?YES HOW OFTEN AND HOW MUCH? 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 EXERCISE: 3 X WEEK PLANET FITNESS. MARITAL STATUS: . OTHERS AT HOME: SPOUSE. - PFS REFERRAL NEEDED?NO CLERGY REFERRAL NEEDED?NO PUBLIC HEALTH REFERRAL NEEDED?NO WAS THE PROVIDER NOTIFIED OF ANY PERTINENT INFO?YES HAS THE PATIENT BEEN EDUCATED REGARDING HIS/HER PLAN OF CARE?YES HAS THE PATIENT BEEN EDUCATED REGARDING PAIN, THE RISK FOR PAIN, THE IMPORTANCE OF EFFECTIVE PAIN MANAGEMENT, AND THE PAIN ASSESSMENT PROCESS?YES ADVANCE DIRECTIVE ADVANCE DIRECTIVE DISCUSSED WITH PATIENT:YES HCP AND POA EVELYN NESS [phone] [facility] HAS A LIVING WILL. INSTRUCTED PATIENT TO BRING IN COPY. REVIEWED 04/13/18 1015 LAS04/18/18 1146 REVIEWED WITH PT. ADREVIEWED WITH PATIENT 09/12/18 1034 JSREVIEWED WITH PATIENT 10/10/18 1630 LAS. HOSPITALIZATION/MAJOR DIAGNOSTIC PROCEDURE SURGERIES CDIFF 2011 TIA 07/2018 SEE ABOVE VITAL SIGNS WT 173.4 LBS, HT 64 IN, BMI 29.76 INDEX, BP 127/73 MM HG, HR 70 /MIN, RR 18 /MIN, TEMP 98.3 F, OXYGEN SAT % 98%, SAFE IN ENV? (Y/N) Y, NA INITIALS AW 1417, REVIEWED BY: EM. EXAMINATION GENERAL: THE PATIENT IS ALERT, ORIENTED TIMES THREE AND COOPERATIVE. LUNGS ARE CLEAR TO AUSCULTATION. HEART SHOWS REGULAR RHYTHM, NO MURMURS AND NO GALLOPS. ASSESSMENTS OTHER SPONDYLOSIS, LUMBOSACRAL REGION - M47.897 (PRIMARY) TREATMENT OTHER SPONDYLOSIS, LUMBOSACRAL REGION [facility] FACET BLOCK (PAIN)[id number] MEDICATION: VALIUM TAB 10MG ORALLY (DIAZEPAM)EUGENE CUELLO 03/25/2021 4:22:26 PM > VERIFIED. CARLINE YANEZ 03/25/2021 4:45:02 PM > ADMINISTERED AT 1625. MEDICATION: OXYCODONE HCL TAB 10MG ORALLYEUGENE CUELLO 03/25/2021 4:22:42 PM > VERIFIED. CARLINE YANEZ 03/25/2021 4:45:32 PM > ADMINISTERED AT 1625. SALINE LOCK PROCEDURES PAIN NURSING RECORD PROCEDURE IN ROOM 1638, PHYSICIAN IN ROOM 1648, START 1654, FINISH 1700, PHYSICIAN OUT OF ROOM 1701, OUT OF ROOM 1706, ECG NORMAL SINUS, PATIENT SHIELDED YES, SAFETY STRAP YES, PREP CHLORHEXIDINE AND DURAPREP Jordan CUELLO RN, DRESSING TEGADERM DR. SANTIAGO LOC: CARLINE YANEZ 03/25/2021 4:40:43 PM > 1. ALERT, ORIENTED LOC REMAINED AT BASELINE THROUGHOUT THE PROCEDURE RESP: CARLINE YANEZ 03/25/2021 4:40:43 PM > 1. REGULAR, NO DYSPNEA COLOR: CARLINE YANEZ 03/25/2021 4:40:43 PM > 1. PINK SKIN: CARLINE YANEZ 03/25/2021 4:40:43 PM > 1. WARM, DRY POSITION: CARLINE YANEZ 03/25/2021 4:40:43 PM > 1. PRONE VITALS: CARLINE YANEZ 03/25/2021 4:41:53 PM > 135/63, 68, 94% RA, 18. CARLINE YANEZ 03/25/2021 4:57:35 PM > 141/81, 68, 96% RA, 18. CARLINE YANEZ 03/25/2021 5:12:25 PM > POST PROCEDURE 173/95, 70, 99% RA, 18. COMPLETION OF PROCEDURE APPOINTMENT: DRESSING SITE DRY AND INTACT, IV N/A, GAIT STEADY, TEACHING COMPLETED, PATIENT ACKNOWLEDGES UNDERSTANDING YES PATIENT PROVIDED POST PROCEDURE PAIN DIARY, COVID SYMPTOM MONITORING INSTRUCTIONS AND POST PROCEDURE INSTRUCTIONS, HANDOUTS REVIEWED WITH PATIENT; PATIENT VERBALIZES UNDERSTANDING, NO QUESTIONS OR CONCERNS AT THIS TIME., PROCEDURE APPOINTMENT COMPLETED AT BY: Kip YANEZ RN. PN LUMBAR FACET BLOCK THERAPEUTIC PRE PROCEDURE DIAGNOSIS LUMBAR SPONDYLOSIS, LUMBOSACRAL SPONDYLOSIS POST PROCEDURE DIAGNOSIS LUMBAR SPONDYLOSIS, LUMBOSACRAL SPONDYLOSIS PROCEDURE BILATERAL L4-L5 AND BILATERAL L5-S1 LUMBAR FACET THERAPEUTIC BLOCK SURGEON DR. AVINASH SANTIAGO LOGISTICS ADMINISTRATOR NONE ANESTHESIA LOCAL PRE PROCEDURE NOTE THE PATIENT HAS A HISTORY OF CHRONIC LOW BACK PAIN. I EVALUATED THE PATIENT AND REVIEWED THE CHART. I WENT OVER THE RISKS, ALTERNATIVES, AND BENEFITS ASSOCIATED WITH THIS PROCEDURE. THE PATIENT WOULD LIKE TO PROCEED AND GIVES CONSENT TO PERFORM THE PROCEDURE. THE PATIENT DENIES UNEXPLAINABLE WEIGHT LOSS, FEVER, CHILLS, OR NEW CHANGES IN URINARY OR BOWEL CONTROL. THE PATIENT IS COVID-19 NEGATIVE DESCRIPTION OF PROCEDURE THE PATIENT WAS BROUGHT TO THE PROCEDURE ROOM AND PLACED IN THE PRONE POSITION. THE LUMBOSACRAL AREA WAS CLEANED WITH CHLORAPREP SOLUTION AND DRAPED ASEPTICALLY. THE PROCEDURE WAS DONE UNDER STERILE CONDITIONS. A TIMEOUT WAS PERFORMED WHERE THE CONSENTED SITE WAS VERIFIED WITH EVERYONE IN THE ROOM. UNDER FLUOROSCOPIC GUIDANCE, THE TARGET POINT WAS SELECTED AT THE RIGHT AND LEFT L4-L5 AND RIGHT AND LEFT L5-S1 FACET JOINTS. TARGET POINT WAS SELECTED AFTER LATERAL ROTATION AND TILT OF THE MAGNIFIER OF THE C-ARM. I CONFIRMED AGAIN THE SITE OF TARGET. LIDOCAINE 0.5% WAS USED TO NUMB THE SKIN AND THE SUBCUTANEOUS TISSUE BELOW IT. SPINAL NEEDLES, 22-GAUGE, WERE ADVANCED UNDER FLUOROSCOPIC GUIDANCE AND FOLLOWING PATIENT FEEDBACK UNTIL THE TARGETS WERE TOUCHED. THE POSITION OF THE NEEDLES WAS VERIFIED WITH AP AND LATERAL VIEWS. AFTER PROPER POSITION OF THE NEEDLES WAS ACHIEVED, ISOVUE-M DYE 30%, 0.1 ML, WAS INJECTED SHOWING ADEQUATE SPREAD OF THE DYE. KENALOG 10 MG WAS INJECTED AT EACH SITE. THEN, A SOLUTION OF 1.0 ML OF BUPIVACAINE 0.125% OF WAS USED TO FLUSH EACH SITE. THE MEDICATION WAS VERIFIED WITH THE NURSE. THERE WAS NO EVIDENCE OF BLOOD, PARESTHESIA OR CEREBROSPINAL FLUID DURING THE PROCEDURE. THE PATIENT WAS SENT TO THE RECOVERY ROOM. THE PATIENT WAS MOVING THE EXTREMITIES AND DOING WELL. THERE WERE NO COMPLICATIONS DURING THE PROCEDURE. ESTIMATED BLOOD LOSS WAS LESS THAN 5 ML. FLUOROSCOPY TIME WAS [] SECONDS POST PROCEDURE NOTE DEPENDING ON THE RESULTS, CONSIDER A LUMBAR EPIDURAL. THE PATIENT WILL BE SEEN IN A FOLLOW UP IN THE NEXT FEW WEEKS. I AM LOOKING FOR LONG LASTING RELIEF FOR THE PATIENT WITH THIS INTERVENTION. INSTRUCTIONS WERE GIVEN, QUESTIONS WERE ANSWERED, AND THE PATIENT EXPRESSED UNDERSTANDING AND AGREES WITH THE PLAN. I, TATA BARRAGAN, DOCUMENTED THE ABOVE INFORMATION ACTING A SCRIBE FOR DR. SANTIAGO. I HAVE REVIEWED THE ABOVE DOCUMENT, WRITTEN BY TATA BARRAGAN, BUS INFO CONSULTANT, AND I VERIFY THAT IT IS ACCURATE PROCEDURE CODES 15171 INJ PARAVERT F JNT L/S 1 LEV, MODIFIERS: 50 [id number] INJ PARAVERT F JNT L/S 2 LEV, MODIFIERS: 50 DISPOSITION & COMMUNICATION FOLLOW UP FOLLOW UP WITH ICE CREAM MAKER (REASON: POST BILATERAL THERAPEUTIC LUMBAR MIRIAM BLOCK L4-L5, L5-S1) ELECTRONICALLY SIGNED BY AVINASH SANTIAGO MD, ON 03/25/2021 AT 05:52 PM EDT DISCLAIMER : THIS IS A VISIT SUMMARY EXTRACTED FROM THE [employer] CHART. IT IS NOT A COPY OF THE [employer] PROGRESS NOTE. MTDD
--- NOTE | 2021-03-26 09:47 | REP ---
INDICATION: LFBT L4-L5, L5-S1. COMPARISON: None. TECHNIQUE: Six C-arm views lower lumbar spine performed. FINDINGS: [place] are seen along the bilateral lower lumbar facet joints. A small amount of contrast is injected. IMPRESSION: 21 seconds fluoroscopy time is utilized. <Electronically signed by Michael Leos > 03/26/21 0992
== END ==
LOC: M PAIN 14:00
PROVIDERS: ATTEND Anesthesiology
DX: M47.897 Other spondylosis, lumbosacral region (principal); G43.909 Migraine, unspecified, not intractable, without status migrainosus; K21.9 Gastro-esophageal reflux disease without esophagitis; F32.9 Major depressive disorder, single episode, unspecified; M54.2 Cervicalgia; J30.9 Allergic rhinitis, unspecified; Z79.82 Long term (current) use of aspirin; Z79.891 Long term (current) use of opiate analgesic; Z79.899 Other long term (current) drug therapy; Z88.2 Allergy status to sulfonamides
CPT/HCPCS: 64493; 64494; J3301; Q9967

== ENCOUNTER → 2021-04-13 | Outpatient (CLI) | payer BC, OTHER ==
[~2021-04-13] MED LIST changes: -BUPIVACAINE HCL 0.25% 30ML VIAL As Ordered ONE; -ISOVUE-M 300 61% 15ML VIAL As Ordered ONE; -LIDOCAINE 1% SDV 30ML VIAL As Ordered ONE; -TRIAMCINOLONE ACETONIDE SUSP 40 MG/ML VIAL (J3301) As Ordered ONE; -diazePAM 5MG TABLET As Ordered ONE; -oxyCODONE 5MG TAB As Ordered ONE
--- NOTE | 2021-04-13 14:04 | REP ---
INDICATION: CRUSHING INJURY LEFT MIDDLE FINGER. COMPARISON: None. TECHNIQUE: Four views of digits 2 through 5. Attention 3rd digit FINDINGS: Overlying bandage material obscures the bony detail of the 3rd digit. Additionally, the patient could not remove metallic jewelry obscuring portions of the proximal phalanges of the 3rd and 4th digits. There is no evidence of an acute fracture or destructive osseous lesion. IMPRESSION: No acute abnormality. Limitations as described above. <Electronically signed by Guillermo Zimmer > 04/13/21 1400
== END ==
LOC: M WUC 13:42
PROVIDERS: ATTEND Physician Assistant
DX: S61.303A Unspecified open wound of left middle finger with damage to nail, initial encounter (principal); S67.193A Crushing injury of left middle finger, initial encounter; W18.30XA Fall on same level, unspecified, initial encounter; Y92.009 Unspecified place in unspecified non-institutional (private) residence as the place of occurrence of the external cause

== ENCOUNTER → 2021-04-28 | Outpatient (CLI) | payer BC, OTHER ==
--- NOTE | 2021-04-30 00:18 | ECWPNPC ---
PATIENT NAME: REMY RED : 1960 GENDER: FEMALE VISIT DATE: 04/28/2021 DISCHARGE DATE: 04/28/21 151 VISIT LOCKED DATE TIME: PHYSICIAN: HANNAH SCHNEIDER RESOURCE: HANNAH SCHNEIDER REASON FOR APPOINTMENT 1. POST BILATERAL THERAPEUTIC LUMBAR FACET BLOCK L4-5,L5-S1/REVIEW XR HISTORY OF PRESENT ILLNESS GENERAL: HERE FOR POST PROCEDURE FOLLOW-UP. HAD BILATERAL THERAPEUTIC LUMBAR FACET BLOCK L4-5, L5-S1 ON 03/25/2021. REPORTING MARKED IMPROVEMENT IN PAIN AT GREATER THAN 80% THAT CONTINUES TODAY. 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 DISCUSSED TREATMENT PLAN. REVIEWED X-RAY OF THE LUMBAR SPINE THAT WAS DONE A FEW WEEKS AGO THAT WAS ORDERED BY DR. SANTIAGO. THIS IS SHOWING NO CHANGES FROM PREVIOUS IMAGING STUDIES. -. FALL RISK SCREENING: SCREENING : NO FALLS REPORTED IN THE LAST YEAR. PAIN SCREENING: PATIENT HAS A COMPLAINT OF ACUTE OR CHRONIC PAIN :YES LOCATION OF PAIN:LOW BACK INTENSITY OF PAIN (SCALE OF 1 TO 10):4 WHAT DOES YOUR PAIN FEEL LIKE:OTHER PRESSURE DURATION:CONTINOUS, CONSTANT, ALL DAY PAIN IS INCREASED BY:ACTIVITIES PAIN IS DECREASED BY:OTHERS HEAT PADS NURSING NOTE: -. PAIN CENTER INTAKE QUESTIONS: DO YOU HAVE A HISTORY OF MRSA? :NO DO YOU TAKE A BLOOD THINNERS? :NO ASPIRIN 81MG DO YOU HAVE ANY BLEEDING DISORDERS? :NO ANY NEW NUMBNESS OR WEAKNESS IN YOUR LEGS OR ARMS? :NO ANY PACEMAKER,DEFIBRILLATOR, OR DORSAL COLUMN STIMULATOR? :NO DO YOU HAVE ANY RASHES OR OPEN SORES? :NO ARE YOU ALLERGIC TO IV DYE? :NO ARE YOU DIABETIC? :NO ANY NEW PROBLEMS WITH YOUR MEDICATIONS? :NO HAVE YOU RECEIVED A VACCINE IN THE PAST 30 DAYS? :YES IF SO WHAT VACCINE AND WHEN? 1ST COVID 12/31/2020 DO YOU PLAN TO RECEIVE A VACCINE IN THE NEXT 21 DAYS? :YES IF SO WHAT VACCINE AND WHEN? 2ND COVID 01/20/2021 DO YOU NEED ANY PRESCRIPTION? :NO DO YOU TAKE ANY IMMUNOSUPPRESSIVE MEDICATIONS? :NO IS THERE A CHANCE YOU COULD BE ? :NO ARE YOU BREAST FEEDING? :NO CURRENT MEDICATIONS TAKING CYMBALTA 30 MG CAPSULE DELAYED RELEASE PARTICLES 1 CAPSULE ORALLY ONCE A DAY TAKING BACLOFEN 10 MG TABLET 1 TABLET NEEDED ORALLY THREE TIMES A DAY TAKING SUMATRIPTAN SUCCINATE 100 MG TABLET 1 TABLET NEEDED ORALLY 1 TABLET AT ONSET OF MIGRAINE, MAY REPEAT ONCE IN 2 HOURS TAKING TOPAMAX 100 MG TABLET 1 TABLET ORALLY TWICE A DAY TAKING ACIPHEX 20 MG TABLET DELAYED RELEASE 1 TABLET ORALLY ONCE A DAY TAKING ZYRTEC 1 TABLET ORALLY 10MG DAILY TAKING SINGULAIR 10 MG TABLET 1 TABLET ORALLY ONCE A DAY TAKING NORTRIPTYLINE HCL 10 MG CAPSULE 1 CAPSULE ORALLY ONCE A DAY TAKING CELECOXIB 200 MG CAPSULE 1 CAPSULE WITH FOOD ORALLY ONCE A DAY TAKING VITAMIN B 12 500 MCG TABLET 1 TABLET ORALLY ONCE A DAY TAKING MULTIVITAMIN ADULTS 50+ - TABLET DIRECTED ORALLY TAKING VITAMIN A 2400 MCG (8000 UT) CAPSULE 1 CAPSULE WITH FOOD OR MILK ORALLY ONCE A DAY TAKING VITAMIN D 25 MCG (1000 UT) TABLET 1 TABLET ORALLY ONCE A DAY TAKING CALTRATE 600+D 600-1200 CAPSULE ORALLY DAILY TAKING BIOTIN 1000 MCG TABLET 1 TABLET ORALLY ONCE A DAY TAKING ASPIRIN 81 81 MG TABLET CHEWABLE 1 TABLET ORALLY ONCE A DAY TAKING LIPITOR 40 MG TABLET 1 TABLET ORALLY ONCE A DAY TAKING TRAMADOL HCL 50 MG TABLET 1 TABLET NEEDED ORALLY Q8H PRN FOR SEVERE PAIN EPISODES #45 TAB SHOULD LAST 30 DAYS TAKING AJOVY 225 MG/1.5ML SOLUTION PREFILLED SYRINGE 1.5 ML SUBCUTANEOUS 1X MONTH, NOTES: NOT SURE OF DOSE NOT-TAKING HYDROCODONE-ACETAMINOPHEN 5-325 MG TABLET 1 TABLET NEEDED ORALLY THREE TIMES DAILY MEDICATION LIST REVIEWED AND RECONCILED WITH THE PATIENT PAST MEDICAL HISTORY MIGRAINE HEADACHES URINARY IMPLANT FOR URINARY INCONTINENCE GERD ARTHRITIS BACK PAIN/NECK PAIN DEPRESSION TIA 2019 NECK AND SHOULDER PAIN ALLERGIES BACTRIM DS: HIVES - ALLERGY ENVIRONMENTAL ALLERGIES: SNEEZING/NASAL CONGESTION - ALLERGY SURGICAL HISTORY HYSTERECTOMY X 2 BARIATRIC SURGERY BLADDER IMPLANT THEN REMOVED REMOVAL OF BLADDER IMPLANT 08/2018 LEFT KNEE REPLACEMENT 11/10/2020 FRACTURE MIDDLE FINGER LEFT HAND SOCIAL HISTORY GENERAL: TOBACCO USE ARE YOU A:NONSMOKER LATEX QUESTIONNAIRE LATEX ALLERGY : HAVE YOU EVER DEVELOPED ANY TYPE OF REACTION AFTER HANDLING LATEX PRODUCTS SUCH RUBBER GLOVES, CONDOMS, DIAPHRAGMS, BALLOONS, SOCKS, OR UNDERWEAR?NO LATEX ALLERGY : HAVE YOU EVER DEVELOPED ANY TYPE OF REACTION DURING OR AFTER DENTAL APPOINTMENT, VAGINAL/RECTAL EXAMINATION, SURGICAL PROCEDURE, OR ANY OTHER EXPOSURE?NO LATEX RISK : HAVE YOU EVER HAD ANY DIFFICULTY BREATHING OR HIVES AFTER EATING OR HANDLING ANY FRUITS, OR VEGETABLES; SUCH KIWI, BANANAS, STONE FRUITS, OR CHESTNUTSNO LATEX RISK : DO YOU HAVE A PREVIOUS PERSONAL HISTORY OF MORE THAN NINE SURGERIES, SPINA BIFIDA, OR REPEATED CATHERIZATIONS? NO LATEX RISK : ARE YOU FREQUENTLY EXPOSED TO LATEX PRODUCTS IN YOUR OCCUPATION?NO DATE ASKED : 04/28/2021 ALCOHOL USE: YES. ONCE IN A BLUE CERNA. LUNG CANCER SCREENING SMOKING STATUS:NON SMOKER RECREATIONAL DRUG USE DRUG USE?NO CAFFEINE CAFFEINE USE?YES HOW OFTEN AND HOW MUCH? 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 EXERCISE: 3 X WEEK PLANET FITNESS. MARITAL STATUS: . OTHERS AT HOME: SPOUSE. - PFS REFERRAL NEEDED?NO CLERGY REFERRAL NEEDED?NO PUBLIC HEALTH REFERRAL NEEDED?NO WAS THE PROVIDER NOTIFIED OF ANY PERTINENT INFO?YES HAS THE PATIENT BEEN EDUCATED REGARDING HIS/HER PLAN OF CARE?YES HAS THE PATIENT BEEN EDUCATED REGARDING PAIN, THE RISK FOR PAIN, THE IMPORTANCE OF EFFECTIVE PAIN MANAGEMENT, AND THE PAIN ASSESSMENT PROCESS?YES ADVANCE DIRECTIVE ADVANCE DIRECTIVE DISCUSSED WITH PATIENT:YES HCP AND POA EVELYN NESS [phone] [facility] HAS A LIVING WILL. INSTRUCTED PATIENT TO BRING IN COPY. REVIEWED 04/13/18 1015 LAS04/18/18 1146 REVIEWED WITH PT. ROMAD WITH PATIENT 09/12/18 1034 JSREVIEWED WITH PATIENT 10/10/18 1630 LAS. HOSPITALIZATION/MAJOR DIAGNOSTIC PROCEDURE SURGERIES CDIFF 07/2018 SEE ABOVE REVIEW OF SYSTEMS CONSTITUTIONAL: ANY RECENT FEVER NO . CHILLS NO . WEIGHT CHANGE OF UNKNOWN REASONS NO . GASTROENTEROLOGY: NEW UNEXPLAINABLE CHANGES IN BOWEL CONTROL NO . CONSTIPATION NO . GENITOURINARY: ANY NEW CHANGE IN BLADDER CONTROL? NO . NEUROLOGY: NEW ONSET DIZZINESS OR NEUROLOGICAL CHANGES NOT MENTIONED NO . NEW NUMBNESS OR PAIN PATTERNS NOT MENTIONED AND PERTINENT TO TODAY'S VISIT NO . CARDIOLOGY: NEW CHEST PRESSURE NO . PATIENT DENIES NO . RESPIRATORY: UNEXPLAINABLE COUGH NO . NEW SHORTNESS OF BREATH NO . VITAL SIGNS WT 167.4 LBS, HT 64 IN, BMI 28.73 INDEX, BP 136/72 MM HG, HR 69 /MIN, RR 18 /MIN, TEMP 98.1 F, OXYGEN SAT % 98%, SAFE IN ENV? (Y/N) YES, NA INITIALS AW 1356T.LISA MA. EXAMINATION GENERAL EXAMINATION: GENERALAWAKE,ALERT ,PLEASANT . PSYCHAFFECT NORMAL . LUNGS:LUNG SMITH ARE CLEAR TO AUSCULTATION BILATERALLY. GOOD MOVEMENT OF AIR . HEART:S1, S2 IN A REGULAR RATE AND RHYTHM. NO SIGNIFICANT MURMURS, RUBS OR GALLOPS NOTED . ASSESSMENTS OTHER SPONDYLOSIS, LUMBOSACRAL REGION - M47.897 (PRIMARY) TREATMENT OTHER SPONDYLOSIS, LUMBOSACRAL REGION NOTES: CONTINUE HOME EXERCISE AND STRETCHING. FOLLOW-UP SCHEDULED IN 2 MONTHS. PATIENT MAY CALL SOONER IF HER CONDITION CHANGES FOR REEVALUATION. PLAN IS TO MOVE FORWARD WITH DIAGNOSTIC LUMBAR FACET BLOCKS AND RADIOFREQUENCY WHEN HER PAIN RETURNS AT A HIGHER LEVEL. PROCEDURE CODES FA211 ESTABILISHED PATIENT [facility] CHARGE DISPOSITION & COMMUNICATION FOLLOW UP 2 MONTHS (REASON: LOW BACK PAIN/CONSIDER DIAGNOSTIC LUMBAR FACET BLOCK/RADIOFREQUENCY) ELECTRONICALLY SIGNED BY SÁNCHEZ SANTACRUZ ON 04/29/2021 AT 01:05 PM EDT DISCLAIMER : THIS IS A VISIT SUMMARY EXTRACTED FROM THE [employer] CHART. IT IS NOT A COPY OF THE [employer] PROGRESS NOTE. RENATO
== END ==
LOC: M PAIN 13:45
PROVIDERS: ATTEND Nurse Practitioner Family
DX: M47.897 Other spondylosis, lumbosacral region (principal); G43.909 Migraine, unspecified, not intractable, without status migrainosus; K21.9 Gastro-esophageal reflux disease without esophagitis; F32.9 Major depressive disorder, single episode, unspecified; M54.2 Cervicalgia; Z98.84 Bariatric surgery status; Z79.82 Long term (current) use of aspirin; Z79.891 Long term (current) use of opiate analgesic; Z79.899 Other long term (current) drug therapy; J30.9 Allergic rhinitis, unspecified; Z88.2 Allergy status to sulfonamides

== ENCOUNTER → 2021-06-29 | Outpatient (CLI) | payer BC, OTHER ==
[~2021-06-29] MED LIST changes: -CLIN150C15 PO; +CLIN150C17 PO
--- NOTE | 2021-06-29 16:24 | REPMRS ---
Patient History The patient states she had a clinical breast exam in March 2021. No known family history of cancer. Patient states no breast complaints today. Patient has signed MRS History Sheet. Digital Woman Screen Mammo: June 29, 2021 - Exam #: [id number] Bilateral CC and MLO view(s) were taken. Technologist: Sherice Roche Technologist Prior study comparison: January 16, 2018, bilateral digital mammo screening bilat, performed at [facility]. October 08, 2015, bilateral digital mammo screening bilat, performed at [facility]. FINDINGS: There are scattered fibroglandular densities. Screening. Digital screening (2D) mammography was performed bilaterally in the CC and MLO projections. Additionally, breast tomosynthesis (3D mammography) was performed bilaterally in the CC and MLO projections. Todays exam was compared to the prior exam/exams. By history, the patient has no complaints of a palpable breast abnormality or other significant breast complaints. The breasts are unchanged in size and shape. There are no lwason-soft tissue densities or spiculated masses. There is no internal architectural distortion. There are no suspicious lawson-calcific clusters. Skin thickening or nipple retraction is not present. IMPRESSION: BI-RADS Category 2- Benign Findings. There is no evidence of malignant alteration of the breasts. Followup examination recommended in one year. The Volpara volumetric breast density category is B, there are scattered areas of fibroglandular densities. This mammogram was read with the assistance of Sue [employer],an FDA approved computer aided detection system for mammography. The lifetime Tyrer-Cuzick score is 6.8 % Negative x-ray reports should not delay surgical consultation if a dominant or clinically suspicious mass is present. Not all breast cancers can be identified by mammography. Therefore, we recommend that you continue to perform regular breast self-examination and physical examination and then promptly contact your physician of any concerns or changes. Adenosis and dense breasts may obscure an underlying neoplasm. Assessment: BI-RADS/ACR category 2 mammogram. Benign Findings. Recommendation Routine screening mammogram of both breasts in 1 year. Electronically Signed By: Guillermo Zimmer DO 06/29/21 [id number]
== END ==
LOC: M WHC 15:33
PROVIDERS: ATTEND Obstetrics & Gynecology
DX: Z12.31 Encounter for screening mammogram for malignant neoplasm of breast (principal)

== ENCOUNTER → 2021-07-07 | Outpatient (CLI) | payer BC, OTHER | LOC: M PAIN 10:30 | PROVIDERS: ATTEND Anesthesiology | DX: M47.816 Spondylosis without myelopathy or radiculopathy, lumbar region (principal); M43.06 Spondylolysis, lumbar region; G43.909 Migraine, unspecified, not intractable, without status migrainosus; K21.9 Gastro-esophageal reflux disease without esophagitis; M54.2 Cervicalgia; J30.9 Allergic rhinitis, unspecified; F32.9 Major depressive disorder, single episode, unspecified; Z86.73 Personal history of transient ischemic attack (TIA), and cerebral infarction without residual deficits; Z79.891 Long term (current) use of opiate analgesic; Z79.82 Long term (current) use of aspirin; Z79.899 Other long term (current) drug therapy; Z88.2 Allergy status to sulfonamides ==

== ENCOUNTER → 2021-08-05 | Outpatient (CLI) | payer BC, OTHER | LOC: M LABSMTC 10:59 | PROVIDERS: ATTEND Anesthesiology | DX: Z01.818 Encounter for other preprocedural examination (principal); Z11.52 Encounter for screening for COVID-19 ==

== ENCOUNTER → 2021-08-05 | Outpatient (CLI) | payer BC, OTHER ==
--- NOTE | 2021-08-05 17:42 | REP ---
INDICATION: SPONDYLOSIS W/O MYELOPATHY OR RADICULOPATHY, LUMBA COMPARISON: 04/08/2021 TECHNIQUE: AP, lateral, flexion/extension, bilateral oblique, and coned-down views. FINDINGS: Chronic dextroconvex scoliosis and advanced multilevel degenerative changes are again are relatively stable. Findings include endplate sclerosis/heterogeneity, osteophytosis, disc space narrowing, and facet hypertrophy throughout the visualized lower thoracic and lumbosacral spine. Chronic grade 1 anterolisthesis at L4-5 of approximately 7.5 mm again noted. There is no evidence for acute fracture/compression injury. IMPRESSION: Chronic scoliosis and advanced multilevel degenerative changes. <Electronically signed by Ochoa Seo > 08/05/21 [id number]
== END ==
LOC: M RAD 16:23
PROVIDERS: ATTEND Anesthesiology
DX: M47.816 Spondylosis without myelopathy or radiculopathy, lumbar region (principal)

== ENCOUNTER → 2021-08-10 | Outpatient (CLI) | payer BC, OTHER ==
[~2021-08-10] MED LIST changes: +BUPIVACAINE HCL 0.25% 30ML VIAL As Ordered ONE; +ISOVUE-M 300 61% 15ML VIAL As Ordered ONE; +LIDOCAINE 1% SDV 30ML VIAL As Ordered ONE
--- NOTE | 2021-08-10 15:19 | REP ---
INDICATION: BILATERAL DIAGNOSTIC FACET BLOCK L3-L4, L4-L5, L5-S1 #1. COMPARISON: None. TECHNIQUE: For C-arm views lower lumbar spine. FINDINGS: [place] are seen along the lower lumbar facet joints. A small amount of contrast is injected. IMPRESSION: 37 seconds of fluoroscopy time was utilized. <Electronically signed by Michael Leos > 08/10/21 [id number]
== END ==
LOC: M PAIN 11:20
PROVIDERS: ATTEND Anesthesiology
DX: M47.816 Spondylosis without myelopathy or radiculopathy, lumbar region (principal); M47.817 Spondylosis without myelopathy or radiculopathy, lumbosacral region; G43.909 Migraine, unspecified, not intractable, without status migrainosus; Z86.14 Personal history of Methicillin resistant Staphylococcus aureus infection; Z86.59 Personal history of other mental and behavioral disorders; Z86.73 Personal history of transient ischemic attack (TIA), and cerebral infarction without residual deficits; Z88.1 Allergy status to other antibiotic agents; Z79.82 Long term (current) use of aspirin; Z79.899 Other long term (current) drug therapy
CPT/HCPCS: 64493; 64494; Q9967

== ENCOUNTER → 2021-09-24 | Outpatient (CLI) | payer BC, OTHER ==
[~2021-09-24] MED LIST changes: -BUPIVACAINE HCL 0.25% 30ML VIAL As Ordered ONE; -ISOVUE-M 300 61% 15ML VIAL As Ordered ONE; -LIDOCAINE 1% SDV 30ML VIAL As Ordered ONE
== END ==
LOC: M PAIN 11:30
PROVIDERS: ATTEND Anesthesiology
DX: G89.29 Other chronic pain (principal); M47.816 Spondylosis without myelopathy or radiculopathy, lumbar region; G43.909 Migraine, unspecified, not intractable, without status migrainosus; K21.9 Gastro-esophageal reflux disease without esophagitis; F32.A Depression, unspecified; M54.2 Cervicalgia; J30.9 Allergic rhinitis, unspecified; Z86.73 Personal history of transient ischemic attack (TIA), and cerebral infarction without residual deficits; Z79.82 Long term (current) use of aspirin; Z79.891 Long term (current) use of opiate analgesic; Z79.899 Other long term (current) drug therapy; Z88.2 Allergy status to sulfonamides

== ENCOUNTER → 2021-10-14 | Outpatient (CLI) | payer BC, OTHER | LOC: M PAIN 15:00 | PROVIDERS: ATTEND Anesthesiology | DX: M47.816 Spondylosis without myelopathy or radiculopathy, lumbar region (principal); G43.909 Migraine, unspecified, not intractable, without status migrainosus; K21.9 Gastro-esophageal reflux disease without esophagitis; F32.A Depression, unspecified; J30.9 Allergic rhinitis, unspecified; M54.2 Cervicalgia; Z86.73 Personal history of transient ischemic attack (TIA), and cerebral infarction without residual deficits; Z79.82 Long term (current) use of aspirin; Z79.891 Long term (current) use of opiate analgesic; Z79.899 Other long term (current) drug therapy; Z88.2 Allergy status to sulfonamides ==

== ENCOUNTER → 2022-03-04 | Outpatient (REF) | payer OTHER, BC ==
[~2022-03-04] MED LIST changes: -D31000TA2 PO; +VITA100093 PO
[2022-03-04 16:34] LABS: ALBUMIN 3.5 GM/DL (3.2-5.2); BLOOD UREA NITROGEN 14 MG/DL (7-18); CALCIUM LEVEL 9.1 MG/DL (8.8-10.2); CARBON DIOXIDE LEVEL 23 MEQ/L (21-32); CHLORIDE LEVEL 112 MEQ/L (98-107); CREATININE FOR GFR 0.81 MG/DL (0.55-1.30); GLOMERULAR FILTRATION RATE > 60.0 (>45); GLUCOSE, FASTING 91 MG/DL (70-100); POTASSIUM SERUM 4.1 MEQ/L (3.5-5.1); SODIUM LEVEL 140 MEQ/L (136-145)
== END ==
LOC: M LAB REF 15:44 → M LABWUC 15:44
PROVIDERS: ATTEND Internal Medicine
DX: J06.9 Acute upper respiratory infection, unspecified (principal); U07.1 COVID-19

== ENCOUNTER → 2022-05-01 | Outpatient (CLI) | payer BC, OTHER | LOC: M LABSMTC 11:43 | PROVIDERS: ATTEND Anesthesiology | DX: Z20.828 Contact with and (suspected) exposure to other viral communicable diseases (principal); Z11.59 Encounter for screening for other viral diseases ==

== ENCOUNTER → 2023-01-11 | Outpatient (CLI) | payer BC, OTHER ==
[~2023-01-11] MED LIST changes: +ALEN70TA87 PO; -FOSA70TA PO; +MONT-5 PO; -SING10TA32 PO
[2023-01-11 18:51] LABS: PLATELET COUNT, AUTOMATED 253 10^3/uL (150-450)
[2023-01-11 19:03] LABS: INR 0.91; PROTHROMBIN TIME 12.4 SECONDS (12.5-14.5)
[2023-01-11 19:04] LABS: PARTIAL THROMBOPLASTIN TIME 28.6 SECONDS (24.8-34.2)
== END ==
LOC: M LAB 16:40
PROVIDERS: ATTEND Physician Assistant
DX: Z01.818 Encounter for other preprocedural examination (principal)

== ENCOUNTER → 2024-01-09 | Outpatient (CLI) | payer BC ==
[~2024-01-09] MED LIST changes: +CELE0.09 PO; -CELE1CAP9 PO
== END ==
LOC: M WHC 16:36
PROVIDERS: ATTEND Obstetrics & Gynecology
DX: Z12.31 Encounter for screening mammogram for malignant neoplasm of breast (principal)

== ENCOUNTER 2024-01-10 17:21 | Emergency (ER) | payer BC ==
[2024-01-10 18:42] LABS: BASO # 0.1 10^3/uL (0.0-0.2); BASO % 0.8 % (0.0-1.0); EOS # 0.2 10^3/uL (0.0-0.5); EOS % 1.6 % (0.0-3.0); HEMATOCRIT 36.7 % (36.0-47.0); HEMOGLOBIN 11.3 g/dl (12.0-15.5); LYMPH # 1.4 10^3/uL (1.5-5.0); LYMPH % 10.8 % (24.0-44.0); MEAN CORPUSCULAR HEMOGLOBIN 26.3 pg (27.0-33.0); MEAN CORPUSCULAR HGB CONC 30.8 g/dl (32.0-36.5); MEAN CORPUSCULAR VOLUME 85.5 fl (80.0-96.0); MONO # 0.8 10^3/uL (0.0-0.8); MONO % 6.5 % (2.0-8.0); NEUTROPHILS # 10.4 10^3/uL (1.5-8.5); NEUTROPHILS % 79.9 % (36.0-66.0); PLATELET COUNT, AUTOMATED 294 10^3/uL (150-450); RED BLOOD COUNT 4.29 10^6/uL (4.00-5.40)
[2024-01-10] MEDS: NS 1,000 ML IV ONE (18:52)
[2024-01-10] MEDS: METOCLOPRAMIDE INJ 10MG/2ML VIAL IV ONE (18:52)
[2024-01-10] MEDS: diphenhydrAMINE 50MG/ML VIAL IV ONE (18:52)
[2024-01-10] MEDS: KETOROLAC 30 MG/ML 1ML VIAL IV ONE (18:57)
[2024-01-10 19:05] LABS: ETHYL ALCOHOL (ETHANOL) < 0.003 % (0.000-0.010)
[2024-01-10 19:07] LABS: ALBUMIN 3.3 G/DL (3.2-5.2); ALKALINE PHOSPHATASE 89 U/L (46-116); ALT/SGPT 30 U/L (7.0-40); AST/SGOT 22 U/L (<34); BILIRUBIN,DIRECT < 0.1 MG/DL (<0.4); BILIRUBIN,TOTAL 0.2 MG/DL (0.3-1.2); BLOOD UREA NITROGEN 11 MG/DL (9-23); CALCIUM LEVEL 8.8 MG/DL (8.3-10.6); CARBON DIOXIDE LEVEL 23 MMOL/L (20-31); CHLORIDE LEVEL 113 MMOL/L (98-107); CREATININE FOR GFR 0.85 MG/DL (0.55-1.30); GLOMERULAR FILTRATION RATE > 60.0 (>45); GLUCOSE, FASTING 78 MG/DL (74-106); POTASSIUM SERUM 4.3 MMOL/L (3.5-5.1); SALICYLATE LEVEL < 3.0 MG/DL (<30); SODIUM LEVEL 142 MMOL/L (136-145); TOTAL PROTEIN 6.4 G/DL (5.7-8.2)
[2024-01-10 19:09] LABS: THYROID STIMULATING HORMONE 1.249 uIU/ML (0.55-4.78)
[2024-01-10 19:11] LABS: RSV AMPLIFICATION NEGATIVE (NEGATIVE)
[2024-01-10 20:36] VITALS: BP 113/55; TEMP 98; O2SAT 99
[2024-01-10 20:58] LABS: HEMOGLOBIN A1c 5.4 % (4.0-6.0)
[2024-01-10 21:07] LABS: AMPHETAMINES LEVEL URINE NEGATIVE (NEGATIVE); BARBITURATES URINE NEGATIVE (NEGATIVE); BENZODIAZEPINES URINE NEGATIVE (NEGATIVE); CANNABINOIDS URINE NEGATIVE (NEGATIVE); COCAINE METABOLITE URINE NEGATIVE (NEGATIVE); METHADONE URINE NEGATIVE (NEGATIVE); OPIATES URINE NEGATIVE (NEGATIVE); PHENCYCLIDINE URINE NEGATIVE (NEGATIVE)
== END 2024-01-10 20:38 | disposition home or self-care (01) ==
LOC: M ED 17:21 → EDBD 17:21 → M ED 20:38
DX: E16.2 Hypoglycemia, unspecified (principal); K21.9 Gastro-esophageal reflux disease without esophagitis; G43.909 Migraine, unspecified, not intractable, without status migrainosus; F10.10 Alcohol abuse, uncomplicated; Z88.2 Allergy status to sulfonamides; Z88.8 Allergy status to other drugs, medicaments and biological substances; Z79.899 Other long term (current) drug therapy
CPT/HCPCS: 70450; 71045; 80048; 80076; 80143; 80307; 81001; 82077; 82140; 83036; 83605; 84443; 85025; 87040; 87631; 93005; 93041; 94760; 96361; 96374; 96375; 99285; J1200; J1885; J2765

== ENCOUNTER → 2024-01-17 | Outpatient (CLI) | payer BC | LOC: M PAIN 08:30 | PROVIDERS: ATTEND Anesthesiology | DX: M79.18 Myalgia, other site (principal); M54.50 Low back pain, unspecified; G89.29 Other chronic pain; G43.909 Migraine, unspecified, not intractable, without status migrainosus; K21.9 Gastro-esophageal reflux disease without esophagitis; F32.A Depression, unspecified; Z79.82 Long term (current) use of aspirin; Z79.899 Other long term (current) drug therapy; Z88.2 Allergy status to sulfonamides ==

== ENCOUNTER → 2024-01-31 | Outpatient (REF) | payer OTHER | LOC: M LABWUC 16:16 | PROVIDERS: ATTEND Nurse Practitioner Family | DX: E66.8 Other obesity (principal) ==

== ENCOUNTER → 2024-03-11 | Outpatient (CLI) | payer BC, MEDICARE | LOC: M PAIN 14:30 | PROVIDERS: ATTEND Nurse Practitioner Family | DX: M51.16 Intervertebral disc disorders with radiculopathy, lumbar region (principal); M47.816 Spondylosis without myelopathy or radiculopathy, lumbar region; Z79.02 Long term (current) use of antithrombotics/antiplatelets; Z79.82 Long term (current) use of aspirin; Z79.891 Long term (current) use of opiate analgesic; Z79.899 Other long term (current) drug therapy; Z87.891 Personal history of nicotine dependence ==

== ENCOUNTER → 2024-05-02 | Outpatient (CLI) | payer BC, MEDICARE | LOC: M PLARAD 12:57 | PROVIDERS: ATTEND Nurse Practitioner Family | DX: M51.16 Intervertebral disc disorders with radiculopathy, lumbar region (principal) ==

== ENCOUNTER → 2024-05-30 | Outpatient (CLI) | payer MEDICARE, BC ==
[~2024-05-30] MED LIST changes: -ACIP1TAB PO; +GABA-1172 PO; -GABA-282 PO; +RABE20TA88 PO
== END ==
LOC: M PAIN 14:45
PROVIDERS: ATTEND Nurse Practitioner Family
DX: M47.816 Spondylosis without myelopathy or radiculopathy, lumbar region (principal); M47.817 Spondylosis without myelopathy or radiculopathy, lumbosacral region; G89.29 Other chronic pain; G43.909 Migraine, unspecified, not intractable, without status migrainosus; K21.9 Gastro-esophageal reflux disease without esophagitis; F32.A Depression, unspecified; M54.2 Cervicalgia; Z79.82 Long term (current) use of aspirin; Z79.899 Other long term (current) drug therapy; Z88.2 Allergy status to sulfonamides

== ENCOUNTER → 2024-06-20 | Outpatient (CLI) | payer MEDICARE, BC ==
[~2024-06-20] MED LIST changes: -GABA-1172 PO; +GABA-282 PO
[2024-06-20 18:40] LABS: BASO # 0.1 10^3/uL (0.0-0.2); BASO % 1.3 % (0.0-1.0); EOS # 0.2 10^3/uL (0.0-0.5); EOS % 4.1 % (0.0-3.0); HEMATOCRIT 36.6 % (36.0-47.0); HEMOGLOBIN 11.2 g/dl (12.0-15.5); LYMPH # 1.6 10^3/uL (1.5-5.0); LYMPH % 29.4 % (24.0-44.0); MEAN CORPUSCULAR HEMOGLOBIN 25.7 pg (27.0-33.0); MEAN CORPUSCULAR HGB CONC 30.6 g/dl (32.0-36.5); MEAN CORPUSCULAR VOLUME 83.9 fl (80.0-96.0); MONO # 0.5 10^3/uL (0.0-0.8); MONO % 8.3 % (2.0-8.0); NEUTROPHILS # 3.1 10^3/uL (1.5-8.5); NEUTROPHILS % 56.7 % (36.0-66.0); PLATELET COUNT, AUTOMATED 291 10^3/uL (150-450); RED BLOOD COUNT 4.36 10^6/uL (4.00-5.40); WHITE BLOOD COUNT 5.4 10^3/uL (4.0-10.0)
[2024-06-20 19:04] LABS: ALBUMIN 3.3 G/DL (3.2-5.2); ALKALINE PHOSPHATASE 92 U/L (46-116); ALT/SGPT 49 U/L (7.0-40); AST/SGOT 46 U/L (<34); BILIRUBIN,TOTAL 0.3 MG/DL (0.3-1.2); BLOOD UREA NITROGEN 11 MG/DL (9-23); CALCIUM LEVEL 8.9 MG/DL (8.3-10.6); CARBON DIOXIDE LEVEL 22 MMOL/L (20-31); CHLORIDE LEVEL 112 MMOL/L (98-107); CHOLESTEROL LEVEL 139 MG/DL (<200); CHOLESTEROL RISK RATIO 2.08 (<5); CREATININE FOR GFR 0.86 MG/DL (0.55-1.30); FERRITIN 6.1 NG/ML (7.3-270.7); GLOMERULAR FILTRATION RATE > 60.0 (>45); GLUCOSE, FASTING 85 MG/DL (74-106); HDL CHOLESTEROL 66.6 MG/DL (>40); IRON (FE) 42 UG/DL (50-170); NON-HDL-C 72.4 MG/DL; PERCENT SATURATION 12.4 % (13.2-45.0); POTASSIUM SERUM 4.4 MMOL/L (3.5-5.1); SODIUM LEVEL 140 MMOL/L (136-145); TOTAL IRON BINDING CAPACITY 339 UG/DL (250-425); TOTAL PROTEIN 6.4 G/DL (5.7-8.2); TRIGLYCERIDES LEVEL 57 MG/DL (<150)
== END ==
LOC: M WUC 13:47
PROVIDERS: ATTEND Internal Medicine
DX: K21.9 Gastro-esophageal reflux disease without esophagitis (principal); E78.00 Pure hypercholesterolemia, unspecified; D50.9 Iron deficiency anemia, unspecified

== ENCOUNTER → 2024-07-03 | Outpatient (REF) | payer MEDICARE, OTHER ==
[~2024-07-03] MED LIST changes: +GABA-1172 PO; -GABA-282 PO
== END ==
LOC: M LAB REF 16:26
PROVIDERS: ATTEND Student in an Organized Health Care Education/Training Program
DX: R30.0 Dysuria (principal)

== ENCOUNTER → 2024-07-07 | Outpatient (REF) | payer MEDICARE, OTHER ==
[~2024-07-07] MED LIST changes: -GABA-1172 PO; +GABA-282 PO
== END ==
LOC: M LAB REF 19:55
PROVIDERS: ATTEND Physician Assistant
DX: R30.0 Dysuria (principal)

== ENCOUNTER → 2024-08-16 | Outpatient (CLI) | payer MEDICARE, BC ==
[~2024-08-16] MED LIST changes: +GABA-1172 PO; -GABA-282 PO
[2024-08-16 19:25] LABS: BASO # 0.1 10^3/uL (0.0-0.2); BASO % 1.4 % (0.0-1.0); EOS # 0.2 10^3/uL (0.0-0.5); EOS % 3.3 % (0.0-3.0); HEMATOCRIT 39.2 % (36.0-47.0); LYMPH # 2.4 10^3/uL (1.5-5.0); MEAN CORPUSCULAR HGB CONC 30.6 g/dl (32.0-36.5); MEAN CORPUSCULAR VOLUME 88.3 fl (80.0-96.0); MONO # 0.6 10^3/uL (0.0-0.8); MONO % 8.8 % (2.0-8.0); NEUTROPHILS # 3.3 10^3/uL (1.5-8.5); NEUTROPHILS % 50.2 % (36.0-66.0); PLATELET COUNT, AUTOMATED 278 10^3/uL (150-450); RED BLOOD COUNT 4.44 10^6/uL (4.00-5.40); WHITE BLOOD COUNT 6.6 10^3/uL (4.0-10.0)
[2024-08-16 19:50] LABS: ALBUMIN 3.2 G/DL (3.2-5.2); ALKALINE PHOSPHATASE 88 U/L (35-104); ALT/SGPT 68 U/L (7.0-40); AST/SGOT 47 U/L (<34); BILIRUBIN,TOTAL 0.3 MG/DL (0.3-1.2); BLOOD UREA NITROGEN 11 MG/DL (9-23); CALCIUM LEVEL 9.1 MG/DL (8.3-10.6); CARBON DIOXIDE LEVEL 24 MMOL/L (20-31); CHLORIDE LEVEL 112 MMOL/L (98-107); CREATININE FOR GFR 0.93 MG/DL (0.55-1.30); GLOMERULAR FILTRATION RATE > 60.0 (>45); GLUCOSE, FASTING 86 MG/DL (74-106); IRON (FE) 62 UG/DL (50-170); PERCENT SATURATION 20.4 % (13.2-45.0); POTASSIUM SERUM 4.3 MMOL/L (3.5-5.1); SODIUM LEVEL 140 MMOL/L (136-145); TOTAL IRON BINDING CAPACITY 304 UG/DL (250-425); TOTAL PROTEIN 6.2 G/DL (5.7-8.2)
== END ==
LOC: M WUC 14:06
PROVIDERS: ATTEND Internal Medicine
DX: D50.9 Iron deficiency anemia, unspecified (principal)

== ENCOUNTER → 2024-08-20 | Outpatient (CLI) | payer MEDICARE, BC | LOC: M RAD 13:13 | PROVIDERS: ATTEND Nurse Practitioner Family | DX: R39.14 Feeling of incomplete bladder emptying (principal) ==

== ENCOUNTER → 2024-08-23 | Outpatient (CLI) | payer MEDICARE, BC ==
[~2024-08-23] MED LIST changes: +ISOVUE-M 300 61% 15ML VIAL As Ordered ONE; +LIDOCAINE 1% SDV 30ML VIAL As Ordered ONE; +TRIAMCINOLONE ACETONIDE SUSP 40MG/ML 1ML VIAL As Ordered ONE
== END ==
LOC: M PAIN 12:45
PROVIDERS: ATTEND Anesthesiology
DX: M47.816 Spondylosis without myelopathy or radiculopathy, lumbar region (principal); G89.29 Other chronic pain; G43.909 Migraine, unspecified, not intractable, without status migrainosus; K21.9 Gastro-esophageal reflux disease without esophagitis; F32.A Depression, unspecified; M54.2 Cervicalgia; Z79.82 Long term (current) use of aspirin; Z79.899 Other long term (current) drug therapy; Z88.2 Allergy status to sulfonamides
CPT/HCPCS: 64493; 64494; J0665; J3301; Q9967

== ENCOUNTER → 2024-11-05 | Outpatient (REF) | payer MEDICARE, BC ==
[~2024-11-05] MED LIST changes: -ISOVUE-M 300 61% 15ML VIAL As Ordered ONE; -LIDOCAINE 1% SDV 30ML VIAL As Ordered ONE; -TRIAMCINOLONE ACETONIDE SUSP 40MG/ML 1ML VIAL As Ordered ONE
== END ==
LOC: M WUC 19:54
PROVIDERS: ATTEND Physician Assistant
DX: R30.0 Dysuria (principal)

== ENCOUNTER → 2024-11-25 | Outpatient (CLI) | payer MEDICARE, BC ==
[2024-11-25 16:45] LABS: BASO # 0.1 10^3/uL (0.0-0.2); BASO % 1.4 % (0.0-1.0); EOS # 0.3 10^3/uL (0.0-0.5); HEMATOCRIT 41.9 % (36.0-47.0); HEMOGLOBIN 13.6 g/dl (12.0-15.5); LYMPH # 2.8 10^3/uL (1.5-5.0); LYMPH % 36.3 % (24.0-44.0); MEAN CORPUSCULAR HEMOGLOBIN 30.2 pg (27.0-33.0); MEAN CORPUSCULAR HGB CONC 32.5 g/dl (32.0-36.5); MEAN CORPUSCULAR VOLUME 93.1 fl (80.0-96.0); MONO # 0.5 10^3/uL (0.0-0.8); MONO % 6.8 % (2.0-8.0); NEUTROPHILS % 51.1 % (36.0-66.0); PLATELET COUNT, AUTOMATED 306 10^3/uL (150-450)
[2024-11-25 16:49] LABS: ALBUMIN 3.3 G/DL (3.2-5.2); ALKALINE PHOSPHATASE 93 U/L (35-104); ALT/SGPT 68 U/L (7.0-40); AST/SGOT 48 U/L (<34); BILIRUBIN,TOTAL 0.4 MG/DL (0.3-1.2); BLOOD UREA NITROGEN 10 MG/DL (9-23); CALCIUM LEVEL 9.1 MG/DL (8.3-10.6); CARBON DIOXIDE LEVEL 25 MMOL/L (20-31); CHLORIDE LEVEL 110 MMOL/L (98-107); CHOLESTEROL LEVEL 161 MG/DL (<200); CHOLESTEROL RISK RATIO 1.94 (<5); CREATININE FOR GFR 0.95 MG/DL (0.55-1.30); GLOMERULAR FILTRATION RATE > 60.0 (>45); GLUCOSE, FASTING 89 MG/DL (74-106); HDL CHOLESTEROL 82.9 MG/DL (>40); LDL CHOLESTEROL 61.9 MG/DL (<100); NON-HDL-C 78.1 MG/DL; SODIUM LEVEL 143 MMOL/L (136-145); TOTAL PROTEIN 6.4 G/DL (5.7-8.2); TRIGLYCERIDES LEVEL 81 MG/DL (<150)
[2024-11-26 07:24] LABS: WHITE BLOOD COUNT 7.8 10^3/uL (4.0-10.0)
== END ==
LOC: M WUC 14:19
PROVIDERS: ATTEND Internal Medicine
DX: D50.9 Iron deficiency anemia, unspecified (principal); E78.5 Hyperlipidemia, unspecified; I10 Essential (primary) hypertension

== ENCOUNTER → 2024-12-03 | Outpatient (CLI) | payer MEDICARE, BC | LOC: M PAIN 16:00 | PROVIDERS: ATTEND Anesthesiology | DX: M47.816 Spondylosis without myelopathy or radiculopathy, lumbar region (principal); G89.29 Other chronic pain; K21.9 Gastro-esophageal reflux disease without esophagitis; G43.909 Migraine, unspecified, not intractable, without status migrainosus; Z79.82 Long term (current) use of aspirin; Z79.899 Other long term (current) drug therapy; Z88.2 Allergy status to sulfonamides ==

== ENCOUNTER → 2025-02-17 | Outpatient (REF) | payer MEDICARE, BC ==
[2025-02-17 22:22] LABS: APPEARANCE, URINE HAZY (CLEAR); BACTERIA, URINE AUTO 1+ (NEGATIVE); BILIRUBIN, URINE AUTO NEGATIVE (NEGATIVE); BLOOD, URINE BLOOD 1+ (NEGATIVE); COLOR, URINE YELLOW (YELLOW); GLUCOSE, URINE (UA) AUTO NEGATIVE (NEGATIVE); KETONE, URINE AUTO NEGATIVE (NEGATIVE); LEUKOCYTE ESTERASE, URINE AUTO 3+ (NEGATIVE); MUCUS, URINE SMALL (NEGATIVE); NITRITE, URINE AUTO POSITIVE (NEGATIVE); PROTEIN, URINE AUTO NEGATIVE (NEGATIVE); RBC, URINE AUTO 2 /HPF (0-3); SPECIFIC GRAVITY URINE AUTO 1.009 (1.002-1.035); SQUAMOUS EPITHELIAL CELL UR AU 0 /HPF (0-6); UROBILINOGEN, URINE AUTO 0.2 mg/dL (0.0-2.0); WBC, URINE AUTO TNTC /HPF (0-3)
== END ==
LOC: M LAB REF 21:42
PROVIDERS: ATTEND Physician Assistant Medical
DX: N39.0 Urinary tract infection, site not specified (principal)

== ENCOUNTER → 2025-02-28 | Outpatient (CLI) | payer MEDICARE, BC ==
[2025-02-28 14:59] LABS: BASO # 0.1 10^3/uL (0.0-0.2); BASO % 1.6 % (0.0-1.0); EOS # 0.3 10^3/uL (0.0-0.5); EOS % 4.4 % (0.0-3.0); HEMATOCRIT 33.9 % (36.0-47.0); HEMOGLOBIN 10.5 g/dl (12.0-15.5); LYMPH # 1.9 10^3/uL (1.5-5.0); LYMPH % 25.4 % (24.0-44.0); MEAN CORPUSCULAR HEMOGLOBIN 31.3 pg (27.0-33.0); MEAN CORPUSCULAR VOLUME 100.9 fl (80.0-96.0); MONO # 0.5 10^3/uL (0.0-0.8); MONO % 6.8 % (2.0-8.0); NEUTROPHILS # 4.5 10^3/uL (1.5-8.5); NEUTROPHILS % 61.1 % (36.0-66.0); PLATELET COUNT, AUTOMATED 274 10^3/uL (150-450); RED BLOOD COUNT 3.36 10^6/uL (4.00-5.40); WHITE BLOOD COUNT 7.3 10^3/uL (4.0-10.0)
[2025-02-28 15:29] LABS: BILIRUBIN,TOTAL 0.5 MG/DL (0.3-1.2); CALCIUM LEVEL 8.1 MG/DL (8.3-10.6); CHOLESTEROL RISK RATIO 1.88 (<5); CREATININE FOR GFR 0.92 MG/DL (0.55-1.30); GLOMERULAR FILTRATION RATE 68.7 (>45); HDL CHOLESTEROL 81.8 MG/DL (>40); LDL CHOLESTEROL 62.8 MG/DL (<100); NON-HDL-C 72.2 MG/DL; POTASSIUM SERUM 4.4 MMOL/L (3.5-5.1); TOTAL PROTEIN 5.7 G/DL (5.7-8.2)
== END ==
LOC: M WUC 11:40
PROVIDERS: ATTEND Internal Medicine
DX: E78.5 Hyperlipidemia, unspecified (principal)

== ENCOUNTER → 2025-06-30 | Outpatient (CLI) | payer MEDICARE, BC ==
[~2025-06-30] MED LIST changes: +E-Z-GAS II EFFERVESCENT PACKET (SODIUM BICARB./CITRIC ACID/SIMETHICONE) As Ordered ONE; +E-Z-HD 98% w/w 340 GM SUSP BTL As Ordered ONE; +E-Z-PAQUE 96% w/w SUSP 176 GM BTL As Ordered ONE
== END ==
LOC: M RAD 05-12 10:35
PROVIDERS: ATTEND Surgery
DX: R10.9 Unspecified abdominal pain (principal)

== ENCOUNTER → 2025-08-29 | Outpatient (CLI) | payer MEDICARE, BC ==
[~2025-08-29] MED LIST changes: -E-Z-GAS II EFFERVESCENT PACKET (SODIUM BICARB./CITRIC ACID/SIMETHICONE) As Ordered ONE; -E-Z-HD 98% w/w 340 GM SUSP BTL As Ordered ONE; -E-Z-PAQUE 96% w/w SUSP 176 GM BTL As Ordered ONE
[2025-08-29 17:23] LABS: BASO # 0.1 10^3/uL (0.0-0.2); BASO % 1.8 % (0.0-1.0); EOS # 0.4 10^3/uL (0.0-0.5); EOS % 6.5 % (0.0-3.0); LYMPH # 2.0 10^3/uL (1.5-5.0); LYMPH % 33.6 % (24.0-44.0); MONO # 0.5 10^3/uL (0.0-0.8); MONO % 7.6 % (2.0-8.0); NEUTROPHILS # 3.0 10^3/uL (1.5-8.5); NEUTROPHILS % 50.3 % (36.0-66.0); PLATELET COUNT, AUTOMATED 278 10^3/uL (150-450)
[2025-08-29 17:44] LABS: ALT/SGPT 62.0 U/L (7.0-40); AST/SGOT 48.0 U/L (<34); CALCIUM LEVEL 8.7 MG/DL (8.3-10.6); CARBON DIOXIDE LEVEL 27.0 MMOL/L (20-31); CHLORIDE LEVEL 108.0 MMOL/L (98-107); CHOLESTEROL LEVEL 162.0 MG/DL (<200); CHOLESTEROL RISK RATIO 1.77 (<5); CREATININE FOR GFR 1.04 MG/DL (0.55-1.30); GLOMERULAR FILTRATION RATE 59.3 (>45); LDL CHOLESTEROL 59.5 MG/DL (<100); NON-HDL-C 70.5 MG/DL; POTASSIUM SERUM 4.5 MMOL/L (3.5-5.1); SODIUM LEVEL 143.0 MMOL/L (136-145); TRIGLYCERIDES LEVEL 55.0 MG/DL (<150)
== END ==
LOC: M WUC 14:54
PROVIDERS: ATTEND Internal Medicine
DX: D50.9 Iron deficiency anemia, unspecified (principal); E78.5 Hyperlipidemia, unspecified; K21.9 Gastro-esophageal reflux disease without esophagitis

== ENCOUNTER → 2025-09-01 | Outpatient (CLI) | payer MEDICARE, BC | LOC: M WUC 15:05 | PROVIDERS: ATTEND Internal Medicine | DX: K75.81 Nonalcoholic steatohepatitis (NASH) (principal) ==

== ENCOUNTER → 2025-09-04 | Outpatient (REF) | payer MEDICARE, OTHER | LOC: M LAB REF 15:02 | PROVIDERS: ATTEND Internal Medicine | DX: K75.81 Nonalcoholic steatohepatitis (NASH) (principal) ==